=== PATIENT | female | born 1965 | race Caucasian/White ===

== ENCOUNTER 2024-10-07 09:22 | Emergency (ER) | payer OTHER, SELFPAY ==
[2024-10-07 09:31] VITALS: BP 127/84; PULSE 90; O2SAT 94
[2024-10-07 09:32] VITALS: BP 127/84; PULSE 67; RESP 17; TEMP 36.6; O2SAT 100; BMI 33.3
--- NOTE | 2024-10-07 09:37 | XR_ITS ---
FINAL REPORT CLINICAL HISTORY: LEFT KNEE PAIN, STATES THERE IS A HITCH IN IT COMPARISON: None FINDINGS: LEFT KNEE 3 views of the left knee were obtained. There is no acute fracture or dislocation. Visualized joint spaces are normally aligned. Soft tissues are unremarkable. IMPRESSION: No acute bony abnormality. Reviewed, Interpreted and Dictated by Case Dewey MD Transcribed by Kerline Franklin Authenticated and [facility]
--- NOTE | 2024-10-07 09:56 | ED_ITS ---
Discharge Plan Disposition Patient Disposition: Home, Self-Care Prescriptions Prescriptions: New hydrocodone-acetaminophen 5-325 mg tablet 1 tab PO Q6H PRN (Reason: pain) Qty: 10 0RF lidocaine 5 % adhesive patch,medicated 1 patch topical DAILY Qty: 30 0RF Rx Instructions: leave on most painful area for up to 12 hrs Referrals Follow up/Referrals: Rafita Hermosillo DO [Staff Physician] - See instructions Provider,Referral, [Primary Care Provider] - See instructions Activity Restrictions/Add. Instructions Additional Instructions/Restrictions: Call your family doctor to establish care for this visit to the emergency department and schedule follow-up within 48 hours to ensure improvement. If you have any worsening of your condition or any other concerning signs or symptoms, return to the emergency department or your primary care doctor for further evaluation. Take Tylenol 1000 mg every 6 hours (4 times daily) and ibuprofen 400 mg every 6 hours (4 times daily) as needed with food and water to prevent GI upset and kidney damage. Clinical Impressions Clinical Impression: Acute pain of left knee Print Language Print Language: Uzbek Discharge ED Provider: Landon Zavala General Adult HPI General Chief complaint: Extremity Injury, Lower Stated complaint: Left Knee pain radiating out painful to touch Time Seen by Provider: 10/07/24 09:28 Mode of Arrival: Wheelchair Source of Information: Patient Description of Symptoms (Recalled from ER Triage Doc. by RN): pt to the ED with left knee pain since last night. pt denies any injury but reports she had had a catch in that knee for the last 2 years that will flare up everynow and then History of Present Illness HPI narrative: Please note that above description of symptoms, in this electronic medical record under categorization of recalled from ER triage doctor by RN are reflective of an initial nursing assessment, however, is not reflective of my full history and physical exam that was personally taken and clarified. Consequentially, this preceding description of symptoms, which may include the patient's categorized chief complaint in the EMR, do not reflect my personal clinical impression, and the ultimate description of history of present illness and patient stated complaints should be deferred to this section of the note. Unless stated otherwise or congruent with this section of the note, additional signs, symptoms, or incongruence should be interpreted as inaccurate with my clinical impression. Related Data Previous Rx's ?Medication ?Instructions ?Recorded hydrocodone 5 mg-acetaminophen 325 1 tab PO Q6H PRN pain #10 tabs 10/07/24 mg tablet lidocaine 5 % topical patch 1 patch topical DAILY #30 ea 10/07/24 Allergies Allergy/AdvReac Type Severity Reaction Status Date / Time No Known Allergies Allergy Verified 10/07/24 09:36 [facility] Disclaimer: The information contained in this section may have been updated after the patient was seen, as this information can be updated by other users. Social History Smoking Status: Never smoker alcohol intake: never current occupational status: employed Travel in the last 8 weeks?: None ROS Obtained: Yes All systems reviewed & no additional complaints except as documented Physical Exam General General appearance: alert Head Head exam: atraumatic and normocephalic Eye Eye exam: Present normal appearance, PERRL and EOMI Neck Neck exam: Present normal inspection, full ROM and trachea midline Respiratory Respiratory exam: Absent respiratory distress, wheezes, stridor, accessory muscle use or prolonged expiratory phase Cardiovascular Cardiovascular exam: Present other (Pulses equal symmetric in upper and lower extremities) Abdominal Exam Abdominal exam: Present soft; Absent distention, tenderness or pulsatile mass Extremities Exam Extremities exam: Present tenderness (Medial and lateral joint space of the left knee. Structurally intact left knee, but any provocative testing with range of motion of the knee exacerbates pain. Neurovascularly intact left lower extremity. No outward signs of abnormality); Absent edema Neurological Exam Neurological exam: Present alert, oriented X3 and CN II-XII intact; Absent motor sensory deficit Skin Skin exam: Present warm and dry; Absent diaphoresis or erythema Medical Decision Making Medical Records Medical records reviewed: Yes I reviewed the patient's medical records. Screening: Per USPSTF and CDC recommendations, given the prevalence of disease in our region, it is our hospital?s policy to screen for HIV and viral Hepatitis for all patients aged 18 and over and those with ongoing risk factors. Khalif Inquiry Pt receiving controlled substance: No Khalif was queried for this patient: No Vital Signs: 10/07/24 09:31 10/07/24 09:32 10/07/24 10:17 Temperature 97.9 F Temperature Source Oral Pulse Rate 90 83 Pulse Rate [Left Radial] 67 Respiratory Rate 17 Blood Pressure 127/84 122/83 Blood Pressure [Right Arm] 127/84 Blood Pressure Mean [Right Arm] 98 Blood Pressure Source [Right Arm] Automatic Cuff Blood Pressure Position [Right Arm] Sitting 02 Sat by Pulse Oximetry 94 L 100 95 Oxygen Delivery Method Room Air Room Air Room Air 10/07/24 10:30 10/07/24 11:00 Temperature Temperature Source Pulse Rate 76 85 Pulse Rate [Left Radial] Respiratory Rate Blood Pressure 124/86 122/74 Blood Pressure [Right Arm] Blood Pressure Mean [Right Arm] Blood Pressure Source [Right Arm] Blood Pressure Position [Right Arm] 02 Sat by Pulse Oximetry 95 96 Oxygen Delivery Method Room Air Room Air Orders (Tests/Meds): ED MEDICATIONS Discontinued Medications Generic Name Dose Route Start Last Admin Trade Name Conrad PRN Reason Stop Dose Admin Dexamethasone 10 mg 10/07/24 09:51 10/07/24 10:25 Dexamethasone 4mg Tablet PO 10/07/24 09:52 10 mg ONCE ONE Administration Ketorolac Tromethamine 15 mg 10/07/24 09:51 10/07/24 10:26 Ketorolac 30mg/Ml Vial IV 10/07/24 09:52 Not Given ONCE ONE Ketorolac Tromethamine 15 mg 10/07/24 10:22 10/07/24 10:25 Ketorolac 30mg/Ml Vial IM 10/07/24 10:23 15 mg ONCE ONE Administration Lidocaine 1 each 10/07/24 09:51 10/07/24 10:24 Lidocaine 5% Transdermal Patch TD 10/07/24 09:52 1 each ONCE ONE Administration Ondansetron HCl 4 mg 10/07/24 09:51 10/07/24 10:24 Ondansetron 4mg Odt SL 10/07/24 09:52 4 mg ONCE ONE Administration Oxycodone HCl 5 mg 10/07/24 09:51 10/07/24 10:24 Oxycodone 5mg Immediate Release Tablet PO 10/07/24 09:52 5 mg ONCE ONE Administration ORDERS Category Date Time Status XR knee LT 3V Stat Exams 10/07/24 09:37 Taken Medical Decision Narrative: 58-year-old female history of hypertension, hyperlipidemia, insulin-dependent type 2 diabetes presenting with knee pain. She states that in the remote past, she twisted her knee while going down stairs and ever since then she has an intermittent attacks of pains. States that they have no obvious exacerbating or remitting factors. Flareup intermittently. She has tried Tylenol, Motrin, topical Biofreeze, steroid, none of these have helped. Currently severe in intensity, making it difficult to bear weight, made worse with range of motion of the knee. No history of surgery or other procedures to the knee. Has never had it looked at other than x-rays. Patient also denies fevers, chills, redness streaking from the area, systemic signs or symptoms, nausea, vomiting, but does have the knee pain radiating from the knee down to the ankle and from the knee up to the left hip. History was obtained via conversation with patient. On arrival, patient hemodynamically stable, alert, oriented x4, appropriate, GCS 15, moving all extremities spontaneously, pupils equal and reactive to light. Full physical exam performed and significant for well-appearing female who is in no acute distress, but does appear anxious and tearful. Left lower extremity tender about the knee, tenderness maximally at the joint space on the medial and lateral aspects of the knee. Range of motion is intact and full, but it is significantly tender. No outward signs of effusion or abnormality. Medial and lateral joint space of the left knee. Structurally intact left knee, but any provocative testing with range of motion of the knee exacerbates pain. Neurovascularly intact left lower extremity. No outward signs of abnormality. Differential includes sprain, strain, meniscus injury, ACL versus PCL partial tear, crystal apathy, less likely to be septic joint given no systemic signs or symptoms or redness, no effusion, among others Patient placed on continuous cardiac monitoring and continuous pulse ox with initial blood pressure 127/84, heart rate 67, saturation 100% on room air. X- rays ordered and independently interpreted, no bony abnormality. No evidence of calcium within the joint or bone spurs. I contacted orthopedics and discussed the case with them, recommended crutches, outpatient follow-up. Reevaluation, patient states she is feeling much better. given patient presentation, workup, history, this most likely represents soft tissue injury of the knee. Bedside [id number] ultrasound was performed, external ligamentous structures intact, no severe tear of the medial or lateral meniscus. Because patient at baseline without signs or symptoms of clinical decompensation, deemed appropriate for discharge. Results were relayed to patient who voiced understanding and were agreeable to outpatient management and follow up. I discussed my clinical impression with patient and answered all questions. At this time, the evidence for any other entities in the differential is insufficient to warrant any further testing or ED observation. This was explained as well. Advisory was given that persistent or worsening symptoms require further evaluation. I confirmed the understanding of this discussion. Post Acute Care Nurse Practitioner disclaimer Much of this encounter note is an electronic welder helper spoken language to printed text. Electronic welder helper of the spoken language may permit errors. Although I have reviewed the note, some errors may still exist. Critical Care Critical Care Time Critical Care Time: No
[2024-10-07 10:17] VITALS: BP 122/83; PULSE 83; O2SAT 95
[2024-10-07] MEDS: ONDANSETRON 4MG ODT 4 MG SL (10:24)
[2024-10-07] MEDS: LIDOCAINE 5% TRANSDERMAL PATCH 1 EACH TD (10:24)
[2024-10-07] MEDS: OXYCODONE 5MG IMMEDIATE RELEASE TABLET 5 MG PO (10:24)
[2024-10-07] MEDS: KETOROLAC 30MG/ML VIAL 15 MG IM (10:25)
[2024-10-07] MEDS: DEXAMETHASONE 4MG TABLET 10 MG PO (10:25)
[2024-10-07 10:30] VITALS: BP 124/86; PULSE 76; O2SAT 95
[2024-10-07 11:00] VITALS: BP 122/74; PULSE 85; O2SAT 96
[2024-10-07 11:45] VITALS: BP 143/90; PULSE 84; RESP 20; TEMP 36.8; O2SAT 97
== END 2024-10-07 11:46 | disposition home or self-care (01) ==
PROVIDERS: Emergency Provider Emergency Medicine
DX: M25.562 Pain in left knee (principal)
CPT/HCPCS: 73562; 96372; 99284; J1885; J8540; Q0162

== ENCOUNTER 2024-10-16 10:14 | Outpatient (CLI) | payer OTHER, SELFPAY ==
--- NOTE | 2024-10-16 10:30 | MR_ITS ---
FINAL REPORT TECHNIQUE: Multiplanar MR without contrast CLINICAL HISTORY: Lt knee pain, felt a pop 1 week ago COMPARISON: None FINDINGS: Articular cartilage: Unremarkable Marrow signal: There is moderate bone marrow edema in the medial tibial plateau, the etiology of which is not readily apparent. This is not typical morphology for a stress injury or contusion. Joint fluid: A small joint effusion is present. There is a large Ziegler's cyst present as well, measuring 3.8 x 2.5 x 6.5 cm in size. Menisci: There is a complex tear of the posterior horn of the medial meniscus, that may contribute to the reactive bone marrow edema in the medial tibial plateau. There is also a tiny tear of the intermargin of the lateral meniscus body. Ligaments: Unremarkable Tendons: Quadriceps and patellar tendon unremarkable. There is tendinitis of the semimembranosus tendon. IMPRESSION: 1. Complex tear of the posterior horn of the medial meniscus, with a tiny tear of the intermargin of the lateral meniscus body. 2. Moderate edema in the medial tibial plateau, that may be secondary to reactive edema from the complex tear of the posterior horn of the medial meniscus. 3. Large Ziegler's cyst as described. Reviewed, Interpreted and Dictated by Brenden Hodge MD Transcribed by Cecilia Mcgraw Authenticated and [facility]
[2024-10-16] MEDS: TOCILIZUMAB 800 MG in 0.9 % SODIUM CHLORIDE 60 ML 100 MG IV (11:55)
[2024-10-16] MEDS: SODIUM CHLORIDE 0.9% 50ML BAG 50 ML IV (11:56)
[2024-10-16 12:00] VITALS: BP 112/65; PULSE 77; RESP 18; TEMP 36.7; O2SAT 99
[2024-10-16 12:30] VITALS: BP 121/66; PULSE 74
[2024-10-16 13:05] VITALS: BP 118/62; PULSE 72
== END 2024-10-16 13:10 | disposition home or self-care (01) ==
LOC: RAD 10:14 → INF 11:26
PROVIDERS: PCP Internal Medicine; Visit Provider Nurse Practitioner Primary Care
DX: M25.562 Pain in left knee (principal)
CPT/HCPCS: 73721; 96413; J3262

== ENCOUNTER 2024-10-21 15:16 | Outpatient (RCR) | payer OTHER, SELFPAY | END 2024-10-21 23:59 | disposition home or self-care (01) | LOC: PT 15:16 | PROVIDERS: Visit Provider Physician Assistant | DX: S83.232A Complex tear of medial meniscus, current injury, left knee, initial encounter (principal); M23.91 Unspecified internal derangement of right knee | CPT/HCPCS: 97763 ==

== ENCOUNTER 2024-10-30 08:04 | Outpatient (CLI) | payer OTHER, SELFPAY ==
--- NOTE | 2024-10-30 08:00 | MR_ITS ---
FINAL REPORT TECHNIQUE: Multiplanar and multisequence imaging of the right knee was obtained without contrast. CLINICAL HISTORY: Right knee pain, r/o meniscus tear, felt pop 1.5 weeks ago COMPARISON: None FINDINGS: Bones: There is bone marrow edema within the medial femoral condyle which could represent bone contusion. Remaining marrow signal intensity is preserved. No acute fracture. There are no full thickness cartilage defects. Menisci: Lateral meniscus intact. Oblique tear posterior horn medial meniscus extending to the body.. Ligaments: Cruciate ligaments intact. Sprain or partial tear of the MCL. Lateral collateral ligament intact.. Tendons/Muscles: The quadriceps and patellar tendons are within normal limits. The biceps femoris tendon and iliotibial tract are intact. The popliteus tendon is normal. Other: There is a moderate joint effusion. Prepatellar edema is noted. IMPRESSION: Tear posterior horn medial meniscus. Bone contusion medial femoral condyle. Reviewed, Interpreted and Dictated by Vonnie Quiros MD Transcribed by Kerline Franklin Authenticated and [facility]
== END 2024-10-30 23:59 | disposition home or self-care (01) ==
LOC: RAD 08:05
PROVIDERS: PCP Internal Medicine; Visit Provider Orthopaedic Surgery
DX: S83.241A Other tear of medial meniscus, current injury, right knee, initial encounter (principal); S70.11XA Contusion of right thigh, initial encounter; M23.91 Unspecified internal derangement of right knee
CPT/HCPCS: 73721

== ENCOUNTER 2024-11-21 10:34 | Outpatient (CLI) | payer OTHER, SELFPAY ==
--- OUTSIDE RECORDS SUMMARY | 2024-11-21 10:37 | XMS_ITS | Encounter Summary ---
Author Organization Healthcare Address [address] [place] [address] Care Team Providers Care Golf Cart Attendant Name Role Phone Brisa Patel Unavailable Lionel Barriga MD Primary Care Provider +1- [phone] Encounter Details Date Type Department Care Team (Late st Contact Info) Description 11/17/2024 Telephone [facility] Medicine Specialties [address] [place] [address] , May, [address] [place] [address] Social History Tobacco Use Types Packs/Day Years Used Date Smoking Tobacco: Former Cigarettes 1 15 Smokeless Tobacco: Never Alcohol Use Standard Drinks/Week Comments Not Currently 0 (1 standard drink = 0.6 oz pur e alcohol) PHQ-2 Answer Date Recorded Patient Health Questionnaire-2 Score 0 09/15/2024 PHQ-9 Answer Date Recorded Patient Health Questionnaire-9 Score 0 09/15/2024 Comments Unknown Sex and Gender Information Value Date Recorded Sex Assigned at Not on file Legal Sex Female 8:48 PM EDT Gender Identity Not on file Sexual Orientation Not on file documented as of this encounter Miscellaneous Notes * Telephone Encounter - JasonMay, SCHEDULING AGENT - 11/17/2024 1:21 PM EDT Called patient. She reported surgery pending on one knee 11/25/2024. Currently holding the Actemra. Then she will have surgery on the other knee. She hasn't started Medrol dose pack. I recommending her to discuss with Ortho Surgeon since her surgery is next week. Infection risk is a concern with steroids. Discontinue Actemra for now. Will follow up with patient after her surgeries. documented in this encounter Plan of Treatment Upcoming Encounters Date Type Department Care Team (Late st Contact Info) Description 03/23/2025 9:00 AM EDT Office Visit [facility] Medicine Specialties [address] [place] [address] Jason May SARA Reddy [address] [place] [address] documented as of this encounter Visit Diagnoses Not on filedocumented in this encounter Additional Health Concerns Assessment Noted Time PHQ-9 Depression Total Score: 0 09/16/19 10:19 AM EDT A fall risk assessment has been complete d for the patient 09/19/2024 10:53 AM EDT A Body Mass Index follow-up plan has been documented for the patient 09/15/2024 10:49 AM EDT documented as of this encounter Care Teams Golf Cart Attendant Relationship Specialty Start Date End Date Lionel Barriga MD 100 [facility] 200 [place] [address] PCP - General 03/07/23 Brisa Patel [address] [place] [address] 01/12/22 documented as of this encounter
--- OUTSIDE RECORDS SUMMARY | 2024-11-21 10:37 | XMS_ITS | Clinical Summary ---
Author Organization [facility] Address [address] [place] [address] Care Team Providers Care Sorting Livestock Worker Name Role Phone Other, Physician Outoftolynn KERR Primary Care Provi trudy Unavailable Allergies No known active allergies Medications rosuvastatin (CRESTOR) 20 MG TABS Take 20 mg by mouth daily. 3 Active PARoxetine (PAXIL) 30 MG TABS Take 30 mg by mouth every morning. [address] (PROTONIX) 40 MG TBEC Take 40 mg by mouth 2 (two) times daily. 3 Active nitroGLYCERIN (NITROSTAT) 0.[address] 0.4 mg under the tongue. 3 Active metoprolol succinate (TOPROL-XL) 50 mg extended-release tablet Take 50 mg by mouth daily. 3 Active insulin lispro (HUMALOG) 100 Units/mL SOLN subcutaneous injection Continuously via insulin pump up to 100 units daily 3 Active Insulin Disposable Pump (OMNIPOD 5 G6 PODS, GEN 5,) MISC 1 each by Does Not Apply route. 3 Active hyoscyamine (LEVSIN/SL) 0.125 mg sublingual tablet Take 0.125 mg by mouth every 4 (four) hours as needed. 4 Active Glucagon, rDNA, (GLUCAGON EMERGENCY) 1 MG KIT Inject 1 mg under the skin. Active glucose blood STRP Use as instructed daily to check blood sugars. DX: E11.9 3 Active estradiol (ESTRACE) 0.1 MG/GM CREA Apply a pea sized amount to the vagina 3 times/week 3 Active empagliflozin (JARDIANCE) 25 MG TABS Take 1 tablet by mouth daily with dinner. 3 Active Continuous Glucose Transmitter (DEXCOM G6 TRANSMITTER) MISC 1 each by Does Not Apply route. 4 Active clopidogrel (PLAVIX) 75 mg TABS Take 75 mg by mouth daily. 3 Active aspirin 81 MG TBEC Take 81 mg by mouth daily. Active albuterol 108 (90 Base) mcg/puff inhaler Use 2 puffs. 3 Active buPROPion (WELLBUTRIN) 75 MG TABS Take 75 mg by mouth 2 (two) times daily. Active traZODone (DESYREL) 50 MG TABS Take 50 mg by mouth at bedtime. Active hydrOXYzine HCl (ATARAX) 10 MG TABS Take 10 mg by mouth 3 (three) times daily as needed. Active diphenhydrAMINE (BENADRYL) 25 mg TABS Take 1 tablet by mouth every 6 (six) hours as needed. 30 tablet 4 Active methylPREDNIsolo ne (MEDROL DOSEPAK) 4 mg tablet pack Take by mouth as per package directions. 21 tablet 4 Active Social History Tobacco Use Types Packs/Day Years Used Date Smoking Tobacco: Every Day Cigarettes Smokeless Tobacco: Never Tobacco Cessation:Ready to Q uit: Not Asked; Counseling Given: Not Answered Food Insecurities Answer Date Recorded Worried about running out of food Not on file 09/06/2023 Food Bought Not on file 09/06/2023 Housing/Utilities Answer Date Recorded Worried about losing home Not on file 2023 Stayed outside house Not on file 09/06/2023 Unable to get utilities Not on file 09/06/19 Interpersonal Safety Answer Date Record ed Feel physically or emotionally unsafe where curr ently live Not on file 09/06/2023 Harm by anyone Not on file 09/06/2023 Emotionally Harmed Not on file 09/06/2023 Transportation Answer Date Recorded Worried about transportation Not on file 03/2024 Utilities Answer Date Recorded Worried about losing home Not on file 2023 Stayed outside house Not on file 09/27/2023 Unable to get utilities Not on file 09/27/19 24 Comments Unknown Sex and Gender Information Value Date Recorded Sex Assigned at Not on file Legal Sex Female 10:12 AM EDT Gender Identity Not on file Sexual Orientation Not on file Last Filed Vital Signs Vital Sign Reading Time Taken Comments Blood Pressure 147/99 09/06/2023 10:19 AM EDT Pulse 93 09/06/2023 11:11 AM EDT Temperature 36.7 C (98 F) 09/06/2023 10:19 AM EDT Respiratory Rate 18 09/06/2023 10:19 AM EDT Oxygen Saturation 97% 09/06/2023 11:11 AM EDT Inhaled Oxygen Concentration - - Weight 102.1 kg (225 lb) 09/06/2023 10:19 AM EDT Height 170.2 cm (5' 7 ) 09/06/2023 10:19 AM EDT Body Mass Index 35.24 09/06/2023 10:19 AM EDT Plan of Treatment Health Maintenance Due Date Last Done Comments Pap Screening 12/06/1987 Mammogram Screening 2006 Colonoscopy 12/06/2011 Shingrix (#1) 2016 DTap,Tdap,and Td (1 - Tdap) 12/03/2019 12/02/2019 Pneumococcal 50+ (3 of 3 - PCV20 or PCV21) 04/08/2024 04/08/2019, 05/28/2018, 05/29/2017 Influenza Vaccine (Season Ended) 2025 02/15/2023, 03/13/2022, 03/13/2022, Additional history exists RSV Vaccine (60+ or ) (1 - 1-dose 75+ series) 2041 Pneumococcal 0-49 Discontinued 04/08/2019, , 05/29/2017 HPV Aged Out No longer eligi ble based on patient's age to complete this topic Meningococcal conjugate valent 4 (MCV4) Aged Out No longer eligible based on patient's age to complete this topic RSV Immunization (<20 months) Aged Out No longer eligible based on patient's age to complete this topic Insurance 62 [address] [id number] [address] [employer] ALL OTHERS NOT MEDICARE Care Teams Sorting Livestock Worker Relationship Specialty Start Date End Date Other, Physician MD Queta Other PCP - General Internal Medicine 09/06/23
--- OUTSIDE RECORDS SUMMARY | 2024-11-21 10:37 | XMS_ITS | Encounter Summary ---
Author Organization [facility] Address [address] [place] [address] Care Team Providers Care Supervisor Tunnel Heading Name Role Phone Brisa Patel Unavailable Lionel Barriga MD Primary Care Provider +1- [phone] Reason for Visit * Reason Onset Date Comments Actemra Approval 09/16/2024 Encounter Details Date Type Department Care Team (Late st Contact Info) Description 09/16/2024 Telephone [facility] Infusion [address] [place] [address] Serene Norman, PharmD Actemra Approval Social History Tobacco Use Types Packs/Day Years [...] as of this encounter Miscellaneous Notes * Addendum Note - Afia Rod, PharmD - 11/17/2024 1:42 PM EDTAddended by: AFIA ROD on: 11/17/2024 01:42 PM Modules accepted: Orders * Telephone Encounter - Afia Rod PharmD - 11/17/2024 1:42 PM EDT Per discussion with provider, Actemra therapy plan has been discontinued at this time. * Telephone Encounter - Serene Norman PharmD - 09/16/2024 1:21 PM EDT Infusion Authorization Information Specialty Medication: Actemra J-Code: J3262 CPT Code: n/a S-Codes ([place]): n/a Quantity and Units of Measure Authorized: 1 visit Day Supply: 365 Diagnosis Code: M06.9 Insurance Name: [facility] Insurance Type: Commercial Where did you submit request and how (portal/fax/phone number): Submitted medical PA via [facility] portalwith clinicals. REF# [id number] Authorization/Reference Number: [id number] Approval Dates: 09/05/24-09/04/25 Filling Pharmacy/SOC: [place] documented in this encounter Plan of Treatment Upcoming Encounters Date Type Department Care Team (Late st Contact Info) Description 03/23/2025 9:00 AM EDT Office Visit [facility] Medicine Specialties [address] [place] [address] Jason, May R, DIRECTOR OF HUMAN RESOURCES [address] [place] [address] documented as of this encounter Visit Diagnoses Not on filedocumented in this encounter Additional Health Concerns Assessment Noted Time PHQ-9 Depression Total Score: 0 09/16/19 10:19 AM EDT A fall risk assessment has been complete d for the patient 09/15/2024 10:19 AM EDT A Body Mass Index follow-up plan has been documented for the patient 09/15/2024 10:49 AM EDT documented as of this encounter Care Teams Supervisor Tunnel Heading Relationship Specialty Start Date End Date Lionel Barriga MD 100 [facility] 200 [place] [address] PCP - General 03/07/23 Brisa Patel [address] [place] [address] 01/12/22 documented as of this encounter
--- OUTSIDE RECORDS SUMMARY | 2024-11-21 10:37 | XMS_ITS | Encounter Summary ---
Author Organization Healthcare Address [address] [place] [address] Care Team Providers Care Certified Surgical First Assistant Name Role Phone Brisa Patel Unavailable Lionel Barriga MD Primary Care Provider +1- [phone] Reason for Referral * Consultation (Routine) - Closed Specialty Diagnoses / Procedures Referred By Contac t Referred To Contact Ophthalmology Diagnoses Type 2 diabetes mellitus treated with insulin ([facility]) Retinopathy Lionel Barriga MD [address] [address] Phone: tel: fax: [facility] [address] [place] [address] Phone: tel: fax: Referral ID Status Reason Start Date Expiration Date V isits Requested Visits Authorized [id number] Closed Specialty Services Required 03/01/2023 08/30/2024 1 1 Encounter Details Date Type Department Care Team ([facility] st Contact Info) Description 03/01/2023 Community [facility] [address] [place] [address] Lionel Barriga MD [address] [address] Type 2 diabetes mellitus treated with insulin (CMS/HCC) (Primary Dx); Retinopathy Social History Tobacco Use Types Packs/Day Years Used Date Smoking Tobacco: Never Assessed Comments Unknown Sex and Gender Information Value Date Recorded Sex Assigned at Not on file Legal Sex Female 8:48 PM EDT Gender Identity Not on file Sexual Orientation Not on file documented as of this encounter Plan of Treatment Upcoming Encounters Date Type Department Care Team (Late st Contact Info) Description 03/23/2025 9:00 AM EDT [facility] [address] [place] [address] JasonMayN [address] [place] [address] Scheduled Referrals Name Type Priority Associated Diagnoses Order Schedule Ambulatory Referral to Ophthalmology Outpatient Referral Routine Type 2 diabetes mellitus treated with insulin (CMS/HCC) Retinopathy Expected: 03/01/2023 (Approximate), Expires: 08/30/2024 documented as of this encounter Visit Diagnoses Diagnosis Type 2 diabetes mellitus treated with insulin (CMS/HCC)- Primary Retinopathy Unspecified background retinopathy documented in this encounter Care Teams Certified Surgical First Assistant Relationship Specialty Start Date End Date Lionel Barriga MD 100 [facility] 200 [place] [address] PCP - General 03/07/23 Brisa Patel [address] [place] [address] 01/12/22 documented as of this encounter
--- OUTSIDE RECORDS SUMMARY | 2024-11-21 10:37 | XMS_ITS | Referral Summary ---
Author Organization [facility] Address [address] [place] [address] Care Team Providers Care Rugby League Footballer Name Role Phone Other, Physician Outoftowamrik KERR Primary Care Provi trudy Unavailable Allergies [...] 09/06/2023 10:19 AM EDT Plan of Treatment Not on file Insurance [facility] ALL OTHERS NOT MEDICARE Care Teams Rugby League Footballer Relationship Specialty Start Date End Date Other, Physician MD Queta Other PCP - General Internal Medicine 09/06/23
--- OUTSIDE RECORDS SUMMARY | 2024-11-21 10:37 | XMS_ITS | Encounter Summary ---
Author Organization Healthcare Address [address] [place] [address] Care Team Providers Care Box Finisher Name Role Phone Brisa Patel Unavailable Lionel Barriga MD Primary Care Provider +1- [phone] Reason for Visit * Reason Onset Date Comments Actemra Re-auth 09/15/2024 Encounter Details Date Type Department Care Team (Late st Contact Info) Description 09/15/[address] [facility] Medicine Specialties [address] [place] [address] Arnav Hermosillo, [place] [address] Actemra Re-auth Social History Tobacco Use Types Packs/Day Years [...] on file documented as of this encounter Functional Status * Over the past 2 weeks, how often have you been bothered by any of the following problems? Question Answer Date of Assessment Author Little interest or pleasure in doing things Not at all 09/15/2024 10:19 AM Osbaldo Holloway Feeling down, depressed, or hopeless Not at all 09/15/2024 10:19 AM Osbaldo Holloway Patient Health Questionnaire -2 Score 0 09/15/2024 10:19 AM Osbaldo Holloway * Question Answer Date of Assessment Author Trouble falling or staying a sleep, or sleeping too much Not at all 09/15/2024 10:19 AM Osbaldo Holloway Feeling tired or having roberto le energy Not at all 09/15/2024 10:19 AM Osbaldo Holloway Poor appetite or overeating Not at all 09/15/2024 10 :19 AM Osbaldo Holloway Feeling bad about yourself - or that you are a failure or have let yourself or your family down Not at all 09/15/2024 10:19 AM Osbaldo Rosas Trouble concentrating on thi ngs, such as reading the newspaper or watching television Not at all 09/15/2024 10:19 AM Osbaldo Holloway Moving or speaking so slowly that other people could have noticed? Or the opposite - being so fidgety or restless that you have been moving around a lot more than usual. Not at all 09/15/2024 10:19 AM Osbaldo Holloway Thoughts that you would be b kei off or hurting yourself in some way Not at all 09/15/2024 10:19 AM Osbaldo Holloway Patient Health Questionnaire -9 Score 0 09/15/2024 10:19 AM Osbaldo Holloway * If you checked off any problems on this questionnaire so far, Question Answer Date of Assessment Author How difficult have these problems made it for you to do your work, take care of things at home, or get along with other people? Not difficult at all 09/15/2024 10:19 AM Osbaldo Holloway documented as of this encounter Miscellaneous Notes * Telephone Encounter - Serene Norman, PharmD - 10/06/2024 12:34 PM EDT Patient has been approved to receive infusion treatment at outside facility. [facility] will follow up with facility to make sure patient has been scheduled and received first dose. Specialty Medication: Actemra Filling Pharmacy[facility]: [facility] * Telephone Encounter - Serene Norman PharmD - 10/06/2024 12:31 PM EDT Infusion Authorization Information Specialty Medication: Acctemra J-Code: J3262 CPT Code: n/a S-Codes (Lueders): n/a Quantity and Units of Measure Authorized: Supply: 365 Diagnosis Code: M06.00 Insurance Name: [facility] Insurance Type: Commercial Where did you submit request and how (portal/fax/phone number): Portal Authorization/Reference Number: [id number] Approval Dates: 09/25/24-09/24/25 Filling Pharmacy[facility]: [facility] documented in this encounter Plan of Treatment Upcoming Encounters Date Type Department Care Team (Late st Contact Info) Description 03/23/2025 9:00 AM EDT Office Visit [facility] Medicine Specialties [address] [place] [address] Jason, May R, DISPLAY MECHANIC [address] [place] [address] documented as of this encounter Visit Diagnoses [...] documented as of this encounter Care Teams Box Finisher Relationship Specialty Start Date End Date Lionel Barriga MD 100 [facility] [address] [place] [address] PCP - General 03/07/23 Brisa Patel [address] [place] [address] 01/12/22 documented as of this encounter
--- OUTSIDE RECORDS SUMMARY | 2024-11-21 10:37 | XMS_ITS | Encounter Summary ---
Author Organization Healthcare Address [address] [place] [address] Care Team Providers Care Electronic Scale Subassembler Name Role Phone Brisa Patel Unavailable Lionel Barriga MD Primary Care Provider +1- [phone] Encounter Details Date Type Department Care Team (Late st Contact Info) Description 01/17/2022 Community [facility] [address] [place] [address] Jami Maldonado, BAKER CHEF 100 [facility] [address] [place] [address] Rheumatoid arthritis, involving unspecified site, unspecified whether rheumatoid factor present (CMS/[facility]) (Primary Dx) Social History Tobacco Use Types Packs/Day Years [...] Description 03/23/2025 9:00 AM EDT Office Visit [facility] [address] [place] [address] Shalonda Gomez, BAKER CHEF [address] [place] [address] documented as of this encounter Visit Diagnoses Diagnosis Rheumatoid arthritis, involving unspecified site, unspecified whether rheumatoid factor present ([facility])- Primary documented in this encounter Care Teams Electronic Scale Subassembler Relationship Specialty Start Date End Date Lionel Barriga MD 100 [facility] [address] [place] [address] PCP - General 03/07/23 Brisa Patel [address] [place], [place] [id number] 01/12/22 documented as of this encounter
--- OUTSIDE RECORDS SUMMARY | 2024-11-21 10:37 | XMS_ITS | Clinical Summary ---
Author Organization Healthcare Address [address] [place] [address] Care Team Providers Care Fleet Director Name Role Phone Brisa Patel Unavailable Lionel Barriga MD Primary Care Provider +1- [phone] Allergies No known active allergies Medications acetaminophen (Tylenol) 500 MG tablet Take by mouth. Activ e aspirin 81 MG EC tablet Take 1 tablet by mouth 1 time each day. Active B Fnqcyon-K-Tqevx Acid (Super B Complex/FA/Vit C) tablet Active cholecalciferol 50 MCG (1999 UT) tablet Active clopidogrel (Plavix) 75 MG tablet Take 1 tablet by mouth 1 time each day. 10/02/19 23 Active Glucagon 1 MG/0.2ML solution auto-injector Active Omnipod 5 G6 Pod, Gen 5, (Omnipod5) misc 01/04/20 23 Active Insulin Lispro (Admelog, HumaLOG) 100 UNIT/ML injection vial Continuously via insulin pump up to 100 units daily 12/21/19 23 Active metoprolol succinate XL (Toprol-XL) 50 MG 24 hr tablet Take 1 tablet by mouth 1 time each day. 10/02/19 22 Active Multiple Vitamin (MULTI-VITAMIN DAILY PO) Active nitroglycerin (Nitrostat) 0.[address] 1 tablet under the tongue. 10/02/19 22 Active PARoxetine (Paxil) 30 MG tablet Take 1 tablet by mouth 1 time each day. 09/14/19 23 Active pantoprazole (Protonix) 40 MG EC tablet Take 1 tablet (40 mg) by mouth 1 (one) time each day. Active rosuvastatin (Crestor) 20 MG tablet Take 1 tablet (20 mg) by mouth 1 (one) time each day. 30 tablet 11 10/12/19 23 Active Alcohol Swabs (Alcohol Prep) pads Active Blood Glucose Monitoring Suppl (FreeStyle Lite) w/Device kit 03/08/20 23 Active buPROPion XL (Wellbutrin XL) 300 MG 24 hr tablet Take 450 mg by mouth 1 (one) time each day in the morning. 11/06/19 24 Active Continuous Glucose Sensor (Dexcom G6 Sensor) misc 10/24/19 24 Active estradiol (Estrace) 0.1 MG/GM vaginal cream 11/07/19 24 Active fluticasone (Flonase) 50 MCG/ACT nasal spray 03/19/20 23 Active ondansetron ODT (Zofran-ODT) 4 MG disintegrating tablet 04/10/20 23 Active hydrOXYzine HCl (Atarax) 50 MG tablet Take 1 tablet by mouth daily. Active Synjardy XR 25-1000 MG 24 hr tablet Take 1 tablet by mouth daily with breakfast. 01/02/20 24 Active Glucagon 0.5 MG/0.1ML solution auto-injector 1 mg. Active Continuous Glucose Electronic News Gathering Editor (Dexcom G6 electric repair supervisor) device 09/07/19 24 Active traZODone (Desyrel) 100 MG tablet 02/11/20 24 Active predniSONE (Deltasone) 5 MG tabletIndications: Rheumatoid arthritis, involving unspecified site, unspecified whether rheumatoid factor present ([facility]) 1-2 tablets daily as needed for flare up. Notify Rheumatology provider if you have to take for 5 consecutive days. 30 tablet 1 09/09/19 25 Active atomoxetine (Strattera) 25 MG capsule Take 1 capsule by mouth 1 time each day. Active famotidine-calcium carb-mag hydroxide (Pepcid Complete) 10-800-165 MG chewable tablet Chew 1 tablet daily as needed for heartburn. Active methylPREDNISolone (Medrol Dospak) 4 MG tablets Follow schedule on package instructions 21 tablet 10/24/19 25 Active Active Problems Problem Noted Date Diagnosed Date Obesity (BMI 30.0-34.9) 10/11/2022 03/07/20 CAD (coronary artery disease) 10/03/2021 Overview (03/07/2023): NSTEMI 10/01/2021 treated at [facility] with 100% ramus treated with a 2.5 mm LILY, proximal and mid LAD treated with 3.0 mm i Synergy stents. Residual chest pain admitted to [facility] 10/04/2021, repeat C showed widely patent ramus and LAD stents between the proximal and mid LAD stents 20-30% stenosis, proximal RCA 10-20%. LVEDP 14 mmHg. 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 03/07/2023 Encounters Date Type Department Care Team Description 11/17/2024 Telephone [facility] Medicine Specialties [address] [place] [address] Shalonda Gomez, COLLAR WORKER 09/19/2024 10:47 AM EDT - 09/19/2024 11:59 PM EDT Hospital Encounter [facility] [address] [place] [address] Rheumatoid arthritis, involving unspecified site, unspecified whether rheumatoid factor present (CMS/HCC) (Primary Dx); Rheumatoid arthritis involving multiple sites, unspecified whether rheumatoid factor present (CMS/[facility]) Discharge Disposition: Home or Self Care 09/19/2024 Travel 09/18/2024 Telephone [facility] [address] [place] [address] Tram Gibson, COLLAR WORKER, DNP 09/16/2024 Telephone [facility] [address] [place] [address] Serene Norman, PharmD Actemra Approval 09/15/2024 10:30 AM EDT Office Visit [facility] Medicine Specialties [address] [place] [address] Jason, May R, COLLAR WORKER Rheumatoid arthritis, involving unspecified site, unspecified whether rheumatoid factor present ([facility]) (Primary Dx); High risk medication use 09/15/2024 Telephone [facility] Medicine Specialties [address] [place] [address] Arnav Hermosillo, PharmD Actemra Re-auth 09/15/2024 Travel 09/09/2024 Travel 09/08/2024 Refill [facility] Specialties [address] [place] [address] May R, COLLAR WORKER Rheumatoid arthritis, involving unspecified site, unspecified whether rheumatoid factor present ([facility]) from Last 3 Months Immunizations Immunization Administration Dates Next Due Hep A, Adult 04/08/2019, 9,04/02/2018,03/28 Influenza, Unspecified 03/13/2022,06/16/2020 Influenza, injectable, quadrivalent 03/24/2020,0 01/26/2019 Influenza, injectable, quadr ivalent, preservative free 02/15/2023,03/13/2022,04/08/2019 Pneumococcal Conjugate PCV 13 04/08/2019, 019 Pneumococcal Polysaccharide PPV23 05/29/2017,05/2017 TD (adult), 2 Lf tetanus tox oid, preservative free, adsorbed 12/02/2019 Zoster, Recombinant 12/31/2019,12/04/2019 Family History Medical History Relation Name Comments Cataracts Father Diabetes Father Hypertension Father Stroke Father Cancer Maternal Grandfather COPD Mother Cataracts Mother Crohn's disease Mother Macular degeneration Mother Diabetes Paternal Grandmother Relation Name Status Comments Father Maternal Grandfather Mother Paternal Grandmother Social History Tobacco Use Types Packs/Day Years Used Date Smoking Tobacco: Former Cigarettes 1 15 Smokeless Tobacco: Never Tobacco Cessation:Counseling Given: Not Answered Alcohol Use Standard Drinks/Week Comments Not Currently [...] Sign Reading Time Taken Comments Blood Pressure 128/84 09/19/2024 12:53 PM EDT Pulse 79 09/19/2024 12:53 PM EDT Temperature 36.6 C (97.9 F) 09/19/2024 10:52 AM EDT Respiratory Rate 16 09/19/2024 10:52 AM EDT Oxygen Saturation 95% 09/15/2024 10:15 AM EDT Inhaled Oxygen Concentration - - Weight 102 kg (223 lb 15.8 oz) 09/19/2024 10:52 AM EDT Height 170.2 cm (5' 7 ) 09/19/2024 10:52 AM EDT Body Mass Index 35.08 09/19/2024 10:52 AM EDT Plan of Treatment Upcoming Encounters Date Type Department Care Team (Late st Contact Info) Description 03/23/2025 9:00 AM EDT Office Visit [facility] Medicine Specialties [address] [place] [address] Jason, May R, COLLAR WORKER [address] [place] [address] Health Maintenance Due Date Last Done Comments [facility]-Infant/Child/Adol SDOH Screenings 1966 [id number] Vaccine (#1) 12/06/1971 Diabetes: Dental Exam 1976 [facility]- SDOH Screenings 1984 [facility]-Adult SDOH Screenings 1984 [facility]-Hepatitis B Vaccines (1 of 3 - 19+ 3-dose series) 1985 [facility]-Pap Smear 12/06/1987 [facility]-Cervical Cancer Screening 1996 [facility]-HPV/Cotest 1996 CT Colonography 12/06/2011 Colonoscopy 12/06/2011 FIT-DNA 12/06/2011 FIT 12/06/2011 FOBT 12/06/2011 Sigmoidoscopy 12/06/2011 [facility]-Colorectal Cancer Screening 12/06/2011 [facility]-DTaP,Tdap,and Td Vaccines (1 - Tdap) 12/03/2019 12/02/2019 [facility]-Pneumococcal Vaccine: 50+ Years (3 of 3 - PCV20 or PCV21) 04/08/2024 04/08/2019, 05/28/2018, 05/29/2017, Additional history exists [facility]-Breast Cancer Screening 04/26/2024 04/26/2022, 1 06/26/2021 [facility]-Diabetes: Hemoglobin A1C 11/26/202406/2024, 06/20/2023, 03/13/2022, Additional history exists [facility]-Influenza Vaccine (Season Ended) 2025 02/15/2023, 03/13/2022, 03/13/2022, Additional history exists [facility]-Depression Screening 09/15/2025 09/15/2024, 08/27 [facility]-Hepatitis A Vaccines Aged Out 019, 01/26/2019, 04/02/2018, Additional history exists No longer eligible based on patient's age to complete this topic [facility]-Zoster Vaccines Completed 12/31/2019, 0 [facility]-HIV Screening Completed 11/12/2023 [facility]-Hepatitis C Screening Completed 11/12/2023 [facility]-Obesity Intervention Completed 025, 06/20/2024, 04/16/2024, Additional history exists HPV Vaccines Aged Out No longer eligi ble based on patient's age to complete this topic [facility]-HIB Vaccines Aged Out No longer e ligible based on patient's age to complete this topic [facility]-IPV Vaccines Aged Out No longer e ligible based on patient's age to complete this topic [facility]-Rotavirus Vaccines Aged Out No lo nger eligible based on patient's age to complete this topic Procedures Procedure Name Priority Date/Time Associated Diagnosis Comments ACUTE HEPATITIS PANEL Routine 11/12/2023 9:29 AM EDT Polyarthralgia HIV 1/2 ANTIBODY/ANTIGEN SCREEN WITH REFLEX TO HIV I/II DIFFERENTIATION Routine 11/12/2023 9:29 AM EDT Polyarthralgia from Last 3 Months or Most Recently Relevant to Health Maintenance Results * HIV 1 & 2 Antibody/Antigen Screen (11/12/2023 9:29 AM EDT) HIV 1 & 2 Antibody/Antigen Screen Non Reactive Non Reactive 11/12/2023 11:25 AM EDT [facility] Comment:Screening for HIV 1 & 2 antibodies, and P24 antigen is NONREACTIVE. No confirmatory testing is required. Blood Venous blood specimen / Unknown Venipuncture / Unknown 11/12/2023 9:29 AM EDT 11/12/2023 9:32 AM EDT May Jason RUIZ LAB BLOOD ORDERABLES Final Result Performing Organization Address [facility] Phone Number [facility] [address] [place] [address] * Acute Hepatitis Panel (11/12/2023 9:29 AM EDT) Hepatitis B Surf Antigen Negative Negative 11/12/2023 11:46 AM EDT [facility] Hepatitis C Antibody Negative Negative 11/12/2023 11:46 AM EDT [facility] Hepatitis A Antibody IgM Negative Negative 11/12/2023 11:46 AM EDT [facility] Hepatitis B Core Antibody IgM Negative Negative 11/12/2023 11:46 AM EDT [facility] Blood Venous blood specimen / Unknown Venipuncture / Unknown 11/12/2023 9:29 AM EDT 11/12/2023 9:32 AM EDT May Jason BOBN LAB BLOOD ORDERABLES Final Result Performing Organization Address [facility] Co va Phone Number [facility] [address] [place] [address] from Last 3 Months or Most Recently Relevant to Health Maintenance Insurance [facility] Care Teams Fleet Director Relationship Specialty Start Date End Date Lionel Barriga MD 100 [facility] [address] [place] [address] PCP - General 03/07/23 Brisa Patel [address] [place] [address] 01/12/22
--- OUTSIDE RECORDS SUMMARY | 2024-11-21 10:37 | XMS_ITS | Clinical Summary ---
Author Organization [facility] Address [address] [place] [address] Care Team Providers Care Screen Repairer Crusher Name Role Phone Unavailable Primary Care Provider Unavailabl e Allergies No known active allergies Social History Tobacco Use Types Packs/Day Years Used Date Smoking Tobacco: Every Day Cigarettes Smokeless Tobacco: Never Tobacco Cessation:Ready to Q uit: Not Asked; Counseling Given: Not Answered Alcohol Use Standard Drinks/Week Comments Not Currently 0 (1 standard drink = 0.6 oz pur e alcohol) AUDIT-C Answer Date Recorded Q1: How often do you have a drink containing alcohol? Never 09/22/2023 Q2: How many drinks containi ng alcohol do you have on a typical day when you are drinking? Patient does not drink Q3: How often do you have si x or more drinks on one occasion? Never 09/22/2023 Interpersonal Safety Domain Source: IP Abuse Scr eening Answer Date Recorded Read-Only, Retired: Physical Abuse Denies 09/22/2023 Read-Only, Retired: Verbal Abuse Denies 09/22/2023 Read-Only, Retired: Emotional abuse Denies 09/22/2023 Read-Only, Retired: Financial Abuse Denies 09/22/2023 Read-Only, Retired: Sexual abuse Denies 09/22/2023 Comments No Sex and Gender Information Value Date Recorded Sex Assigned at Not on file Legal Sex Female 3:07 PM EDT Gender Identity Not on file Sexual Orientation Not on file Last Filed Vital Signs Vital Sign Reading Time Taken Comments Blood Pressure 108/77 09/22/2023 3:30 PM EDT Pulse 76 09/22/2023 3:30 PM EDT Temperature 36.7 C (98 F) 09/22/2023 3:20 PM EDT Respiratory Rate 19 09/22/2023 3:30 PM EDT Oxygen Saturation 97% 09/22/2023 3:30 PM EDT Inhaled Oxygen Concentration - - Weight 103 kg (227 lb 1.2 oz) 09/22/2023 3:20 PM EDT Height 170.2 cm (5' 7 ) 09/22/2023 3:20 PM EDT Body Mass Index 35.56 09/22/2023 3:20 PM EDT Plan of Treatment Health Maintenance Due Date Last Done Comments DTaP/Tdap/Td vaccine (1 - Tdap) 1985 COVID-19 Vaccine ( - season) 2024 Flu vaccine (Season Ended) 12/26/202402/15, 03/13/2022, 06/16/2020, Additional history exists Polio vaccine Aged Out No longer elig ible based on patient's age to complete this topic Insurance [place]
--- NOTE | 2024-11-21 10:46 | ECG_ITS ---
APPROVED REPORT Exam: Resting ECG HR:77 bpm ECG Measurements Heart Rate 77 AXES MD 168 P 36 QRSd 94 QRS 18 QT 410 T 42 QTc 442 Conclusion SINUS RHYTHM Left atrial abnormality BORDERLINE ECG UNCONFIRMED REPORT Electronically signed by : Kareem Collazo MD 11/22/2024 07:50:32
--- NOTE | 2024-11-21 11:02 | XR_ITS ---
FINAL REPORT CLINICAL HISTORY: surgery states knee surgery next sunday hx of cardiac stents denies cp or soa COMPARISON: None FINDINGS: CHEST TO IS: No acute pulmonary density is evident. There is no evidence of effusion or other pleural disease. The mediastinum has a normal appearance. The cardiac silhouette is unremarkable. IMPRESSION: Unremarkable chest exam. Reviewed, Interpreted and Dictated by Brenden Hodge MD Transcribed by Cecilia Mcgraw Authenticated and [facility]
[2024-11-21 11:07] LABS: Basophils # 0.1 K/mm3 (0-0.2); Basophils % 2.6 % (0.1-2.0); Eosinophils # 0.4 Kmm3 (0.0-0.4); Eosinophils % 9.4 % (0.1-12.0); Hematocrit 43.4 % (37.0-47.0); Immature Granulocytes # 0.01 10^3uL; Immature Granulocytes % 0.3 %; Lymphocytes # 1.5 K/mm3 (0.7-4.5); Lymphocytes % 37.2 % (10-50); Mean Corpuscular HGB Conc 32.3 g/dL (31.8-35.4); Mean Corpuscular Hemoglobin 29.7 pg (27.0-31.2); Mean Corpuscular Volume 91.9 fl (81-99); Mean Platelet Volume 10.4 fl (7.4-10.4); Monocytes # 0.2 K/mm3 (0.1-1.0); Monocytes % 5.6 % (1.7-9.3); Neutrophils # 1.8 K/mm3 (1.8-7.8); Neutrophils % 44.9 % (37.0-80.0); Nucleated Red Blood Cells # 0 10^3/uL; Nucleated Red Blood Cells % 0 %; Platelet Count 185 K/mm3 (142-424); Red Blood Count 4.72 M/mm3 (4.20-5.40); Red Cell Distribution Width 12.8 % (11.5-17.5); Red Cell Distribution Width-SD 43.1 fL; White Blood Count 3.9 K/mm3 (4.8-10.8)
[2024-11-21 11:15] LABS: Anion Gap 12.2 mEq/L (5-15); Blood Urea Nitrogen 19 mg/dl (7-17); Calcium 9.2 mg/dl (8.4-10.2); Carbon Dioxide 24 mmol/L (22.0-30.0); Chloride 100 mmol/L (98-107); Estimated Glomerular Filt Rate 51 ml/min (>60); GFR (African American) 62 ML/MIN (>60); Potassium 4.2 mmoL/L (3.5-5.1); Sodium 132 mmol/L (136-145)
[2024-11-21 11:19] LABS: Glucose 437 mg/dl (74-100)
== END 2024-11-21 23:59 | disposition home or self-care (01) ==
LOC: PREOP 10:35
PROVIDERS: PCP Internal Medicine; Visit Provider Orthopaedic Surgery
DX: Z01.810 Encounter for preprocedural cardiovascular examination (principal); Z01.811 Encounter for preprocedural respiratory examination; Z01.812 Encounter for preprocedural laboratory examination; S83.241A Other tear of medial meniscus, current injury, right knee, initial encounter; M23.91 Unspecified internal derangement of right knee; R94.31 Abnormal electrocardiogram [ECG] [EKG]
CPT/HCPCS: 71046; 80048; 85025; 93005

== ENCOUNTER 2024-11-22 13:52 | Emergency (ER) | payer OTHER, SELFPAY ==
[2024-11-22] VITALS (7 sets, daily range): BP systolic 106–147; BP diastolic 62–72; PULSE 56–67; RESP 20; TEMP 36.8; O2SAT 95–98; BMI 33.3
--- OUTSIDE RECORDS SUMMARY | 2024-11-22 14:02 | XMS_ITS | Clinical Summary ---
Author Organization [facility] Address [address] [place] [address] Care Team Providers Care Nutritional Assistant Name Role Phone Unavailable Primary Care Provider [...]
--- OUTSIDE RECORDS SUMMARY | 2024-11-22 14:02 | XMS_ITS | Referral Summary ---
Author Organization [facility] Address [address] [place] [address] Care Team Providers Care Interior Design Faculty Member Name Role Phone Other, Physician Outoftowamrik KERR [...] Plan of Treatment Not on file Insurance [facility] BLUE CROSS ALL OTHERS NOT MEDICARE Care Teams Interior Design Faculty Member Relationship Specialty Start Date End Date Other, Physician MD Queta Other PCP - General Internal Medicine 09/06/23
--- OUTSIDE RECORDS SUMMARY | 2024-11-22 14:02 | XMS_ITS | Encounter Summary ---
Author Organization Healthcare Address [address] [place] [address] Care Team Providers Care Spray Drier Operator Helper Name Role Phone Brisa Patel Unavailable Lionel Barriga MD Primary Care Provider +1- [phone] Reason for Referral * Consultation (Routine) - Closed Specialty Diagnoses / Procedures Referred By Contac t Referred To Contact Ophthalmology Diagnoses Type 2 diabetes mellitus treated with insulin ([facility]) Retinopathy Lionel Barriga MD [address] [address] Phone: tel: fax: [facility] [address] [place] [address] Phone: tel: fax: Referral ID Status Reason Start Date Expiration Date V isits Requested Visits Authorized [id number] Closed Specialty Services Required 03/01/2023 08/30/2024 1 1 Encounter Details Date Type Department Care Team ([facility] st Contact Info) Description 03/01/2023 Community [facility] Community Practice [address] [place] [address] Lionel Barriga MD [address] [address] Type 2 diabetes mellitus treated with insulin [...] Description 03/23/2025 9:00 AM EDT Office Visit [facility] Specialties [address] [place] [address] JasonMayN [address] [place] [address] Scheduled Referrals Name Type Priority Associated Diagnoses Order Schedule Ambulatory Referral to Ophthalmology Outpatient Referral Routine Type 2 diabetes mellitus treated with insulin (CMS/HCC) Retinopathy Expected: 03/01/2023 (Approximate), Expires: 08/30/2024 documented as of this encounter Visit Diagnoses Diagnosis Type 2 diabetes mellitus treated with insulin (CMS/HCC)- Primary Retinopathy Unspecified background retinopathy documented in this encounter Care Teams Spray Drier Operator Helper Relationship Specialty Start Date End Date Lionel Barriga MD [address] [facility] [address] [place] [address] PCP - General 03/07/23 Brisa Patel [address] [place] [address] 01/12/22 documented as of this encounter
--- OUTSIDE RECORDS SUMMARY | 2024-11-22 14:02 | XMS_ITS | Encounter Summary ---
Author Organization Healthcare Address [address] [place] [address] Care Team Providers Care Health It Specialist Name Role Phone Brisa Patel Unavailable Lionel Barriga MD Primary Care Provider +1- [phone] Encounter Details Date Type Department Care Team (Late st Contact Info) Description 11/17/2024 Telephone [facility] [address] [place] [address] , May, [address] [place] [address] Social History Tobacco Use Types [...] Miscellaneous Notes * Telephone Encounter - JasonMay, INDUSTRIAL RELATIONS COMMISSIONER - 11/17/2024 1:21 PM EDT Called patient. [...] Description 03/23/2025 9:00 AM EDT Office Visit [facility] Medicine Specialties [address] [place] [address] Jason May SARA Reddy [address] [place] [address] documented as of this encounter [...] documented as of this encounter Care Teams Health It Specialist Relationship Specialty Start Date End Date Lionel Barriga MD 100 [facility] 200 [place] [address] PCP - General 03/07/23 Brisa Patel [address] [place] [address] 01/12/22 documented as of this encounter
--- OUTSIDE RECORDS SUMMARY | 2024-11-22 14:02 | XMS_ITS | Encounter Summary ---
Author Organization Healthcare Address [address] [place] [address] Care Team Providers Care Manager Life Sciences Name Role Phone Brisa Patel Unavailable Lionel Barriga MD Primary Care Provider +1- [phone] Reason for Visit * Reason Onset Date Comments Actemra Re-auth 09/15/2024 Encounter Details Date Type Department Care Team (Late st Contact Info) Description 09/15/2024 Telephone [facility] Medicine Specialties [address] [place] [address] Arnav Hermosillo, PharmD [place] [address] Actemra Re-auth Social History Tobacco Use Types [...] to receive infusion treatment at outside facility. [facility] will follow up with facility to make sure patient has been scheduled and received first dose. Specialty Medication: Actemra Filling Pharmacy[facility]: [facility] * Telephone Encounter - Serene Norman PharmD - 10/06/2024 12:31 PM EDT Infusion Authorization Information Specialty Medication: Acctemra J-Code: J3262 CPT Code: n/a S-Codes ([place]): n/a Quantity and Units of Measure Authorized: Supply: 365 Diagnosis Code: M06.00 Insurance Name: [facility] Insurance Type: Commercial Where did you submit request and how (portal/fax/phone number): Portal Authorization/Reference Number: [id number] Approval Dates: 09/25/24-09/24/25 Filling Pharmacy/SOC: [facility] documented in this encounter Plan of Treatment Upcoming Encounters Date Type Department Care Team (Late st Contact Info) Description 03/23/2025 9:00 AM EDT Office Visit [facility] Specialties [address] [place] [address] Jason, May R, MOGUL OPERATOR [address] [place] [address] documented as of this encounter Visit Diagnoses [...] documented as of this encounter Care Teams Manager Life Sciences Relationship Specialty Start Date End Date Lionel Barriga MD 100 [facility] 200 [place] [address] PCP - General 03/07/23 Brisa Patel [address] [place] [address] 01/12/22 documented as of this encounter
--- OUTSIDE RECORDS SUMMARY | 2024-11-22 14:02 | XMS_ITS | Clinical Summary ---
Author Organization Healthcare Address [address] [place] [address] Care Team Providers Care Travel Manager Name Role Phone Brisa Patel Unavailable Lionel Barriga MD Primary Care Provider +1- [phone] Allergies No known active allergies Medications acetaminophen (Tylenol) 500 MG tablet Take by mouth. Activ e aspirin 81 MG EC tablet Take 1 tablet by mouth 1 time each day. Active B Dawkulb-A-Ljzqu Acid (Super B Complex/FA/Vit C) tablet Active [...] solution auto-injector 1 mg. Active Continuous Glucose Solar Installation Crew Supervisor (Dexcom G6 preventive medicine officer) device 09/07/19 24 Active traZODone (Desyrel) 100 MG tablet 02/11/20 24 Active predniSONE (Deltasone) 5 MG tabletIndications: Rheumatoid arthritis, involving unspecified site, unspecified whether rheumatoid factor present ([facility]) 1-2 tablets daily as needed for flare [...] 10/03/2021 Overview (03/07/2023): NSTEMI 10/01/2021 treated at [place] with 100% ramus treated with a 2.5 mm LILY, proximal and mid LAD treated with 3.0 mm i Synergy stents. Residual chest pain admitted to [facility] 10/04/2021, repeat C showed widely patent ramus [...] Type Department Care Team Description 11/17/2024 Telephone [facility] Medicine Specialties [address] [place] [address] Shalonda Gomez, PULP TESTER 09/19/2024 10:47 AM EDT - 09/19/2024 11:59 PM EDT Hospital Encounter [facility] [address] [place] [address] Rheumatoid arthritis, involving unspecified site, unspecified whether rheumatoid factor present (CMS/HCC) (Primary Dx); Rheumatoid arthritis involving multiple sites, unspecified whether rheumatoid factor present (CMS/[facility]) Discharge Disposition: Home or Self Care 09/19/2024 Travel 09/18/2024 Telephone [place] [facility] [address] [place] [address] Tram Gibson, PULP TESTER, DNP 09/16/2024 Telephone [place] [facility] [address] [place] [address] Serene Norman, PharmD Actemra Approval 09/15/2024 10:30 AM EDT Office Visit [facility] Medicine Specialties [address] [place] [address] Jason, May R, PULP TESTER Rheumatoid arthritis, involving unspecified site, unspecified whether rheumatoid factor present ([facility]) (Primary Dx); High risk medication use 09/15/2024 Telephone [facility] Medicine Specialties [address] [place] [address] Arnav Hermosillo, PharmD Actemra Re-auth 09/15/2024 Travel 09/09/2024 Travel 09/08/2024 Refill [facility] Medicine Specialties [address] [place] [address] May R, PULP TESTER Rheumatoid arthritis, involving unspecified site, unspecified whether rheumatoid factor present ([facility]) from Last 3 Months Immunizations Immunization Administration [...] Description 03/23/2025 9:00 AM EDT Office Visit [facility] Medicine Specialties [address] [place] [address] Jason, May R, PULP TESTER [address] [place] [address] Health Maintenance Due Date Last Done Comments UK[facility]-Infant/Child/Adol SDOH Screenings 1965 [id number] Vaccine (#1) 12/06/1971 Diabetes: Dental Exam 1976 [...] BLOOD ORDERABLES Final Result Performing Organization Address [facility] Phone Number [facility] [address] [place] [address] * Acute Hepatitis Panel (11/12/2023 9:29 AM EDT) Hepatitis B Surf Antigen Negative Negative 11/12/2023 11:46 AM EDT [facility] Hepatitis C Antibody Negative Negative 11/12/2023 11:46 AM EDT [facility] Hepatitis A Antibody IgM Negative Negative 11/12/2023 11:46 AM EDT [facility] Hepatitis B Core Antibody IgM Negative Negative 11/12/2023 11:46 AM EDT [facility] Blood Venous blood specimen / Unknown Venipuncture / Unknown 11/12/2023 9:29 AM EDT 11/12/2023 9:32 AM EDT May Jason BOBN LAB BLOOD ORDERABLES Final Result Performing Organization Address [facility] Phone Number [facility] [address] [place] [address] from Last 3 Months or Most Recently Relevant to Health Maintenance Insurance [facility] [employer] [employer] Care Teams Travel Manager Relationship Specialty Start Date End Date Lionel Barriga MD 100 [facility] 200 [place] [address] PCP - General 03/07/23 Brisa Patel [address] [place] [address] 01/12/22
--- OUTSIDE RECORDS SUMMARY | 2024-11-22 14:02 | XMS_ITS | Encounter Summary ---
Author Organization [facility] Address [address] [place] [address] Care Team Providers Care Boomboat Operator Name Role Phone Brisa Patel Unavailable Lionel Barriga MD Primary Care Provider +1- [phone] Reason for Visit * Reason Onset Date Comments Actemra Approval 09/16/2024 Encounter Details Date Type Department Care Team (Late st Contact Info) Description 09/16/2024 Telephone [facility] [address] [place] [address] Serene Norman, PharmD Actemra Approval [...] Actemra J-Code: J3262 CPT Code: n/a S-Codes ([place]): n/a Quantity and Units of Measure Authorized: 1 visit Day Supply: 365 Diagnosis Code: M06.9 Insurance Name: [facility] Insurance Type: Commercial Where did you submit request and how (portal/fax/phone number): Submitted medical PA via [facility] portalwith clinicals. REF# [id number] Authorization/Reference Number: [id number] Approval Dates: 09/05/24-09/04/25 Filling Pharmacy/SOC: [place] documented in this encounter Plan of Treatment Upcoming Encounters Date Type Department Care Team (Late st Contact Info) Description 03/23/2025 9:00 AM EDT Office Visit [facility] Medicine Specialties [address] [place] [address] Jason, May R, HAND PATTERN MARKER [address] [place] [address] documented as of this encounter Visit Diagnoses [...] documented as of this encounter Care Teams Boomboat Operator Relationship Specialty Start Date End Date Lionel Barriga MD 100 [facility] 200 [place] [address] PCP - General 03/07/23 Brisa Patel [address] [place] [address] 01/12/22 documented as of this encounter
--- OUTSIDE RECORDS SUMMARY | 2024-11-22 14:02 | XMS_ITS | Clinical Summary ---
Author Organization [facility] Address [address] [place] [address] Care Team Providers Care Utilization Specialist Name Role Phone Other, Physician Outoftolynn KERR [...] complete this topic Insurance [address] [id number] ONEIL MASSEY CROSS ALL OTHERS NOT MEDICARE Care Teams Utilization Specialist Relationship Specialty Start Date End Date Other, Physician MD Queta Other PCP - General Internal Medicine 09/06/23
--- OUTSIDE RECORDS SUMMARY | 2024-11-22 14:02 | XMS_ITS | Encounter Summary ---
Author Organization Healthcare Address [address] [place] [address] Care Team Providers Care Yarn Comber Name Role Phone Brisa Patel Unavailable Lionel Barriga MD Primary Care Provider +1- [phone] Encounter Details Date Type Department Care Team (Late st Contact Info) Description 01/17/2022 Community [facility] [address] [place] [address] Jami Maldonado, DENTAL SURGERY DOCTOR 100 [facility] 200 [place] [address] Rheumatoid arthritis, involving unspecified site, unspecified whether rheumatoid factor present (CMS/[facility]) (Primary Dx) Social History Tobacco Use Types [...] Description 03/23/2025 9:00 AM EDT Office Visit [facility] Medicine Specialties [address] [place] [address] Shalonda Gomez, DENTAL SURGERY DOCTOR [address] [place] [address] documented as of this encounter Visit Diagnoses Diagnosis Rheumatoid arthritis, involving unspecified site, unspecified whether rheumatoid factor present ([facility])- Primary documented in this encounter Care Teams Yarn Comber Relationship Specialty Start Date End Date Lionel Barriga MD 100 [facility] 200 [place] [address] PCP - General 03/07/23 Brisa Patel [address] [place], [place] [id number] 01/12/22 documented as of this encounter
--- NOTE | 2024-11-22 14:09 | HMH.EDGENADL ---
Discharge Plan Disposition Patient Disposition: Home, Self-Care Prescriptions Prescriptions: No Action rosuvastatin 20 mg tablet 20 mg PO DAILY Patient Comments: TAKE ONE TABLET BY MOUTH EVERY DAY clopidogrel 75 mg tablet 75 mg PO DAILY Patient Comments: TAKE ONE TABLET BY MOUTH EVERY DAY metoprolol succinate 50 mg tablet extended release 24 hr 50 mg PO DAILY Patient Comments: TAKE ONE TABLET BY MOUTH EVERY DAY bupropion HCl 300 mg tablet extended release 24 hr 300 mg PO DAILY hydroxyzine HCl 50 mg tablet 50 mg PO HS trazodone 100 mg tablet 100 mg PO DAILY (DME) Dexcom G7 Sensor Device See Rx Instructions .Route Rx Instructions: As directed atomoxetine 25 mg capsule 50 mg PO DAILY aspirin 81 mg tablet 81 mg PO DAILY glucagon 0.5 mg/0.1 mL auto-injector 0.5 mg SQ NEEDED PRN (Reason: low blood glucose) ondansetron 4 mg tablet,disintegrating 4 mg PO Q8H estradiol 0.01 % (0.1 mg/gram) cream 1 appful vaginal DAILY Rx Instructions: for 14 days paroxetine HCl 30 mg tablet 30 mg PO DAILY nitroglycerin 0.4 mg tablet, sublingual 0.4 mg sublingual Q5M PRN (Reason: Chest Pain) Rx Instructions: do not exceed 3 doses per episode insulin lispro [Humalog KwikPen Insulin] 100 unit/mL insulin pen 1 sliding scale dose SQ USEASDIRECTD fluticasone propionate 50 mcg/actuation spray,suspension 2 spray intranasal DAILY Rx Instructions: administer into each nostril hydrocodone-acetaminophen 5-325 mg tablet 1 tab PO Q6H PRN (Reason: pain) Qty: 10 0RF prednisone 20 mg tablet 40 mg PO DAILY PRN (Reason: Arthritis) lidocaine 5 % adhesive patch,medicated 1 patch topical DAILY PRN (Reason: Pain) Rx Instructions: leave on most painful area for up to 12 hrs celecoxib [Celebrex] 100 mg capsule 100 mg PO BID PRN (Reason: Pain) Referrals Follow up/Referrals: Lionel Barriga MD [Primary Care Provider, Medical] - See instructions Activity Restrictions/Add. Instructions Additional Instructions/Restrictions: As discussed please keep topical antibiotic ointment on this twice a day over the next 7 to 10 days have your sutures removed in 7 to 10 days. You may return here if you would like to have that done. Your wound on the dorsal aspect of your foot is under a lot of tension please try to prevent any significant trauma to this. Return to the emergency with any spreading redness pus coming from the wound high fevers or other concerns. Clinical Impressions Clinical Impression: Foot laceration, Laceration of toe Instructions Patient Instructions: DI for Laceration Repair Print Language Print Language: Bengali Discharge ED Provider: Srinivasan Alejandre General Adult HPI General Chief complaint: Wound/Laceration Stated complaint: Foot Laceration Time Seen by Provider: 11/22/24 14:01 Mode of Arrival: Wheelchair Source of Information: Patient Description of Symptoms (Recalled from ER Triage Doc. by RN): pt was doing yard work and the dog tripped her up over the tools and she got a laceration to medial anterior side of left foot History of Present Illness HPI narrative: Patient is a 58-year-old female presents today with a left foot laceration. States that she was doing yard work dog tripped her sustained a laceration on her foot. Was bleeding significantly prior to arrival. Related Data Home Medications ?Medication ?Instructions ?Recorded ?Confirmed aspirin 81 mg tablet 81 mg PO DAILY 10/09/24 11/21/24 atomoxetine 25 mg capsule 50 mg PO DAILY 10/09/24 11/21/24 blood-glucose sensor (Cswitchcom G7 10/09/24 11/21/24 Sensor device) bupropion HCl 300 mg 24 hr tablet, 300 mg PO DAILY 10/09/24 11/21/24 extended release clopidogrel 75 mg tablet 75 mg PO DAILY 10/09/24 11/21/24 estradiol 0.01% (0.1 mg/gram) 1 appful vaginal DAILY 10/09/24 11/21/24 vaginal cream fluticasone propionate 50 2 spray intranasal DAILY 10/09/24 11/21/24 mcg/actuation nasal spray,suspension glucagon 0.5 mg/0.1 mL 0.5 mg SQ NEEDED PRN low blood 10/09/24 11/21/24 subcutaneous auto-injector glucose hydroxyzine HCl 50 mg tablet 50 mg PO HS 10/09/24 11/21/24 insulin lispro 100 unit/mL 1 sliding scale dose SQ 10/09/24 11/21/24 subcutaneous pen (Humalog KwikPen USEASDIRECTD (U-100) Insulin) metoprolol succinate 50 mg 50 mg PO DAILY 10/09/24 11/21/24 tablet,extended release 24 hr nitroglycerin 0.4 mg sublingual 0.4 mg sublingual Q5M PRN Chest 10/09/24 11/21/24 tablet Pain ondansetron 4 mg disintegrating 4 mg PO Q8H 10/09/24 11/21/24 tablet paroxetine HCl 30 mg tablet 30 mg PO DAILY 10/09/24 11/21/24 rosuvastatin 20 mg tablet 20 mg PO DAILY 10/09/24 11/21/24 trazodone 100 mg tablet 100 mg PO DAILY 10/09/24 11/21/24 celecoxib 100 mg capsule (Celebrex) 100 mg PO BID PRN Pain 11/21/24 11/21/24 lidocaine 5 % topical patch 1 patch topical DAILY PRN Pain 11/21/24 11/21/24 prednisone 20 mg tablet 40 mg PO DAILY PRN Arthritis 11/21/24 11/21/24 Previous Rx's ?Medication ?Instructions ?Recorded hydrocodone 5 mg-acetaminophen 325 1 tab PO Q6H PRN pain #10 tabs 10/07/24 mg tablet Allergies Allergy/AdvReac Type Severity Reaction Status Date / Time No Known Allergies Allergy Verified 11/06/24 11:15 [facility] Disclaimer: The information contained in this section may have been updated after the patient was seen, as this information can be updated by other users. Medical History (Updated 11/22/24 @ 15:06 by Srinivasan Alejandre MD) History of [place] (myocardial infarction) Rheumatoid arthritis Diabetes Surgical History (Updated 11/21/24 @ 10:48 by Edmundo Calvin RN) History of foot surgery History of cholecystectomy History of surgery on wrist History of hand surgery History of Family History (Updated 11/21/24 @ 10:49 by Edmundo Calvin RN) Other Family history of Alzheimer disease Family history of COPD (chronic obstructive pulmonary disease) Family history of CVA Family history of cancer Family history of cirrhosis of liver Family history of melanoma Social History (Updated 11/21/24 @ 10:50 by Edmundo Calvin RN) Smoking Status: Never smoker alcohol intake: never current occupational status: employed Travel in the last 8 weeks?: None Have you lived/traveled outside US in past 30 days?: No Contact w/someone who lives/traveled outside US past 30 days?: No Exposure to someone with infectious disease in past 14 days?: No Do you have a fever (greater than 100.4 F or 38 C)?: No Have you tested positive for COVID-19?: No Exposed to someone with COVID-19 in past 14 days?: No Do you have a sore throat?: No Do you have a cough?: No Do you have any weakness?: No Do you have any diarrhea?: No Are you experiencing any unusual bleeding?: No Do you have any muscle aches/pain?: No Do you have any abdominal pain?: No Are you experiencing loss of taste or smell?: No Other Medical History Have you received the Pneumonia Vaccine: No ROS Obtained: Yes All systems reviewed & no additional complaints except as documented Physical Exam General General appearance: alert Respiratory Respiratory exam: Present normal lung sounds bilaterally Cardiovascular Cardiovascular exam: Present regular rate Extremities Exam Extremities exam: Present other (On the dorsal aspect of the left foot there is a sick centimeter laceration that is curvilinear and has a superficial distal tissue flap that has good blood supply to it also a 1 cm laceration on the medial aspect of the distal left fourth toe) Neurological Exam Neurological exam: Present alert and oriented X3 Medical Decision Making Medical Records Screening: Per USPSTF and CDC recommendations, given the prevalence of disease in our region, it is our hospital?s policy to screen for HIV and viral Hepatitis for all patients aged 18 and over and those with ongoing risk factors. Khalif Inquiry Pt receiving controlled substance: No Vital Signs: 11/22/24 13:58 Temperature 98.2 F Temperature Source Oral Pulse Rate [Left Radial] 67 Respiratory Rate 20 Blood Pressure [Right Arm] 124/67 Blood Pressure Mean [Right Arm] 86 02 Sat by Pulse Oximetry 97 Oxygen Delivery Method Room Air Orders (Tests/Meds): ED MEDICATIONS Discontinued Medications Generic Name Dose Route Start Last Admin Trade Name Freq PRN Reason Stop Dose Admin Diazepam 2 mg 11/22/24 14:01 11/22/24 14:11 Diazepam 10mg/2ml Syringe IV 11/22/24 14:02 2 mg ONCE ONE Administration Lidocaine/Epinephrine 20 ml 11/22/24 14:08 11/22/24 14:11 Lidocaine 1% W/Epi 1:100,000 20ml Vial IJ 11/22/24 14:09 20 ml ONCE ONE Administration Tetanus/Reduced Diphtheria/Acell Pertussis 0.5 ml 11/22/24 14:19 11/22/24 14:22 Tet/Diphth/Pert-Adult 0.5ml Syringe IM 11/22/24 14:20 0.5 ml .ONCE ONE Administration Medical Decision Narrative: Patient had an obvious dorsal foot laceration that was bleeding profusely and pressure dressing was placed on this. Patient was extremely anxious specifically requesting pain medicine and/or anxiety medicine. I gave her Valium through her IV to be able to examine her more closely. An addendum will be added after I get a closer physical exam. After patient was given Valium and significantly calmed down was able to examine the wound further there is a linear/curvilinear laceration on dorsal aspect of the left foot that had a significant tissue flap associated with this this in addition to the laceration on the medial aspect of the left toe were all closed primarily. There was significant tension under the dorsal aspect laceration. However this was able to be closed significantly. Wound precautions given wound management given including superficial cleaning with soap and water followed by triple antibiotic ointment and dressings. She will have her sutures removed in 7 to 10 days. Patient tolerated this well was discharged in stable condition. Tetanus was updated. Procedures Laceration Laceration 1: Site: foot Side (If applicable): left Size (cm): 6 Description: flap Depth: simple, single layer Local Anesthetic: lidocaine 1% and with epi Amount of anesthesia used (mL): 7 Pre-repair: wound explored and irrigated extensively Skin layer closed with: nylon Size (cm): 3-0 Number of sutures: 9 Technique: simple, interrupted Laceration 2: Site: toe Side (If applicable): left Size (cm): 1 Description: linear Depth: simple, single layer Local Anesthetic: lidocaine 1% and with epi (Digital block) Amount of anesthesia used (mL): 3 Pre-repair: wound explored and irrigated extensively Skin layer closed with: nylon Size (cm): 3-0 Number of sutures: 2 Critical Care Critical Care Time Critical Care Time: No
[2024-11-22] MEDS: diazePAM 10MG/2ML SYRINGE 2 MG IV (14:11)
[2024-11-22] MEDS: LIDOCAINE 1% W/EPI 1:100,000 20ML VIAL 20 ML IJ (14:11)
[2024-11-22] MEDS: TET/DIPHTH/PERT-ADULT 0.5ML SYRINGE 0.5 ML IM (14:22)
[2024-11-22] MEDS: NEOSPORIN OINTMENT 0.9GM UDP 1 EACH TP (15:30)
== END 2024-11-22 15:52 | disposition home or self-care (01) ==
PROVIDERS: Emergency Provider Student in an Organized Health Care Education/Training Program; PCP Internal Medicine
DX: S91.312A Laceration without foreign body, left foot, initial encounter (principal); W01.198A Fall on same level from slipping, tripping and stumbling with subsequent striking against other object, initial encounter; Z23 Encounter for immunization
CPT/HCPCS: 12002; 90471; 90715; 96374; 99284; J3360

== ENCOUNTER 2024-12-26 10:18 | Outpatient (CLI) | payer OTHER, SELFPAY ==
--- OUTSIDE RECORDS SUMMARY | 2020-10-29 13:31 | XMS_ITS | Encounter Summary ---
[facility] Address [address] [place] [address] Care Team Providers Care Criminalist Name Role Phone Lionel Barriga MD Primary Care Provider +1- [phone] Reason for Visit * Diagnostic Imaging (Routine) - Closed Specialty Diagnoses / Procedures Referred By Hanna stone Referred To Contact Radiology Diagnoses Nontoxic multinodular goiter Procedures US Thyroid Kasey Rose MD [address] [place] [address] Phone: tel: fax: [facility]CR[facility] [address] [place] [address] Phone: tel: fax: Referral ID Status Reason Start Date Expiration Date Visits Re quested Visits Authorized [id number] Closed 10/29/2020 10/29/2021 1 1 Encounter Details Date Type Department Care Team (Late st Contact Info) Description 10/29/2020 1:31 PM EDT Hospital Encounter [facility] [address] [facility] [address] [place] [address] Social History Tobacco Use Types Packs/Day Years [...] Answer Date Recorded Patient Health Questionnaire-9 Score 5 08/27/2024 Comments No Sex and Gender Information Value Date Recorded Sex Assigned at Female 12/20/2022 8:52 AM EDT Legal Sex Female 11:19 AM EDT Gender Identity Female 03/29/2023 8:39 PM EDT Sexual Orientation Straight 12/20/2022 8: 52 AM EDT documented as of this encounter Functional Status documented as of this encounter Plan of Treatment Upcoming Encounters Date Type Department Care Team (Late st Contact Info) Description 01/15/2025 10:40 AM EDT Office Visit [facility] CARDIOLOGY 1720 [facility] [address] [place] [address] Katja Jose PA-C [address] [facility] [address] [place] [address] 01/29/2025 1:00 PM EDT Office Visit [facility] INTERNAL MEDICINE & PEDIATRICS [address] [facility] 200 [place] [address] Lionel Barriga MD [address] [facility] 200 [place] [address] 03/19/2025 11:15 AM EDT Office Visit [facility] PULMONARY & CRITICAL CARE MEDICINE 3000 [facility] [address] [place] [address] Edmundo Deleon MD [address]00 [place] [address] documented as of this encounter Procedures Procedure [...] documented as of this encounter Care Teams Criminalist Relationship Specialty Start Date End Date Lionel Barriga MD 100 [place] [id number] PCP - General Internal Medicine 05/10/17 documented as of this encounter
--- OUTSIDE RECORDS SUMMARY | 2022-04-11 17:45 | XMS_ITS | Encounter Summary ---
[facility] Organization [facility] Address [address] [place] [address] Care Team Providers Care Shipping And Receiving Specialist Name Role Phone Lionel Barriga MD Primary Care Provider +1- [phone] Reason for Visit * Diagnostic Imaging (Routine) - Closed Specialty Diagnoses / Procedures Referred By Contrhea t Referred To Contact Radiology Diagnoses Nontoxic multinodular goiter Procedures US Thyroid Kasey Rose MD [address] [place] [address] Phone: tel: fax: Referral ID Status Reason Start Date Expiration Date Visits Re quested Visits Authorized [id number] Closed 04/11/2022 04/11/2023 1 1 Encounter Details Date Type Department Care Team (Late st Contact Info) Description 04/11/2022 4:45 PM EST Hospital Encounter [facility] ENDOCRINOLOGY [address] [place] [address] Social History Tobacco Use Types Packs/Day Years [...] Description 01/15/2025 10:40 AM EDT Office Visit [facility] CARDIOLOGY [address] [facility] [address] [place] [address] Katja Jose PA-C [address] [facility] [address] [address] [place] [address] 01/29/2025 1:00 PM EDT Office Visit [facility] INTERNAL MEDICINE & PEDIATRICS 100 [facility] 200 [place] [address] Lionel Barriga MD 100 [facility] 200 [place] [address] 03/19/2025 11:15 AM EDT Office Visit [facility] PULMONARY & CRITICAL CARE MEDICINE [address] [facility] [address] [place] [address] Edmundo Deleon MD [address]00 [place] [address] documented as of this encounter Procedures Procedure [...] documented as of this encounter Care Teams Shipping And Receiving Specialist Relationship Specialty Start Date End Date Lionel Barriga MD [address] [address] PCP - General Internal Medicine 05/10/17 documented as of this encounter
--- OUTSIDE RECORDS SUMMARY | 2023-06-26 16:37 | XMS_ITS | Encounter Summary ---
[facility] Address [address] [place] [address] Care Team Providers Care Scrubber System Attendant Name Role Phone Lionel Barriga MD Primary Care Provider +1- [phone] Reason for Visit * Diagnostic Imaging (Routine) - Closed Specialty Diagnoses / Procedures Referred By Contrhea t Referred To Contact Radiology Diagnoses Nontoxic multinodular goiter Procedures US Thyroid Kasey Rose MD [address] [place] [address] Phone: tel: fax: Referral ID Status Reason Start Date Expiration Date Visits Re quested Visits Authorized [id number] Closed 06/26/2023 06/25/2024 1 1 Encounter Details Date Type Department Care Team (Late st Contact Info) Description 06/26/2023 3:37 PM EST Hospital Encounter [facility] ENDOCRINOLOGY [address] [place] [address] Social History Tobacco Use Types Packs/Day Years [...] Description 01/15/2025 10:40 AM EDT Office Visit [facility] CARDIOLOGY [address] [facility] [address] [place] [address] Katja Jose PA-C [address] [facility] [address] [address] [place] [address] 01/29/2025 1:00 PM EDT Office Visit [facility] INTERNAL MEDICINE & PEDIATRICS 100 [facility] [address] [place] [address] Lionel Barriga MD 100 [facility] 200 [place] [address] 03/19/2025 11:15 AM EDT Office Visit [facility] PULMONARY & CRITICAL CARE MEDICINE 3000 [facility] [address] [place] [address] Edmundo Deleon MD [address]00 [place] [address] documented as of this encounter Procedures Procedure [...] on filedocumented in this encounter Care Teams Scrubber System Attendant Relationship Specialty Start Date End Date Lionel Barriga MD 100 [facility] 200 [place] [address] PCP - General Internal Medicine 05/10/17 documented as of this encounter
--- OUTSIDE RECORDS SUMMARY | 2024-10-30 14:00 | XMS_ITS | Encounter Summary ---
Author Organization [facility] Address [address] [place] [address] Care Team Providers Care Workers Compensation Legal Secretary Name Role Phone Lionel Barriga MD Primary Care Provider [phone]- [phone] Reason for Referral * Diagnostic Imaging (Routine) - Closed Specialty Diagnoses / Procedures Referred By Hanna t Referred To Contact Radiology Diagnoses UGI bleed Procedures XR Chest PA & Lateral Lionel Barriga MD [address] [facility] [address] [place] [address] Phone: tel: fax: Referral ID Status Reason Start Date Expiration Date Visits Re quested Visits Authorized [id number] Closed 10/30/2024 01/29/2026 1 1 Reason for Visit * Reason Comments Follow-up Chronic medical cond itions Encounter Details Date Type Department Care Team (Late st Contact Info) Description 10/30/2024 2:00 PM EDT Office Visit [facility] INTERNAL MEDICINE & PEDIATRICS 100 [facility] 200 [place] [address] Lionel Barriga MD 100 [facility] [address] [place] [address] UGI bleed (Primary Dx); [place] Social History Tobacco Use Types Packs/Day Years [...] AM EDT documented as of this encounter Last Filed Vital Signs Vital Sign Reading Time Taken Comments Blood Pressure 130/72 10/30/2024 2:32 PM EDT Pulse 64 10/30/2024 2:32 PM EDT Temperature 35.7 C (96.2 F) 10/30/2024 2:32 PM EDT Respiratory Rate 16 10/30/2024 2:32 PM EDT Oxygen Saturation - - Inhaled Oxygen Concentration - - Weight 103 kg (226 lb 6.4 oz) 10/30/2024 2:32 PM EDT Height - - Body Mass Index 35.46 06/12/2024 11:28 AM EST documented in this encounter Progress Notes * Lionel Barriga MD - 10/30/2024 2:00 PM EDT Chief Complaint Patient presents with Follow-up Chronic medical conditions History of Present Illness The patient states for the last 3 mornings she has been waking up with dry blood in her mouth, she describes it as clotty and sticky. She denies ulcers or prior dental procedures. Denies abdominal pain, nausea, and vomiting. She admits to black tarry stools. She uses 2-3 200 mg ibuprofen ocassioanally and uses hydrocodone 2 375 mg every six hours. Denies alcohol usage. Denies smoking currently.Former smoker for 15 years 1 ppd. She does have pulmonary nodules monitored by pulmonology, she is having those monitored every 1 year. She also presents with a complaint of night sweats. She states she also has associated hot flashes during the day. She states this has been going on for over 6 months. The patient believes these are due to being post-menopausal. Medications Current Outpatient Medications: aspirin 81 MG EC tablet, Take 1 tablet by mouth Daily., Disp: 90 tablet, Rfl: 1 atomoxetine (STRATTERA) 25 MG capsule, Take 1 capsule by mouth Daily., Disp: , Rfl: B Complex Vitamins (vitamin b complex) capsule capsule, Take 1 capsule by mouth Daily., Disp: , Rfl: Blood Glucose Monitoring Suppl (Blood Glucose Monitor System) w/Device kit, Use daily as directed to check blood sugars, Disp: 1 each, Rfl: 0 buPROPion XL (WELLBUTRIN XL) 300 MG 24 hr tablet, Take 1 tablet by mouth Daily., Disp: , Rfl: CeleBREX 100 MG capsule, Take 1 capsule by mouth Daily., Disp: , Rfl: clopidogrel (PLAVIX) 75 MG tablet, Take 1 tablet by mouth Daily., Disp: 90 tablet, Rfl: 0 Continuous Glucose Sensor (Dexcom G7 Sensor) [facility] [place], Use 1 each Every 10 (Ten) Days., Disp: 9 each, Rfl: 3 Empagliflozin-metFORMIN HCl ER (Synjardy XR) 25-1000 MG tablet sustained-release 24 hour, Take 1 tablet by mouth Daily., Disp: 30 tablet, Rfl: 11 estradiol (ESTRACE) 0.1 MG/GM vaginal cream, Apply a pea sized amount to the vagina 3 times/week, Disp: 42.5 g, Rfl: 3 glucagon (GLUCAGEN) 1 MG injection, Inject 1 mg under the skin into the appropriate area as directed 1 (One) Time As Needed for Low Blood Sugar., Disp: 1 each, Rfl: 2 Glucagon 0.5 MG/0.1ML solution auto-injector, 1 mg As Needed., Disp: , Rfl: glucose blood test strip, Use as directed four times daily ok to change to ins formulary, Disp: 100each, Rfl: 0 HYDROcodone-acetaminophen (NORCO) 7.5-325 MG per tablet, Take 1 tablet by mouth Every 6 (Six) HoursAs Needed for Moderate Pain for up to 7 days., Disp: 28 tablet, Rfl: 0 hydrOXYzine (ATARAX) 50 MG tablet, Take 1 tablet by mouth Daily., Disp: , Rfl: Insulin Aspart, w/Niacinamide, 100 UNIT/ML solution, Inject 100 Units as directed Continuous. Continuously via insulin pump up to 100 units daily, Disp: 30 mL, Rfl: 0 Insulin Disposable Pump (Omnipod 5 GedI6I1 Pods Gen 5) misc, Use 1 each Every Other Day., Disp: 45 each, Rfl: 3 Insulin Pen Needle (Pen [place] 5/16 ) 31G X 8 MM misc, Use to administer insulin 3 times daily andas needed., Disp: 90 each, Rfl: 0 Lancets misc, Use as directed four times daily ok to change to ins formulary, Disp: 100 each, Rfl: 0 lidocaine (LIDODERM) 5 %, Place 1 patch on the skin as directed by provider Daily., Disp: , Rfl: methylPREDNISolone (MEDROL) 4 MG dose pack, Take 1 tablet by mouth Daily. Patient states she has but is not taking yet., Disp: , Rfl: metoprolol succinate XL (TOPROL-XL) 50 MG 24 hr tablet, Take 1 tablet by mouth Daily., Disp: 90 tablet, Rfl: 3 Multiple Minerals-Vitamins (Rliqqlo-Jlubdewav-Zvzp-D3) tablet, Take 1 tablet by mouth Daily., Disp:, Rfl: nitroglycerin (NITROSTAT) 0.4 MG SL tablet, Place 1 tablet under the tongue Every 5 (Five) Minutes As Needed for Chest Pain. Take no more than 3 doses in 15 minutes., Disp: 25 tablet, Rfl: 0 ondansetron ODT (ZOFRAN-ODT) 4 MG disintegrating tablet, Place 1 tablet on the tongue Every 8 (Eight) Hours As Needed for Nausea or Vomiting., Disp: 50 tablet, Rfl: 3 PARoxetine (Paxil) 30 MG tablet, Take 1 tablet by mouth Every Morning., Disp: 90 tablet, Rfl: 1 predniSONE (DELTASONE) 2.5 MG tablet, Take 1 tablet by mouth As Needed., Disp: , Rfl: rosuvastatin (Crestor) 20 MG tablet, Take 1 tablet by mouth Daily., Disp: 90 tablet, Rfl: 1 tocilizumab (Actemra) 80 MG/4ML solution injection, Inject 0.4 mL under the skin into the appropriate area as directed 1 (One) Time Per Week., Disp: , Rfl: traZODone (DESYREL) 100 MG tablet, Take 1 tablet by mouth Every Night., Disp: , Rfl: Allergies No Known Allergies Problem List Patient Active Problem List Diagnosis Type 2 diabetes mellitus treated with insulin Nontoxic multinodular goiter Mixed hyperlipidemia Anxiety and depression Non-cardiac chest pain (Probably costochondritis) CAD (coronary artery disease) Obesity, Class II, BMI 35-39.9 Former smoker (Stopped 2020) BAUM (dyspnea on exertion) History of CAD (coronary artery disease) - Prior LILY Multiple pulmonary nodules (Incidental max 4mm) Hilar adenopathy LAMAR on CPAP (Sees Dr. Mandel) Rheumatoid arthritis Dysphagia Chest pain Medications, Allergies, Problems List and Past History were reviewed and updated. Physical Examination BP 130/72 (BP Location: Left arm, Patient Position: Sitting, Cuff Size: Adult) Pulse 64 Temp 96.2 ??F (35.7 ??C) (Infrared) Resp 16 Wt 103 kg (226 lb 6.4 oz) BMI 35.46 kg/m?? Physical Exam Constitutional: General: She is not in acute distress. Appearance: She is not ill-appearing, toxic-appearing or diaphoretic. HENT: Mouth/Throat: Mouth: Mucous membranes are moist. Pharynx: Oropharynx is clear. No oropharyngeal exudate or posterior oropharyngeal erythema. Cardiovascular: Rate and Rhythm: Normal rate and regular rhythm. Pulses: Normal pulses. Heart sounds: Normal heart sounds. No murmur heard. No friction rub. No gallop. Pulmonary: Effort: Pulmonary effort is normal. No respiratory distress. Breath sounds: Normal breath sounds. No stridor. No wheezing, rhonchi or rales. Chest: Chest wall: No tenderness. Abdominal: General: Abdomen is flat. There is no distension. Palpations: Abdomen is soft. Tenderness: There is no abdominal tenderness. There is no guarding. Neurological: Mental Status: She is alert. Psychiatric: Mood and Affect: Mood normal. Behavior: Behavior normal. Thought Content: Thought content normal. Judgment: Judgment normal. Diagnoses and all orders for this visit: 1. UGI bleed (Primary) - CBC & Differential; Future - Comprehensive Metabolic Panel; Future - Protime-INR; Future - aPTT; Future - XR Chest PA & Lateral; Future - CBC & Differential - Comprehensive Metabolic Panel - Protime-INR - aPTT - Ambulatory referral for Screening EGD 2. [place] - VMA, Urine, 24 Hour - Urine, Clean Catch - Metanephrines, Urine, 24 Hour - Urine, Clean Catch - Cortisol, Urine, Free 24Hr - Urine, Clean Catch - 5 HIAA, Urine, Quantitative, 24 Hour - Urine, Clean Catch Discussed urgent EGD referral. Continue on all other prescribed medication regimen.The patient was instructed to go to the ER if the condition changes, or worsens. Attending Note: Patient was personally seen and examined by me. I have obtained and corroborated the history and examination as documented above, and agree with the accuracy of the documented information. All orders were reviewed and personally signed by me. Lionel Barriga MD 07:26 EDT 11/03/24 documented in this encounter Plan of Treatment Upcoming Encounters Date Type Department Care Team (Late st Contact Info) Description 01/15/2025 10:40 AM EDT Office Visit [facility] CARDIOLOGY [address] [facility] [address] [place] [id number] Katja Jose PAZulma [address] [facility] [address] [place] [address] 01/29/2025 1:00 PM EDT Office Visit [facility] INTERNAL MEDICINE & PEDIATRICS 100 [facility] [address] [place] [id number] Lionel Barriga MD [address] [facility] [address] [place] [address] 03/19/2025 11:15 AM EDT Office Visit [facility] PULMONARY & CRITICAL CARE MEDICINE [address] [facility] [address] [place] [address] Edmundo Deleon MD [address] [place] [address] documented as of this encounter Procedures Procedure Name Priority Date/Time Associated Diagnosis Comments CBC WITH AUTO DIFFERENTIAL Routine 10/30/2024 3:35 PM EDT UGI bleed APTT Routine 10/30/2024 3:35 PM EDT UGI bleed PROTIME-INR Routine 10/30/2024 3:35 PM EDT UGI bleed CBC AND DIFFERENTIAL Routine 10/30/2024 3:35 PM EDT UGI bleed COMPREHENSIVE METABOLIC PANEL Routine 10/30/2024 3:35 PM EDT UGI bleed URINE DRUG SCREEN Routine 10/30/2024 2:4 6 PM EDT [place] VMA, URINE, 24 HOUR Routine 10/30/2024 2 :46 PM EDT [place] METANEPHRINES, URINE, 24 HOUR Routine 10/30/2024 2:46 PM EDT [place] CORTISOL, URINE, FREE 24 HOUR Routine 10/30/2024 2:46 PM EDT [place] 5 HIAA, URINE, QUANTITATIVE, 24 HOUR Routine 10/30/2024 2:46 PM EDT [place] documented in this encounter Results * XR Chest PA & Lateral (10/30/2024 3:57 PM EDT) Anatomical Region Laterality Modality Body, Chest N/A Radiographic Yara ging 10/31/2024 10:3 5 AM EDT Impressions 10/31/2024 10:35 AM EDT Impression: No active disease. Electronically Signed: Niranjan Tate MD 10/31/2024 10:35 AM EDT Workstation ID: [id number] Narrative 10/31/2024 10:35 AM EDT XR CHEST PA AND LATERAL Date of Exam: 10/30/2024 3:47 PM EDT Indication: Upper gastrointestinal hemorrhage Comparison: 04/25/2023. Findings: The heart size is normal. The pulmonary vascular markings are normal. The lungs and pleural spaces are clear of active disease. There are chronic age-related changes involving the bony thorax and thoracic aorta. Procedure Note Niranjan Tate MD - 10/31/2024 XR CHEST PA AND LATERAL Date of Exam: 10/30/2024 3:47 PM EDT Indication: Upper gastrointestinal hemorrhage Comparison: 04/25/2023. Findings: The heart size is normal. The pulmonary vascular markings are normal. Thelungs and pleural spaces are clear of active disease. There are chronicage-related changes involving the bony thorax and thoracic aorta. IMPRESSION: Impression: No active disease. Electronically Signed: Niranjan Tate MD 10/31/2024 10:35 AM EDT Workstation ID: [id number] Lionel Barriga MD IMG DIAGNOSTIC IMAGING ORD ERABLES Final Result * CBC Auto Differential (10/30/2024 3:35 PM EDT) WBC 6.19 3.40 - 10.80 10*3/mm3 10/31/2024 1:54 AM EDT [facility] RBC 4.79 3.77 - 5.28 10*6/mm3 10/31/2024 1:54 AM EDT [facility] Hemoglobin 14.9 12.0 - 15.9 g/dL 10/31/2024 1:54 AM [facility] Hematocrit 44.4 34.0 - 46.6 % 10/31/2024 1:54 AM EDT [facility] MCV 92.7 79.0 - 97.0 fL 10/31/2024 [facility] MCH 31.1 26.6 - 33.0 pg 10/31/2024 1:54 AM EDT [facility] MCHC 33.6 31.5 - 35.7 g/dL 10/31/2024 1:54 AM EDT [facility] RDW 12.4 12.3 - 15.4 % 10/31/2024 1:54 AM EDT [facility] RDW-SD 42.1 37.0 - 54.0 fl 10/31/2024 1:54 [facility] MPV 10.5 6.0 - 12.0 fL 10/31/2024 1:54 AM [facility] Platelets 214 140 - 450 10*3/mm3 10/31/2024 1:54 AM [facility] Neutrophil % 47.2 42.7 - 76.0 % 10/31/2024 1:54 AM [facility] Lymphocyte % 39.6 19.6 - 45.3 % 10/31/2024 1:54 AM [facility] Monocyte % 7.4 5.0 - 12.0 % 10/31/2024 1:54 AM [facility] Eosinophil % 4.0 0.3 - 6.2 % 10/31/2024 1:54 AM [facility] Basophil % 1.5 0.0 - 1.5 % 10/31/2024 1:54 AM [facility] Immature Grans % 0.3 0.0 - 0.5 % 10/31/2024 1:54 AM [facility] Neutrophils, Absolute 2.92 1.70 - 7.00 10*3/mm3 10/31/2024 1:54 AM [facility] Lymphocytes, Absolute 2.45 0.70 - 3.10 10*3/mm3 10/31/2024 1:54 AM [facility] Monocytes, Absolute 0.46 0.10 - 0.90 10*3/mm3 10/31/2024 1:54 AM [facility] Eosinophils, Absolute 0.25 0.00 - 0.40 10*3/mm3 10/31/2024 1:54 AM [facility] Basophils, Absolute 0.09 0.00 - 0.20 10*3/mm3 10/31/2024 1:54 AM [facility] Immature Grans, Absolute 0.02 0.00 - 0.05 10*3/mm3 10/31/2024 1:54 AM [facility] nRBC 0.0 0.0 - 0.2 /100 WBC 10/31/2024 1:54 AM [facility] Blood Venipuncture / Unknown 10/30/2024 3:35 PM EDT 10/30/2024 3:36 PM EDT us Lionel Barriga MD LAB BLOOD ORDERABLES Final Result Performing Organization Address [facility]/ZIP Co de Phone Number [facility]
[address] [place] [address], [place] [phone] * aPTT (10/30/2024 3:35 PM EDT) PTT 33.7 22.0 - 39.0 seconds 10/30/2024 9:41 PM EDT [facility] Blood Structure of right upper limb / Unknown Venipuncture / Unknown 10/30/2024 3:35 PM EDT 10/30/2024 3:36 PM EDT Narrative [facility] - 10/30/2024 9:41 PM EDT PTT = The equivalent PTT values for the therapeutic range of heparin levels at 0.3 to 0.5 U/ml are 60 to 70 seconds. us Lionel Barriga MD LAB BLOOD ORDERABLES Final Result Performing Organization Address [facility] Co de Phone Number [facility]
[address] [place] [address], [place] [phone] * (ABNORMAL) Protime-INR (10/30/2024 3:35 PM EDT) Protime 11.9(L) 12.2 - 15.3 Seconds 10/30/2024 9:41 PM EDT [facility] INR 0.83(L) 0.89 - 1.12 10/30/2024 9:41 PM EDT [facility] Blood Structure of right upper limb / Unknown Venipuncture / Unknown 10/30/2024 3:35 PM EDT 10/30/2024 3:36 PM EDT us Lionel Barriga MD LAB BLOOD ORDERABLES Final Result [facility]
[address] [place] [address], * (ABNORMAL) Comprehensive Metabolic Panel (10/30/2024 3:35 PM EDT) Glucose 76 65 - 99 mg/dL 10/31/2024 2:25 AM EDT [facility] BUN 18.0 6.0 - 20.0 mg/dL 10/31/2024 2:25 AM EDT [facility] Creatinine 1.13(H) 0.57 - 1.00 mg/dL 10/31/2024 2:25 AM EDT [facility] Sodium 140 136 - 145 mmol/L 10/31/2024 2:25 AM EDT [facility] Potassium 3.8 3.5 - 5.2 mmol/L 10/31/2024 2:25 AM EDT [facility] Chloride 104 98 - 107 mmol/L 10/31/2024 2:25 AM EDT [facility] CO2 24.4 22.0 - 29.0 mmol/L 10/31/2024 2:25 AM EDT [facility] Calcium 9.8 8.6 - 10.5 mg/dL 10/31/2024 2:25 AM EDT [facility] Total Protein 7.2 6.0 - 8.5 g/dL 10/31/2024 2:25 AM EDT [facility] Albumin 4.7 3.5 - 5.2 g/dL 10/31/2024 2:25 AM EDT [facility] ALT (SGPT) 29 1 - 33 U/L 10/31/2024 2:25 AM EDT [facility] AST (SGOT) 22 1 - 32 U/L 10/31/2024 2:25 AM EDT [facility] Alkaline Phosphatase 62 39 - 117 U/L 10/31/2024 2:25 AM EDT [facility] Total Bilirubin 0.4 0.0 - 1.2 mg/dL 10/31/2024 2:25 AM EDT [facility] Globulin 2.5 gm/dL 10/31/2024 2:25 AM EDT [facility] A/G Ratio 1.9 g/dL 10/31/2024 2:25 AM EDT [facility] BUN/Creatinine Ratio 15.9 7.0 - 25.0 10/31/2024 2:25 AM EDT [facility] Anion Gap 11.6 5.0 - 15.0 mmol/L 10/31/2024 2:25 AM EDT [facility] eGFR 56.9(L) >60.0 mL/min/1.7 3 10/31/2024 2:25 AM EDT [facility] Blood Venipuncture / Unknown 10/30/2024 3:35 PM EDT 10/30/2024 3:36 PM EDT [facility] - 10/31/2024 2:25 AM EDT GFR Categories in Chronic Kidney Disease (CKD) GFR Category GFR (mL/min/1.73) Interpretation G1 90 or greater Normal or high (1) G2 60-89 Mild decrease (1) G3a 45-59 Mild to moderate decrease G3b 30-44 Moderate to severe decrease G4 15-29 Severe decrease G5 14 or less Kidney failure (1)In the absence of evidence of kidney disease, neither GFR category G1 or G2 fulfill the criteria for CKD. eGFR calculation 2020 CKD-EPI creatinine equation, which does not include race as a factor Lionel Barriga MD LAB BLOOD ORDERABLES Final Result [facility]
[address] [place] [address], * Urine Drug Screen - Urine, Clean Catch (10/30/2024 2:46 PM EDT) Amphetamine, Urine Qual TNP ng/mL 12/08/2024 1:55 PM EDT [facility] Comment: Test not performed. No urine specimen received. This is a corrected report. The previously reported result was: Amphetamine Scree... Negative ng/mL 11/01/2024 Corrected result. Previous result was Negative ng/mL on 11/01/2024 at 1809 EDT. Barbiturates Screen, Urine TNP ng/mL 12/08/2024 1:55 PM EDT [facility] Comment: Test not performed. No urine specimen received. This is a corrected report. The previously reported result was: Barbiturates Scre... Negative ng/mL 11/01/2024 Corrected result. Previous result was Negative ng/mL on 11/01/2024 at 1809 EDT. Benzodiazepine Screen, Urine TNP ng/mL 12/08/2024 1:55 PM EDT [facility] Comment: Test not performed. No urine specimen received. This is a corrected report. The previously reported result was: Benzodiazepines S... Negative ng/mL 11/01/2024 Corrected result. Previous result was Negative ng/mL on 11/01/2024 at 1809 EDT. THC Screen, Urine TNP ng/mL 025 1:55 PM EDT [facility] Comment: Test not performed. No urine specimen received. This is a corrected report. The previously reported result was: Cannabinoid Scree... Negative ng/mL 11/01/2024 Corrected result. Previous result was Negative ng/mL on 11/01/2024 at 1809 EDT. Cocaine Screen, Urine TNP ng/mL 12/08/2024 1:55 PM EDT [facility] Comment: Test not performed. No urine specimen received. This is a corrected report. The previously reported result was: Cocaine (Metab.) ... Negative ng/mL 11/01/2024 Corrected result. Previous result was Negative ng/mL on 11/01/2024 at 1809 EDT. Opiate Screen, Urine TNP ng/mL 12/08/2024 1:55 PM EDT [facility] Comment: Test not performed. No urine specimen received. Opiate test includes Codeine, Morphine, Hydromorphone, Hydrocodone. This is a corrected report. The previously reported result was: Opiate Screen, Urine Negative ng/mL 11/01/2024 Corrected result. Previous result was Negative ng/mL on 11/01/2024 at 1809 EDT. Oxycodone/Oxymorph one, Urine TNP ng/mL 12/08/2024 1:55 PM EDT [facility] Comment: Test not performed. No urine specimen received. Test includes Oxycodone and Oxymorphone This is a corrected report. The previously reported result was: Oxycodone/Oxymorp... Negative ng/mL 11/01/2024 Corrected result. Previous result was Negative ng/mL on 11/01/2024 at 1809 EDT. Phencyclidine (PCP), Urine TNP ng/mL 12/08/2024 1:55 PM EDT [facility] Comment: Test not performed. No urine specimen received. This is a corrected report. The previously reported result was: Phencyclidine Scr... Negative ng/mL 11/01/2024 Corrected result. Previous result was Negative ng/mL on 11/01/2024 at 1809 EDT. Methadone Screen, Urine TNP ng/mL 12/08/2024 1:55 PM EDT [facility] Comment: Test not performed. No urine specimen received. This is a corrected report. The previously reported result was: Methadone Screen,... Negative ng/mL 11/01/2024 Corrected result. Previous result was Negative ng/mL on 11/01/2024 at 1809 EDT. Propoxyphene Screen TNP ng/mL 12/08/2024 1:55 PM EDT [facility] Comment: Test not performed. No urine specimen received. This is a corrected report. The previously reported result was: Propoxyphene Scre... Negative ng/mL 11/01/2024 Corrected result. Previous result was Negative ng/mL on 11/01/2024 at 1809 EDT. Creatinine, Urine TNP mg/dL 025 1:55 PM EDT [facility] Comment: Test not performed. No urine specimen received. This is a corrected report. The previously reported result was: Creatinine, Urine 28.5 mg/dL 11/01/2024 Corrected result. Previous result was 28.5 mg/dL on 11/01/2024 at 1809 EDT. pH, UA TNP 12/08/2024 1:55 PM EDT [facility] Comment: Test not performed. No urine specimen received. This is a corrected report. The previously reported result was: pH, Urine 5.2 11/01/2024 Corrected result. Previous result was 5.2 on 11/01/2024 at 1809 EDT. Please note Comment 12/08/2024 1:55 PM EDT [facility] Comment: This assay provides a preliminary unconfirmed analytical test result that may be suitable for clinical management of patients in certain situations. Drug-test results should be interpreted in the context of clinical information. Patient metabolic variables, specific drug chemistry, and specimen characteristics can affect test outcome. Technical consultation is available if a test result is inconsistent with an expected outcome. Email: [email or web address] Hour Urine Urine specimen obtained by clean catch procedure / Unknown Collection / Unknown 10/30/2024 2:46 PM EDT 10/30/2024 2:48 PM EDT Narrative [facility] - 12/08/2024 1:55 PM EDT Performed at: [address] [place] [id number] Milieu Technician: Hemalatha Mayfield PhD, Phone: [phone] Specimen Comment: Corrected report called to Yasmine Silver 12/08/24 1:28pm Specimen Comment: A duplicate report has been generated due to demographic updates. Lionel Barriga MD URINE ORDERABLES Edited Re sult - Final [facility] [address] [place] [address], * 5 HIAA, Urine, Quantitative, 24 Hour - Urine, Clean Catch (10/30/2024 2:46 PM EDT) 5-HIAA, Urine 1.8 Undefined mg/L 025 10:10 AM EDT [facility] 5-HIAA, 24H Ur 4.0 0.0 - 14.9 mg/24 hr 11/05/2024 10:10 AM EDT [facility] 24 Hour Urine Urine specimen obtained by clean catch procedure / Unknown Collection / Unknown 10/30/2024 2:46 PM EDT 10/30/2024 2:48 PM EDT Narrative [facility] - 11/05/2024 10:10 AM EDT Test(s) [id number], Urine was developed and its performance characteristics determined by [facility]. It has not been cleared or approved by the Food and Drug Administration. Performed at: - [address] [id number] Milieu Technician: Abiel Castillo MD, Phone: [phone] Lionel Barriga MD URINE ORDERABLES Final Res ult Performing Organization Address [facility] Co de Phone Number [facility] [address] [place] [address], [place] [phone] * Cortisol, Urine, Free 24Hr - Urine, Clean Catch (10/30/2024 2:46 PM EDT) [facility] Signature Cortisol, Free 9 Undefined ug/L 2024 4:11 PM EDT [facility] Cortisol, 24H Ur 20 6 - 42 ug/24 hr 11/06/2024 4:11 PM EDT [facility] 24 Hour Urine Urine specimen obtained by clean catch procedure / Unknown Collection / Unknown 10/30/2024 2:46 PM EDT 10/30/2024 2:48 PM EDT [facility] - 11/06/2024 4:11 PM EDT Test(s) [id number],F,ug/L,U was developed and its performance characteristics determined by [facility]. It has not been cleared or approved by the Food and Drug Administration. Performed at: - [address] [id number] Milieu Technician: Abiel Castillo MD, Phone: [phone] Lionel Barriga MD URINE ORDERABLES Final Res ult Performing Organization Address [facility]/ZIP Co de Phone Number [facility] [address] [place] [address], [place] [phone] * Metanephrines, Urine, 24 Hour - Urine, Clean Catch (10/30/2024 2:46 PM EDT) Normetanephrin e, Urine 102 Undefined ug/L 11/04/2024 9:10 AM EDT [facility] Normetanephrin e, 24H Ur 227 131 - 612 ug/24 hr 11/04/2024 9:10 AM EDT [facility] Metanephrines, Urine 19 Undefined ug/L 11/04/2024 9:10 AM EDT [facility] Metaneph, Total, 24H Ur 42 36 - 209 ug/24 hr 11/04/2024 9:10 AM EDT [facility] 24 Hour Urine Urine specimen obtained by clean catch procedure / Unknown Collection / Unknown 10/30/2024 2:46 PM EDT 10/30/2024 2:48 PM EDT [facility] - 11/04/2024 9:10 AM EDT Test(s) [id number], Ur; [id number], Ur was developed and its performance characteristics determined by [facility]. It has not been cleared or approved by the Food and Drug Administration. Performed at: 01 - [address] [id number] Milieu Technician: Abiel Castillo MD, Phone: [phone] us Lioenl Barriga MD URINE ORDERABLES Final Res ult [facility] [address] [place] [address], * VMA, Urine, 24 Hour - Urine, Clean Catch (10/30/2024 2:46 PM EDT) VMA, Urine 0.7 Undefined mg/L 11/04/2024 4:12 PM EDT [facility] VMA 24 Hour 1.6 0.0 - 7.5 mg/24 hr 11/04/2024 4:12 PM EDT [facility] 24 Hour Urine Urine specimen obtained by clean catch procedure / Unknown Collection / Unknown 10/30/2024 2:46 PM EDT 10/30/2024 2:48 PM EDT Narrative [facility] - 11/04/2024 4:12 PM EDT Test(s) [id number], Urine was developed and its performance characteristics determined by [facility]. It has not been cleared or approved by the Food and Drug Administration. Performed at: 01 - [address] [id number] Milieu Technician: Abiel Castillo MD, Phone: [phone] us Lionel Barriga MD URINE ORDERABLES Final Res ult [facility] [address] [place] [address], documented in this encounter Visit Diagnoses Diagnosis UGI bleed- Primary Unspecified, hemorrhage of gastrointestinal tract Flushing UGI bleed Unspecified, hemorrhage of gastrointestinal tract documented in this encounter Care Teams Workers Compensation Legal Secretary Relationship Specialty Start Date End Date Lionel Barriga MD [address] [place] [address] PCP - General Internal Medicine 05/10/17 documented as of this encounter
--- OUTSIDE RECORDS SUMMARY | 2024-10-30 15:45 | XMS_ITS | Encounter Summary ---
Author Organization [facility] Address [address] [place] [address] Care Team Providers Care Assistant Oceanographer Name Role Phone Lionel Barriga MD Primary Care Provider +1- [phone] Reason for Referral * Diagnostic Imaging (Routine) - Closed Specialty Diagnoses / Procedures Referred By Hanna stone Referred To Contact Radiology Diagnoses UGI bleed Procedures XR Chest PA & Lateral Lionel Barriga MD 100 [facility] [address] [place] [address] Phone: tel: fax: Referral ID Status Reason Start Date Expiration Date Visits Re quested Visits Authorized [id number] Closed 10/30/2024 01/29/2026 1 1 Reason for Visit * Diagnostic Imaging (Routine) - Closed Specialty Diagnoses / Procedures Referred By Contac t Referred To Contact Radiology Diagnoses UGI bleed Procedures XR Chest PA & Lateral Lionel Barriga MD [address] [address] Phone: tel: fax: Referral ID Status Reason Start Date Expiration Date Visits Re quested Visits Authorized [id number] Closed 10/30/2024 01/29/2026 1 1 Encounter Details Date Type Department Care Team (Late st Contact Info) Description 10/30/2024 3:45 PM EDT - 10/30/2024 11:59 PM EDT Hospital Encounter [facility] XRAY AT [address] [address] Lionel Barriga MD [address] [address] UGI bleed Discharge Disposition: Home or Self Care Social History Tobacco Use Types Packs/Day Years [...] AM EDT documented as of this encounter Medications at Time of Discharge aspirin 81 MG EC tablet Take 1 tablet by mouth Daily. 90 tablet 1 5 B Complex Vitamins (vitamin b complex) capsule capsule Take 1 capsule by mouth Daily. Blood Glucose Monitoring Suppl (Blood Glucose Monitor System) w/Device kit Use daily as directed to check blood sugars 1 each 4 buPROPion XL (WELLBUTRIN XL) 300 MG 24 hr tablet Take 1 tablet by mouth Daily. 4 CeleBREX 100 MG capsule Take 1 capsule by mouth Daily. 5 clopidogrel (PLAVIX) 75 MG tablet Take 1 tablet by mouth Daily. 90 tablet 5 Continuous Glucose Sensor (Dexcom G7 Sensor) misc Use 1 each Every 10 (Ten) Days. 9 each 3 4 Empagliflozin-metFO RMIN HCl ER (Synjardy XR) 25-1000 MG tablet sustained-release 24 hour Take 1 tablet by mouth Daily. 30 tablet 11 4 estradiol (ESTRACE) 0.1 MG/GM vaginal creamIndications:At rophic vaginitis Apply a pea sized amount to the vagina 3 times/week 42.5 g 3 4 glucagon (GLUCAGEN) 1 MG injection Inject 1 mg under the skin into the appropriate area as directed 1 (One) Time As Needed for Low Blood Sugar. 1 each 2 4 glucose blood test strip Use as directed four times daily ok to change to ins formulary 100 each 4 hydrOXYzine (ATARAX) 50 MG tablet Take 1 tablet by mouth Daily. Insulin Aspart, w/Niacinamide, 100 UNIT/ML solution Inject 100 Units as directed Continuous. Continuously via insulin pump up to 100 units daily 30 mL 5 Insulin Disposable Pump (Omnipod 5 MwyI2M2 Pods Gen 5) misc Use 1 each Every Other Day. 45 each 3 5 Insulin Pen Needle (Pen [employer] 10/10 ) 31G X 8 MM misc Use to administer insulin 3 times daily and as needed. 90 each 2 Lancets misc Use as directed four times daily ok to change to ins formulary 100 each 4 lidocaine (LIDODERM) 5 % Place 1 patch on the skin as directed by provider Daily. 5 methylPREDNISolone (MEDROL) 4 MG dose pack Take 1 tablet by mouth Daily. Patient states she has but is not taking yet. 5 metoprolol succinate XL (TOPROL-XL) 50 MG 24 hr tablet Take 1 tablet by mouth Daily. 90 tablet 3 5 Multiple Minerals-Vitamins (Calcium-Magnesium- Zinc-D3) tablet Take 1 tablet by mouth Daily. nitroglycerin (NITROSTAT) 0.[address] 1 tablet under the tongue Every 5 (Five) Minutes As Needed for Chest Pain. Take no more than 3 doses in 15 minutes. 25 tablet 3 ondansetron ODT (ZOFRAN-ODT) [address] 1 tablet on the tongue Every 8 (Eight) Hours As Needed for Nausea or Vomiting. 50 tablet 3 4 PARoxetine (Paxil) 30 MG tabletIndications:A nxiety Take 1 tablet by mouth Every Morning. 90 tablet 1 4 predniSONE (DELTASONE) 2.5 MG tablet Take 1 tablet by mouth As Needed. rosuvastatin (Crestor) 20 MG tablet Take 1 tablet by mouth Daily. 90 tablet 1 5 tocilizumab (Actemra) 80 MG/4ML solution injection Inject 0.4 mL under the skin into the appropriate area as directed 1 (One) Time Per Week. traZODone (DESYREL) 100 MG tablet Take 1 tablet by mouth Every Night. 4 atomoxetine (STRATTERA) 25 MG capsule Take 1 capsule by mouth Daily. 11/05/19 Glucagon 0.5 MG/0.1ML solution auto-injector 1 mg As Needed. 25 documented as of this encounter Plan of Treatment Upcoming Encounters Date Type Department Care Team (Late st Contact Info) Description 01/15/2025 10:40 AM EDT Office Visit [facility] CARDIOLOGY [address] [facility] [address] [place] [address] Katja Jose PA-C [address] [facility] [address] [place] [address] 01/29/2025 1:00 PM EDT Office Visit [facility] INTERNAL MEDICINE & PEDIATRICS 100 [facility] 200 [place] [address] Lionel Barriga MD 100 [facility] [address] [place] [address] 03/19/2025 11:15 AM EDT Office Visit [facility] PULMONARY & CRITICAL CARE MEDICINE [address] [facility] [address] [place] [address] Edmundo Deleon MD [address] [place] [address] documented as of this encounter Procedures Procedure Name Priority Date/Time Associated Diagnosis Comments XR CHEST PA AND LATERAL Routine 10/30/2024 3:57 PM EDT UGI bleed documented in this encounter Results * XR Chest PA & Lateral (10/30/2024 3:57 PM EDT) Anatomical Region Laterality Modality Body, Chest N/A Radiographic Yara ging 10/31/2024 10:3 5 AM EDT Impressions 10/31/2024 10:35 AM EDT Impression: No active disease. Electronically Signed: Niranjan Tate MD 10/31/2024 10:35 AM EDT Workstation ID: [id number] Narrative 10/31/2024 10:35 AM EDT XR CHEST [...] MD 10/31/2024 10:35 AM EDT Workstation ID: [id number] Lionel Barriga MD IMG DIAGNOSTIC IMAGING ORD ERABLES Final Result documented in this encounter Visit Diagnoses Diagnosis UGI bleed Unspecified, hemorrhage of gastrointestinal tract documented in this encounter Care Teams Assistant Oceanographer Relationship Specialty Start Date End Date Lionel Barriga MD [address] [place] [address] PCP - General Internal Medicine 05/10/17 documented as of this encounter
--- OUTSIDE RECORDS SUMMARY | 2024-11-04 16:15 | XMS_ITS | Encounter Summary ---
Author Organization [facility] Address [address] [place] [address] Care Team Providers Care Oven Tender Name Role Phone Lionel Barriga MD Primary Care Provider +1- [phone] Reason for Referral * Diagnostic Medical (Routine) - Authorized Specialty Diagnoses / Procedures Referred By Hanna t Referred To Contact Diagnoses UGI bleed Gastroesophageal reflux disease without esophagitis Lionel Barriga MD 100 [facility] 200 [place] [address] Phone: tel: fax: Doemnico Rhodes MD [address] [facility] 36 [place] [address] Phone: tel: fax: Referral ID Status Reason Start Date Expiration Date Visits Requested Visits Authorized [id number] Authorized Specialty Services Required 11/04/2024 02/03/2026 1 1 Scheduling Instructions She requests [facility] * Diagnostic Medical (Routine) - Authorized Specialty Diagnoses / Procedures Referred By Hanna t Referred To Contact Diagnoses Screening for colon cancer Procedures MT OFFICE/OUTPATIENT NEW MODERATE MDM 45 MINUTES Lionel Barriga MD 100 [facility] 200 [place] [address] Phone: tel: fax: Domenico Rhodes MD [address] [facility] [address] [place] [address] Phone: tel: fax: Referral ID Status Reason Start Date Expiration Date Visits Requested Visits Authorized [id number] Authorized Specialty Services Required 11/04/2024 02/03/2026 1 1 Scheduling Instructions She requests [facility] Reason for Visit * Reason Comments Follow-up Follow up chronic me dical problems Encounter Details Date Type Department Care Team (Late st Contact Info) Description 11/04/2024 4:15 PM EDT Office Visit [facility] INTERNAL MEDICINE & PEDIATRICS [address] [place] [phone] Lionel Barriga MD 100 [facility] 200 [place] [address] UGI bleed (Primary Dx); Memory loss; Chronic pain of both knees; Screening for colon cancer; Gastroesophageal reflux disease without esophagitis Social History Tobacco Use Types Packs/Day Years Used Date Smoking Tobacco: Former Cigarettes 1 15 Q uit: 05/28/2016 Passive Smoke Exposure: Past Smokeless Tobacco: Never Tobacco Cessation:Counseling Given: Not Answered Comments:Had several on and off quit dates [...] Sign Reading Time Taken Comments Blood Pressure 118/68 11/04/2024 4:36 PM EDT Pulse 72 11/04/2024 4:36 PM EDT Temperature 36.6 C (97.8 F) 11/04/2024 4:36 PM EDT Respiratory Rate 20 11/04/2024 4:36 PM EDT Oxygen Saturation - - Inhaled Oxygen Concentration - - Weight 101 kg (223 lb) 11/04/2024 4:36 PM EDT Height - - Body Mass Index 34.93 06/12/2024 11:28 AM EST documented in this encounter Progress Notes * Lionel Barriga MD - 11/04/2024 4:15 PM EDT Chief Complaint Patient presents with Follow-up Follow up chronic medical problems History of Present Illness The patient presents for a follow-up related to a two week history of blood in her mouth at night. The patient denies emesis. The patient denies a change in bowel habits. The stool caliber is normal.The patient denies diarrhea. There has not been constipation. The patient has not had a fever. There is no associated rectal pain. The patient denies abdominal pain. There has not been any unexplained weight loss. The patient denies nose bleeds. There has been no lightheadedness. The patient complains of memory loss over 6 months. The primary type of memory affected is short term recall. She states that she does not get lost. She lives alone. There are no symptoms of depression. The patient presents for a follow-up related to GERD. The patient is not on medication for her gastroesophageal reflux. She reports no belching, dysphagia, early satiety, heartburn, hoarseness, nausea, odynophagia or rectal bleeding. The GERD has no known aggravating factors. Review of Systems PULMONARY- Denies Wheezing, Dyspnea, Sputum Production, Cough, Hemoptysis or Pleuritic Chest Pain. CARDIOVASCULAR- Denies Chest Pain, Claudication, Edema, Syncope, Palpitations or Irregular Heart Beat. NEUROLOGIC- Reports: Memory Loss. Denies: Seizures, Headaches, Visual Changes, Confusion or Depression. Medications Current Outpatient Medications: aspirin 81 MG EC tablet, Take 1 tablet by mouth Daily., Disp: 90 tablet, Rfl: 1 atomoxetine (STRATTERA) 40 MG capsule, Take 1 capsule by mouth [...] 0 Continuous Glucose Sensor (Dexcom G7 Sensor) misc, Use 1 each Every 10 (Ten) Days., [...] Blood Sugar., Disp: 1 each, Rfl: 2 glucose blood test strip, Use as directed four times daily ok to change to ins formulary, Disp: 100each, Rfl: 0 HYDROcodone-acetaminophen (NORCO) 7.5-325 MG per tablet, Take 1 tablet by mouth Every 6 (Six) HoursAs Needed for Moderate Pain., Disp: 30 tablet, Rfl: 0 hydrOXYzine (ATARAX) 50 MG tablet, Take 1 tablet by mouth Daily., Disp: , Rfl: Insulin Aspart, w/Niacinamide, 100 UNIT/ML solution, Inject 100 Units as directed Continuous. Continuously via insulin pump up to 100 units daily, Disp: 30 mL, Rfl: 0 Insulin Disposable Pump (Omnipod 5 [id number] Pods Gen 5) [facility] [place], Use 1 each Every Other Day., Disp: 45 each, Rfl: 3 Insulin Pen Needle ([place] 5/16 ) 31G X 8 MM mis, Use to administer insulin 3 times daily andas needed., Disp: 90 each, Rfl: 0 Lancets mis, Use as directed four times daily ok to change to ins formulary, Disp: 100 each, Rfl: 0 lidocaine (LIDODERM) 5 %, Place 1 patch on the skin as directed by provider Daily., Disp: , Rfl: metoprolol succinate XL (TOPROL-XL) 50 MG 24 hr tablet, Take 1 tablet by mouth Daily., Disp: 90 tablet, Rfl: 3 Multiple Minerals-Vitamins (Tzgyick-Ylcjscbtp-Sgeh-D3) tablet, Take 1 tablet by mouth Daily., [...] mouth Daily., Disp: 90 tablet, Rfl: 1 traZODone (DESYREL) 100 MG tablet, Take 1 tablet by mouth Every Night., Disp: , Rfl: methylPREDNISolone (MEDROL) 4 MG dose pack, Take 1 tablet by mouth Daily. Patient states she has but is not taking yet. (Patient not taking: Reported on 11/04/2024), Disp: , Rfl: tocilizumab (Actemra) 80 MG/4ML solution injection, Inject 0.4 mL under the skin into the appropriate area as directed 1 (One) Time Per Week. (Patient not taking: Reported on 11/04/2024), Disp: , Rfl: Allergies No Known Allergies [...] were reviewed and updated. Physical Examination BP 118/68 (BP Location: Right arm, Patient Position: Sitting, Cuff Size: Adult) Pulse 72 Temp 97.8 ??F (36.6 ??C) (Infrared) Resp 20 Wt 101 kg (223 lb) LMP (LMP Unknown) BMI 34.93 kg/m?? HEENT: Head- Normocephalic Atraumatic. Facies- Within normal limits. Pinnas- Normal texture and shape bilaterally. Canals- Normal bilaterally. TMs- Normal bilaterally. Nares- Patent bilaterally. Nasal Septum- is normal. There is no tenderness to palpation over the frontal or maxillary sinuses. Lids- Normal bilaterally. Conjunctiva- Clear bilaterally. Sclera- Anicteric bilaterally. Oropharynx- Moist with no lesions. Tonsils- No enlargement, erythema or exudate. Neck: Thyroid- non enlarged, symmetric and has no nodules. No bruits are detected. ROM- Normal Range of Motion with no rigidity. Lungs: Auscultation- Clear to auscultation bilaterally. There are no retractions, clubbing or cyanosis. The Expiratory to Inspiratory ratio is equal. Lymph Nodes: Cervical- no enlarged lymph nodes noted. Clavicular- Deferred. Axillary- Deferred. Inguinal- Deferred. Cardiovascular: There are no carotid bruits. Heart- Normal Rate with Regular rhythm and no murmurs.There are no gallops. There are no rubs. In the lower extremities there is no edema. The upper extremities do not have edema. Abdomen: Soft, benign, non-tender with no masses, hernias, organomegaly or scars. Neurologic Exam: Cranial Nerves II-XII: Intact MMSE: 28/30. Gait: Normal. Impression and Assessment UGI Bleeding. Memory Loss. Gastroesophageal Reflux Disease. Plan UGI Bleeding Plan: Further plans will be made after the tests are reviewed. Gastroesophageal Reflux Disease Plan: The condition is stable. No change is needed in the current plan. Memory Loss Plan: The condition is stable. No change is needed in the current plan. Diagnoses and all orders for this visit: 1. UGI bleed (Primary) - POC Hemoglobin; Future - POC Hemoglobin - Ambulatory referral for Screening EGD 2. Memory loss 3. Chronic pain of both knees - HYDROcodone-acetaminophen (NORCO) 7.5-325 MG per tablet; Take 1 tablet by mouth Every 6 (Six) Hours As Needed for Moderate Pain. Dispense: 30 tablet; Refill: 0 4. Screening for colon cancer - Ambulatory Referral For Screening Colonoscopy 5. Gastroesophageal reflux disease without esophagitis - Ambulatory referral for Screening EGD Return to Office The patient was instructed to return for follow-up in 6 weeks. The patient was instructed to returnsooner if the condition changes, worsens, or does not resolve. documented in this encounter Plan of Treatment Upcoming Encounters Date Type Department Care Team (Late st Contact Info) Description 01/15/2025 10:40 AM EDT Office Visit [facility] CARDIOLOGY [address] [facility] [address] [place] [address] Katja Jose PA-C [address] [facility] [address] [place] [address] 01/29/2025 1:00 PM EDT Office Visit [facility] INTERNAL MEDICINE & PEDIATRICS 100 [facility] 200 [place] [phone] Lionel Barriga MD 100 [facility] 200 [place] [address] 03/19/2025 11:15 AM EDT Office Visit [facility] PULMONARY & CRITICAL CARE MEDICINE [address] [facility] [address] [place] [phone] Edmundo Deleon MD [address] [place] [address] documented as of this encounter Procedures Procedure Name Priority Date/Time Associated Diagnosis Comments POCT HEMOGLOBIN Routine 11/04/2024 5:44 PM EDT UGI bleed SCANNED COGNITIVE ASSESSMENT 11/04/2024 documented in this encounter Results * POC Hemoglobin (11/04/2024 5:44 PM EDT) Hemoglobin 16.2 12.0 - 17.0 g/dL [facility] Lot Number [id number] [facility] Expiration Date 11/27/2026 [facility] Blood 11/04/2024 5:44 PM EDT Lionel Barriga MD POINT OF CARE TEST ORDERAB LES Final Result [facility]
[address] [place] [address], * COGNITIVE ASSESSMENT SCAN (11/04/2024) Lionel Barriga MD NEUROLOGY ORDERABLES Final Result documented in this encounter Visit Diagnoses Diagnosis UGI bleed- Primary Unspecified, hemorrhage of gastrointestinal tract Memory loss Chronic pain of both knees Screening for colon cancer Special screening for malignant neoplasms, colon Gastroesophageal reflux disease without esophagitis Esophageal reflux documented in this encounter Care Teams Oven Tender Relationship Specialty Start Date End Date Lionel Barriga MD 100 [place] [address] PCP - General Internal Medicine 05/10/17 documented as of this encounter
--- OUTSIDE RECORDS SUMMARY | 2024-12-26 10:21 | XMS_ITS | Encounter Summary ---
Author Organization Healthcare Address [address] [place] [address] Care Team Providers Care Stock Preparation Operator Name Role Phone Brisa Patel Unavailable Lionel Barriga MD Primary Care Provider +1- [phone] Encounter Details Date Type Department Care Team (Late st Contact Info) Description 11/17/2024 Telephone [facility] Special[facility] [address] [place] [address] , May, [address] [place] [address] Social History Tobacco Use Types [...] Miscellaneous Notes * Telephone Encounter - JasonMay, CLINIC BUSINESS MANAGER - 11/17/2024 1:21 PM EDT Called patient. [...] [facility] [address] [place] [address] Jason May SARA Reddy [address] [place] [address] documented as of this encounter [...] documented as of this encounter Care Teams Stock Preparation Operator Relationship Specialty Start Date End Date Lionel Barriga MD 100 [facility] 200 [place] [address] PCP - General 03/07/23 Brisa Patel [address] [place] [address] 01/12/22 documented as of this encounter
--- OUTSIDE RECORDS SUMMARY | 2024-12-26 10:21 | XMS_ITS | Encounter Summary ---
Author Organization [facility] Address [address] [place] [address] Care Team Providers Care Pigment Pusher Name Role Phone Lionel Barriga MD Primary Care Provider +1- [phone] Encounter Details Date Type Department Care Team (Late st Contact Info) Description 07/29/2020 Telephone [facility] INTERNAL MEDICINE & PEDIATRICS [address] [address] Lionel Barriga MD 100 [facility] [address] [place] [address] Social History Tobacco Use Types Packs/Day Years Used Date Smoking Tobacco: Former Cigarettes 0.5 5 1 06/14/2016 - 01/01/2018 Smokeless Tobacco: Never Comments:Had several on and off wuite dates for last 2 years Alcohol Use Standard Drinks/Week Comments No 0 (1 standard drink = 0.6 oz pur e alcohol) occasional 1 EVERY 6 MONTHS AUDIT-C Answer Date Recorded Q1: How often do you have a drink containing alc ohol? Never 05/14/2020 Average Number of Drinks Not on file 020 Frequency of Binge Drinking Not on file 04/27 PHQ-2 Answer Date Recorded PHQ-2 Score 0 05/01/2018 Hunger Vital Sign Answer Date Recorded Within [...] things needed for daily living? No 05/18/2020 Comments No Sex and Gender Information Value [...] Description 01/15/2025 10:40 AM EDT Office Visit [facility] CARDIOLOGY [address] [facility] [address] [place] [address] Katja Jose PA-C [address] [facility] [address] [place] [address] 01/29/2025 1:00 PM EDT Office Visit [facility] INTERNAL MEDICINE & PEDIATRICS 100 [facility] 200 [place] [address] Lionel Barriga MD 100 [facility] [address] [place] [address] 03/19/2025 11:15 AM EDT Office Visit [facility] PULMONARY & CRITICAL CARE MEDICINE [address] [facility] [address] [place] [id number] Edmundo Deleon MD [address] [place] [address] documented as of this encounter Visit Diagnoses Not on filedocumented in this encounter Additional Health Concerns Infection Onset Date Last Indicated Resolved Time COVID Screen (preop/placement) 12/03/2020 12/03/2020 12/03/2020 11:44 PM EDT COVID Screen (preop/placement) 10/03/2021 10/03/2021 10/03/2021 9:11 PM EDT COVID (rule out) 01/19/2023 01/19/2023 01/26/2023 9:08 PM EDT documented as of this encounter Care Teams Pigment Pusher Relationship Specialty Start Date End Date Lionel Barriga MD 100 [facility] [address] [place] [address] PCP - General Internal Medicine 05/10/17 documented as of this encounter
--- OUTSIDE RECORDS SUMMARY | 2024-12-26 10:21 | XMS_ITS | Referral Summary ---
Author Organization [facility] Address [address] [place] [address] Care Team Providers Care Library Services Dean Name Role Phone Other, Physician Outoftowamrik KERR [...] Plan of Treatment Not on file Insurance [facility] [employer] OTHERS NOT MEDICARE Care Teams Library Services Dean Relationship Specialty Start Date End Date Other, Physician MD Queta Other PCP - General Internal Medicine 09/06/23
--- OUTSIDE RECORDS SUMMARY | 2024-12-26 10:21 | XMS_ITS | Encounter Summary ---
Author Organization [facility] Address [address] [place] [address] Care Team Providers Care Hand Stone Polisher Name Role Phone Lionel Barriga MD Primary Care Provider +1- [phone] Encounter Details Date Type Department Care Team (Late st Contact Info) Description 05/30/2023 Prep for Surgery [facility] ORDERS ONLY [address] [place] [address] Rigo Andersen MD [address] [facility] [address] [place] [address] Dysphagia, unspecified type (Primary Dx); Moderate coronary artery risk chest pain Social History Tobacco Use Types Packs/Day Years Used Date Smoking Tobacco: Former Cigarettes 1 10 1 06/14/2016 - 05/28/2016 Passive Smoke Exposure: Past Smokeless Tobacco: [...] Present no 04/25/2023 PHQ-2 Answer Date Recorded Retired PHQ-9: Brief Depression Severity Measure Score 0 10/11/2022 Comments No Sex and Gender Information Value [...] Office Visit [facility] CARDIOLOGY [address] [phone] Katja Jose PA-C [address] [facility] [address] [place] [phone] 01/29/2025 1:00 PM EDT Office Visit [facility] INTERNAL MEDICINE & PEDIATRICS 100 [facility] [address] [place] [address] Lionel Barriga MD 100 [facility] [address] [place] [address] 03/19/2025 11:15 AM EDT Office Visit [facility] PULMONARY & CRITICAL CARE MEDICINE [address] [facility] [address] [place] [phone] Edmundo Deleon MD [address] [place] [id number] documented as of this encounter Visit Diagnoses Diagnosis Dysphagia, unspecified type- Primary Moderate coronary artery risk chest pain documented in this encounter Care Teams Hand Stone Polisher Relationship Specialty Start Date End Date Lionel Barriga MD 100 [facility] [address] [place] [address] PCP - General Internal Medicine 05/10/17 documented as of this encounter
--- OUTSIDE RECORDS SUMMARY | 2024-12-26 10:21 | XMS_ITS | Clinical Summary ---
Author Organization [facility] Address [address] [place] [address] Care Team Providers Care Screen Tender Name Role Phone Lionel Barriga MD Primary Care Provider [phone] Allergies No known active allergies Medications Insulin Pen Needle (Pen Peapack 10/10 ) 31G X 8 MM misc Use to administer insulin 3 times daily and as needed. 90 each 08/11/19 22 Active B Complex Vitamins (vitamin b complex) capsule capsule Take 1 capsule by mouth Daily. Active Multiple Minerals-Vitamins (Calcium-Magnesium -Zinc-D3) tablet Take 1 tablet by mouth Daily. Active nitroglycerin (NITROSTAT) 0.[address] 1 tablet under the tongue Every 5 (Five) Minutes As Needed for Chest Pain. Take no more than 3 doses in 15 minutes. 25 tablet 05/03/20 23 Active PARoxetine (Paxil) 30 MG tabletIndications: Anxiety Take 1 tablet by mouth Every Morning. 90 tablet 1 09/07/19 24 Active glucagon (GLUCAGEN) 1 MG injection Inject 1 mg under the skin into the appropriate area as directed 1 (One) Time As Needed for Low Blood Sugar. 1 each 2 11/07/19 24 Active estradiol (ESTRACE) 0.1 MG/GM vaginal creamIndications:A trophic vaginitis Apply a pea sized amount to the vagina 3 times/week 42.5 g 3 11/07/19 24 Active ondansetron ODT (ZOFRAN-ODT) [address] 1 tablet on the tongue Every 8 (Eight) Hours As Needed for Nausea or Vomiting. 50 tablet 3 12/06/19 24 Active Empagliflozin-metF ORMIN HCl ER (Synjardy XR) 25-1000 MG tablet sustained-release 24 hour Take 1 tablet by mouth Daily. 30 tablet 11 12/28/19 24 Active glucose blood test strip Use as directed four times daily ok to change to ins formulary 100 each 03/25/20 24 Active Lancets misc Use as directed four times daily ok to change to ins formulary 100 each 03/25/20 24 Active Blood Glucose Monitoring Suppl (Blood Glucose Monitor System) w/Device kit Use daily as directed to check blood sugars 1 each 03/28/20 24 Active tocilizumab (Actemra) 80 MG/4ML solution injection Inject 0.4 mL under the skin into the appropriate area as directed 1 (One) Time Per Week. Active predniSONE (DELTASONE) 2.5 MG tablet Take 1 tablet by mouth As Needed. Active buPROPion XL (WELLBUTRIN XL) 300 MG 24 hr tablet Take 1 tablet by mouth Daily. 11/06/19 24 Active hydrOXYzine (ATARAX) 50 MG tablet Take 1 tablet by mouth Daily. Active traZODone (DESYREL) 100 MG tablet Take 1 tablet by mouth Every Night. 02/11/20 24 Active Continuous Glucose Sensor (Dexcom G7 Sensor) misc Use 1 each Every 10 (Ten) Days. 9 each 3 04/02/20 24 Active Insulin Disposable Pump (Omnipod 5 [id number] Pods Gen 5) misc Use 1 each Every Other Day. 45 each 3 06/18/19 25 Active aspirin 81 MG EC tablet Take 1 tablet by mouth Daily. 90 tablet 1 07/23/19 25 Active clopidogrel (PLAVIX) 75 MG tablet Take 1 tablet by mouth Daily. 90 tablet 07/23/19 25 Active metoprolol succinate XL (TOPROL-XL) 50 MG 24 hr tablet Take 1 tablet by mouth Daily. 90 tablet 3 07/23/19 25 Active rosuvastatin (Crestor) 20 MG tablet Take 1 tablet by mouth Daily. 90 tablet 1 07/23/19 25 Active Insulin Aspart, w/Niacinamide, 100 UNIT/ML solution Inject 100 Units as directed Continuous. Continuously via insulin pump up to 100 units daily 30 mL 09/05/19 25 Active CeleBREX 100 MG capsule Take 1 capsule by mouth Daily. 10/17/19 25 Active lidocaine (LIDODERM) 5 % Place 1 patch on the skin as directed by provider Daily. 10/08/19 25 Active methylPREDNISolone (MEDROL) 4 MG dose pack Take 1 tablet by mouth Daily. Patient states she has but is not taking yet. 10/30/19 25 Active atomoxetine (STRATTERA) 40 MG capsule Take 1 capsule by mouth Daily. Active HYDROcodone-acetam inophen (NORCO) 7.5-325 MG per tabletIndications: Chronic pain of both knees Take 1 tablet by mouth Every 6 (Six) Hours As Needed for Moderate Pain. 30 tablet 12/17/19 25 Active HYDROcodone-acetam inophen (NORCO) 7.5-325 MG per tabletIndications: Chronic pain of both knees Take 1 tablet by mouth Every 6 (Six) Hours As Needed for Moderate Pain. 30 tablet 11/18/19 25 025 Discontin ued(Reord er) HYDROcodone-acetam inophen (NORCO) 7.5-325 MG per tabletIndications: Chronic pain of both knees Take 1 tablet by mouth Every 6 (Six) Hours As Needed for Moderate Pain. 30 tablet 12/03/19 25 025 Discontin ued(Reord er) Active Problems Problem Noted Date Diagnosed Date Chest pain 10/26/2023 Dysphagia 05/30/2023 Former smoker (Stopped 2020) 05/09/2023 BAUM (dyspnea on exertion) 05/09/2023 History of CAD (coronary artery disease) - Prior LILY 05/09/2023 Multiple pulmonary nodules (Incidental max 4mm) 05/09/2023 Hilar adenopathy 05/09/2023 LAMAR on CPAP (Sees Dr. Mandel) 05/09/2023 Rheumatoid arthritis 05/09/2023 Obesity, Class II, BMI 35-39.9 10/11/2022 Non-cardiac chest pain (Probably costochondritis ) 10/03/2021 CAD (coronary artery disease) 10/03/2021 Overview (10/04/2021): NSTEMI 10/01/2021 treated at [place] with 100% ramus treated with a 2.5 mm LILY, proximal and mid LAD treated with 3.0 mm i Synergy stents. Residual chest pain admitted to [facility] 10/04/2021, repeat LHC showed widely patent ramus and LAD stents between the proximal and mid LAD stents 20-30% stenosis, proximal RCA 10-20%. LVEDP 14 mmHg. Mixed hyperlipidemia 12/03/2020 Anxiety and depression 12/03/2020 Nontoxic multinodular goiter 06/26/2020 Type 2 diabetes mellitus treated with insulin Resolved Problems Problem Noted Date Diagnosed Date Resolved Date Well woman exam 07/03/2022 10/11/2022 Overview (08/17/2022): SCREENING TESTS Year 2017 2018 2019 2019 2020 2021 2022 2023 2024 2025 2026 2027 2028 2029 2030 2031 2032 Age 56 PAP 4 3 HPV high risk 3 MELCHOR [Birads] 11[1] BECKY (5 year) Tyrer Rico (lifetime) Colonoscopy DEXA [T-score] Frax [hip/any] Enter the month test was performed. If month not known, enter X' Black numbers = normal results Red numbers = abnormal results Black X = patient reported normal Red X - patient reported abnormal Referred by: Profession: Other info: Elevated liver enzymes 10/03/202110/11 Leukocytosis 10/03/2021 10/11/2022 Non-STEMI (non-ST elevated m yocardial infarction) 10/03/2021 10/11/2022 Overview (10/04/2021): Added automatically from request for surgery [id number] Leg pain, left 12/04/2020 10/11/2022 Chest pain 12/03/2020 12/04/2020 Rheumatoid arthritis 12/03/2020 023 Pain and swelling of right wrist 08/28/2018 10/11/2022 Rash in adult 08/28/2018 10/11/2022 Assessment & Plan (08/28/2018 9:30 PM EDT): Has had extensive testing as above that has essentially been negative. DDx remains broad to include reactive arthritis (though wouldn't typically expect nodular lesions) vs crystalline arthropathy (though not c/w classic gouty tophi given distribution) vs rheumatologic process. Joint infection/septic joint unlikely in a well appearing, afebrile pt w/ normal blood counts and inflammatory markers. Given that right wrist nodule is fluctuant, larger than before pt may benefit from joint aspiration. Has previously scheduled post-op f/u from trigger finger surgery on 09/03 but will see if office staff can facilitate sooner appt to discuss this. Unfortunately radiology closed by the time pt was seen but pt given printed Rx for right wrist xray to further evaluate for any underlying bony erosion and/or soft tissue changes. She will get this at her local hospital's radiology facility and have them fax us the report as she live almost 2 hours away. Will also see if there are other rheumatology practices that may be able to see pt sooner (I.e. [facility]) although insurance may be a limiting factor. Discussed that as labs are unremarkable and likely some inflammatory process, could consider empiric oral steroid taper. Reviewed that steroids can raise blood sugars (which pt states has happened before w/ steroid use given her DM2) and BP as well. If ortho is able to aspirate any fluid, pre-emptive steroids may mask any findings. Pt would like to hold off on oral steroids at this point. Given some benefit with indocin, will trial meloxicam 15mg daily PRN but cautioned pt to take this w/ food/fluids and to not mix with any other NSAIDs including indocin. Encounters Date Type Department Care Team Description 12/16/2024 Refill [facility] INTERNAL MEDICINE & PEDIATRICS [address] [facility] [address] [place] [address] Lionel Barriga MD Chronic pain of both knees 12/04/2024 Refill [facility]ED[facility]ATRICS [address] [facility] [address] [place] [address] Lionel Barriga MD Chronic pain of both knees 11/30/2024 Refill [facility]ATR[facility] [address] [facility] [address] [place] [address] Bessie Johnson MD Chronic pain of both knees 11/18/2024 Results Follow-Up [facility]ATR[facility] [address] [facility] [address] [place] [address] Lionel Barriga MD 11/18/2024 Results Follow-Up [facility]ED[facility]ATR[facility] [address] [facility] [address] [place] [address] Lionel Barriga MD 11/04/2024 4:15 PM EDT Office Visit [facility]AT[facility] [address] [facility] [address] [place] [address] Lionel Barriga MD UGI bleed (Primary Dx); Memory loss; Chronic pain of both knees; Screening for colon cancer; Gastroesophageal reflux disease without esophagitis 11/04/2024 Travel 10/30/2024 3:45 PM EDT - 10/30/2024 11:59 PM EDT Hospital Encounter [facility] XRAY AT [address] [address] Lionel Barriga MD UGI bleed Discharge Disposition: Home or Self Care 10/30/2024 2:00 PM EDT Office Visit [facility] PEDIATRICS [address] [place] [address] [address] [place] [address] Lionel Barriga MD UGI blemyke (Primary Dx); [place] 10/30/2024 Travel 10/27/2024 Telephone [facility]AT[facility] [address] [facility] [address] [place] [address] Lionel Barriga MD RELAY 10/27/2024 Telephone [facility]ED[facility]ATR[facility] [address] [facility] [address] [place] [address] Lionel Barriga MD 10/27/2024 Results Follow-Up [facility]ED[facility]ATRICS [address] [facility] [address] [place] [address] Lionel Barriga MD 10/23/2024 11:00 AM EDT Office Visit [facility] INTER[facility] MED[facility] PEDIATRICS [address] [facility] [address] [place] [address] Lionel Barriga MD Chronic pain of both knees (Primary Dx); [place] 10/23/2024 Telephone [facility]AT[facility] [address] [facility] [address] [place] [address] Lionel Barriga MD Prior Authorization 10/23/2024 Travel 10/06/2024 Telephone [facility]AT[facility] [address] [facility] [address] [place] [address] Lionel Barriga MD Appointment 09/26/2024 Telephone [facility] GASTROENTEROLOGY [address] [facility] [address] [place] [address] Rigo Andersen MD from Last 3 Months Immunizations Immunization Administration Dates Next Due 31-influenza Vac Quardvalent Preservativ 020,01/26/2019 Fluzone (or Fluarix & Flulav al for VFC) >6mos 02/15/2023,03/13/2022,04/08/2019 Hepatitis A 04/08/2019,01/26/2019,04/02/2018 Influenza, Unspecified 03/13/2022,06/16/2020 Pneumococcal Conjugate 13-Valent (PCV13) 019,05/28/2018 Pneumococcal Polysaccharide (PPSV23) 05/29/2017 Shingrix 12/31/2019,12/04/2019,12/02/2019 Td (TDVAX) 12/02/2019 Family History Medical History Relation Name Comments Diabetes Daughter Amelia Sales COPD Father Judd Lorenzana Diabetes Father Judd Lorenzana of a strok e high blood pressure Early Father Judd Lorenzana Stroke and PE Heart disease Father Judd Lorenzana of Stroke Hyperlipidemia Father Judd Lorenzana Stroke Father Judd Lorenzana Arthritis Maternal Aunt April Patino COPD Maternal Aunt April Patino Other Maternal Aunt April Patino Alzhei fidel's, diverticulitis, and Parkinsons Cancer Maternal Grandfather Sathya Perazaamrik Lorenzana Melanoma Early Maternal Grandfather Sathya Lorenzana of adult leukema Melanoma Maternal Grandfather Sathya Huynh Harriett Depression Maternal Grandmother Shayy Dupree Anemia Mother Holley Lorenzana Anxiety disorder Mother Holley Lorenzana Arrhythmia Mother Holley Pottsdins Arthritis Mother Holley Pottsdins COPD Mother Holley Pottsdins Cancer Mother Holley Pottsdins COPD AND MADIE [place] Deep vein thrombosis Mother Holley Lorenzana Diabetes Mother Holley Lorenzana Early Mother Holley Lorenzana dementia and CO PD, crohns Hyperlipidemia Mother Holley Lorenzana Hypertension Mother Holley Lorenzana Miscarriages / Stillbirths Mother Holley Lorenzana Osteoporosis Mother Holley Lorenzana Other Mother Holley Lorenzana Dementia Thyroid disease Mother Holley Lorenzana Pancreatic cancer Other Maternal g reat uncle Hearing loss Paternal Aunt 1 Nydia Churchill Born deaf Mental illness Paternal Aunt 2 Sabina Harriett Weston Cancer Paternal Grandfather Sathya Vasquez Lymphom a Diabetes Paternal Grandmother Verna Lorenzana of cirrhosis of the liver non alcoholic Early Paternal Grandmother Verna Lorenzana Cirrosi s of the Liver Liver disease Paternal Grandmother Verna Lorenzana Diabetes Sister 1 Inge Harriett Drug abuse Sister 1 Inge Harriett Diabetes Sister 2 Inge Harriett Drug abuse Sister 2 Inge Harriett Diabetes Sister 3 Inge Harriett Arlet Drug abuse Sister 3 Inge Harriett Arlet Breast cancer Neg Hx Colon cancer Neg Hx Ovarian cancer Neg Hx Prostate cancer Neg Hx Relation Name Status Comments Daughter Amelia Sales Alive Father Judd Lorenzana Maternal Aunt April Patino Alive Maternal Grandfather Sathya Lorenzana Alive Maternal Grandmother Shayy Dupree Alive Mother Holley Lorenzana Other Alive Paternal Aunt 1 Nydia Churchill Alive Paternal Aunt 2 Sabina Ontiveros Alive Paternal Grandfather Sathya Vasquez Paternal Grandmother Verna Lorenzana Sister 1 Inge Lorenzana Alive Sister 2 Inge Lorenzana Alive Sister 3 Inge Lorenzana Arlet Alive Social History Tobacco Use Types Packs/Day Years [...] Orientation Straight 12/20/2022 8: 52 AM EDT Last Filed Vital Signs Vital Sign Reading Time Taken Comments Blood Pressure 118/68 11/04/2024 4:36 PM EDT Pulse 72 11/04/2024 4:36 PM EDT Temperature 36.6 C (97.8 F) 11/04/2024 4:36 PM EDT Respiratory Rate 20 11/04/2024 4:36 PM EDT Oxygen Saturation 95% 06/12/2024 11:28 AM EST Inhaled Oxygen Concentration - - Weight 101 kg (223 lb) 11/04/2024 4:36 PM EDT Height 170.2 cm (5' 7 ) 06/12/2024 11:28 AM EST Body Mass Index 34.93 06/12/2024 11:28 AM EST Plan of Treatment Upcoming Encounters Date Type Department Care Team (Late st Contact Info) Description 01/15/2025 10:40 AM EDT Office Visit [facility] CARDIOLOGY [address] [place] [address] Katja Jose PA-C [address] [place] [address] 01/29/2025 1:00 PM EDT Office Visit [facility] INTERNAL MEDICINE & PEDIATRICS [address] [facility] [address] [place] [address] Lionel Barriga MD [address] [facility] [address] [place] [address] 03/19/2025 11:15 AM EDT Office Visit [facility] PULMONARY & CRITICAL CARE MEDICINE [address] [facility] [address] [place] [address] Edmundo Deleon MD [address] [place] [id number] Health Maintenance Due Date Last Done Comments URINE MICROALBUMIN-CREATININ E RATIO (uACR) 1976 Hepatitis B (1 of 3 - 19+ 3- dose series) 1985 COLOGUARD 12/06/2011 COLON CANCER SCREENING 5 YEA R SIGMOIDOSCOPY 12/06/2011 COLONOSCOPY 12/06/2011 COLORECTAL CANCER SCREENING 12/06/2011 CT COLONOGRAPHY 12/06/2011 FECAL OCCULT BLOOD TEST 12/06/2011 FIT Testing (1 year) 12/06/2011 ZOSTER VACCINE (2 of 2) 02/25/2020 12/31/19 20, 12/04/2019, 12/02/2019 MAMMOGRAM 04/26/2023 04/26/2022, 03/30, 04/26/2022, Additional history exists Annual Gynecologic Pelvic an d Breast Exam 07/05/2023 07/04/2022 ANNUAL PHYSICAL 01/18/2024 01/17/2023 COVID-19 Vaccine (1 - 2023-2 5 season) 2024 DIABETIC EYE EXAM 03/07/2024 03/07/2023 (Ian henson-Reported (Performed Externally)), 09/21/2017 Pneumococcal Vaccine 50+ (3 of 3 - PCV20 or PCV21) 04/08/2024 04/08/2019, 05/28/2018, 05/29/2017 DIABETIC FOOT EXAM 06/20/2024 06/20/2023, 0 06/20/2023, 09/05/2017 INFLUENZA VACCINE 02/25/2025 02/15/2023, , 03/13/2022, Additional history exists HEMOGLOBIN A1C 02/26/2025 08/27/2024, 1110/2023, 12/28/2023, Additional history exists PAP SMEAR 08/15/2025 08/15/2022, 11/2022, 09/05/2017 LIPID PANEL 08/27/2025 08/27/2024, 10/26, 11/12/2023, Additional history exists TDAP/TD VACCINES (2 - Tdap) 12/01/2029 12/02/2019 HEPATITIS C SCREENING Completed 11/12/2023 , 10/03/2021, 06/05/2017 MERGED WITH [facility] Discontinued Procedures Procedure Name Priority Date/Time Associated Diagnosis Comments SCANNED EKG 11/21/2024 SCANNED EKG 11/21/2024 SCANNED - LABS 11/21/2024 SCANNED - IMAGING 11/21/2024 POCT HEMOGLOBIN Routine 11/04/2024 5:44 PM EDT UGI bleed SCANNED COGNITIVE ASSESSMENT 11/04/2024 XR CHEST PA AND LATERAL Routine 10/30/2024 3:57 PM EDT UGI bleed CBC AND DIFFERENTIAL Routine 10/30/2024 3:35 PM EDT UGI bleed CBC WITH AUTO DIFFERENTIAL Routine 10/30/2024 3:35 PM EDT UGI bleed APTT Routine 10/30/2024 3:35 PM EDT UGI bleed PROTIME-INR Routine 10/30/2024 3:35 PM EDT UGI bleed COMPREHENSIVE METABOLIC PANEL Routine 10/30/2024 3:35 PM EDT UGI bleed URINE DRUG SCREEN Routine 10/30/2024 2:4 6 PM EDT [place] 5 HIAA, URINE, QUANTITATIVE, 24 HOUR Routine 10/30/2024 2:46 PM EDT [place] CORTISOL, URINE, FREE 24 HOUR Routine 10/30/2024 2:46 PM EDT [place] METANEPHRINES, URINE, 24 HOUR Routine 10/30/2024 2:46 PM EDT [place] VMA, URINE, 24 HOUR Routine 10/30/2024 2 :46 PM EDT [place] SCANNED - IMAGING 10/30/2024 CBC AND DIFFERENTIAL Routine 10/23/2024 11:45 AM EDT [place] CBC WITH AUTO DIFFERENTIAL Routine 10/23/2024 11:45 AM EDT [place] T4, FREE Routine 10/23/2024 11:45 AM EDT [place] TSH Routine 10/23/2024 11:45 AM EDT [place] COMPREHENSIVE METABOLIC PANEL Routine 10/23/2024 11:45 AM EDT [place] SCANNED - IMAGING 10/16/2024 HEMOGLOBIN A1C Routine 08/27/2024 3:19 PM EDT Type 2 diabetes mellitus without complication, with long-term current use of insulin LIPID PANEL Routine 08/27/2024 3:19 PM EDT Hyperlipidemia, unspecified hyperlipidemia type SCANNED - FOOT EXAM 06/20/2023 LIQUID-BASED PAP SMEAR, [facility] ([facility]) Routine 08/15/2022 1:50 PM EDT Unsatisfactory cervical Papanicolaou smear MAMMO SCREENING DIGITAL TOMOSYNTHESIS BILATERAL W CAD Routine 04/26/2022 1:18 PM EST Encounter for screening mammogram for breast cancer HEPATITIS PANEL, ACUTE Add-On 10/03/2021 6:13 PM EDT SCANNED - INFLUENZA 04/08/2019 from Last 3 Months or Most Recently Relevant to Health Maintenance Results * ECG Scan (11/21/2024) Only the most recent of2 resultswithin the time period is included. us Katja E McGrannahan PA-C ECG ORDERABLES Anjali l Result * IMAGING SCANNED (11/21/2024) Only the most recent of3 resultswithin the time period is included. Anatomical Region Laterality Modality Radiographic Yara ging us Lionel Barriga MD IMG DIAGNOSTIC IMAGING ORD ERABLES Final Result * LABS SCANNED (11/21/2024) us Lionel Barriga MD LAB BLOOD ORDERABLES Final Result * POC Hemoglobin (11/04/2024 5:44 PM EDT) Hemoglobin 16.2 12.0 - 17.0 g/dL [facility] Lot Number [id number] [facility] Expiration Date 11/27/2026 [facility] Blood 11/04/2024 5:44 PM EDT us Lionel Barriga MD POINT OF CARE TEST ORDERAB LES Final Result [facility]
[address] [place] [address], * COGNITIVE ASSESSMENT SCAN (11/04/2024) us Lionel Barriga MD NEUROLOGY ORDERABLES Final Result * XR Chest PA & Lateral (10/30/2024 3:57 PM EDT) Anatomical Region Laterality Modality Body, Chest N/A Radiographic Yara ging 10/31/2024 10:3 5 AM EDT Impressions 10/31/2024 10:35 AM EDT Impression: No active disease. Electronically Signed: Niranjan Tate MD 10/31/2024 10:35 AM EDT Workstation ID: [id number] Narrative 10/31/2024 10:35 AM EDT XR CHEST [...] MD 10/31/2024 10:35 AM EDT Workstation ID: [id number] Lionel Barriga MD IMG DIAGNOSTIC IMAGING ORD ERABLES Final Result * CBC Auto Differential (10/30/2024 3:35 PM EDT) Only the most recent of2 resultswithin the time period is included. WBC 6.19 3.40 - 10.80 10*3/mm3 10/31/2024 1:54 AM EDT [facility] RBC 4.79 3.77 - 5.28 10*6/mm3 10/31/2024 1:54 AM EDT [facility] Hemoglobin 14.9 12.0 - 15.9 g/dL 10/31/2024 1:54 AM EDT [facility] Hematocrit 44.4 34.0 - 46.6 % 10/31/2024 1:54 AM EDT [facility] MCV 92.7 79.0 - 97.0 fL 10/31/2024 1:54 AM EDT [facility] MCH 31.1 26.6 - 33.0 pg 10/31/2024 1:54 AM EDT [facility] MCHC 33.6 31.5 - 35.7 g/dL 10/31/2024 1:54 AM [facility] RDW 12.4 12.3 - 15.4 % 10/31/2024 1:54 AM [facility] RDW-SD 42.1 37.0 - 54.0 fl 10/31/2024 1:54 AM [facility] MPV 10.5 6.0 - 12.0 fL 10/31/2024 1:54 AM [facility] Platelets 214 140 - 450 10*3/mm3 10/31/2024 1:54 AM [facility] Neutrophil % 47.2 42.7 - 76.0 % 10/31/2024 1:54 AM [facility] Lymphocyte % 39.6 19.6 - 45.3 % 10/31/2024 1:54 AM [facility] Monocyte % 7.4 5.0 - 12.0 % 10/31/2024 1:54 AM [facility] Eosinophil % 4.0 0.3 - 6.2 % 10/31/2024 1:54 AM [facility] Basophil % 1.5 0.0 - 1.5 % 10/31/2024 1:54 AM [facility] Immature Grans % 0.3 0.0 - 0.5 % 10/31/2024 1:54 AM [facility] Neutrophils, Absolute 2.92 1.70 - 7.00 10*3/mm3 10/31/2024 1:54 AM [facility] Lymphocytes, Absolute 2.45 0.70 - 3.10 10*3/mm3 10/31/2024 1:54 AM [facility] Monocytes, Absolute 0.46 0.10 - 0.90 10*3/mm3 10/31/2024 1:54 AM [facility] Eosinophils, Absolute 0.25 0.00 - 0.40 10*3/mm3 10/31/2024 1:54 AM [facility] Basophils, Absolute 0.09 0.00 - 0.20 10*3/mm3 10/31/2024 1:54 AM EDT [facility] Immature Grans, Absolute 0.02 0.00 - 0.05 10*3/mm3 10/31/2024 1:54 AM EDT [facility] nRBC 0.0 0.0 - 0.2 /100 WBC 10/31/2024 1:54 AM EDT [facility] Blood Venipuncture / Unknown 10/30/2024 3:35 PM EDT 10/30/2024 3:36 PM EDT Lionel Barriga MD LAB BLOOD ORDERABLES Final Result Performing Organization Address [facility]/ZIP Co de Phone Number [facility]
[address] [place] [address], [place] [phone] * aPTT (10/30/2024 3:35 PM EDT) PTT 33.7 22.0 - 39.0 seconds 10/30/2024 9:41 PM EDT [facility] Blood Structure of right upper limb / Unknown Venipuncture / Unknown 10/30/2024 3:35 PM EDT 10/30/2024 3:36 PM EDT Narrative [facility] - 10/30/2024 9:41 PM EDT PTT = The equivalent PTT values for the therapeutic range of heparin levels at 0.3 to 0.5 U/ml are 60 to 70 seconds. Lionel Barriga MD LAB BLOOD ORDERABLES Final Result [facility]
[address] [place] [address], [place] [phone] * (ABNORMAL) Protime-INR (10/30/2024 3:35 PM EDT) Protime 11.9(L) 12.2 - 15.3 Seconds 10/30/2024 9:41 PM EDT [facility] INR 0.83(L) 0.89 - 1.12 10/30/2024 9:41 PM EDT [facility] Blood Structure of right upper limb / Unknown Venipuncture / Unknown 10/30/2024 3:35 PM EDT 10/30/2024 3:36 PM EDT us Lionel Barriga MD LAB BLOOD ORDERABLES Final Result [facility]
[address] [place] [address], * (ABNORMAL) Comprehensive Metabolic Panel (10/30/2024 3:35 PM EDT) Only the most recent of2 resultswithin the time period is included. Glucose 76 65 - 99 mg/dL 10/31/2024 2:25 AM EDT [facility] [facility] BUN 18.0 6.0 - 20.0 mg/dL 10/31/2024 2:25 AM EDT [facility] Creatinine 1.13(H) 0.57 - 1.00 mg/dL 10/31/2024 2:25 AM EDT [facility] Sodium 140 136 - 145 mmol/L 10/31/2024 2:25 AM EDT [facility] Potassium 3.8 3.5 - 5.2 mmol/L 10/31/2024 2:25 AM EDT [facility] Chloride 104 98 - 107 mmol/L 10/31/2024 2:25 AM EDT [facility] CO2 24.4 22.0 - 29.0 mmol/L 10/31/2024 2:25 AM EDT [facility] Calcium 9.8 8.6 - 10.5 mg/dL 10/31/2024 2:25 AM EDT [facility] Total Protein 7.2 6.0 - 8.5 g/dL 10/31/2024 2:25 AM EDT [facility] Albumin 4.7 3.5 - 5.2 g/dL 10/31/2024 2:25 AM EDT [facility] ALT (SGPT) 29 1 - 33 U/L 10/31/2024 2:25 AM EDT [facility] AST (SGOT) 22 1 - 32 U/L 10/31/2024 2:25 AM EDT [facility] Alkaline Phosphatase 62 39 - 117 U/L 10/31/2024 2:25 AM EDT [facility] Total Bilirubin 0.4 0.0 - 1.2 mg/dL 10/31/2024 2:25 AM EDT [facility] Globulin 2.5 gm/dL 10/31/2024 2:25 AM [facility] A/G Ratio 1.9 g/dL 10/31/2024 2:25 AM [facility] BUN/Creatinine Ratio 15.9 7.0 - 25.0 10/31/2024 2:25 AM [facility] Anion Gap 11.6 5.0 - 15.0 mmol/L 10/31/2024 2:25 AM [facility] eGFR 56.9(L) >60.0 mL/min/1.7 3 10/31/2024 2:25 AM [facility] Blood Venipuncture / Unknown 10/30/2024 3:35 PM EDT 10/30/2024 3:36 PM EDT [facility] - 10/31/2024 2:25 AM EDT [...] Barriga MD LAB BLOOD ORDERABLES Final Result [facility]
[address] [place] [address], * Urine Drug Screen - Urine, Clean [...] is inconsistent with an expected outcome. Email: [email or web address] 24 Hour Urine Urine specimen obtained by clean catch procedure / Unknown Collection / Unknown 10/30/2024 2:46 PM EDT 10/30/2024 2:48 PM EDT Narrative [facility] - 12/08/2024 1:55 PM EDT Performed at: - [facility] [address] [place], [place] [id number] [address] Change Roof Bolter: Hemalatha Mayfield PhD, Phone: [phone] Specimen Comment: Corrected report called to Yasmine Silver 12/08/24 1:28pm Specimen Comment: A duplicate report has been generated due to demographic updates. us Lionel Barriga MD URINE ORDERABLES Edited Re sult - Final [facility] [address] [place] [address], * VMA, Urine, 24 Hour - Urine, Clean Catch (10/30/2024 2:46 PM EDT) VMA, Urine 0.7 Undefined mg/L 11/04/2024 4:12 PM EDT [facility] VMA 24 Hour 1.6 0.0 - 7.5 mg/24 hr 11/04/2024 4:12 PM EDT [facility] 24 Hour Urine Urine specimen obtained by clean catch procedure / Unknown Collection / Unknown 10/30/2024 2:46 PM EDT 10/30/2024 2:48 PM EDT Narrative [facility] - 11/04/2024 4:12 PM EDT Test(s) [id number], Urine was developed and its performance characteristics determined by [facility]. It has not been cleared or approved by the Food and Drug Administration. Performed at: 01 - [id number] Change Roof Bolter: Abiel Castillo MD, Phone: [phone] Lionel Barriga MD URINE ORDERABLES Final Res ult [facility] [address] [place] [address], * Metanephrines, Urine, 24 Hour - Urine, Clean Catch (10/30/2024 2:46 PM EDT) Normetanephrin e, Urine 102 Undefined ug/L 11/04/2024 9:10 AM EDT [facility] Normetanephrin e, 24H Ur 227 131 - 612 ug/24 hr 11/04/2024 9:10 AM EDT [facility] Metanephrines, Urine 19 Undefined ug/L 11/04/2024 9:10 AM EDT [facility] Metaneph, Total, 24H Ur 42 36 - 209 ug/24 hr 11/04/2024 9:10 AM EDT [facility] 24 Hour Urine Urine specimen obtained by clean catch procedure / Unknown Collection / Unknown 10/30/2024 2:46 PM EDT 10/30/2024 2:48 PM EDT Narrative [facility] - 11/04/2024 9:10 AM EDT Test(s) [id number], Ur; [id number]-Pvwszgbngrfw, Ur was developed and its performance characteristics determined by [facility]. It has not been cleared or approved by the Food and Drug Administration. Performed at: - [id number] [address] Change Roof Bolter: Abiel Castillo MD, Phone: [phone] Lionel Barriga MD URINE ORDERABLES Final Res ult Performing Organization Address [facility] de Phone Number [facility] [address] [place] [address], [place] [phone] * Cortisol, Urine, Free 24Hr - Urine, Clean Catch (10/30/2024 2:46 PM EDT) Cortisol, Free 9 Undefined ug/L 2024 4:11 PM EDT [facility] Cortisol, 24H Ur 20 6 - 42 ug/24 hr 11/06/2024 4:11 PM EDT [facility] 24 Hour Urine Urine specimen obtained by clean catch procedure / Unknown Collection / Unknown 10/30/2024 2:46 PM EDT 10/30/2024 2:48 PM EDT N[facility]ative [facility] - 11/06/2024 4:11 PM EDT Test(s) [id number]-Jkqejowp,F,ug/L,U was developed and its performance characteristics determined by [facility]. It has not been cleared or approved by the Food and Drug Administration. Performed at: - [id number] [address] Change Roof Bolter: Abiel Castillo MD, Phone: [phone] Lionel Barriga MD URINE ORDERABLES Final Res ult Performing Organization Address [facility] de Phone Number [facility] [address] [place] [address], [place] [phone] * 5 HIAA, Urine, Quantitative, 24 Hour - Urine, Clean Catch (10/30/2024 2:46 PM EDT) [facility] 5-HIAA, Urine 1.8 Undefined mg/L 025 10:10 AM EDT [facility] 5-HIAA, 24H Ur 4.0 0.0 - 14.9 mg/24 hr 11/05/2024 10:10 AM EDT [facility] 24 Hour Urine Urine specimen obtained by clean catch procedure / Unknown Collection / Unknown 10/30/2024 2:46 PM EDT 10/30/2024 2:48 PM EDT Narrative [facility] - 11/05/2024 10:10 AM EDT Test(s) [id number], Urine was developed and its performance characteristics determined by [employer] [facility]. It has not been cleared or approved by the Food and Drug Administration. Performed at: - [address] [id number] [address] Change Roof Bolter: Abiel Castillo MD, Phone: [phone] Lionel Barriga MD URINE ORDERABLES Final Res ult [facility] [address] [place] [address], [place] [phone] * TSH (10/23/2024 11:45 AM EDT) [facility] TSH 1.100 0.270 - 4.200 uIU/mL 10/23/2024 7:26 PM EDT [facility] Blood Structure of right upper limb / Unknown Venipuncture / Unknown 10/23/2024 11:45 AM EDT 10/23/2024 11:45 AM EDT Lionel Barriga MD LAB BLOOD ORDERABLES Final Result [facility]
[address] [place] [address], [place] [phone] * T4, Free (10/23/2024 11:45 AM EDT) Free T4 1.28 0.92 - 1.68 ng/dL 10/23/2024 7:26 PM EDT [facility] Blood Structure of right upper limb / Unknown Venipuncture / Unknown 10/23/2024 11:45 AM EDT 10/23/2024 11:45 AM EDT us Lionel Barriga MD LAB BLOOD ORDERABLES Final Result Performing Organization Address [facility] Co de Phone Number [facility]
[address] [place] [address], * (ABNORMAL) Hemoglobin A1c (08/27/2024 3:19 PM EDT) Hemoglobin A1C 9.00(H) 4.80 - 5.60 % 08/27/2024 11:34 PM EDT [facility] Blood Venipuncture / Unknown 08/27/2024 3:19 PM EDT 08/27/2024 3:19 PM EDT Narrative [facility] - 08/27/2024 11:34 PM EDT Hemoglobin A1C Ranges: Increased Risk for Diabetes 5.7% to 6.4% Diabetes >= 6.5% Diabetic Goal < 7.0% Lionel Barriga MD LAB BLOOD ORDERABLES Final Result Performing Organization Address [facility] Co de Phone Number [facility]
[address] [place] [address], * (ABNORMAL) Lipid Panel (08/27/2024 3:19 PM EDT) Total Cholesterol 123 0 - 200 mg/dL 08/27/2024 11:39 PM EDT [facility] Triglycerides 232(H) 0 - 150 mg/dL 08/27/2024 11:39 PM EDT [facility] HDL Cholesterol 37(L) 40 - 60 mg/dL 08/27/2024 11:39 PM EDT [facility] LDL Cholesterol 49 0 - 100 mg/dL 08/27/2024 11:39 PM EDT [facility] VLDL Cholesterol 37 5 - 40 mg/dL 08/27/2024 11:39 PM EDT [facility] LDL/HDL Ratio 1.07 08/27/2024 11:39 PM EDT [facility] Blood Venipuncture / Unknown 08/27/2024 3:19 PM EDT 08/27/2024 3:19 PM EDT Narrative [facility] - 08/27/2024 11:39 PM EDT Cholesterol Reference Ranges (U.S. Department of Health and Human Services ATP III Classifications) Desirable <200 mg/dL Borderline High 200-239 mg/dL High Risk >240 mg/dL Triglyceride Reference Ranges (U.S. Department of Health and Human Services ATP III Classifications) Normal <150 mg/dL Borderline High 150-199 mg/dL High 200-499 mg/dL Very High >500 mg/dL HDL Reference Ranges (U.S. Department of Health and Human Services ATP III Classifications) Low <40 mg/dl (major risk factor for CHD) High >60 mg/dl ('negative' risk factor for CHD) LDL Reference Ranges (U.S. Department of Health and Human Services ATP III Classifications) Optimal <100 mg/dL Near Optimal 100-129 mg/dL Borderline High 130-159 mg/dL High 160-189 mg/dL Very High >189 mg/dL LDL is calculated using the NIH LDL-C calculation. us Lionel Barriga MD LAB BLOOD ORDERABLES Final Result [facility]
[address] [place] [address], [place] [phone] * FOOT EXAM SCANNED (06/20/2023) us Lionel Barriga MD CHART REVIEW TABS Final Result * LIQUID-BASED PAP SMEAR, [facility] (TWILA,COR,MAD) (08/15/2022 1:50 PM EDT) Reference Lab Report [facility] [address] [place] [address] or [phone] Sharif Fan M.D., Weighmaster Lead PATIENT NAME LABORATORY NO. [address]IL[address]. [id number] AGE SEX N CLIENT REF # [facility] [address] 1965 F [id number] APRIL CRUZ MD REQUESTING MLexis. ATTENDING M.D. COPY TO. [address] [facility], [facility] [address] [place] [id number] DATE COLLECTED DATE RECEIVED DATE REPORTED 08/15/2022 08/15/2022 08/16/2022 ThinPrep Pap with Cytyc Imaging DIAGNOSIS: Negative for intraepithelial lesion or malignancy Multiple factors can influence accuracy of Pap tests; therefore, screening at regular intervals is necessary for early cancer detection. SPECIMEN ADEQUACY: SATISFACTORY FOR EVALUATION Transformation zone is present. SOURCE OF SPECIMEN: CERVICAL/ENDOCERV ICAL SLIDES: 1 CLINICAL HISTORY: RE-PAP DUE TO NON-DIAGNOSTIC Unsatisfactory cervical Papanicolaou smear CORRIDOR REDEVELOPMENT MANAGER: NICKI VICK(ASCP) CPT CODES: 90850 08/16/2022 12:04 PM EDT [facility] ThinPrep Vial Collection / Unknown 08/15/2022 1:50 PM EDT 08/15/2022 1:50 PM EDT April Cruz MD PATHOLOGY/CYTOLOGY ORDERABLE S Final Result [facility]
[address] [place] [address], * Mammo Screening Digital Tomosynthesis Bilateral With CAD (04/26/2022 1:18 PM EST) Anatomical Region Laterality Modality Breast N/A Mammography 05/01/2022 10:1 3 AM EST Impressions 05/01/2022 10:15 AM EST No mammographic findings suspicious for malignancy. RECOMMENDATION: Continue annual screening mammography. BI-RADS CATEGORY 1, NEGATIVE. CAD was utilized. The standard false-negative rate of mammography is between 10% and 25%. Complex patterns or increased breast density will markedly elevate the false-negative rate of mammography. A letter, in lay terminology, with the results of this exam will be mailed to the patient. This report was finalized on 05/01/2022 10:[address] Marychuy Hubbard MD. Narrative 05/01/2022 10:15 AM EST BILATERAL SCREENING MAMMOGRAM WITH TOMOSYNTHESIS: HISTORY: The patient has no personal history or significant family history of breast cancer and no focal breast complaints at the time of screening mammography. TECHNIQUE: Bilateral CC and MLO low dose, full field digital mammographic images were obtained with 2-D acquisitions and tomosynthesis. COMPARISON: Outside mammograms from [place], [place] dated 02/18/2019 and 01/15/2018. FINDINGS: There are scattered areas of fibroglandular density. The fibroglandular pattern is stable. There are no suspicious masses, worrisome calcifications, nonsurgical areas of architectural distortion, or other secondary signs of malignancy. Lionel Barriga MD IM MAMMOGRAPHY ORDERABLES Final Result * Hepatitis Panel, Acute (10/03/2021 6:13 PM EDT) Hepatitis B Surface Ag Non-Reacti ve Non-Reacti ve 10/03/2021 8:39 PM EDT [facility] Hep A IgM Non-Reacti ve Non-Reacti ve 10/03/2021 8:39 PM EDT [facility] Hep B C IgM Non-Reacti ve Non-Reacti ve 10/03/2021 8:39 PM EDT [facility] Hepatitis C Ab Non-Reacti ve Non-Reacti ve 10/03/2021 8:39 PM EDT [facility] Blood Line / Unknown 10/03/2021 6: 13 PM EDT 10/03/2021 6:20 PM EDT Narrative [facility] - 10/03/2021 8:39 PM EDT Results may be falsely decreased if patient taking Biotin. Bisi Rasmussen PA-C LAB BLOOD ORDERABLES Final Result [facility]
[address] [place] [address], * SCANNED - INFLUENZA (04/08/2019) Lionel Barriga MD CHART REVIEW TABS Final Result from Last 3 Months or Most Recently Relevant to Health Maintenance Insurance [facility] Advance Directives * CPR (Attempt to Resuscitate) (Latest Code Status on File) Date Activated Date Inactivated Comments 10/03/2021 7:55 PM 10/04/2021 10:21 PM Question Answer Comments Code Status (Patient has no pulse and is not breathing): CPR (Attempt to Resuscitate) Medical Interventions (Patie nt has pulse or is breathing): Full Support Level Of Support Discussed With: Patient * CPR (Attempt to Resuscitate) Date Activated Date Inactivated Comments 12/03/2020 10:25 PM 12/04/2020 6:59 PM Question Answer Comments Code Status (Patient has no pulse and is not breathing): CPR (Attempt to Resuscitate) Medical Interventions (Patie nt has pulse or is breathing): Full Level Of Support Discussed With: Patient Care Teams Screen Tender Relationship Specialty Start Date End Date Lionel Barriga MD [address] [place] [address] PCP - General Internal Medicine 05/10/17
--- OUTSIDE RECORDS SUMMARY | 2024-12-26 10:21 | XMS_ITS | Encounter Summary ---
Author Organization [facility] Address [address] [place] [address] Care Team Providers Care Valet Service Attendant Name Role Phone Lionel Barriga MD Primary Care Provider +1- [phone] Reason for Visit * Reason Comments Med Refill Encounter Details Date Type Department Care Team (Late st Contact Info) Description 12/04/2024 Refill [facility] INTERNAL MEDICINE & PEDIATRICS [address] [address] Lionel Barriga MD 100 [facility] [address] [place] [address] Chronic pain of both knees Social History Tobacco Use Types Packs/Day Years [...] Visit [facility] [address] [place] [phone] Katja Jose PARocioC [address] [facility] [address] [place] [phone] 01/29/2025 1:00 PM EDT Office Visit [facility] INTERNAL MEDICINE & PEDIATRICS 100 [facility] [address] [place] [phone] Lionel Barriga MD 100 [facility] [address] [place] [address] 03/19/2025 11:15 AM EDT Office Visit [facility] PULMONARY & CRITICAL CARE MEDICINE [address] [facility] [address] [place] [phone] Edmundo Deleon MD [address] [place] [phone] documented as of this encounter Visit Diagnoses Diagnosis Chronic pain of both knees documented in this encounter Care Teams Valet Service Attendant Relationship Specialty Start Date End Date Lionel Barriga MD [address] [facility] [address] [place] [address] PCP - General Internal Medicine 05/10/17 documented as of this encounter
--- OUTSIDE RECORDS SUMMARY | 2024-12-26 10:21 | XMS_ITS | Encounter Summary ---
Author Organization Healthcare Address [address] [place] [address] Care Team Providers Care Title Lawyer Name Role Phone Brisa Patel Unavailable Lionel Barriga MD Primary Care Provider +1- [phone] Encounter Details Date Type Department Care Team (Late st Contact Info) Description 01/17/2022 Community [facility] [address] [place] [address] Jami Maldonado, CASING BLOWER 100 [facility] 200 [place] [address] Rheumatoid arthritis, involving unspecified site, unspecified whether rheumatoid factor present (CMS/[facility]) (Primary Dx) Social History Tobacco Use Types [...] Description 03/23/2025 9:00 AM EDT Office Visit [facility] [address] [place] [address] Shalonda Gomez, CASING BLOWER [address] [place] [address] documented as of this encounter Visit Diagnoses Diagnosis Rheumatoid arthritis, involving unspecified site, unspecified whether rheumatoid factor present ([facility])- Primary documented in this encounter Care Teams Title Lawyer Relationship Specialty Start Date End Date Lionel Barriga MD 100 [facility] [address] [place] [address] PCP - General 03/07/23 Brisa Patel [address] [place], [place] [phone] 01/12/22 documented as of this encounter
--- OUTSIDE RECORDS SUMMARY | 2024-12-26 10:21 | XMS_ITS | Clinical Summary ---
Author Organization [facility] Address [address] [place] [address] Care Team Providers Care Ceo & Board Director Name Role Phone Other, Physician Outoftolynn KERR [...] PCV21) 04/08/2024 04/08/2019, 05/28/2018, 05/29/2017 Influenza Vaccine (#1) 2025 3, 03/13/2022, 03/13/2022, Additional history exists RSV Vaccine [...] complete this topic Insurance 62 [address] SEN [id number] [address]IL MASSEY CROSS ALL OTHERS NOT MEDICARE Care Teams Ceo & Board Director Relationship Specialty Start Date End Date Other, Physician MD Queta Other PCP - General Internal Medicine 09/06/23
--- OUTSIDE RECORDS SUMMARY | 2024-12-26 10:21 | XMS_ITS | Encounter Summary ---
Author Organization [facility] Address [address] [place] [address] Care Team Providers Care Electrician Journeyman Wireman Name Role Phone Lionel Barriga MD Primary Care Provider +1- [phone] Encounter Details Date Type Department Care Team (Latest Contact Info) Description 11/04/2024 Travel Social History Tobacco Use Types Packs/Day Years [...] [facility] [address] [place] [address] Katja Jose PA-C [address] [place] [address] 01/29/2025 1:00 PM EDT Office Visit [facility] INTERNAL MEDICINE & PEDIATRICS 100 [facility] 200 [place] [address] Lionel Barriga MD 100 [facility] [address] [place] [address] 03/19/2025 11:15 AM EDT Office Visit [facility] PULMONARY & CRITICAL CARE MEDICINE [address] [facility] [address] [place] [address] Edmundo Deleon MD [address] [place] [phone] documented as of this encounter Visit Diagnoses Not on filedocumented in this encounter Care Teams Electrician Journeyman Wireman Relationship Specialty Start Date End Date Lionel Barriga MD 100 [facility] [address] [place] [address] PCP - General Internal Medicine 05/10/17 documented as of this encounter
--- OUTSIDE RECORDS SUMMARY | 2024-12-26 10:21 | XMS_ITS | Encounter Summary ---
Author Organization [facility] Address [address] [place] [address] Care Team Providers Care Gem Cutter Name Role Phone Brisa Patel Unavailable Lionel Barriga MD Primary Care Provider +1- [phone] Reason for Visit * Reason Onset Date Comments [employer] Approval 09/16/2024 Encounter Details Date Type Department Care Team (Late st Contact Info) Description 09/16/2024 Telephone [facility] [address] [place] [address] Serene Norman, PharmD [employer] Approval [...] [facility] J-Code: J3262 CPT Code: n/a S-Codes ([place]): n/a Quantity and Units of Measure Authorized: 1 visit Day Supply: 365 Diagnosis Code: M06.9 Insurance Name: [facility] Insurance Type: Commercial Where did you submit request and how (portal/fax/phone number): Submitted medical PA via [facility] portalwith clinicals. REF# [id number] Authorization/Reference Number: [id number] Approval Dates: 09/05/24-09/04/25 Filling Pharmacy/SOC: [place] documented in this encounter Plan of Treatment Upcoming Encounters Date Type Department Care Team (Late st Contact Info) Description 03/23/2025 9:00 AM EDT Office Visit [facility] Medicine Specialties [address] [place] [address] Jason, May R, CRANE CREW SUPERVISOR [address] [place] [address] documented as of this encounter Visit Diagnoses [...] documented as of this encounter Care Teams Gem Cutter Relationship Specialty Start Date End Date Lionel Barriga MD 100 [facility] 200 [place] [address] PCP - General 03/07/23 Brisa Patel [address] [place] [address] 01/12/22 documented as of this encounter
--- OUTSIDE RECORDS SUMMARY | 2024-12-26 10:21 | XMS_ITS | Encounter Summary ---
Author Organization [facility] Address [address] [place] [address] Care Team Providers Care Fishing Instructor Name Role Phone Lionel Barriga MD Primary Care Provider +1- [phone] Reason for Visit * Reason Onset Date Comments Med Refill 12/16/2024 Encounter Details Date Type Department Care Team (Late st Contact Info) Description 12/16/2024 Refill [facility] INTERNAL MEDICINE & PEDIATRICS [address] [address] Lionel Barriga MD 100 [facility] 200 [place] [address] Chronic pain of both knees [...] Description 01/15/2025 10:40 AM EDT Office Visit [facility] CARDIOLOGY [address] [facility] [address] [place] [phone] Katja Jose PA-C [address] [facility] [address] [place] [phone] 01/29/2025 1:00 PM EDT Office Visit [facility] INTERNAL MEDICINE & PEDIATRICS [address] [facility] [address] [place] [address] Lionel Barriga MD 100 [facility] 200 [place] [address] 03/19/2025 11:15 AM EDT Office Visit [facility] PULMONARY & CRITICAL CARE MEDICINE [address] [facility] [address] [place] [phone] Edmundo Deleon MD [address] [place] [address] documented as of this encounter Visit Diagnoses Diagnosis Chronic pain of both knees documented in this encounter Care Teams Fishing Instructor Relationship Specialty Start Date End Date Lionel Barriga MD 100 [facility] 200 [place] [address] PCP - General Internal Medicine 05/10/17 documented as of this encounter
--- OUTSIDE RECORDS SUMMARY | 2024-12-26 10:21 | XMS_ITS | Encounter Summary ---
Author Organization [facility] Address [address] [place] [address] Care Team Providers Care Manual Arts Therapy Teacher Name Role Phone Lionel Barriga MD Primary Care Provider +1- [phone] Encounter Details Date Type Department Care Team (Late st Contact Info) Description 11/18/2024 Results Follow-Up [facility] INTERNAL MEDICINE & PEDIATRICS 100 [facility] 200 [place] [address] Lionel Barriga MD 100 [facility] 200 [place] [address] Social History Tobacco Use Types [...] AM EDT documented as of this encounter Miscellaneous Notes * Telephone Encounter - Susana Nino - 11/20/2024 10:16 AM EDT Patient states she is aware of the results and is having surgery on the first knee 11/25/2024. She states she is seeing Orthopedics. documented in this encounter Plan of Treatment Upcoming Encounters Date Type Department Care Team (Late st Contact Info) Description 01/15/2025 10:40 AM EDT Office Visit [facility] CARDIOLOGY 17[address] [facility] [address] [place] [address] Katja Jose PA-C 17[address] [facility] [address] E [address] [place] [address] 01/29/2025 1:00 PM EDT Office Visit [facility] INTERNAL MEDICINE & PEDIATRICS 100 [facility] 200 [place] [phone] Lionel Barriga MD 100 [facility] 200 [place] [address] 03/19/2025 11:15 AM EDT Office Visit [facility] PULMONARY & CRITICAL CARE MEDICINE 3000 [facility] [address] [place] [address] Edmundo Deleon MD 2400 [place] [address] documented as of this encounter Visit Diagnoses Not on filedocumented in this encounter Care Teams Manual Arts Therapy Teacher Relationship Specialty Start Date End Date Lionel Barriga MD 100 [facility] 200 [place] [address] PCP - General Internal Medicine 05/10/17 documented as of this encounter
--- OUTSIDE RECORDS SUMMARY | 2024-12-26 10:21 | XMS_ITS | Encounter Summary ---
Author Organization [facility] Address [address] [place] [address] Care Team Providers Care Ultrasound Applications Specialist Name Role Phone Lionel Barriga MD Primary Care Provider +1- [phone] Reason for Visit * Reason Onset Date Comments Med Refill 11/30/2024 Encounter Details Date Type Department Care Team (Late st Contact Info) Description 11/30/2024 Refill [facility] INTERNAL MEDICINE & PEDIATRICS 100 [facility] 200 [place] [address] Bessie Johnson MD 100 [facility] 200 [place] [address] Chronic pain of both knees [...] encounter Miscellaneous Notes * Telephone Encounter - Patricia Schuster CMA - 12/01/2024 8:16 AM EDT Filled on 11/17/2024 documented in this encounter Plan of Treatment Upcoming Encounters Date Type Department Care Team (Late st Contact Info) Description 01/15/2025 10:40 AM EDT Office Visit [facility] CARDIOLOGY 1720 [facility] [address] [place] [address] Katja Jose PARocioC 1720 [facility] [address]LDG E [address] [place] [address] 01/29/2025 1:00 PM EDT Office Visit [facility] INTERNAL MEDICINE & PEDIATRICS 100 [facility] 200 [place] [address] Lionel Barriga MD 100 [facility] 200 [place] [address] 03/19/2025 11:15 AM EDT Office Visit [facility] PULMONARY & CRITICAL CARE MEDICINE 3000 [facility] [address] [place] [address] Edmundo Deleon MD 2400 [place] [address] documented as of this encounter Visit Diagnoses Diagnosis Chronic pain of both knees documented in this encounter Care Teams Ultrasound Applications Specialist Relationship Specialty Start Date End Date Lionel Barriga MD 100 [facility] 200 [place] [address] PCP - General Internal Medicine 05/10/17 documented as of this encounter
--- OUTSIDE RECORDS SUMMARY | 2024-12-26 10:21 | XMS_ITS | Encounter Summary ---
Author Organization [facility] Address [address] [place] [address] Care Team Providers Care Senior Recruiter Name Role Phone Lionel Barriga MD Primary Care Provider +1- [phone] Encounter Details Date Type Department Care Team (Late st Contact Info) Description 10/27/2024 Results Follow-Up [facility] INTERNAL MEDICINE & PEDIATRICS 100 [facility] 200 [place] [address] Lionel Barriga MD 100 [facility] 200 [place] [address] Social History Tobacco Use Types [...] Description 01/15/2025 10:40 AM EDT Office Visit [facility] CARDIOLOGY [address] [place] [address] Katja Jose PA-C 1720 [facility] E [address] [place] [address] 01/29/2025 1:00 PM EDT Office Visit [facility] INTERNAL MEDICINE & PEDIATRICS 100 [facility] 200 [place] [address] Lionel Barriga MD 100 [facility] 200 [place], [place] [id number] 03/19/2025 11:15 AM EDT Office Visit [facility] PULMONARY & CRITICAL CARE MEDICINE 3000 [facility] [address] [place] [address] Edmundo Deleon MD [address] [place] [phone] documented as of this encounter Visit Diagnoses Not on filedocumented in this encounter Care Teams Senior Recruiter Relationship Specialty Start Date End Date Lionel Barriga MD 100 [facility] 200 [place] [address] PCP - General Internal Medicine 05/10/17 documented as of this encounter
--- OUTSIDE RECORDS SUMMARY | 2024-12-26 10:21 | XMS_ITS | Encounter Summary ---
Author Organization [facility] Address [address] [place] [address] Care Team Providers Care Hardboard Grinder Name Role Phone Lionel Barriga MD Primary Care Provider +1- [phone] Encounter Details Date Type Department Care Team (Late st Contact Info) Description 10/27/2024 Telephone [facility] INTERNAL MEDICINE & PEDIATRICS [address] [address] Lionel Barriga MD 100 [facility] 200 [place] [address] Social History Tobacco Use Types [...] encounter Miscellaneous Notes * Telephone Encounter - Ruth Almaraz RN - 10/27/2024 12:28 PM EDT Left message voicemail for patient to please return call. Ofc. # given. RELAY: Can she come in tomorrow at 2:30pm to be worked in with Dr Barriga? * Telephone Encounter - Lionel Barriga MD - 10/27/2024 10:14 AM EDT Please schedule with me this week. Lionel Barriga MD 10:14 EDT 10/27/24 documented in this encounter Plan of Treatment Upcoming Encounters Date Type Department Care Team (Late st Contact Info) Description 01/15/2025 10:40 AM EDT Office Visit [facility] CARDIOLOGY 1720 [facility] 400 [place] [address] Katja Jose PA-C 1720 [facility] [address] [place] [address] 01/29/2025 1:00 PM EDT Office Visit [facility] INTERNAL MEDICINE & PEDIATRICS 100 [facility] 200 [place] [address] Lionel Barriga MD 100 [facility] 200 [place] [address] 03/19/2025 11:15 AM EDT Office Visit [facility] PULMONARY & CRITICAL CARE MEDICINE 3000 [facility] [address] [place] [address] Edmundo Deleon MD [address] [place] [address] documented as of this encounter Visit Diagnoses Not on filedocumented in this encounter Care Teams Hardboard Grinder Relationship Specialty Start Date End Date Lionel Barriga MD 100 [facility] 200 [place] [address] PCP - General Internal Medicine 05/10/17 documented as of this encounter
--- OUTSIDE RECORDS SUMMARY | 2024-12-26 10:21 | XMS_ITS | Encounter Summary ---
Author Organization [facility] Address [address] [place] [address] Care Team Providers Care Glass Unloading Equipment Tender Name Role Phone Lionel Barriga MD Primary Care Provider +1- [phone] Encounter Details Date Type Department Care Team (Late st Contact Info) Description 11/18/2024 Results Follow-Up [facility] INTERNAL MEDICINE & PEDIATRICS 100 [facility] 200 [place] [address] Lionel Barriga MD 100 [facility] 200 [place] [address] Social History Tobacco Use Types [...] Description 01/15/2025 10:40 AM EDT Office Visit [facility] CARDIOLOGY [address] [place] [address] Katja Jose PA-C 1720 [facility] E [address] [place] [address] 01/29/2025 1:00 PM EDT Office Visit [facility] INTERNAL MEDICINE & PEDIATRICS 100 [facility] 200 [place] [address] Lionel Barriga MD 100 [facility] 200 [place], [place] [id number] 03/19/2025 11:15 AM EDT Office Visit [facility] PULMONARY & CRITICAL CARE MEDICINE 3000 [facility] [address] [place] [address] Edmundo Deleon MD [address] [place] [phone] documented as of this encounter Visit Diagnoses Not on filedocumented in this encounter Care Teams Glass Unloading Equipment Tender Relationship Specialty Start Date End Date Lionel Barriga MD 100 [facility] 200 [place] [address] PCP - General Internal Medicine 05/10/17 documented as of this encounter
--- OUTSIDE RECORDS SUMMARY | 2024-12-26 10:21 | XMS_ITS | Clinical Summary ---
Author Organization [facility] Address [address] [place] [address] Care Team Providers Care Mattress Filler Name Role Phone Brisa Patel Unavailable Lionel Barriga MD Primary Care Provider +1- [phone] Allergies No known active allergies Medications acetaminophen (Tylenol) 500 MG tablet Take by mouth. Activ e aspirin 81 MG EC tablet Take 1 tablet by mouth 1 time each day. Active B Fixxipd-U-Ttqhz Acid (Super B Complex/FA/Vit C) tablet Active [...] solution auto-injector 1 mg. Active Continuous Glucose Med Care Manager (Dexcom G6 aircraft captain) device 09/07/19 24 Active traZODone (Desyrel) 100 MG tablet 02/11/20 24 Active predniSONE (Deltasone) 5 MG tabletIndications: Rheumatoid arthritis, involving unspecified site, unspecified whether rheumatoid factor present ([facility]) 1-2 tablets daily as needed for [...] 10/03/2021 Overview (03/07/2023): NSTEMI 10/01/2021 treated at [place] with 100% ramus treated with a 2.5 mm LILY, proximal and mid LAD treated with 3.0 mm i Synergy stents. Residual chest pain admitted to [facility] 10/04/2021, repeat C showed widely patent [...] Type Department Care Team Description 11/17/2024 Telephone [facility] Medicine Specialties [address] [place] [address] Jason, May R, SALES DEVELOPMENT ASSOCIATE from Last 3 Months Immunizations Immunization Administration [...] Description 03/23/2025 9:00 AM EDT Office Visit [facility] Medicine Specialties [address] [place] [address] Jason, MayN [address] [place] [address] Health Maintenance Due Date Last Done Comments [facility]-Infant/Child/Adol SDOH Screenings 1966 BHY-OUMXH-20 Vaccine (#1) 12/06/1971 Diabetes: Dental Exam 1976 [...] 06/20/2023, 03/13/2022, Additional history exists [facility]-Influenza Vaccine (#1) 01/26/202502/15, 03/13/2022, 03/13/2022, Additional history exists [facility]-Depression Screening 09/15/2025 09/15/2024, 08/27 [facility]-Hepatitis A Vaccines Aged Out 019, 01/26/2019, 04/02/2018, Additional history exists No longer eligible based on patient's age to complete this topic [facility]-Zoster Vaccines Completed 12/31/2019, [facility]-HIV Screening Completed 11/12/2023 [facility]-Hepatitis C Screening [...] 2 Antibody/Antigen Screen (11/12/2023 9:29 AM EDT) Pathologist [facility] HIV 1 & 2 Antibody/Antigen Screen Non Reactive Non Reactive 11/12/2023 11:25 AM EDT [facility] Comment:Screening for HIV 1 & 2 antibodies, and P24 antigen is NONREACTIVE. No confirmatory testing is required. Blood Venous blood specimen / Unknown Venipuncture / Unknown 11/12/2023 9:29 AM EDT 11/12/2023 9:32 AM EDT may R Jason SALES DEVELOPMENT ASSOCIATE LAB BLOOD ORDERABLES Final Result [facility] [address] [place] [address] * Acute Hepatitis Panel (11/12/2023 9:29 AM EDT) Pathologist [facility] Hepatitis B Surf Antigen Negative Negative 11/12/2023 11:46 AM EDT [facility] Hepatitis C Antibody Negative Negative 11/12/2023 11:46 AM EDT [facility] Hepatitis A Antibody IgM Negative Negative 11/12/2023 11:46 AM EDT [facility] Hepatitis B Core Antibody IgM Negative Negative 11/12/2023 11:46 AM EDT [facility] Blood Venous blood specimen / Unknown Venipuncture / Unknown 11/12/2023 9:29 AM EDT 11/12/2023 9:32 AM EDT us May R Jason SALES DEVELOPMENT ASSOCIATE LAB BLOOD ORDERABLES Final Result [facility] [address] [place] [address] from Last 3 Months or Most Recently Relevant to Health Maintenance Insurance [employer] Care Teams Mattress Filler Relationship Specialty Start Date End Date Lionel Barriga MD 100 [facility] 200 [place] [address] PCP - General 03/07/23 Brisa Patel [address] [place] [address] 01/12/22
--- OUTSIDE RECORDS SUMMARY | 2024-12-26 10:22 | XMS_ITS | Clinical Summary ---
Author Organization [facility] Address [address] [facility], [address] [place] [address] Care Team Providers Care Taker Out Name Role Phone Unavailable Primary Care Provider [...] vaccine (1 - Tdap) 1985 COVID-19 Vaccine (1 - season) 2024 Flu vaccine (#1) 12/26/2024 02/15/2023, , 06/16/2020, Additional history exists Polio vaccine Aged Out No longer elig ible based on patient's age to complete this topic Insurance
--- OUTSIDE RECORDS SUMMARY | 2024-12-26 10:22 | XMS_ITS | Encounter Summary ---
[facility] Organization [facility] Address [address] [place] [address] Care Team Providers Care Lead Applications Developer Name Role Phone Lionel Barriga MD Primary Care Provider +1- [phone] Reason for Visit * Reason Onset Date Comments RELAY 10/27/2024 Encounter Details Date Type Department Care Team (Late st Contact Info) Description 10/27/2024 Telephone [facility] INTERNAL MEDICINE & PEDIATRICS [address] [address] Lionel Barriga MD 100 [facility] 200 [place] [address] RELAY Social History Tobacco Use Types Packs/Day Years [...] Encounter - Ruth Almaraz RN - 10/27/2024 1:33 PM EDT See MyChart message. * Telephone Encounter - Valencia Edmond RegSched Rep - 10/27/2024 12:30 PM EDT RELAYED, PATIENT WILL RESPOND VIA [facility] documented in this encounter Plan of Treatment Upcoming Encounters Date Type Department Care Team (Late st Contact Info) Description 01/15/2025 10:40 AM EDT Office Visit [facility] CARDIOLOGY 1720 [facility] [address] [place] [address] Katja Jose PARocioC 1720 [facility] [address] [place] [address] 01/29/2025 1:00 PM EDT Office Visit [facility] INTERNAL MEDICINE & PEDIATRICS 100 [facility] 200 [place] [address] Lionel Barriga MD 100 [facility] 200 [place] [address] 03/19/2025 11:15 AM EDT Office Visit [facility] PULMONARY & CRITICAL CARE MEDICINE 3000 [facility] [address] [place] [address] Edmundo Deleon MD [address] [place] [address] documented as of this encounter Visit Diagnoses Not on filedocumented in this encounter Care Teams Lead Applications Developer Relationship Specialty Start Date End Date Lionel Barriga MD 100 [facility] 200 [place] [address] PCP - General Internal Medicine 05/10/17 documented as of this encounter
--- OUTSIDE RECORDS SUMMARY | 2024-12-26 10:22 | XMS_ITS | Encounter Summary ---
Author Organization [facility] Address [address] [place] [address] Care Team Providers Care Mines Inspector Name Role Phone Brisa Patel Unavailable Lionel Barriga MD Primary Care Provider +1- [phone] Reason for Referral * Consultation (Routine) - Closed Specialty Diagnoses / Procedures Referred By Contac t Referred To Contact Ophthalmology Diagnoses Type 2 diabetes mellitus treated with insulin ([facility]) Retinopathy Lionel Barriga MD [address] [address] Phone: tel: fax: [facility] [address] [place] [address] Phone: tel: fax: Referral ID Status Reason Start Date Expiration Date V isits Requested Visits Authorized [id number] Closed Specialty Services Required 03/01/2023 08/30/2024 1 1 Encounter Details Date Type Department Care Team ([facility] st Contact Info) Description 03/01/2023 Community [facility] [address] [place] [address] Lionel Barriga MD [address] [address] Type 2 diabetes mellitus treated with insulin [...] Visit [facility] Medicine Specialties [address] [place] [address] JasonMayN [address] [place] [address] Scheduled Referrals Name Type Priority Associated Diagnoses Order Schedule Ambulatory Referral to Ophthalmology Outpatient Referral Routine Type 2 diabetes mellitus treated with insulin (CMS/HCC) Retinopathy Expected: 03/01/2023 (Approximate), Expires: 08/30/2024 documented as of this encounter Visit Diagnoses Diagnosis Type 2 diabetes mellitus treated with insulin (CMS/HCC)- Primary Retinopathy Unspecified background retinopathy documented in this encounter Care Teams Mines Inspector Relationship Specialty Start Date End Date Lionel Barriga MD 100 [facility] 200 [place] [address] PCP - General 03/07/23 Brisa Patel [address] [place] [address] 01/12/22 documented as of this encounter
--- OUTSIDE RECORDS SUMMARY | 2024-12-26 10:22 | XMS_ITS | Encounter Summary ---
[facility] Organization [facility] Address [address] [place] [address] Care Team Providers Care Production Operations Manager Name Role Phone Lionel Barriga MD Primary Care Provider +1- [phone] Reason for Visit * Reason Onset Date Comments Med Refill 04/12/2022 Encounter Details Date Type Department Care Team (Late st Contact Info) Description 04/12/2022 Telephone [facility] ENDOCRINOLOGY [address] [facility] [address] [place] [address] Kasey Rose MD [address] [facility] [address] [place] [address] Med Refill Social History Tobacco Use Types Packs/Day Years [...] PHQ-9: Brief Depression Severity Measure Score 0 03/13/2022 Hunger Vital Sign Answer Date Recorded Within [...] encounter Miscellaneous Notes * Telephone Encounter - Christina Nino MA - 04/18/2022 9:52 AM EST Spoke with pt and she was able to find ozempic. * Telephone Encounter - Kasey Rose MD - 04/14/2022 9:36 AM EST I have tried changing to Trulicity but it says that insurance prefers ozempic. Most of the pharmacies just order it and have it in a few days. You can try sending Trulicity 0.75 mg and override request to change to preferred Ozempic * Telephone Encounter - Carole Riojas RegSched Rep - 04/12/2022 4:27 PM EST Pt called back and [facility] pharmacy does not have ozempic. She has called multiple pharmacies to find it. She requests assistance finding ozempic and requestsyou send it to the pharmacy. She said she will do mail order. Please call pt at [phone] documented in this encounter Plan of Treatment Upcoming Encounters Date Type Department Care Team (Late st Contact Info) Description 01/15/2025 10:40 AM EDT Office Visit [facility] CARDIOLOGY 1720 [facility] 400 [place] [address] Katja Jose PA-C 1720 [facility] E [facility] 400 [place] [address] 01/29/2025 1:00 PM EDT Office Visit [facility] INTERNAL MEDICINE & PEDIATRICS 100 [facility] 200 [place] [phone] Lionel Barriga MD 100 [facility] 200 [place] [address] 03/19/2025 11:15 AM EDT Office Visit [facility] PULMONARY & CRITICAL CARE MEDICINE 3000 [facility] 240 [place] [address] Edmundo Deleon MD 2400 [place] [address] documented as of this encounter Visit Diagnoses Not on filedocumented in this encounter Additional Health Concerns Infection Onset Date Last Indicated Resolved Time COVID (rule out) 01/19/2023 01/19/2023 01/26/2023 9:08 PM EDT documented as of this encounter Care Teams Production Operations Manager Relationship Specialty Start Date End Date Lionel Barriga MD 100 [place] [address] PCP - General Internal Medicine 05/10/17 documented as of this encounter
--- OUTSIDE RECORDS SUMMARY | 2024-12-26 10:22 | XMS_ITS | Encounter Summary ---
Author Organization [facility] Address [address] [place] [address] Care Team Providers Care Md Allergy Immunology Name Role Phone Lionel Barriga MD Primary Care Provider +1- [phone] Encounter Details Date Type Department Care Team (Latest Contact Info) Description 10/30/2024 Travel Social History Tobacco Use Types Packs/Day [...] Description 01/15/2025 10:40 AM EDT Office Visit [facility] CARDIOLOGY [address] [place] [address] Katja Jose PA-C [address] [place] [address] 01/29/2025 1:00 PM EDT Office Visit [facility] INTERNAL MEDICINE & PEDIATRICS 100 [facility] 200 [place] [address] Lionel Barriga MD 100 [facility] 200 [place] [address] 03/19/2025 11:15 AM EDT Office Visit [facility] PULMONARY & CRITICAL CARE MEDICINE 3000 [facility] 240 [place] [address] Edmundo Deleon MD [address] [place] [phone] documented as of this encounter Visit Diagnoses Not on filedocumented in this encounter Care Teams Md Allergy Immunology Relationship Specialty Start Date End Date Lionel Barriga MD 100 [facility] 200 [place] [address] PCP - General Internal Medicine 05/10/17 documented as of this encounter
[2024-12-26 11:20] LABS: Anion Gap 12.0 mEq/L (5-15); Blood Urea Nitrogen 21 mg/dl (7-17); Calcium 9.6 mg/dl (8.4-10.2); Carbon Dioxide 23 mmol/L (22.0-30.0); Chloride 109 mmol/L (98-107); Creatinine,Serum 1.00 mg/dl (0.52-1.04); Estimated Glomerular Filt Rate 57 ml/min (>60); GFR (African American) 69 ML/MIN (>60); Glucose 220 mg/dl (74-100); Potassium 4.0 mmoL/L (3.5-5.1); Sodium 140 mmol/L (136-145)
[2024-12-26 11:26] LABS: Hematocrit 39.9 % (37.0-47.0); Hemoglobin 13.2 g/dL (12.2-16.2); Immature Granulocytes % 0.2 %; Mean Corpuscular HGB Conc 33.1 g/dL (31.8-35.4); Mean Corpuscular Hemoglobin 30.2 pg (27.0-31.2); Mean Corpuscular Volume 91.3 fl (81-99); Nucleated Red Blood Cells % 0 %; Platelet Count 233 K/mm3 (142-424); Red Blood Count 4.37 M/mm3 (4.20-5.40); Red Cell Distribution Width-SD 42.1 fL; White Blood Count 5.5 K/mm3 (4.8-10.8)
== END 2024-12-26 23:59 | disposition home or self-care (01) ==
LOC: PREOP 10:18
PROVIDERS: PCP Internal Medicine; Visit Provider Orthopaedic Surgery
DX: Z01.812 Encounter for preprocedural laboratory examination (principal); M23.321 Other meniscus derangements, posterior horn of medial meniscus, right knee
CPT/HCPCS: 80048; 85025

== ENCOUNTER 2024-12-30 09:36 | Day surgery (SDC) | payer OTHER, SELFPAY ==
[2024-11-21 14:13] VITALS: BMI 33.3
--- NOTE | 2024-12-26 09:13 | SUR.PREOP ---
Pt no show for PAT appt on 12/26. Left VM. Office notified.
[2024-12-26 13:14] VITALS: BMI 35.2
[2024-12-30] VITALS (11 sets, daily range): BP systolic 112–148; BP diastolic 70–91; PULSE 96–107; RESP 14–18; TEMP 36.2–43; O2SAT 92–95
[2024-12-30] MEDS: LACTATED RINGERS 1000ML 1,000 ML 100 ML IV (10:26)
--- NOTE | 2024-12-30 10:29 | EXP.ANES.CKL ---
[facility] Disclaimer: The information contained in this section may have been updated after the patient was seen, as this information can be updated by other users. Medical History Hx of multiple pulmonary nodules History of OR (myocardial infarction) Rheumatoid arthritis Diabetes Surgical History History of coronary artery stent placement History of foot surgery History of cholecystectomy History of surgery on wrist History of hand surgery History of Family History Other Family history of Alzheimer disease Family history of COPD (chronic obstructive pulmonary disease) Family history of CVA Family history of cancer Family history of cirrhosis of liver Family history of melanoma Social History Smoking Status: Never smoker alcohol intake: never substance use type: denies use current occupational status: employed Travel in the last 8 weeks?: Inside the [place] [facility] Anesthesia Checklist Patient Identification Patient Identification: Arm Band and Verbal (Name & ) Structural Data Admitted From: Home Planned Operative Procedure/s: Right knee arthroscopy Consent for Planned Operative Procedure(s) Verified: Yes Verified Documents: Surgical Consent NPO Status Verified Time NPO: 00:00 Chart Verification Results Verified: CBC and BMP Additional verifications Fingerstick Blood Glucose: 157 Anesthesia Reactions: No Hx Blood Transfusions: No Blood Transfusion Reaction: No Airway Assessment Mallampati Score:: Class II C-Spine Mobility Assessed: Yes TMJ Mobility Assessed: Yes Dentition: Good Dentition Neurological Assessment Level of Consciousness: Awake, Alert and Appropriate Hx Seizures: No Numbness or tingling in extremities: No Anesthesia Plan Anesthesia Risk discussed: Yes Anesthesia Plan: Verified ASA Class: III Anesthesia Type: General
[2024-12-30] MEDS: BUPIVACAINE 0.25% 30ML VIAL 75 MG (12:00)
--- NOTE | 2024-12-30 12:19 | P.OP_ITS ---
Date of procedure: 12/30/24 Pre-op Diagnosis:: Right knee medial meniscus tear rheumatoid arthritis Post-op Diagnosis:: Same Procedure performed:: Right knee arthroscopy partial medial meniscectomy Surgeon:: Rafita Hermosillo DO Compressor Operator Portable(s):: Boni [employer]:: Jagjit Hogan Anesthesia: GETA Estimated blood loss (mL): 0 Operative findings:: See dictation Operative note:: Patient identified preoperatively. Right knee marked with yes my initials. Transferred operative suite. Placed upon operating bed. General anesthesia administered airway secured. Right lower extremity prepped and draped within the knee beard. Once prepped and draped final operative timeout performed to identify proper patient procedure and extremity. Everyone involved in case agreed. There is no counter indication beginning. Did receive preoperative antibiotics. Marking pen was used to allan the bony landmarks of the knee and standard portal sites. Esmarch was used to exsanguinate the extremity and pneumatic tourniquet inflated to 300 mmHg. Skin knife was used to incise standard anterior lateral portal and blunt with trocar was placed in patellofemoral joint exchange with a camera. Swept directly into the medial joint line where the anterior medial portal was made with the help of an 18-gauge spinal needle under direct visualization. And then evaluation of the medial joint line was performed. There was a large macerated complex tear of the posterior horn of the medial meniscus using combination of straight biter and sucker shaver partial medial meniscectomy was performed back to stable rim. There was some softening of the cartilage in the medial femoral condyle and some thick synovium synovitis in the anterior compartment and medial gutter consistent with rheumatoid. There was a large engaging medial plica present to which was also debrided with a sucker shaver. Tensions brought intercondylar notch the ACL was seen and intact. Attention was brought to the lateral joint line where the lateral meniscus was seen and intact. Lateral cartilage is intact. Swept into the medial and lateral gutters no further pathology was seen. Camera swept back in the patellofemoral joint removed the joint was drained local anesthesia infiltrated the portal sites. Skin closed with nylon stitch sterile dressing placed from toe to thigh patient waken anesthesia taken r ecovery stable condition. Condition: stable Disposition: PACU Complications:: None apparent
--- NOTE | 2024-12-30 12:19 | EXP.ANES.I ---
[facility] Anesthesia Record Part I Anesthesia Record I Intake, IV Amount: 850 Hydration: Adequate Estimated blood loss (mL): 0 Urine output (mL): 0 Blood Products used (#): none Blood Pressure: 112/74 SaO2: 92 Pulse Rate: 97 Airway Patency: Patent Respiratory Rate: 14 Temperature: 97.1 F Patient is:: Drowsy, Mask O2 and Stable Stable to PACU at:: 12:16
[2024-12-30] MEDS: MORPHINE 2MG/ML SYRINGE 1 MG IV ×2 (12:48→12:55)
[2024-12-30 12:59] LABS: POC Glucose,Bedside 170 (70-110)
[2024-12-30 22:28] LABS: POC Glucose,Bedside 157 (70-110)
--- NOTE | 2024-12-31 08:53 | EXP.ANES.II ---
[facility] Anesthesia Record Part II Anesthesia Record Part II Discharge Time: 13:27 Destination: Surgical Day Care (OP Surgery) PACU nurse assessment reviewed?: Yes Patient Condition:: Good Anesthesia Complications:: None Swallowing reflex intact?: Yes Airway Patency: Patent Cyanosis?: No Blood Pressure: 123/81 SaO2: 94 Respiratory Rate: 18 Pulse Rate: 98 Temperature: 97.1 F Mental Status: Alert & Oriented Pain level:: 4 Nausea and/or vomitting:: None Intake, IV Amount: 0 Hydration: Adequate
[2024-12-31 08:54] VITALS: BP 123/81; PULSE 98; RESP 18; TEMP 36.2; O2SAT 94
== END 2024-12-30 13:27 | disposition home or self-care (01) ==
PROVIDERS: PCP Internal Medicine; Visit Provider Orthopaedic Surgery
PROC: (CPT 29870; principal; 2024-12-30 11:00)
DX: M23.321 Other meniscus derangements, posterior horn of medial meniscus, right knee (principal); M23.91 Unspecified internal derangement of right knee; M06.9 Rheumatoid arthritis, unspecified; E11.9 Type 2 diabetes mellitus without complications; I25.2 Old myocardial infarction; Z79.82 Long term (current) use of aspirin; Z79.4 Long term (current) use of insulin; Z79.899 Other long term (current) drug therapy; Z79.02 Long term (current) use of antithrombotics/antiplatelets
CPT/HCPCS: 29881; 82962; 96374; J0665; J0690; J1100; J1885; J2003; J2250; J2270; J2405; J2704; J3010; J7120

== ENCOUNTER 2025-01-19 10:17 | Outpatient (CLI) | payer OTHER, SELFPAY ==
--- OUTSIDE RECORDS SUMMARY | 2020-10-29 13:31 | XMS_ITS | Encounter Summary ---
[facility] Address [address] [place] [address] Care Team Providers Care Genetics Nurse Name Role Phone Lionel Barriga MD Primary Care Provider +1- [phone] Reason for Visit * Diagnostic Imaging (Routine) - Closed Specialty Diagnoses / Procedures Referred By Hanna stone Referred To Contact Radiology Diagnoses Nontoxic multinodular goiter Procedures US Thyroid Kasey Rose MD [address] [place] [address] Phone: tel: fax: [facility] [address] [place] [address] Phone: tel: fax: Referral ID Status Reason Start Date Expiration Date Visits Re quested Visits Authorized [id number] Closed 10/29/2020 10/29/2021 1 1 Encounter Details Date Type Department Care Team (Late st Contact Info) Description 10/29/2020 1:31 PM EDT Hospital Encounter [facility] [address] [facility] [address] [place] [address] Social History Tobacco Use Types Packs/Day Years [...] Care Team (Late st Contact Info) Description 01/29/2025 1:00 PM EDT Office Visit [facility] INTERNAL MEDICINE & PEDIATRICS 100 [facility] 200 [place] [address] Lionel Barriga MD 100 [facility] 200 [place] [address] 03/19/2025 11:15 AM EDT Office Visit [facility] PULMONARY & CRITICAL CARE MEDICINE 3000 [facility] 240 [place] [address] Edmundo Deleon MD 2400 [place] [address] documented as of this encounter Procedures Procedure [...] documented as of this encounter Care Teams Genetics Nurse Relationship Specialty Start Date End Date Lionel Barriga MD [address] [address] PCP - General Internal Medicine 05/10/17 documented as of this encounter
--- OUTSIDE RECORDS SUMMARY | 2022-04-11 17:45 | XMS_ITS | Encounter Summary ---
[facility] Address [address] [place] [address] Care Team Providers Care Student Accounts Coordinator Name Role Phone Lionel Barriga MD Primary Care Provider +1- [phone] Reason for Visit * Diagnostic Imaging (Routine) - Closed Specialty Diagnoses / Procedures Referred By Contrhea t Referred To Contact Radiology Diagnoses Nontoxic multinodular goiter Procedures US Thyroid Kasey Rose MD [address] [place] [address] Phone: tel: fax: Referral ID Status Reason Start Date Expiration Date Visits Re quested Visits Authorized [id number] Closed 04/11/2022 04/11/2023 1 1 Encounter Details Date Type Department Care Team (Late st Contact Info) Description 04/11/2022 4:45 PM EST Hospital Encounter [facility] ENDOCRIN[facility] [address] [place] [address] Social History Tobacco Use Types Packs/Day Years [...] Description 01/29/2025 1:00 PM EDT Office Visit [facility] INTERNAL MEDICINE & PEDIATRICS 100 [facility] 200 [place] [address] Lionel Barriga MD 100 [facility] 200 [place] [address] 03/19/2025 11:15 AM EDT Office Visit [facility] PULMONARY & CRITICAL CARE MEDICINE 3000 [facility] 240 [place] [address] Edmundo Deleon MD 2400 [place] [address] documented as of this encounter Procedures Procedure Name Priority Date/Time Associated Diagnosis Comments US THYROID Routine 04/11/2022 4:45 PM EST Nontoxic multinodular goiter documented in this encounter Results * US Thyroid (04/11/2022 4:45 PM EST) Narrative SYSTEMGENERATED, DOCUMENTATION - 04/11/2022 4:45 PM EST Please see performing physician's note for result. us Kasey Perla MD [facility] US ORDERABLES Final Result documented in this encounter Visit Diagnoses Not on filedocumented in this encounter Additional Health Concerns Infection Onset Date Last Indicated Resolved Time COVID (rule out) 01/19/2023 01/19/2023 01/26/2023 9:08 PM EDT documented as of this encounter Care Teams Student Accounts Coordinator Relationship Specialty Start Date End Date Lionel Barriga MD 100 [facility] 200 [place] [address] PCP - General Internal Medicine 05/10/17 documented as of this encounter
--- OUTSIDE RECORDS SUMMARY | 2023-06-26 16:37 | XMS_ITS | Encounter Summary ---
[facility] Address [address] [place] [address] Care Team Providers Care Account Services Manager Name Role Phone Lionel Barriga MD Primary Care Provider +1- [phone] Reason for Visit * Diagnostic Imaging (Routine) - Closed Specialty Diagnoses / Procedures Referred By Contrhea t Referred To Contact Radiology Diagnoses Nontoxic multinodular goiter Procedures US Thyroid Kasey Rose MD [address] [place] [address] Phone: tel: fax: Referral ID Status Reason Start Date Expiration Date Visits Re quested Visits Authorized [id number] Closed 06/26/2023 06/25/2024 1 1 Encounter Details Date Type Department Care Team (Late st Contact Info) Description 06/26/2023 3:37 PM EST Hospital Encounter [facility] ENDOCRINOLOGY [address] [place] [address] Social History Tobacco Use Types Packs/Day Years [...] Description 01/29/2025 1:00 PM EDT Office Visit [facility] INTERNAL MEDICINE & PEDIATRICS 100 [facility] 200 [place] [address] Lionel Barriga MD 100 [facility] 200 [place] [address] 03/19/2025 11:15 AM EDT Office Visit [facility] PULMONARY & CRITICAL CARE MEDICINE 3000 [facility] 240 [place] [address] Edmundo Deleon MD [address]00 [place] [address] documented as of this encounter Procedures Procedure [...] on filedocumented in this encounter Care Teams Account Services Manager Relationship Specialty Start Date End Date Lionel Barriga MD 100 [facility] 200 [place] [address] PCP - General Internal Medicine 05/10/17 documented as of this encounter
--- OUTSIDE RECORDS SUMMARY | 2024-10-30 14:00 | XMS_ITS | Encounter Summary ---
Author Organization [facility] Address [address] [place] [address] Care Team Providers Care Gynecology Teacher Name Role Phone Lionel Barriga MD Primary Care Provider +1- [phone] Reason for Referral * Diagnostic Imaging (Routine) - Closed Specialty Diagnoses / Procedures Referred By Hanna t Referred To Contact Radiology Diagnoses UGI bleed Procedures XR Chest PA & Lateral Lionel Barriga MD 100 [facility] [address] [place] [address] Phone: tel: fax: Referral ID Status Reason Start Date Expiration Date Visits Re quested Visits Authorized [id number] Closed 10/30/2024 01/29/2026 1 1 Reason for Visit * Reason Comments Follow-up Chronic medical cond itions Encounter Details Date Type Department Care Team (Late st Contact Info) Description 10/30/2024 2:00 PM EDT Office Visit [facility] INTERNAL MEDICINE & PEDIATRICS 100 [facility] [address] [place] [address] Lionel Barriga MD 100 [facility] [address] [place] [address] UGI bleed (Primary Dx); Flushing [...] 0 Continuous Glucose Sensor (Dexcom G7 Sensor) [facility], Use 1 each Every 10 (Ten) Days., [...] Rfl: 0 Insulin Disposable Pump (Omnipod 5 [id number] Pods Gen 5) misc, Use 1 each Every Other Day., Disp: 45 each, Rfl: 3 Insulin Pen Needle (Pen Marion 5/16 ) 31G X 8 MM misc, [...] Disp: 90 tablet, Rfl: 3 Multiple Minerals-Vitamins (Yyjzzqn-Ejmhyyudq-Xblv-D3) tablet, Take 1 tablet by mouth Daily., [...] Description 01/29/2025 1:00 PM EDT Office Visit [facility] INTER[facility] MEDICINE & PEDIATRICS 100 [facility] [address] [place] [address] Lionel Barriga MD 100 [facility] [address] [place] [address] 03/19/2025 11:15 AM EDT Office Visit [facility] PULMONARY & CRITICAL CARE MEDICINE [address] [facility] [address] [place] [address] Edmundo Deleon MD [facility] [place] [id number] documented as of this encounter Procedures Procedure [...] MD 10/31/2024 10:35 AM EDT Workstation ID: [id number] Narrative 10/31/2024 10:35 AM EDT XR CHEST [...] MD 10/31/2024 10:35 AM EDT Workstation ID: [id number] Lionel Barriga MD [facility] ORD ERABLES Final Result * CBC Auto Differential (10/30/2024 3:35 PM EDT) WBC 6.19 3.40 - 10.80 10*3/mm3 10/31/2024 1:54 AM EDT [facility] RBC 4.79 3.77 - 5.28 10*6/mm3 10/31/2024 1:54 AM T [facility] Hemoglobin 14.9 12.0 - 15.9 g/dL 10/31/2024 1:54 AM [facility] Hematocrit 44.4 34.0 - 46.6 % 10/31/2024 1:54 AM [facility] MCV 92.7 79.0 - 97.0 fL 10/31/2024 1:54 AM [facility] MCH 31.1 26.6 - 33.0 pg 10/31/2024 1:54 AM [facility] MCHC 33.6 31.5 - 35.7 g/dL 10/31/2024 1:54 AM [facility] RDW 12.4 12.3 - 15.4 % 10/31/2024 1:54 AM [facility] RDW-SD 42.1 37.0 - 54.0 fl 10/31/2024 1:54 AM [facility] MPV 10.5 6.0 - 12.0 fL 10/31/2024 1:54 AM [facility] Platelets 214 140 - 450 10*3/mm3 10/31/2024 1:54 AM T [facility] Neutrophil % 47.2 42.7 - 76.0 % 10/31/2024 1:54 AM T [facility] Lymphocyte % 39.6 19.6 - 45.3 % 10/31/2024 1:54 AM T [facility] Monocyte % 7.4 5.0 - 12.0 % 10/31/2024 1:54 AM EDT [facility] Eosinophil % 4.0 0.3 - 6.2 % 10/31/2024 1:54 AM EDT [facility] Basophil % 1.5 0.0 - 1.5 % 10/31/2024 1:54 AM EDT [facility] Immature Grans % 0.3 0.0 - 0.5 % 10/31/2024 1:54 AM EDT [facility] Neutrophils, Absolute 2.92 1.70 - 7.00 10*3/mm3 10/31/2024 1:54 AM EDT [facility] Lymphocytes, Absolute 2.45 0.70 - 3.10 10*3/mm3 10/31/2024 1:54 AM [facility] Monocytes, Absolute 0.46 0.10 - 0.90 10*3/mm3 10/31/2024 1:54 AM EDT [facility] Eosinophils, Absolute 0.25 0.00 - 0.40 10*3/mm3 10/31/2024 1:54 AM EDT [facility] Basophils, Absolute 0.09 0.00 - 0.20 10*3/mm3 10/31/2024 1:54 AM [facility] Immature Grans, Absolute 0.02 0.00 - 0.05 10*3/mm3 10/31/2024 1:54 AM EDT [facility] nRBC 0.0 0.0 - 0.2 /100 WBC 10/31/2024 1:54 AM EDT [facility] Blood Venipuncture / Unknown 10/30/2024 3:35 PM EDT 10/30/2024 3:36 PM EDT Lionel Barriga MD LAB BLOOD ORDERABLES Final Result [facility]
[address] [place] [address], * aPTT (10/30/2024 3:35 PM EDT) PTT 33.7 22.0 - 39.0 seconds 10/30/2024 9:41 PM EDT [facility] Blood Structure of right upper limb / Unknown Venipuncture / Unknown 10/30/2024 3:35 PM EDT 10/30/2024 3:36 PM EDT Narrative [facility] - 10/30/2024 9:41 PM EDT PTT = The equivalent PTT values for the therapeutic range of heparin levels at 0.3 to 0.5 U/ml are 60 to 70 seconds. us Lionel Barriga MD LAB BLOOD ORDERABLES Final Result Performing Organization Address [facility]/ZIP Co de Phone Number [facility]
[address] [place] [address], * (ABNORMAL) Protime-INR (10/30/2024 3:35 PM EDT) Protime 11.9(L) 12.2 - 15.3 Seconds 10/30/2024 9:41 PM EDT [facility] INR 0.83(L) 0.89 - 1.12 10/30/2024 9:41 PM EDT [facility] Blood Structure of right upper limb / Unknown Venipuncture / Unknown 10/30/2024 3:35 PM EDT 10/30/2024 3:36 PM EDT us Lionel Barriga MD LAB BLOOD ORDERABLES Final Result Performing Organization Address City/[facility]/ZIP Co de Phone Number [facility]
[address] [place] [address], * (ABNORMAL) Comprehensive Metabolic Panel (10/30/2024 3:35 PM EDT) Glucose 76 65 - 99 mg/dL 10/31/2024 2:25 AM [facility] BUN 18.0 6.0 - 20.0 mg/dL 10/31/2024 2:25 AM [facility] Creatinine 1.13(H) 0.57 - 1.00 mg/dL 10/31/2024 2:25 AM [facility] Sodium 140 136 - 145 mmol/L 10/31/2024 2:25 AM [facility] Potassium 3.8 3.5 - 5.2 mmol/L 10/31/2024 2:25 AM [facility] Chloride 104 98 - 107 mmol/L 10/31/2024 2:25 AM [facility] CO2 24.4 22.0 - 29.0 mmol/L 10/31/2024 2:25 AM [facility] Calcium 9.8 8.6 - 10.5 mg/dL 10/31/2024 2:25 AM [facility] Total Protein 7.2 6.0 - 8.5 g/dL 10/31/2024 2:25 AM [facility] Albumin 4.7 3.5 - 5.2 g/dL 10/31/2024 2:25 AM [facility] ALT (SGPT) 29 1 - 33 U/L 10/31/2024 2:25 AM [facility] AST (SGOT) 22 1 - 32 U/L 10/31/2024 2:25 AM [facility] Alkaline Phosphatase 62 39 - 117 U/L 10/31/2024 2:25 AM [facility] Total Bilirubin 0.4 0.0 - 1.2 mg/dL 10/31/2024 2:25 AM [facility] Globulin 2.5 gm/dL 10/31/2024 2:25 AM [facility] A/G Ratio 1.9 g/dL 10/31/2024 2:25 AM [facility] BUN/Creatinine Ratio 15.9 7.0 - 25.0 10/31/2024 2:25 AM EDT [facility] Anion Gap 11.6 5.0 - 15.0 mmol/L 10/31/2024 2:25 AM EDT [facility] eGFR 56.9(L) >60.0 mL/min/1.7 3 10/31/2024 2:25 AM EDT [facility] Blood Venipuncture / Unknown 10/30/2024 3:35 PM EDT 10/30/2024 3:36 PM EDT Narrative [facility] - 10/31/2024 2:25 AM EDT GFR [...] does not include race as a factor us Lionel Barriga MD LAB BLOOD ORDERABLES Final Result [facility]
[address] [place] [address], * Urine Drug Screen - Urine, Clean [...] is inconsistent with an expected outcome. Email: [email or web address] Hour Urine Urine specimen obtained by clean catch procedure / Unknown Collection / Unknown 10/30/2024 2:46 PM EDT 10/30/2024 2:48 PM EDT N[facility]ative [facility] 12/08/2024 1:55 PM EDT Performed at: - [facility] [address] [place], [place] [id number] Team Assembler: Hemalatha Mayfield PhD, Phone: [phone] Specimen Comment: Corrected report called to Yasmine Silver 12/08/24 1:28pm Specimen Comment: A duplicate report has been generated due to demographic updates. us Lionel Barriga MD URINE ORDERABLES Edited Re sult - Final [facility] [address] [place] [address], * 5 HIAA, Urine, Quantitative, 24 Hour - Urine, Clean Catch (10/30/2024 2:46 PM EDT) 5-HIAA, Urine 1.8 Undefined mg/L 025 10:10 AM EDT [facility] 5-HIAA, 24H Ur 4.0 0.0 - 14.9 mg/24 hr 11/05/2024 10:10 AM EDT [facility] 24 Hour Urine Urine specimen obtained by clean catch procedure / Unknown Collection / Unknown 10/30/2024 2:46 PM EDT 10/30/2024 2:48 PM EDT Narrative [facility] - 11/05/2024 10:10 AM EDT Test(s) [id number], Urine was developed and its performance characteristics determined by [facility]. It has not been cleared or approved by the Food and Drug Administration. Performed at: - [address] [id number] Team Assembler: Abiel Castillo MD, Phone: [phone] Lionel Barriga MD URINE ORDERABLES Final Res ult Performing Organization Address [facility] de Phone Number [facility] [address] [place] [address], * Cortisol, Urine, Free 24Hr - Urine, Clean Catch (10/30/2024 2:46 PM EDT) Cortisol, Free 9 Undefined ug/L 2024 4:11 PM EDT [facility] Cortisol, 24H Ur 20 6 - 42 ug/24 hr 11/06/2024 4:11 PM EDT [facility] 24 Hour Urine Urine specimen obtained by clean catch procedure / Unknown Collection / Unknown 10/30/2024 2:46 PM EDT 10/30/2024 2:48 PM EDT Narrative [facility] - 11/06/2024 4:11 PM EDT Test(s) [id number],F,ug/L,U was developed and its performance characteristics determined by [facility]. It has not been cleared or approved by the Food and Drug Administration. Performed at: 01 - [address] [id number] Team Assembler: Abiel Castillo MD, Phone: [phone] Lionel Barriga MD URINE ORDERABLES Final Res ult Performing Organization Address [facility] Co de Phone Number [facility] [address] [place] [address], * Metanephrines, Urine, 24 Hour - Urine, Clean Catch (10/30/2024 2:46 PM EDT) Normetanephrin e, Urine 102 Undefined ug/L 11/04/2024 9:10 AM EDT [facility] Normetanephrin e, 24H Ur 227 131 - 612 ug/24 hr 11/04/2024 9:10 AM EDT [facility] Metanephrines, Urine 19 Undefined ug/L 11/04/2024 9:10 AM EDT [facility] Metaneph, Total, 24H Ur 42 36 - 209 ug/24 hr 11/04/2024 9:10 AM EDT [facility] 24 Hour Urine Urine specimen obtained by clean catch procedure / Unknown Collection / Unknown 10/30/2024 2:46 PM EDT 10/30/2024 2:48 PM EDT Narrative [facility] - 11/04/2024 9:10 AM EDT Test(s) [id number], Ur; [id number]-Rvuvpwgkovfn, Ur was developed and its performance characteristics determined by [facility]. It has not been cleared or approved by the Food and Drug Administration. Performed at: [address] [place] [id number] Team Assembler: Abiel Castillo MD, Phone: [phone] Lionel Barriga MD URINE ORDERABLES Final Res ult [facility] [address] [place] [address], * VMA, Urine, 24 Hour - Urine, Clean Catch (10/30/2024 2:46 PM EDT) VMA, Urine 0.7 Undefined mg/L 11/04/2024 4:12 PM EDT [facility] VMA 24 Hour 1.6 0.0 - 7.5 mg/24 hr 11/04/2024 4:12 PM EDT [facility] 24 Hour Urine Urine specimen obtained by clean catch procedure / Unknown Collection / Unknown 10/30/2024 2:46 PM EDT 10/30/2024 2:48 PM EDT Narrative [facility] - 11/04/2024 4:12 PM EDT Test(s) [id number], Urine was developed and its performance characteristics determined by [facility]. It has not been cleared or approved by the Food and Drug Administration. Performed at: [address] [place] [id number] Team Assembler: Abiel Castillo MD, Phone: [phone] Lionel Barriga MD URINE ORDERABLES Final Res ult [facility] [address] [place] [address], documented in this encounter Visit Diagnoses Diagnosis UGI bleed- Primary Unspecified, hemorrhage of gastrointestinal tract Flushing UGI bleed Unspecified, hemorrhage of gastrointestinal tract documented in this encounter Care Teams Gynecology Teacher Relationship Specialty Start Date End Date Lionel Barriga MD [address] [place] [address] PCP - General Internal Medicine 05/10/17 documented as of this encounter
[2025-01-19 10:27] VITALS: BMI 33.3
--- OUTSIDE RECORDS SUMMARY | 2025-01-19 10:56 | XMS_ITS | Encounter Summary ---
[facility] Address [address] [place] [address] Care Team Providers Care Change Of Address Clerk Name Role Phone Lionel Barriga MD Primary Care Provider +1- [phone] Reason for Visit * Reason Onset Date Comments Med Refill 11/30/2024 Encounter Details Date Type Department Care Team (Late st Contact Info) Description 11/30/2024 Refill [facility] INTERNAL MEDICINE & PEDIATRICS [address] [facility] [address] [place] [address] Bessie Johnson MD [address] [facility] [address] [place] [address] Chronic pain of both knees [...] Description 01/29/2025 1:00 PM EDT Office Visit [facility] INTERNAL MEDICINE & PEDIATRICS [address] [facility] [address] [place] [address] Lionel Barriga MD [address] [facility] [address] [place] [address] 03/19/2025 11:15 AM EDT Office Visit [facility] PULMONARY & CRITICAL CARE MEDICINE [address] [place] [phone] Edmundo Deleon MD [facility]0 [place] [phone] documented as of this encounter Visit Diagnoses Diagnosis Chronic pain of both knees documented in this encounter Care Teams Change Of Address Clerk Relationship Specialty Start Date End Date Lionel Barriga MD [address] [facility] [address] [place] [address] PCP - General Internal Medicine 05/10/17 documented as of this encounter
--- OUTSIDE RECORDS SUMMARY | 2025-01-19 10:56 | XMS_ITS | Encounter Summary ---
Author Organization [facility] Address [address] [place] [address] Care Team Providers Care Major Gifts Director Name Role Phone Brisa Patel Unavailable Lionel Barriga MD Primary Care Provider +1- [phone] Reason for Visit * Reason Onset Date Comments Actemra Infusions 01/08/2025 Encounter Details Date Type Department Care Team (Late st Contact Info) Description 01/08/2025 Telephone [facility] Infusion [address] [place] [phone] Amelia Starks, PharmD [facility] Infusions Social History Tobacco Use Types Packs/Day Years [...] encounter Miscellaneous Notes * Telephone Encounter - Amelia Starks, PharmD - 01/08/2025 9:02 AM EDT Patient has been approved to receive infusion treatment at outside facility. [facility] will follow up with facility to make sure patient has been scheduled and received first dose. Specialty Medication: Actemra Filling Pharmacy[facility]: [facility] * Telephone Encounter - Amelia Starks PharmD - 01/08/2025 8:56 AM EDT Infusion Authorization Information Specialty Medication: Acctemra J-Code: J3262 CPT Code: n/a S-Codes (Miller): n/a Quantity and Units of Measure Authorized: Supply: 365 Diagnosis Code: M06.00 Insurance Name: [facility] Insurance Type: Commercial Where did you submit request and how (portal/fax/phone number): Portal Authorization/Reference Number: [id number] Approval Dates: 09/25/24-09/24/25 Filling Pharmacy[facility]: [facility] documented in this encounter Plan of Treatment Upcoming Encounters Date Type Department Care Team (Late st Contact Info) Description 03/23/2025 9:00 AM EDT Office Visit [facility] Medicine Specialties [address] [place] [address] Jason, May R, MANAGER DIALYSIS [address] [place] [address] documented as of this encounter [...] documented as of this encounter Care Teams Major Gifts Director Relationship Specialty Start Date End Date Lionel Barriga MD 100 [facility] 200 [place] [address] PCP - General 03/07/23 Brisa Patel [address] [place] [address] 01/12/22 documented as of this encounter
--- OUTSIDE RECORDS SUMMARY | 2025-01-19 10:56 | XMS_ITS | Encounter Summary ---
[facility] [address] [place] [address] Care Team Providers Care Cotton Factor Name Role Phone Lionel Barriga MD Primary Care Provider +1- [phone] Reason for Visit * Reason Comments Med Refill Encounter Details Date Type Department Care Team (Late st Contact Info) Description 12/04/2024 Refill [facility] INTERNAL MEDICINE & PEDIATRICS [address] [address] Lionel Barriga MD 100 [facility] 200 [place] [address] Chronic pain of both knees [...] Description 01/29/2025 1:00 PM EDT Office Visit [facility] INTERNAL MEDICINE & PEDIATRICS 100 [facility] 200 [place] [phone] Lionel Barriga MD 100 [facility] 200 [place] [address] 03/19/2025 11:15 AM EDT Office Visit [facility] PULMONARY & CRITICAL CARE MEDICINE [address] [facility] 240 [place] [phone] Edmundo Deleon MD [address] [place] [phone] documented as of this encounter Visit Diagnoses Diagnosis Chronic pain of both knees documented in this encounter Care Teams Cotton Factor Relationship Specialty Start Date End Date Lionel Barriga MD 100 [facility] 200 [place] [address] PCP - General Internal Medicine 05/10/17 documented as of this encounter
--- OUTSIDE RECORDS SUMMARY | 2025-01-19 10:56 | XMS_ITS | Encounter Summary ---
[facility] Address [address] [place] [address] Care Team Providers Care House Worker Name Role Phone Lionel Barriga MD Primary Care Provider +1- [phone] Encounter Details Date Type Department Care Team (Late st Contact Info) Description 10/27/2024 Results Follow-Up [facility] INTERNAL MEDICINE & PEDIATRICS 100 [facility] 200 [place] [address] Lionel Barriga MD 100 [facility] 200 [place] [address] Social History Tobacco Use Types [...] Description 01/29/2025 1:00 PM EDT Office Visit [facility] INTERNAL MEDICINE & PEDIATRICS [address] [place] [phone] Lionel Barriga MD 100 [facility] 200 [place], [place] [phone] 03/19/2025 11:15 AM EDT Office Visit [facility] PULMONARY & CRITICAL CARE MEDICINE 3000 [facility] 240 [place] [phone] Edmundo Deleon MD [facility]0 [place] [phone] documented as of this encounter Visit Diagnoses Not on filedocumented in this encounter Care Teams House Worker Relationship Specialty Start Date End Date Lionel Barriga MD 100 [facility] 200 [place] [address] PCP - General Internal Medicine 05/10/17 documented as of this encounter
--- OUTSIDE RECORDS SUMMARY | 2025-01-19 10:56 | XMS_ITS | Encounter Summary ---
Author Organization [facility] Address [address] [place] [address] Care Team Providers Care Recreation Attendant Name Role Phone Lionel Barriga MD Primary Care Provider +1- [phone] Encounter Details Date Type Department Care Team (Late st Contact Info) Description 05/30/2023 Prep for Surgery [facility] ORDERS ONLY [address] [place] [address] Rigo Andersen MD [address] [facility] [address] [place], [place] [phone] Dysphagia, unspecified type (Primary Dx); Moderate coronary [...] Description 01/29/2025 1:00 PM EDT Office Visit [facility] INTERNAL MEDICINE & PEDIATRICS 100 [facility] 200 [place] [address] Lionel Barriga MD 100 [facility] 200 [place] [address] 03/19/2025 11:15 AM EDT Office Visit [facility] PULMONARY & CRITICAL CARE MEDICINE 3000 [facility] [address] [place] [phone] Edmundo Deleon MD [address] [place] [address] documented as of this encounter Visit Diagnoses Diagnosis Dysphagia, unspecified type- Primary Moderate coronary artery risk chest pain documented in this encounter Care Teams Recreation Attendant Relationship Specialty Start Date End Date Lionel Barriga MD 100 [facility] 200 [place] [address] PCP - General Internal Medicine 05/10/17 documented as of this encounter
--- OUTSIDE RECORDS SUMMARY | 2025-01-19 10:56 | XMS_ITS | Clinical Summary ---
Author Organization [facility] Address [address] [place] [address] Care Team Providers Care Grades 1 Thru 6 Home Teacher Name Role Phone Lionel Barriga MD Primary Care Provider [phone] Allergies No known active allergies Medications Insulin Pen Needle (Pen Falcon 10/10 ) 31G X 8 MM misc [...] 24 Active Insulin Disposable Pump (Omnipod 5 [id number] Pods Gen 5) misc Use 1 each [...] Moderate Pain. 30 tablet 12/17/19 25 Active Active Problems Problem Noted Date [...] 10/03/2021 Overview (10/04/2021): NSTEMI 10/01/2021 treated at [facility] with 100% ramus treated with a 2.5 mm LILY, proximal and mid LAD treated with 3.0 mm i Synergy stents. Residual chest pain admitted to [facility] 10/04/2021, repeat LHC showed widely patent ramus and LAD stents between the proximal and mid LAD stents 20-30% stenosis, proximal RCA 10-20%. LVEDP 14 mmHg. Mixed hyperlipidemia 12/03/2020 Anxiety and depression 12/03/2020 Nontoxic multinodular goiter 06/26/2020 Type 2 diabetes mellitus treated with insulin Resolved Problems Problem Noted Date Diagnosed Date Resolved Date Well woman exam 07/03/2022 10/11/2022 Overview (08/17/2022): SCREENING TESTS Year 2016 2017 2018 2019 2020 2021 2022 2023 2024 2025 2026 2027 2028 2029 2030 2031 2032 Age 56 PAP 4 3 HPV high risk 3 MELCHOR [Birads] 11[1] BECKY (5 year) Tyrer Cypress (lifetime) Colonoscopy DEXA [T-score] Frax [hip/any] Enter [...] (10/04/2021): Added automatically from request for surgery [id number] Leg pain, left 12/04/2020 10/11/2022 Chest pain [...] be able to see pt sooner (I.e. [facility]) although insurance may be a [...] Date Type Department Care Team Description 12/16/2024 [facility] INTERNAL MEDICINE & PEDIATRICS [address] [facility] [address] [place] [address] Lionel Barriga MD Chronic pain of both knees 12/04/2024 [facility] INTERNAL MEDICINE & PEDIATRICS [address] [facility] [address] [place] [address] Lionel Barriga MD Chronic pain of both knees 11/30/2024 [facility] INTERNAL MEDICINE & PEDIATRICS [address] [facility] [address] [place] [address] Bessie Johnson MD Chronic pain of both knees 11/18/2024 Results Follow-Up [facility] INTERNAL MEDICINE & PEDIATRICS 100 [facility] [address] [place] [address] Lionel Barriga MD 11/18/2024 Results Follow-Up [facility] INTERNAL MEDICINE & PEDIATRICS [address] [place] [address] [address] [place] [address] Lionel Barriga MD 11/04/2024 4:15 PM EDT Office Visit [facility] INTERNAL MEDICINE & PEDIATRICS [address] [place] [address] [address] [place] [address] Lionel Barriga MD UGI bleed (Primary Dx); Memory loss; Chronic pain of both knees; Screening for colon cancer; Gastroesophageal reflux disease without esophagitis 11/04/2024 Travel 10/30/2024 3:45 PM EDT - 10/30/2024 11:59 PM EDT Hospital Encounter [facility] XRAY AT [address] [address] Lionel Barriga MD UGI bleed Discharge Disposition: Home or Self Care 10/30/2024 2:00 PM EDT Office Visit [facility] INTERNAL MEDICINE & PEDIATRICS [address] [place] [phone] Lionel Barriga MD UGI bleed (Primary Dx); [place] 10/30/2024 Travel 10/27/2024 Telephone [facility] INTER[facility] MEDICINE [facility] PEDIATRICS [address] [place] [phone] Lionel Barriga MD RELAY 10/27/2024 Telephone [facility] INTERNAL MEDICINE [facility] PEDIATRICS [address] [place] [phone] Lionel Barriga MD 10/27/2024 Results Follow-Up [facility] INTERNAL MEDICINE & PEDIATRICS [address] [place] [phone] Lionel Barriga MD 10/23/2024 11:00 AM EDT Office Visit [facility] INTERNAL MEDICINE & PEDIATRICS [address] [facility] [address] [place] [address] Lionel Barriga MD Chronic pain of both knees (Primary Dx); [place] 10/23/2024 Telephone [facility] INTERNAL MEDICINE & PEDIATRICS [address] [facility] [address] [place] [address] Lionel Barriga MD Prior Authorization 10/23/2024 Travel from Last 3 Months Immunizations Immunization Administration [...] Maternal Aunt April Patino COPD Maternal Aunt ShanelMuriel Patino Other Maternal Aunt ShanelMuriel Patino Alzhei fidel's, diverticulitis, and Parkinsons Cancer Maternal Grandfather Sathya Yuanhoward Lorenzana Melanoma Early Maternal Grandfather Sathya Huynh Harriett of adult leukema Melanoma Maternal Grandfather Sathya Yuanhoward Lorenzana Depression Maternal Grandmother Shayy Jefferson Anemia Mother Holley Pottsdins Anxiety disorder Mother Holley Harriett Arrhythmia Mother Holley Harriett Arthritis Mother Holley Pottsdins COPD Mother Holley Lorenzana Cancer Mother Holley Lorenzana COPD AND MADIE [place] Deep vein thrombosis [...] deaf Mental illness Paternal Aunt 2 Sabina Ontiveros Cancer Paternal Grandfather Sathya Vasquez Lymphom a Diabetes Paternal Grandmother Verna Lorenzana of cirrhosis of the liver non alcoholic Early Paternal Grandmother Verna Lorenzana Cirrosi s of the Liver Liver disease Paternal Grandmother Verna Lorenzana Diabetes Sister 1 Inge Harriett Drug abuse Sister 1 Inge Harriett Diabetes Sister 2 Inge Harriett Drug abuse Sister 2 Inge Hrariett Diabetes Sister 3 Inge Harriett Arlet Drug abuse Sister 3 Inge Harriett Arlet Breast cancer Neg Hx Colon cancer Neg Hx Ovarian cancer Neg Hx Prostate cancer Neg Hx Relation Name Status Comments Daughter Amelia Sales Alive Father Judd Lorenzana Maternal Aunt April Patino Alive Maternal Grandfather Sathya Lorenzana Alive Maternal Grandmother Shayy Dupree Alive Mother Holley Loreznana Other Alive Paternal Aunt 1 Nydia Churchill Alive Paternal Aunt 2 Sabina Ontiveros Alive Paternal Grandfather Sathya Vasquez Paternal Grandmother Verna Valentines Sister 1 Ingebakari Valentines Alive Sister 2 Inge Valentines Alive Sister 3 Ingebakari Lorenzana Arlet Alive Social History Tobacco Use [...] Description 01/29/2025 1:00 PM EDT Office Visit [facility] INTERNAL MEDICINE & PEDIATRICS [address] [facility] [address] [place] [phone] Lionel Barriga MD [address] [facility] [address] [place] [address] 03/19/2025 11:15 AM EDT Office Visit [facility] PULMONARY & CRITICAL CARE MEDICINE [address] [facility] [address] [place] [phone] Edmundo Deleon MD [address] [place], [place] [phone] Health Maintenance Due Date Last Done Comments [...] Additional history exists HEMOGLOBIN A1C 02/26/2025 08/27/2024, 10/2023, 12/28/2023, Additional history exists PAP SMEAR 08/15/2025 08/15/2022, 11/2022, 09/05/2017 LIPID PANEL 08/27/2025 08/27/2024, 10/26, 11/12/2023, Additional history exists TDAP/TD VACCINES (2 - Tdap) 12/01/2029 12/02/2019 HEPATITIS C SCREENING Completed 11/12/2023 , 10/03/2021, 06/05/2017 [facility] Discontinued Procedures Procedure Name Priority Date/Time Associated Diagnosis Comments SCANNED - LABS 12/30/2024 SCANNED - LABS 12/30/2024 SCANNED - LABS 12/26/2024 SCANNED EKG 11/21/2024 SCANNED EKG 11/21/2024 SCANNED [...] PANEL Routine 10/23/2024 11:45 AM EDT [place] HEMOGLOBIN A1C Routine 08/27/2024 3:19 PM EDT [...] Recently Relevant to Health Maintenance Results * LABS SCANNED (12/30/2024) Only the most recent of4 resultswithin the time period is included. us Lionel Barriga MD LAB BLOOD ORDERABLES Final Result * ECG Scan (11/21/2024) Only the most recent of2 resultswithin the time period is included. Katja Jose PA-C ECG ORDERABLES Anjali l Result * IMAGING SCANNED (11/21/2024) Only the most recent of2 resultswithin the time period is included. Anatomical Region Laterality Modality Radiographic Yara ging us Lionel Barriga MD IMG DIAGNOSTIC IMAGING ORD ERABLES Final Result * POC Hemoglobin (11/04/2024 5:44 PM EDT) Hemoglobin 16.2 12.0 - 17.0 g/dL [facility] Lot Number [id number] [facility] Expiration Date 11/27/2026 [facility] Blood 11/04/2024 5:44 PM EDT us Lionel Barriga MD POINT OF CARE TEST ORDERAB LES Final Result [facility]
[address] [place] [address], [place] [phone] * COGNITIVE ASSESSMENT SCAN (11/04/2024) Lionel Barriga MD NEUROLOGY ORDERABLES Final Result * XR Chest PA & Lateral (10/30/2024 3:57 PM EDT) Anatomical Region Laterality Modality Body, Chest N/A Radiographic Yara ging 10/31/2024 10:3 5 AM EDT Impressions 10/31/2024 10:35 AM EDT Impression: No active disease. Electronically Signed: Niranjan Tate MD 10/31/2024 10:35 AM EDT Workstation ID: [id number] Narrative 10/31/2024 10:35 AM EDT XR CHEST [...] MD 10/31/2024 10:35 AM EDT Workstation ID: [id number] Lionel Barriga MD IMG DIAGNOSTIC IMAGING ORD ERABLES Final Result * CBC Auto Differential (10/30/2024 3:35 PM EDT) Only the most recent of2 resultswithin the time period is included. WBC 6.19 3.40 - 10.80 10*3/mm3 10/31/2024 1:54 AM [facility] RBC 4.79 3.77 - 5.28 10*6/mm3 10/31/2024 1:54 AM [facility] Hemoglobin 14.9 12.0 - 15.9 g/dL 10/31/2024 1:54 AM [facility] Hematocrit 44.4 34.0 - 46.6 % 10/31/2024 1:54 AM [facility] MCV 92.7 79.0 - 97.0 fL 10/31/2024 1:54 AM [facility] MCH 31.1 26.6 - 33.0 pg 10/31/2024 1:54 AM [facility] MCHC 33.6 31.5 - 35.7 g/dL 10/31/2024 1:54 AM [facility] RDW 12.4 12.3 - 15.4 % 10/31/2024 1:54 AM [facility] RDW-SD 42.1 37.0 - 54.0 fl 10/31/2024 1:54 AM [facility] MPV 10.5 6.0 - 12.0 fL 10/31/2024 1:54 AM [facility] Platelets 214 140 - 450 10*3/mm3 10/31/2024 1:54 AM [facility] Neutrophil % 47.2 42.7 - 76.0 % 10/31/2024 1:54 AM [facility] Lymphocyte % 39.6 19.6 - 45.3 % 10/31/2024 1:54 AM [facility] Monocyte % 7.4 5.0 - 12.0 % 10/31/2024 1:54 AM [facility] Eosinophil % 4.0 0.3 - 6.2 % 10/31/2024 1:54 AM [facility] Basophil % 1.5 0.0 - 1.5 % 10/31/2024 1:54 AM [facility] Immature Grans % 0.3 0.0 - 0.5 % 10/31/2024 1:54 AM EDT [facility] Neutrophils, Absolute 2.92 1.70 - 7.00 10*3/mm3 10/31/2024 1:54 AM EDT [facility] Lymphocytes, Absolute 2.45 0.70 - 3.10 10*3/mm3 10/31/2024 1:54 AM EDT [facility] Monocytes, Absolute 0.46 0.10 - 0.90 10*3/mm3 10/31/2024 1:54 AM EDT [facility] Eosinophils, Absolute 0.25 0.00 - 0.40 10*3/mm3 10/31/2024 1:54 AM EDT [facility] Basophils, Absolute 0.09 0.00 - 0.20 10*3/mm3 10/31/2024 1:54 AM EDT [facility] Immature Grans, Absolute 0.02 0.00 - 0.05 10*3/mm3 10/31/2024 1:54 AM EDT [facility] nRBC 0.0 0.0 - 0.2 /100 WBC 10/31/2024 1:54 AM EDT [facility] Blood Venipuncture / Unknown 10/30/2024 3:35 PM EDT 10/30/2024 3:36 PM EDT Lionel Barriga MD LAB BLOOD ORDERABLES Final Result [facility]
[address] [place] [address], * aPTT (10/30/2024 3:35 PM EDT) PTT 33.7 22.0 - 39.0 seconds 10/30/2024 9:41 PM EDT [facility] Blood Structure of right upper limb / Unknown Venipuncture / Unknown 10/30/2024 3:35 PM EDT 10/30/2024 3:36 PM EDT Narrative [facility] - 10/30/2024 9:41 PM EDT PTT = The equivalent PTT values for the therapeutic range of heparin levels at 0.3 to 0.5 U/ml are 60 to 70 seconds. Lionel Barriga MD LAB BLOOD ORDERABLES Final Result Performing Organization Address City/[facility]/ZIP Co de Phone Number [facility]
[address] [place] [address], * (ABNORMAL) Protime-INR (10/30/2024 3:35 PM EDT) Protime 11.9(L) 12.2 - 15.3 Seconds 10/30/2024 9:41 PM EDT [facility] INR 0.83(L) 0.89 - 1.12 10/30/2024 9:41 PM EDT [facility] Blood Structure of right upper limb / Unknown Venipuncture / Unknown 10/30/2024 3:35 PM EDT 10/30/2024 3:36 PM EDT us Lionel Barriga MD LAB BLOOD ORDERABLES Final Result Performing Organization Address [facility] Co de Phone Number [facility]
[address] [place] [address], * (ABNORMAL) Comprehensive Metabolic Panel (10/30/2024 3:35 PM EDT) Only the most recent of2 resultswithin the time period is included. Glucose 76 65 - 99 mg/dL 10/31/2024 2:25 AM EDT [facility] BUN 18.0 6.0 - 20.0 mg/dL 10/31/2024 2:25 AM EDT [facility] Creatinine 1.13(H) 0.57 - 1.00 mg/dL 10/31/2024 2:25 AM EDT [facility] Sodium 140 136 - 145 mmol/L 10/31/2024 2:25 AM [facility] Potassium 3.8 3.5 - 5.2 mmol/L 10/31/2024 2:25 AM [facility] Chloride 104 98 - 107 mmol/L 10/31/2024 2:25 AM [facility] CO2 24.4 22.0 - 29.0 mmol/L 10/31/2024 2:25 AM [facility] Calcium 9.8 8.6 - 10.5 mg/dL 10/31/2024 2:25 AM [facility] Total Protein 7.2 6.0 - 8.5 g/dL 10/31/2024 2:25 AM [facility] Albumin 4.7 3.5 - 5.2 g/dL 10/31/2024 2:25 AM [facility] ALT (SGPT) 29 1 - 33 U/L 10/31/2024 2:25 AM [facility] AST (SGOT) 22 1 - 32 U/L 10/31/2024 2:25 AM [facility] Alkaline Phosphatase 62 39 - 117 U/L 10/31/2024 2:25 AM [facility] Total Bilirubin 0.4 0.0 - 1.2 mg/dL 10/31/2024 2:25 AM [facility] Globulin 2.5 gm/dL 10/31/2024 2:25 AM [facility] A/G Ratio 1.9 g/dL 10/31/2024 2:25 AM [facility] BUN/Creatinine Ratio 15.9 7.0 - 25.0 10/31/2024 2:25 AM [facility] Anion Gap 11.6 5.0 - 15.0 mmol/L 10/31/2024 2:25 AM [facility] eGFR 56.9(L) >60.0 mL/min/1.7 3 10/31/2024 2:25 AM [facility] Blood Venipuncture / Unknown 10/30/2024 3:35 PM EDT 10/30/2024 3:36 PM EDT Narrative [facility] - 10/31/2024 2:25 AM EDT GFR [...] Barriga MD LAB BLOOD ORDERABLES Final Result [facility]
[address] [place] [address], * Urine Drug Screen - Urine, Clean [...] is inconsistent with an expected outcome. Email: [email or web address] [employer] 24 Hour Urine Urine specimen obtained by clean catch procedure / Unknown Collection / Unknown 10/30/2024 2:46 PM EDT 10/30/2024 2:48 PM EDT Narrative [facility] - 12/08/2024 1:55 PM EDT Performed at: - [facility] [address] [place], [place] [id number] Payroll Processor: Hemalatha Mayfield PhD, Phone: [phone] Specimen Comment: Corrected report called to Yasmine Nadeem 12/08/24 1:28pm Specimen Comment: A duplicate report has been generated due to demographic updates. Lionel Barriga MD URINE ORDERABLES Edited Re sult - Final Performing Organization Address [facility] Co de Phone Number [facility] [address] [place] [address], [place] [phone] * VMA, Urine, 24 Hour - Urine, Clean Catch (10/30/2024 2:46 PM EDT) VMA, Urine 0.7 Undefined mg/L 11/04/2024 4:12 PM EDT [facility] VMA 24 Hour 1.6 0.0 - 7.5 mg/24 hr 11/04/2024 4:12 PM EDT [facility] 24 Hour Urine Urine specimen obtained by clean catch procedure / Unknown Collection / Unknown 10/30/2024 2:46 PM EDT 10/30/2024 2:48 PM EDT Narrative [facility] - 11/04/2024 4:12 PM EDT Test(s) [id number], Urine was developed and its performance characteristics determined by [facility]. It has not been cleared or approved by the Food and Drug Administration. Performed at: - [address] [id number] Payroll Processor: Abiel Castillo MD, Phone: [phone] Lionel Barriga MD URINE ORDERABLES Final Res ult Performing Organization Address [facility]/ZIP Co de Phone Number [facility] [address] [place] [address], [place] [phone] * Metanephrines, Urine, 24 Hour - Urine, Clean Catch (10/30/2024 2:46 PM EDT) Normetanephrin e, Urine 102 Undefined ug/L 11/04/2024 9:10 AM EDT [facility] Normetanephrin e, 24H Ur 227 131 - 612 ug/24 hr 11/04/2024 9:10 AM EDT [facility] Metanephrines, Urine 19 Undefined ug/L 11/04/2024 9:10 AM EDT [facility] Metaneph, Total, 24H Ur 42 36 - 209 ug/24 hr 11/04/2024 9:10 AM EDT [facility] 24 Hour Urine Urine specimen obtained by clean catch procedure / Unknown Collection / Unknown 10/30/2024 2:46 PM EDT 10/30/2024 2:48 PM EDT [facility] - 11/04/2024 9:10 AM EDT Test(s) [id number], Ur; [id number]-Wuykcskcjhhj, Ur was developed and its performance characteristics determined by [facility]. It has not been cleared or approved by the Food and Drug Administration. Performed at: - [address] [id number] Payroll Processor: Abiel Castillo MD, Phone: [phone] us Lionel Barriga MD URINE ORDERABLES Final Res ult Performing Organization Address City/State/[facility] Co de Phone Number [facility] [address] [phone], * Cortisol, Urine, Free 24Hr - Urine, Clean Catch (10/30/2024 2:46 PM EDT) Cortisol, Free 9 Undefined ug/L 2024 4:11 PM EDT [facility] Cortisol, 24H Ur 20 6 - 42 ug/24 hr 11/06/2024 4:11 PM EDT [facility] 24 Hour Urine Urine specimen obtained by clean catch procedure / Unknown Collection / Unknown 10/30/2024 2:46 PM EDT 10/30/2024 2:48 PM EDT Narrative [facility] - 11/06/2024 4:11 PM EDT Test(s) [id number]-Nxhoswof,F,ug/L,U was developed and its performance characteristics determined by [facility]. It has not been cleared or approved by the Food and Drug Administration. Performed at: - [address] [id number] Payroll Processor: Abiel Castillo MD, Phone: [phone] Lionel Barriga MD URINE ORDERABLES Final Res ult Performing Organization Address [facility] Co de Phone Number [facility] [address] [place] [address], [place] [phone] * 5 HIAA, Urine, Quantitative, 24 Hour - Urine, Clean Catch (10/30/2024 2:46 PM EDT) 5-HIAA, Urine 1.8 Undefined mg/L 025 10:10 AM EDT [facility] 5-HIAA, 24H Ur 4.0 0.0 - 14.9 mg/24 hr 11/05/2024 10:10 AM EDT [facility] 24 Hour Urine Urine specimen obtained by clean catch procedure / Unknown Collection / Unknown 10/30/2024 2:46 PM EDT 10/30/2024 2:48 PM EDT Narrative [facility] - 11/05/2024 10:10 AM EDT Test(s) [id number], Urine was developed and its performance characteristics determined by [facility]. It has not been cleared or approved by the Food and Drug Administration. Performed at: - [address] [id number] Payroll Processor: Abiel Castillo MD, Phone: [phone] Lionel Barriga MD URINE ORDERABLES Final Res ult Performing Organization Address [facility] Co de Phone Number [facility] [address] [place] [address], [place] [phone] * TSH (10/23/2024 11:45 AM EDT) TSH 1.100 0.270 - 4.200 uIU/mL 10/23/2024 7:26 PM EDT [facility] Blood Structure of right upper limb / Unknown Venipuncture / Unknown 10/23/2024 11:45 AM EDT 10/23/2024 11:45 AM EDT Lioenl Barriga MD LAB BLOOD ORDERABLES Final Result [facility]
[address] [place] [address], * T4, Free (10/23/2024 11:45 AM EDT) Free T4 1.28 0.92 - 1.68 ng/dL 10/23/2024 7:26 PM EDT [facility] Blood Structure of right upper limb / Unknown Venipuncture / Unknown 10/23/2024 11:45 AM EDT 10/23/2024 11:45 AM EDT Lionel Barriga MD LAB BLOOD ORDERABLES Final Result Performing Organization Address City/[facility]/ZIP Co de Phone Number [facility]
[address] [place] [address], * (ABNORMAL) Hemoglobin A1c (08/27/2024 3:19 PM EDT) Hemoglobin A1C 9.00(H) 4.80 - 5.60 % 08/27/2024 11:34 PM EDT [facility] Blood Venipuncture / Unknown 08/27/2024 3:19 PM EDT 08/27/2024 3:19 PM EDT Narrative [facility] - 08/27/2024 11:34 PM EDT Hemoglobin A1C Ranges: Increased Risk for Diabetes 5.7% to 6.4% Diabetes >= 6.5% Diabetic Goal < 7.0% Lionel Barriga MD LAB BLOOD ORDERABLES Final Result [facility]
[address] [place] [address], * (ABNORMAL) Lipid Panel (08/27/2024 3:19 PM EDT) Total Cholesterol 123 0 - 200 mg/dL 08/27/2024 11:39 PM EDT [facility] Triglycerides 232(H) 0 - 150 mg/dL 08/27/2024 11:39 PM EDT [facility] HDL Cholesterol 37(L) 40 - 60 mg/dL 08/27/2024 11:39 PM EDT [facility] LDL Cholesterol 49 0 - 100 mg/dL 08/27/2024 11:39 PM EDT [facility] VLDL Cholesterol 37 5 - 40 mg/dL 08/27/2024 11:39 PM EDT [facility] LDL/HDL Ratio 1.07 08/27/2024 11:39 PM EDT [facility] Blood Venipuncture / Unknown 08/27/2024 3:19 PM EDT 08/27/2024 3:19 PM EDT Narrative [facility] - 08/27/2024 11:39 PM EDT [...] Barriga MD LAB BLOOD ORDERABLES Final Result [facility]
[address] [place] [address], [place] [phone] * FOOT EXAM SCANNED (06/20/2023) Lionel Barriga MD CHART REVIEW TABS Final Result * LIQUID-BASED PAP SMEAR, [facility] (TWILA,COR,MAD) (08/15/2022 1:50 PM EDT) Reference Lab Report [facility] [address] [place] [address] or [phone] Sharif Fan M.D., Metal Stamping Machine Operator PATIENT NAME LABORATORY NO. LEOLA ROSE. [id number] AGE SEX N CLIENT REF # [facility] 56 1965 F [id number] APRIL CRUZ MD REQUESTING M.D. ATTENDING M.D. COPY TO. [facility], [place] [address] DATE COLLECTED DATE RECEIVED DATE REPORTED 08/15/2022 [...] DUE TO NON-DIAGNOSTIC Unsatisfactory cervical Papanicolaou smear MECHANICAL ENGINEERING DIRECTOR: NICKI VICK(ASCP) CPT CODES: [id number] 08/16/2022 12:04 PM EDT [facility] ThinPrep Vial Collection / Unknown 08/15/2022 1:50 PM EDT 08/15/2022 1:50 PM EDT April Cruz MD PATHOLOGY/CYTOLOGY ORDERABLE S Final Result [facility]
[address] [place] [address], * Mammo Screening Digital Tomosynthesis Bilateral With [...] acquisitions and tomosynthesis. COMPARISON: Outside mammograms from [place], [place] dated 02/18/2019 and 01/15/2018. FINDINGS: There are scattered areas of fibroglandular density. The fibroglandular pattern is stable. There are no suspicious masses, worrisome calcifications, nonsurgical areas of architectural distortion, or other secondary signs of malignancy. Lionel Barriga MD IMG MAMMOGRAPHY ORDERABLES Final Result * Hepatitis Panel, Acute (10/03/2021 6:13 PM EDT) Hepatitis B Surface Ag Non-Reacti ve Non-Reacti ve 10/03/2021 8:39 PM EDT [facility] Hep A IgM Non-Reacti ve Non-Reacti ve 10/03/2021 8:39 PM EDT [facility] Hep B C IgM Non-Reacti ve Non-Reacti ve 10/03/2021 8:39 PM EDT [facility] Hepatitis C Ab Non-Reacti ve Non-Reacti ve 10/03/2021 8:39 PM EDT [facility] Blood Line / Unknown 10/03/2021 6: 13 PM EDT 10/03/2021 6:20 PM EDT Narrative [facility] - 10/03/2021 8:39 PM EDT Results may be falsely decreased if patient taking Biotin. Bisi Rasmussen PA-C LAB BLOOD ORDERABLES Final Result [facility]
[address] [place] [address], * SCANNED - INFLUENZA (04/08/2019) Lionel Barriga MD CHART REVIEW TABS Final Result from Last 3 Months or Most Recently Relevant to Health Maintenance Insurance [employer] Advance Directives * CPR (Attempt to Resuscitate) [...] Of Support Discussed With: Patient Care Teams Grades 1 Thru 6 Home Teacher Relationship Specialty Start Date End Date Lionel Barriga MD 100 [facility] 200 [place] [address] PCP - General Internal Medicine 05/10/17
--- OUTSIDE RECORDS SUMMARY | 2025-01-19 10:56 | XMS_ITS | Encounter Summary ---
[facility] Address [address] [place] [address] Care Team Providers Care Allergist/Md Name Role Phone Lionel Barriga MD Primary Care Provider +1- [phone] Reason for Visit * Reason Onset Date Comments Med Refill 12/16/2024 Encounter Details Date Type Department Care Team (Late st Contact Info) Description 12/16/2024 Refill [facility] INTERNAL MEDICINE & PEDIATRICS [address] [address] Lionel Barriga MD 100 [facility] 200 [place] [address] Chronic pain of both knees [...] MEDICAL CENTER INTERNAL MEDICINE & PEDIATRICS 100 [facility] 200 [place] [address] Lionel Barriga MD 100 [facility] 200 [place] [address] 03/19/2025 11:15 AM EDT Office Visit [facility] PULMONARY & CRITICAL CARE MEDICINE 3000 [facility] 240 [place] [phone] Edmundo Deleon MD [address] [id number] documented as of this encounter Visit Diagnoses Diagnosis Chronic pain of both knees documented in this encounter Care Teams Allergist/Md Relationship Specialty Start Date End Date Lionel Barriga MD 100 [facility] 200 [place] [address] PCP - General Internal Medicine 05/10/17 documented as of this encounter
--- OUTSIDE RECORDS SUMMARY | 2025-01-19 10:56 | XMS_ITS | Encounter Summary ---
[facility] Organization [facility] Address [address] [place] [address] Care Team Providers Care Manager Studio Name Role Phone Lionel Barriga MD Primary Care Provider +1- [phone] Encounter Details Date Type Department Care Team (Late st Contact Info) Description 07/29/2020 Telephone [facility] INTERNAL MEDICINE & PEDIATRICS [address] [address] Lionel Barriga MD 100 [facility] 200 [place] [address] Social History Tobacco Use Types [...] 1:00 PM EDT Office Visit [facility] INTERNAL MEDICINE & PEDIATRICS 100 [facility] 200 [place] [address] Lionel Barriga MD 100 [facility] 200 [place] [address] 03/19/2025 11:15 AM EDT Office Visit [facility] PULMONARY & CRITICAL CARE MEDICINE [address] [facility] 240 [place] [phone] Edmundo Deleon MD [facility] [place] [address] documented as of this encounter Visit Diagnoses Not on filedocumented in this encounter Additional Health Concerns Infection Onset Date Last Indicated Resolved Time COVID Screen (preop/placement) 12/03/2020 12/03/2020 12/03/2020 11:44 PM EDT COVID Screen (preop/placement) 10/03/2021 10/03/2021 10/03/2021 9:11 PM EDT COVID (rule out) 01/19/2023 01/19/2023 01/26/2023 9:08 PM EDT documented as of this encounter Care Teams Manager Studio Relationship Specialty Start Date End Date Lionel Barriga MD 100 [place] [address] PCP - General Internal Medicine 05/10/17 documented as of this encounter
--- OUTSIDE RECORDS SUMMARY | 2025-01-19 10:56 | XMS_ITS | Clinical Summary ---
Author Organization Healthcare Address [address] [place] [address] Care Team Providers Care Production Support Specialist Name Role Phone Brisa Patel Unavailable Lionel Barriga MD Primary Care Provider +1- [phone] Allergies No known active allergies Medications acetaminophen (Tylenol) 500 MG tablet Take by mouth. Activ e aspirin 81 MG EC tablet Take 1 tablet by mouth 1 time each day. Active B Gxastfg-R-Gmqzw Acid (Super B Complex/FA/Vit C) tablet Active [...] solution auto-injector 1 mg. Active Continuous Glucose Candy Roller (Dexcom G6 optical laboratory mechanic) device 09/07/19 24 Active traZODone (Desyrel) 100 MG tablet 02/11/20 24 Active predniSONE (Deltasone) 5 MG tabletIndications: Rheumatoid arthritis, involving unspecified site, unspecified whether rheumatoid factor present ([facility]) 1-2 tablets daily as needed for [...] 10/03/2021 Overview (03/07/2023): NSTEMI 10/01/2021 treated at [facility] with 100% ramus treated with a 2.5 mm LILY, proximal and mid LAD treated with 3.0 mm i Synergy stents. Residual chest pain admitted to [facility] 10/04/2021, repeat C showed widely patent [...] Encounters Date Type Department Care Team Description 01/08/2025 Telephone [facility] Infusion [address] [place] [address] Amelia Starks, PharmD Actemra Infusions 11/17/2024 Telephone [facility] Medicine Specialties [address] [place] [address] Jason, Shalonda R, UTILITY SALES AND SERVICE MANAGER from Last 3 Months Immunizations Immunization Administration Dates Next Due Hep A, Adult 04/08/2019, 9,04/02/2018,03/28 Influenza, Unspecified 03/13/2022,06/16/2020 Influenza, injectable, quadrivalent 03/24/2020,0 01/26/2019 Influenza, injectable, quadr ivalent, preservative free 02/15/2023,03/13/2022,04/08/2019 Pneumococcal Conjugate PCV 13 04/08/2019,01/01/2 019 Pneumococcal Polysaccharide PPV23 05/29/2017,05/2017 TD (adult), [...] Description 03/23/2025 9:00 AM EDT Office Visit [facility] [address] [place] [address] Jason, May R, UTILITY SALES AND SERVICE MANAGER [address] [place] [address] Health Maintenance Due Date Last Done Comments [facility]-/Child/Adol SDOH Screenings 1965 [id number] Vaccine (#1) 12/06/1971 Diabetes: Dental Exam 1976 [...] Additional history exists [facility]-Depression Screening 09/15/2025 09/15/2024, 0405/2024 [facility]-Hepatitis A Vaccines Aged Out 019, 01/26/2019, [...] Reactive Non Reactive 11/12/2023 11:25 AM EDT [facility] Comment:Screening for HIV 1 & 2 antibodies, and P24 antigen is NONREACTIVE. No confirmatory testing is required. Blood Venous blood specimen / Unknown Venipuncture / Unknown 11/12/2023 9:29 AM EDT 11/12/2023 9:32 AM EDT may R Jason UTILITY SALES AND SERVICE MANAGER LAB BLOOD ORDERABLES Final Result [facility] [address] [place] [address] * Acute Hepatitis Panel (11/12/2023 9:29 AM EDT) Hepatitis B Surf Antigen Negative Negative 11/12/2023 11:46 AM EDT [facility] Hepatitis C Antibody Negative Negative 11/12/2023 11:46 AM EDT [facility] Hepatitis A Antibody IgM Negative Negative 11/12/2023 11:46 AM EDT [facility] Hepatitis B Core Antibody IgM Negative Negative 11/12/2023 11:46 AM EDT [facility] Blood Venous blood specimen / Unknown Venipuncture / Unknown 11/12/2023 9:29 AM EDT 11/12/2023 9:32 AM EDT May R Jason UTILITY SALES AND SERVICE MANAGER LAB BLOOD ORDERABLES Final Result [facility] [address] [place] [address] from Last 3 Months or Most Recently Relevant to Health Maintenance Insurance [employer] Care Teams Production Support Specialist Relationship Specialty Start Date End Date Lionel Barriga MD 100 [facility] 200 [place] [address] PCP - General 03/07/23 Brisa Patel [address] [place] [address] 01/12/22
--- OUTSIDE RECORDS SUMMARY | 2025-01-19 10:56 | XMS_ITS | Referral Summary ---
Author Organization [facility] Address [address] [place] [address] Care Team Providers Care Edge Sawyer Name Role Phone Other, Physician Outoftowamrik KERR [...] Plan of Treatment Not on file Insurance [facility] BLUE CROSS ALL OTHERS NOT MEDICARE Care Teams Edge Sawyer Relationship Specialty Start Date End Date Other, Physician MD Queta Other PCP - General Internal Medicine 09/06/23
--- OUTSIDE RECORDS SUMMARY | 2025-01-19 10:56 | XMS_ITS | Clinical Summary ---
Author Organization [facility] Address [address] [place] [place] [address] Care Team Providers Care Senior Electrical Engineer Name Role Phone Other, Physician Outoftolynn KERR [...] complete this topic Insurance 62 [address] [id number] ONEIL MAS[place] CROSS ALL OTHERS NOT MEDICARE Care Teams Senior Electrical Engineer Relationship Specialty Start Date End Date Other, Physician MD Queta Other PCP - General Internal Medicine 09/06/23
--- OUTSIDE RECORDS SUMMARY | 2025-01-19 10:56 | XMS_ITS | Encounter Summary ---
Author Organization Healthcare Address [address] [place] [address] Care Team Providers Care Oracle Apex Developer Name Role Phone Brisa Patel Unavailable Lionel Barriga MD Primary Care Provider +1- [phone] Encounter Details Date Type Department Care Team (Late st Contact Info) Description 01/17/2022 Community [facility] [address] [place] [address] Jami Maldonado, SEWING MACHINE MECHANIC 100 [facility] 200 [place] [address] Rheumatoid arthritis, involving unspecified site, unspecified whether rheumatoid factor present ([facility]) (Primary Dx) Social History Tobacco Use Types [...] Description 03/23/2025 9:00 AM EDT Office Visit [facility] [address] [place] [address] Shalonda Gomez, SEWING MACHINE MECHANIC [address] [place] [address] documented as of this encounter Visit Diagnoses Diagnosis Rheumatoid arthritis, involving unspecified site, unspecified whether rheumatoid factor present ([facility])- Primary documented in this encounter Care Teams Oracle Apex Developer Relationship Specialty Start Date End Date Lionel Barriga MD 100 [facility] 200 [place] [address] PCP - General 03/07/23 Brisa Patel [address] [place], [place] [phone] 01/12/22 documented as of this encounter
--- OUTSIDE RECORDS SUMMARY | 2025-01-19 10:56 | XMS_ITS | Encounter Summary ---
Author Organization [facility] Address [address] [place] [address] Care Team Providers Care Kaiako Kura Tuarua Name Role Phone Lionel Barriga MD Primary Care Provider +1- [phone] Encounter Details Date Type Department Care Team (Late st Contact Info) Description 11/18/2024 Results Follow-Up [facility] INTERNAL MEDICINE & PEDIATRICS 100 [facility] 200 [place] [address] Lionel Barriga MD 100 [facility] 200 [place] [address] Social History Tobacco Use Types [...] Miscellaneous Notes * Telephone Encounter - Susana iNno - 11/20/2024 10:16 AM EDT Patient states she is aware of the results and is having surgery on the first knee 11/25/2024. She states she is seeing Orthopedics. documented in this encounter Plan of Treatment Upcoming Encounters Date Type Department Care Team (Late st Contact Info) Description 01/29/2025 1:00 PM EDT Office Visit [facility] INTERNAL MEDICINE & PEDIATRICS 100 [facility] 200 [place] [address] Lionel Barriga MD 100 [facility] 200 [place] [address] 03/19/2025 11:15 AM EDT Office Visit [facility] PULMONARY & CRITICAL CARE MEDICINE 3000 [facility] 240 [place] [address] Edmundo Deleon MD [address] [place] [address] documented as of this encounter Visit Diagnoses Not on filedocumented in this encounter Care Teams Kaiako Kura Tuarua Relationship Specialty Start Date End Date Lionel Barriga MD 100 [facility] 200 [place] [address] PCP - General Internal Medicine 05/10/17 documented as of this encounter
--- OUTSIDE RECORDS SUMMARY | 2025-01-19 10:56 | XMS_ITS | Encounter Summary ---
[facility] Address [address] [place] [address] Care Team Providers Care Production Broacher Name Role Phone Lionel Barriga MD Primary Care Provider +1- [phone] Encounter Details Date Type Department Care Team (Late st Contact Info) Description 11/18/2024 Results Follow-Up [facility] INTERNAL MEDICINE & PEDIATRICS 100 [facility] 200 [place] [address] Lionel Barriga MD 100 [facility] 200 [place] [address] Social History Tobacco Use Types [...] 01/29/2025 1:00 PM EDT Office Visit [facility] INTERNAL MEDICINE & PEDIATRICS [address] [place] [address] Lionel Barriga MD 100 [facility] 200 [place], [place] [id number] 03/19/2025 11:15 AM EDT Office Visit [facility] PULMONARY & CRITICAL CARE MEDICINE 3000 [facility] 240 [place] [address] [facility]0 [place] [id number] documented as of this encounter Visit Diagnoses Not on filedocumented in this encounter Care Teams Production Broacher Relationship Specialty Start Date End Date Lionel Barriga MD 100 [facility] 200 [place] [address] PCP - General Internal Medicine 05/10/17 documented as of this encounter
--- OUTSIDE RECORDS SUMMARY | 2025-01-19 10:57 | XMS_ITS | Encounter Summary ---
[facility] Address [address] [place] [address] Care Team Providers Care Nursing Admin Name Role Phone Lionel Barriga MD Primary Care Provider +1- [phone] Reason for Visit * Reason Onset Date Comments Med Refill 04/12/2022 Encounter Details Date Type Department Care Team (Late st Contact Info) Description 04/12/2022 Telephone [facility] ENDOCRINOLOGY [address] [facility] [address] 100 [place] [address] Kasey Rose MD [address] [facility] [address] 100 [place] [address] Med Refill Social History Tobacco [...] 4:27 PM EST Pt called back and [facility] pharmacy does not have ozempic. She has called multiple pharmacies to find it. She requests assistance finding ozempic and requestsyou send it to the pharmacy. She said she will do mail order. Please call pt at [phone] documented in this encounter Plan of Treatment Upcoming Encounters Date Type Department Care Team (Late st Contact Info) Description 01/29/2025 1:00 PM EDT Office Visit [facility] INTERNAL MEDICINE & PEDIATRICS 100 [facility] 200 [place] [address] Lionel Barriga MD 100 [facility] 200 [place] [address] 03/19/2025 11:15 AM EDT Office Visit [facility] PULMONARY & CRITICAL CARE MEDICINE 3000 [facility] 240 [place] [phone] Edmundo Deleon MD [address] [place] [address] documented as of this encounter Visit Diagnoses Not on filedocumented in this encounter Additional Health Concerns Infection Onset Date Last Indicated Resolved Time COVID (rule out) 01/19/2023 01/19/2023 01/26/2023 9:08 PM EDT documented as of this encounter Care Teams Nursing Admin Relationship Specialty Start Date End Date Lionel Barriga MD 100 [facility] 200 [place] [address] PCP - General Internal Medicine 05/10/17 documented as of this encounter
--- OUTSIDE RECORDS SUMMARY | 2025-01-19 10:57 | XMS_ITS | Encounter Summary ---
Author Organization Healthcare Address [address] [place] [address] Care Team Providers Care Hotel Custodian Name Role Phone Brisa Patel Unavailable Lionel Barriga MD Primary Care Provider +1- [phone] Reason for Referral * Consultation (Routine) - Closed Specialty Diagnoses / Procedures Referred By Contac t Referred To Contact Ophthalmology Diagnoses Type 2 diabetes mellitus treated with insulin ([facility]) Retinopathy Lionel Barriga MD [address] [address] Phone: tel: fax: [facility] [address] [place] [address] Phone: tel: fax: Referral ID Status Reason Start Date Expiration Date V isits Requested Visits Authorized [id number] Closed Specialty Services Required 03/01/2023 08/30/2024 1 1 Encounter Details Date Type Department Care Team ([facility] st Contact Info) Description 03/01/2023 Community [facility] Community Practice [address] [place] [address] Lionel Barriga MD [address] [address] Type 2 diabetes mellitus treated with insulin [...] Description 03/23/2025 9:00 AM EDT Office Visit [facility] [address] [place] [address] JasonMayN [address] [place] [address] Scheduled Referrals Name Type Priority Associated Diagnoses Order Schedule Ambulatory Referral to Ophthalmology Outpatient Referral Routine Type 2 diabetes mellitus treated with insulin (CMS/HCC) Retinopathy Expected: 03/01/2023 (Approximate), Expires: 08/30/2024 documented as of this encounter Visit Diagnoses Diagnosis Type 2 diabetes mellitus treated with insulin (CMS/HCC)- Primary Retinopathy Unspecified background retinopathy documented in this encounter Care Teams Hotel Custodian Relationship Specialty Start Date End Date Lionel Barriga MD 100 [facility] 200 [place] [address] PCP - General 03/07/23 Brisa Patel [address] [place] [address] 01/12/22 documented as of this encounter
--- OUTSIDE RECORDS SUMMARY | 2025-01-19 10:57 | XMS_ITS | Clinical Summary ---
Author Organization [facility] Address [address] [facility], [address] [place] [address] Care Team Providers Care Retail Representative Name Role Phone Unavailable Primary Care Provider [...]
[2025-01-19] MEDS: SODIUM CHLORIDE 0.9% 10ML FLUSH SYRINGE 10 ML IV (11:02)
[2025-01-19 11:03] VITALS: BP 101/65; PULSE 64; RESP 14; TEMP 36.6; O2SAT 97
[2025-01-19] MEDS: TOCILIZUMAB 800 MG in 0.9 % SODIUM CHLORIDE 60 ML 100 MG IV (11:03)
[2025-01-19 11:21] LABS: Albumin Level 4.1 g/dl (3.5-5.0); Chloride 107 mmol/L (98-107); Potassium 4.4 mmoL/L (3.5-5.1); Sodium 137 mmol/L (136-145)
[2025-01-19 11:22] LABS: Hematocrit 39.9 % (37.0-47.0); Hemoglobin 13.4 g/dL (12.2-16.2); Immature Granulocytes % 0.2 %; Mean Corpuscular HGB Conc 33.6 g/dL (31.8-35.4); Mean Corpuscular Hemoglobin 29.9 pg (27.0-31.2); Mean Corpuscular Volume 89.1 fl (81-99); Nucleated Red Blood Cells % 0 %; Platelet Count 244 K/mm3 (142-424); Red Blood Count 4.48 M/mm3 (4.20-5.40); Red Cell Distribution Width-SD 38.8 fL; White Blood Count 5.1 K/mm3 (4.8-10.8)
[2025-01-19 11:24] LABS: Alanine Aminotransferase 15 U/L (12-78); Albumin/Globulin Ratio 1.6 (1.1-1.8); Alkaline Phosphatase 81 U/L (38-126); Anion Gap 14.4 mEq/L (5-15); Aspartate Amino Transferase 26 U/L (14-36); Bilirubin,Total 0.3 mg/dl (0.2-1.3); Blood Urea Nitrogen 18 mg/dl (7-17); Carbon Dioxide 20 mmol/L (22.0-30.0); Creatinine Clearance Estimated 104 mL/min (50-200); Creatinine,Serum 0.90 mg/dl (0.52-1.04); Estimated Glomerular Filt Rate 64 ml/min (>60); GFR (African American) 78 ML/MIN (>60); Globulin 2.6 g/dL (1.3-3.2); Total Protein,Serum 6.7 g/dl (6.3-8.2)
[2025-01-19 11:25] LABS: Calcium 9.3 mg/dl (8.4-10.2); Glucose 242 mg/dl (74-100)
[2025-01-19 11:40] VITALS: BP 100/69; PULSE 65; RESP 14; O2SAT 98
[2025-01-19 12:10] VITALS: BP 109/83; PULSE 73; RESP 16; TEMP 36.6; O2SAT 97
== END 2025-01-19 12:15 | disposition home or self-care (01) ==
LOC: INF 10:18
PROVIDERS: PCP Internal Medicine; Visit Provider Nurse Practitioner Primary Care
DX: M06.9 Rheumatoid arthritis, unspecified (principal)
CPT/HCPCS: 80053; 85025; 96413; J3262

== ENCOUNTER 2025-02-02 10:14 | Outpatient (CLI) | payer OTHER, SELFPAY ==
--- OUTSIDE RECORDS SUMMARY | 2025-02-02 10:16 | XMS_ITS | Encounter Summary ---
Author Organization Healthcare Address [address] [place] [address] Care Team Providers Care Compensation Consulting Manager Name Role Phone Brisa Patel Unavailable Lionel Barriga MD Primary Care Provider +1- [phone] Encounter Details Date Type Department Care Team (Late st Contact Info) Description 01/17/2022 Community [facility] Community Practice 800 [place] [address] Jami Maldonado, CAKE BATTER MIXER [address] [facility] 200 [place] [address] Rheumatoid arthritis, involving unspecified site, unspecified whether rheumatoid factor present ([facility]) (Primary Dx) Social History Tobacco Use Types [...] Description 03/23/2025 9:00 AM EDT Office Visit [place] [facility] [address] [place] [address] Shalonda Gomez, CAKE BATTER MIXER [address] [place] [address] documented as of this encounter Visit Diagnoses Diagnosis Rheumatoid arthritis, involving unspecified site, unspecified whether rheumatoid factor present ([facility])- Primary documented in this encounter Care Teams Compensation Consulting Manager Relationship Specialty Start Date End Date Lionel Barriga MD 100 [facility] 200 [place] [address] PCP - General 03/07/23 Brisa Patel [address] [place], [place] [id number] 01/12/22 documented as of this encounter
--- OUTSIDE RECORDS SUMMARY | 2025-02-02 10:17 | XMS_ITS | Clinical Summary ---
Author Organization [facility] Address [address], [address] [place] [address] Care Team Providers Care Clutch Assembler Name Role Phone Unavailable Primary Care Provider [...]
--- OUTSIDE RECORDS SUMMARY | 2025-02-02 10:17 | XMS_ITS | Encounter Summary ---
Author Organization Healthcare Address [address] [place] [address] Care Team Providers Care Credit Risk Review Officer Name Role Phone Brisa Patel Unavailable Lionel Barriga MD Primary Care Provider +1- [phone] Reason for Referral * Consultation (Routine) - Closed Specialty Diagnoses / Procedures Referred By Contac t Referred To Contact Ophthalmology Diagnoses Type 2 diabetes mellitus treated with insulin ([facility]) Retinopathy Lionel Barriga MD [address] [address] Phone: tel: fax: [facility] [address] [place] [address] Phone: tel: fax: Referral ID Status Reason Start Date Expiration Date V isits Requested Visits Authorized [id number] Closed Specialty Services Required 03/01/2023 08/30/2024 1 1 Encounter Details Date Type Department Care Team ([facility] st Contact Info) Description 03/01/2023 Community [facility] Community Practice 800 [place] [address] Lionel Barriga MD [address] [address] Type 2 diabetes mellitus treated with insulin [...] [facility] [address] [place] [address] JasonMayN [address] [place] [address] Scheduled Referrals Name Type Priority Associated Diagnoses Order Schedule Ambulatory Referral to Ophthalmology Outpatient Referral Routine Type 2 diabetes mellitus treated with insulin (CMS/HCC) Retinopathy Expected: 03/01/2023 (Approximate), Expires: 08/30/2024 documented as of this encounter Visit Diagnoses Diagnosis Type 2 diabetes mellitus treated with insulin (CMS/HCC)- Primary Retinopathy Unspecified background retinopathy documented in this encounter Care Teams Credit Risk Review Officer Relationship Specialty Start Date End Date Lionel Barriga MD [address] [facility] 200 [place] [address] PCP - General 03/07/23 Brisa Patel [address] [place] [address] 01/12/22 documented as of this encounter
--- OUTSIDE RECORDS SUMMARY | 2025-02-02 10:17 | XMS_ITS | Encounter Summary ---
Author Organization [facility] [place] [facility] Address [address] [place] [address] Care Team Providers Care Offset Platemaker Name Role Phone Brisa Patel Unavailable Lionel Barriga MD Primary Care Provider +1- [phone] Reason for Visit * Reason Onset Date Comments Actemra Infusions 01/08/2025 Encounter Details Date Type Department Care Team (Late st Contact Info) Description 01/08/2025 Telephone [facility] [address] [place] [address] Amelia Starks, PharmD Actemra Infusions Social History [...] Acctemra J-Code: J3262 CPT Code: n/a S-Codes ([place]): n/a Quantity and Units of Measure Authorized: Supply: 365 Diagnosis Code: M06.00 Insurance Name: [facility] Insurance Type: Commercial Where did you submit request and how (portal/fax/phone number): Portal Authorization/Reference Number: [id number] Approval Dates: 09/25/24-09/24/25 Filling Pharmacy/SOC: [facility] documented in this encounter Plan of Treatment Upcoming Encounters Date Type Department Care Team (Late st Contact Info) Description 03/23/2025 9:00 AM EDT Office Visit [facility] Medicine Specialties [address] [place] [address] Jason, May R, AIRCRAFT PAINTER APPRENTICE [address] [place] [address] documented as of this encounter [...] documented as of this encounter Care Teams Offset Platemaker Relationship Specialty Start Date End Date Lionel Barriga MD 100 [facility] 200 [place] [address] PCP - General 03/07/23 Brisa Patel [address] [place] [address] 01/12/22 documented as of this encounter
--- OUTSIDE RECORDS SUMMARY | 2025-02-02 10:17 | XMS_ITS | Clinical Summary ---
Author Organization Healthcare Address [address] [place] [address] Care Team Providers Care Justice Professor Name Role Phone Brisa Patel Unavailable Lionel Barriga MD Primary Care Provider +1- [phone] Allergies No known active allergies Medications acetaminophen (Tylenol) 500 MG tablet Take by mouth. Activ e aspirin 81 MG EC tablet Take 1 tablet by mouth 1 time each day. Active B Epqmufa-W-Abaso Acid (Super B Complex/FA/Vit C) tablet Active [...] solution auto-injector 1 mg. Active Continuous Glucose Spar Machine Operator (Dexcom G6 phlebotomy specialist) device 09/07/19 24 Active traZODone (Desyrel) 100 MG tablet 02/11/20 24 Active predniSONE (Deltasone) 5 MG tabletIndications: Rheumatoid arthritis, involving unspecified site, unspecified whether rheumatoid factor present ([facility]) 1-2 tablets daily as needed for [...] 10/03/2021 Overview (03/07/2023): NSTEMI 10/01/2021 treated at [place] with 100% ramus treated with a 2.5 mm LILY, proximal and mid LAD treated with 3.0 mm i Synergy stents. Residual chest pain admitted to [facility] 10/04/2021, repeat C showed widely patent ramus [...] Type Department Care Team Description 01/08/2025 Telephone [facility] Infusion [address] [place] [address] Amelia Starks, PharmD [facility] Infusions 11/17/2024 Telephone [facility] Medicine Specialties [address], [address] [place] [address] Jason, Shalonda R, APPRAISER REAL ESTATE from Last 3 Months Immunizations Immunization Administration [...] Description 03/23/2025 9:00 AM EDT Office Visit [facility] Specialties [address], [address] [place] [address] Jason, May R, APPRAISER REAL ESTATE [address] [place] [address] Health Maintenance Due Date Last Done Comments [facility]-/Child/Adol SDOH Screenings 1965 [id number] Vaccine (#1) 12/06/1971 Diabetes: Dental Exam 1976 [...] Reactive Non Reactive 11/12/2023 11:25 AM EDT [facility] Comment:Screening for HIV 1 & 2 antibodies, and P24 antigen is NONREACTIVE. No confirmatory testing is required. Blood Venous blood specimen / Unknown Venipuncture / Unknown 11/12/2023 9:29 AM EDT 11/12/2023 9:32 AM EDT may R Jason APPRAISER REAL ESTATE LAB BLOOD ORDERABLES Final Result [facility] [address] [place] [id number] * Acute Hepatitis Panel (11/12/2023 9:29 AM EDT) Hepatitis B Surf Antigen Negative Negative 11/12/2023 11:46 AM EDT [facility] Hepatitis C Antibody Negative Negative 11/12/2023 11:46 AM EDT [facility] Hepatitis A Antibody IgM Negative Negative 11/12/2023 11:46 AM EDT [facility] Hepatitis B Core Antibody IgM Negative Negative 11/12/2023 11:46 AM EDT [facility] Blood Venous blood specimen / Unknown Venipuncture / Unknown 11/12/2023 9:29 AM EDT 11/12/2023 9:32 AM EDT May R Jason APPRAISER REAL ESTATE LAB BLOOD ORDERABLES Final Result [facility] [address] [place] [address] from Last 3 Months or Most Recently Relevant to Health Maintenance Insurance [employer] Care Teams Justice Professor Relationship Specialty Start Date End Date Lionel Barriga MD 100 [facility] [address] [place] [address] PCP - General 03/07/23 Brisa Patel [address] [place] [address] 01/12/22
--- OUTSIDE RECORDS SUMMARY | 2025-02-02 10:17 | XMS_ITS | Referral Summary ---
Author Organization [facility] Address [address] [place] [address] Care Team Providers Care Central Sterile Technician Name Role Phone Other, Physician Outoftowamrik KERR [...] Plan of Treatment Not on file Insurance [facility] ALL OTHERS NOT MEDICARE Care Teams Central Sterile Technician Relationship Specialty Start Date End Date Other, Physician MD Queta Other PCP - General Internal Medicine 09/06/23
--- OUTSIDE RECORDS SUMMARY | 2025-02-02 10:17 | XMS_ITS | Clinical Summary ---
Author Organization [facility] Address [address] [place] [address] Care Team Providers Care Waste Salvager Name Role Phone Other, Physician Outoftolynn KERR [...] complete this topic Insurance [address] [id number] ONEIL [employer]SE[employer] CROSS ALL OTHERS NOT MEDICARE Care Teams Waste Salvager Relationship Specialty Start Date End Date Other, Physician MD Queta Other PCP - General Internal Medicine 09/06/23
[2025-02-02 10:46] LABS: Hematocrit 43.7 % (37.0-47.0); Hemoglobin 14.1 g/dL (12.2-16.2); Immature Granulocytes % 0.4 %; Mean Corpuscular HGB Conc 32.3 g/dL (31.8-35.4); Mean Corpuscular Hemoglobin 29.3 pg (27.0-31.2); Mean Corpuscular Volume 90.9 fl (81-99); Nucleated Red Blood Cells % 0 %; Platelet Count 203 K/mm3 (142-424); Red Blood Count 4.81 M/mm3 (4.20-5.40); Red Cell Distribution Width-SD 41.0 fL; White Blood Count 4.5 K/mm3 (4.8-10.8)
[2025-02-02 11:11] LABS: Albumin Level 4.4 g/dl (3.5-5.0); Chloride 108 mmol/L (98-107); Potassium 4.0 mmoL/L (3.5-5.1); Sodium 139 mmol/L (136-145)
[2025-02-02 11:13] LABS: Blood Urea Nitrogen 18 mg/dl (7-17); Creatinine,Serum 0.90 mg/dl (0.52-1.04); Estimated Glomerular Filt Rate 64 ml/min (>60); GFR (African American) 78 ML/MIN (>60)
[2025-02-02 11:14] LABS: Alanine Aminotransferase 23 U/L (12-78); Alkaline Phosphatase 64 U/L (38-126); Anion Gap 10.0 mEq/L (5-15); Aspartate Amino Transferase 31 U/L (14-36); Bilirubin,Direct 0.1 mg/dl (0.0-0.4); Bilirubin,Indirect 0.3 mg/dL (0.0-0.9); Bilirubin,Total 0.4 mg/dl (0.2-1.3); Bilirubin,Unconjugated 0.3 mg/dL (0.0-1.1); Calcium 10.0 mg/dl (8.4-10.2); Carbon Dioxide 25 mmol/L (22.0-30.0); Cholesterol 212 mg/dl (140-200); Glucose 137 mg/dl (74-100); Magnesium 1.8 mg/dl (1.6-2.3); Total Protein,Serum 6.7 g/dl (6.3-8.2); Triglycerides 209 mg/dl (30-150)
[2025-02-02 11:15] LABS: HDL Cholesterol 55 mg/dl (40-60)
[2025-02-02 11:30] LABS: Free T4 (Free Thyroxine) 0.98 ng/dl (0.78-2.19)
[2025-02-02 11:46] LABS: Thyroid Stimulating Hormone 1.50 uIU/mL (0.465-4.68)
== END 2025-02-02 23:59 | disposition home or self-care (01) ==
LOC: LAB 12:30
PROVIDERS: PCP Internal Medicine; Visit Provider Nurse Practitioner
DX: I25.2 Old myocardial infarction (principal); Z95.5 Presence of coronary angioplasty implant and graft
CPT/HCPCS: 36415; 80048; 80061; 80076; 83735; 84439; 84443; 85025

== ENCOUNTER 2025-02-06 12:40 | Outpatient (CLI) | payer OTHER, SELFPAY ==
--- NOTE | 2025-02-06 13:00 | US_ITS ---
FINAL REPORT CLINICAL HISTORY: h/o thyroid nodules FINDINGS: THYROID ULTRASOUND FINDINGS: SIZE: Normal ECHOGENICITY: Diffusely heterogeneous LESIONS: 2 numerous to count small cysts are noted throughout the thyroid. There are 2 mixed cystic and solid lesions of the right thyroid which measure up to 8 mm. These are classified as TR 2 lesions. There is a hypoechoic lesion of the left lobe measuring up to 4 mm. This is considered a TR 4 lesion. A mixed cystic and solid lesion of the posterior left lobe measures up to 9 mm. This is classified as a TR 3 lesion OTHER: No additional findings IMPRESSION: Multinodular goiter without dominant suspicious mass TI-RADS 4 RECOMMENDATION: No additional follow-up needed at this time Authenticated and ERN
--- NOTE | 2025-02-06 13:45 | CA_ITS ---
APPROVED REPORT EXAM: Comprehensive 2D, Doppler, and color-flow Echocardiogram Information Resource Consultant: Yana Moore RDCS Ht: 5 ft 7 in Wt: 219lbs BSA: 2.10 BP: 129/76 mmHg Indications: H/O KS CAD M-Mode Dimensions RVDd 1.83 cm (0.9-2.6) LA Diam 3.62 cm (1.9-4.0) LVDd 5.95 cm (3.5-5.7) LVDs 3.89 cm (3.5-5.7) IVSd 0.91 cm (0.6-1.1) PWd 0.80 cm (0.6-1.1) EF (Teich) 62.90% FS 34.60% EDV (Teich) 176.60 mL ESV (Teich) 65.50 mL LV Diastology E Decel Time 167 (160-240 msec) E/A Ratio 0.9 Mitral Valve MV E Max Lance. 69.0 (40-130 cm/s) MV A Velocity 81.0 (40-130 cm/s) E/A Ratio 0.85 MV PHT 49.0 ms Left Ventricle The left ventricle is normal size. Left ventricular systolic function is normal. The left ventricular ejection fraction is within the normal range. Proximal septal thickening is present. There is normal LV segmental wall motion. Transmitral Doppler flow pattern suggests impaired LV relaxation. LVEF is 60%. Right Ventricle The right ventricle is normal size. The right ventricular systolic function is normal. Atria The left atrium is mildly dilated. The right atrium size is normal. There is no color Doppler evidence of interatrial shunt. Aortic Valve The aortic valve is mildly thickened. There is no hemodynamically significant aortic valvular stenosis. Trace aortic regurgitation is present. Mitral Valve The mitral valve is normal in structure. No evidence of mitral valve stenosis. Trace mitral regurgitation is present. Tricuspid Valve The tricuspid valve leaflets are thin and pliable. Trace tricuspid regurgitation. There is insufficient TR jet to estimate RVSP. Pulmonic Valve The pulmonary valve is grossly normal in structure. Trace pulmonic valve regurgitation is present. Great Vessels The aortic root is normal in size. IVC is normal in size and collapses >50% with inspiration. Pericardium There is no pericardial effusion. Other Information Study Quality: Fair Conclusion Normal biventricular systolic function. Mild LA dilation. No significant valvular stenosis or regurgitation. Electronically signed by : Lashell Hewitt MD 02/09/2025 21:06:06
== END 2025-02-06 23:59 | disposition home or self-care (01) ==
LOC: RAD 12:41
PROVIDERS: PCP Internal Medicine; Visit Provider Student in an Organized Health Care Education/Training Program
DX: I51.7 Cardiomegaly (principal); E04.2 Nontoxic multinodular goiter; I25.2 Old myocardial infarction; Z95.5 Presence of coronary angioplasty implant and graft
CPT/HCPCS: 76536; 93306

== ENCOUNTER 2025-02-23 10:04 | Outpatient (CLI) | payer OTHER, SELFPAY ==
--- OUTSIDE RECORDS SUMMARY | 2020-10-29 13:31 | XMS_ITS | Encounter Summary ---
[facility] Address [address] [place] [address] Care Team Providers Care Scow Captain Name Role Phone Lionel Barriga MD Primary Care Provider +1- [phone] Reason for Visit * Diagnostic Imaging (Routine) - Closed Specialty Diagnoses / Procedures Referred By Hanna stone Referred To Contact Radiology Diagnoses Nontoxic multinodular goiter Procedures US Thyroid Kasey Rose MD [address] [place] [address] Phone: tel: fax: [facility] [address] [place] [address] Phone: tel: fax: Referral ID Status Reason Start Date Expiration Date Visits Re quested Visits Authorized [id number] Closed 10/29/2020 10/29/2021 1 1 Encounter Details Date Type Department Care Team (Late st Contact Info) Description 10/29/2020 1:31 PM EDT Hospital Encounter [facility] [address] [facility] [address] [place] [address] Social History Tobacco Use Types Packs/Day Years [...] AM EDT documented as of this encounter Functional Status * Over the past 2 weeks, how often have you been bothered by any of the following problems? Question Answer Date of Assessment Author Patient Health Questionnaire-2 Score 0 12/26 12:53 PM EDT Mychart, Generic * Little interest or pleasure in doing things Answer Date of Assessment Author Not at all 01/13/2025 12:53 PM EDT Mychart, Generic * Feeling down, depressed, or hopeless Answer Date of Assessment Author Not at all 01/13/2025 12:53 PM EDT Mychart, Generic * Question Answer Date of Assessment Author Patient Health Questionnaire-9 Score 9 12/26 12:53 PM EDT Mychart, Generic * Trouble falling or staying asleep, or sleeping too much Answer Date of Assessment Author Nearly every day 01/13/2025 12:53 PM EDT Mychart , Generic * Feeling tired or having little energy Answer Date of Assessment Author More than half the days 01/13/2025 12:53 PM EDT Mychart, Generic * Poor appetite or overeating Answer Date of Assessment Author Nearly every day 01/13/2025 12:53 PM EDT Mychart , Generic * Feeling bad about yourself - or that you are a failure or have let yourself or your family down Answer Date of Assessment Author Not at all 01/13/2025 12:53 PM EDT Mychart, Generic * Trouble concentrating on things, such as reading the newspaper or watching television Answer Date of Assessment Author Several days 01/13/2025 12:53 PM EDT Mychart, Generic * Moving or speaking so slowly that other people could have noticed? Or the opposite - being so fidgety or restless that you have been moving around a lot more than usual. Answer Date of Assessment Author Not at all 01/13/2025 12:53 PM EDT Mychart, Generic * Thoughts that you would be better off or hurting yourself in some way Answer Date of Assessment Author Not at all 01/13/2025 12:53 PM EDT Mychart, Generic * How difficult have these problems made it for you to do your work, take care of things at home, or get along with other people? Answer Date of Assessment Author Somewhat difficult 01/13/2025 12:53 PM EDT Mycha rt, Generic documented as of this encounter Plan of Treatment Upcoming Encounters Date Type Department Care Team (Late st Contact Info) Description 03/19/2025 11:15 AM EDT Office Visit [facility] PULMONARY & CRITICAL CARE MEDICINE 3000 [facility] [address] [place] [address] Edmundo Deleon MD [address] [place], [place] [id number] documented as of this encounter Procedures Procedure [...] documented as of this encounter Care Teams Scow Captain Relationship Specialty Start Date End Date Lionel Barriga MD 100 [facility] [address] 200 [place] [address] PCP - General Internal Medicine 05/10/17 documented as of this encounter
--- OUTSIDE RECORDS SUMMARY | 2022-04-11 17:45 | XMS_ITS | Encounter Summary ---
[facility] [address] [place] [address] Care Team Providers Care Letter Stamping Machine Operator Name Role Phone Lionel Barriga MD Primary Care Provider +1- [phone] Reason for Visit * Diagnostic Imaging (Routine) - Closed Specialty Diagnoses / Procedures Referred By Contrhea t Referred To Contact Radiology Diagnoses Nontoxic multinodular goiter Procedures US Thyroid Kasey Rose MD [address] [place] [address] Phone: tel: fax: Referral ID Status Reason Start Date Expiration Date Visits Re quested Visits Authorized [id number] Closed 04/11/2022 04/11/2023 1 1 Encounter Details Date Type Department Care Team (Late st Contact Info) Description 04/11/2022 4:45 PM EST Hospital Encounter [facility] ENDOCRINOLOGY [address] [place] [address] Social History Tobacco Use Types Packs/Day Years [...] Description 03/19/2025 11:15 AM EDT Office Visit [facility] PULMONARY & CRITICAL CARE MEDICINE 3000 [facility] [address] [place] [address] Edmundo Deleon MD [address] [place] [address] documented as of this encounter Procedures Procedure [...] documented as of this encounter Care Teams Letter Stamping Machine Operator Relationship Specialty Start Date End Date Lionel Barriga MD 100 [facility] 200 [place] [address] PCP - General Internal Medicine 05/10/17 documented as of this encounter
--- OUTSIDE RECORDS SUMMARY | 2023-06-26 16:37 | XMS_ITS | Encounter Summary ---
Author Organization [facility] Address [address] [place] [address] Care Team Providers Care Air Transport Professionals Name Role Phone Lionel Barriga MD Primary Care Provider +1- [phone] Reason for Visit * Diagnostic Imaging (Routine) - Closed Specialty Diagnoses / Procedures Referred By Contrhea t Referred To Contact Radiology Diagnoses Nontoxic multinodular goiter Procedures US Thyroid Kasey Rose MD [address] [place] [address] Phone: tel: fax: Referral ID Status Reason Start Date Expiration Date Visits Re quested Visits Authorized [id number] Closed 06/26/2023 06/25/2024 1 1 Encounter Details Date Type Department Care Team (Late st Contact Info) Description 06/26/2023 3:37 PM EST Hospital Encounter [facility] ENDOCRINOLOGY [address] [place] [address] Social History Tobacco Use Types Packs/Day Years [...] Description 03/19/2025 11:15 AM EDT Office Visit [facility] PULMONARY & CRITICAL CARE MEDICINE 3000 [facility] [address] [place] [address] Edmundo Deleon MD [address]00 [place] [address] documented as of this encounter Procedures Procedure [...] on filedocumented in this encounter Care Teams Air Transport Professionals Relationship Specialty Start Date End Date Lionel Barriga MD 100 [facility] [address] [place] [address] PCP - General Internal Medicine 05/10/17 documented as of this encounter
--- OUTSIDE RECORDS SUMMARY | 2025-02-23 10:08 | XMS_ITS | Encounter Summary ---
Author Organization [facility] Address [address] [place] [address] Care Team Providers Care Outpatient Therapist Name Role Phone Brisa Patel Unavailable Lionel Barriga MD Primary Care Provider +1- [phone] Reason for Visit * Reason Onset Date Comments [facility] Infusions 01/08/2025 Encounter Details Date Type Department Care Team (Late st Contact Info) Description 01/08/2025 Telephone [facility] Infusion [address] [place] [address] Amelia Starks, PharmD [facility] Infusions Social History [...] Acctemra J-Code: J3262 CPT Code: n/a S-Codes ([place]): n/a Quantity and Units of Measure Authorized: Supply: 365 Diagnosis Code: M06.00 Insurance Name: [facility] Insurance Type: Commercial Where did you submit request and how (portal/fax/phone number): Portal Authorization/Reference Number: [id number] Approval Dates: 09/25/24-09/24/25 Filling Pharmacy/SOC: [facility] documented in this encounter Plan of Treatment Upcoming Encounters Date Type Department Care Team (Late st Contact Info) Description 03/23/2025 9:00 AM EDT Office Visit [facility] Medicine Specialties [address] [place] [address] Jason, May R, TITLE SEARCHER [address] [place] [address] documented as of this encounter [...] documented as of this encounter Care Teams Outpatient Therapist Relationship Specialty Start Date End Date Lionel Barriga MD 100 [facility] [address] [place] [address] PCP - General 03/07/23 Brisa Patel [address] [place] [address] 01/12/22 documented as of this encounter
--- OUTSIDE RECORDS SUMMARY | 2025-02-23 10:09 | XMS_ITS | Encounter Summary ---
Author Organization [facility] Address [address] [place] [address] Care Team Providers Care Juvenile Justice Officer Name Role Phone Lionel Barriga MD Primary Care Provider +1- [phone] Encounter Details Date Type Department Care Team (Late st Contact Info) Description 11/18/2024 Results Follow-Up [facility] INTERNAL MEDICINE & PEDIATRICS 100 [facility] 200 [place] [address] Lionel Barriga MD 100 [facility] [address] [place] [address] Social History Tobacco Use Types [...] Description 03/19/2025 11:15 AM EDT Office Visit [facility] PULMONARY & CRITICAL CARE MEDICINE [address] [facility] [address] [place] [address] Edmundo Deleon MD [address] [place] [address] documented as of this encounter Visit Diagnoses Not on filedocumented in this encounter Care Teams Juvenile Justice Officer Relationship Specialty Start Date End Date Lionel Barriga MD 100 [facility] [address] [place] [address] PCP - General Internal Medicine 05/10/17 documented as of this encounter
--- OUTSIDE RECORDS SUMMARY | 2025-02-23 10:09 | XMS_ITS | Encounter Summary ---
Author Organization Healthcare Address [address] [place] [address] Care Team Providers Care Section Supervisor Name Role Phone Brisa Patel Unavailable Lionel Barriga MD Primary Care Provider +1- [phone] Encounter Details Date Type Department Care Team (Late st Contact Info) Description 01/17/2022 [facility] [address] [place] [address] Jami Maldonado, ECONOMIC RESEARCH ASSISTANT 100 [facility] 200 [place] [address] Rheumatoid arthritis, involving unspecified site, unspecified whether rheumatoid factor present ([facility]) (Primary Dx) Social History Tobacco Use Types [...] Description 03/23/2025 9:00 AM EDT Office Visit [facility] Medicine Specialties [address] [place] [address] Shalonda Gomez, ECONOMIC RESEARCH ASSISTANT [address] [place] [address] documented as of this encounter Visit Diagnoses Diagnosis Rheumatoid arthritis, involving unspecified site, unspecified whether rheumatoid factor present ([facility])- Primary documented in this encounter Care Teams Section Supervisor Relationship Specialty Start Date End Date Lionel Barriga MD 100 [facility] 200 [place] [address] PCP - General 03/07/23 Brisa Patel [address] [place], [place] [address] 01/12/22 documented as of this encounter
--- OUTSIDE RECORDS SUMMARY | 2025-02-23 10:09 | XMS_ITS | Encounter Summary ---
[facility] [address] [place] [address] Care Team Providers Care Prime Broker Name Role Phone Lionel Barriga MD Primary Care Provider +1- [phone] Encounter Details Date Type Department Care Team (Late st Contact Info) Description 10/27/2024 Results Follow-Up [facility] INTERNAL MEDICINE & PEDIATRICS 100 [facility] 200 [place] [address] Lionel Barriga MD 100 [facility] [address] [place] [address] Social History Tobacco Use Types [...] Description 03/19/2025 11:15 AM EDT Office Visit [facility] PULMONARY & CRITICAL CARE MEDICINE 3000 [facility] [address] [place] [address] Edmundo Deleon MD [address] [place] [address] documented as of this encounter Visit Diagnoses Not on filedocumented in this encounter Care Teams Prime Broker Relationship Specialty Start Date End Date Lionel Barriga MD 100 [facility] [address] [place] [address] PCP - General Internal Medicine 05/10/17 documented as of this encounter
--- OUTSIDE RECORDS SUMMARY | 2025-02-23 10:09 | XMS_ITS | Clinical Summary ---
Author Organization [facility] Address [address] [place] [address] Care Team Providers Care Airport Operations Manager Name Role Phone Other, Physician Outoftolynn KERR [...] complete this topic Insurance [address] [id number] ONE[address] [employer]SE[employer] CROSS ALL OTHERS NOT MEDICARE Care Teams Airport Operations Manager Relationship Specialty Start Date End Date Other, Physician MD Queta Other PCP - General Internal Medicine 09/06/23
--- OUTSIDE RECORDS SUMMARY | 2025-02-23 10:09 | XMS_ITS | Encounter Summary ---
Author Organization [facility] Address [address] [place] [address] Care Team Providers Care Adjunct Instructor Chemistry Name Role Phone Lionel Barriga MD Primary Care Provider +1- [phone] Encounter Details Date Type Department Care Team (Late st Contact Info) Description 05/30/2023 Prep for Surgery [facility] ORDERS ONLY [address] [place] [address] Rigo Andersen MD 1780 [facility] [address] [place], [place] [id number] Dysphagia, unspecified type (Primary Dx); Moderate coronary [...] Description 03/19/2025 11:15 AM EDT Office Visit [facility] PULMONARY & CRITICAL CARE MEDICINE 3000 [facility] [address] [place] [address] Edmundo Deleon MD [address] [place] [address] documented as of this encounter Visit Diagnoses Diagnosis Dysphagia, unspecified type- Primary Moderate coronary artery risk chest pain documented in this encounter Care Teams Adjunct Instructor Chemistry Relationship Specialty Start Date End Date Lionel Barriga MD 100 [facility] 200 [place] [address] PCP - General Internal Medicine 05/10/17 documented as of this encounter
--- OUTSIDE RECORDS SUMMARY | 2025-02-23 10:09 | XMS_ITS | Clinical Summary ---
Author Organization Healthcare Address [address] [place] [address] Care Team Providers Care Platform Software Engineer Name Role Phone Brisa Patel Unavailable Lionel Barriga MD Primary Care Provider +1- [phone] Allergies No known active allergies Medications acetaminophen (Tylenol) 500 MG tablet Take by mouth. Activ e aspirin 81 MG EC tablet Take 1 tablet by mouth 1 time each day. Active B Uaqlmbi-P-Mvcxl Acid (Super B Complex/FA/Vit C) tablet Active [...] solution auto-injector 1 mg. Active Continuous Glucose Creative Assistant (Dexcom G6 pharmacist aide) device 09/07/19 24 Active traZODone (Desyrel) 100 MG tablet 02/11/20 24 Active predniSONE (Deltasone) 5 MG tabletIndications: Rheumatoid arthritis, involving unspecified site, unspecified whether rheumatoid factor present ([facility]) 1-2 tablets daily as needed [...] 10/03/2021 Overview (03/07/2023): NSTEMI 10/01/2021 treated at [facility] with 100% ramus treated with a 2.5 mm LILY, proximal and mid LAD treated with 3.0 mm i Synergy stents. Residual chest pain admitted to [facility] 10/04/2021, repeat C showed widely patent [...] Type Department Care Team Description 01/08/2025 Telephone [facility] Infusion [address] [place] [address] Amelia Starks, PharmD Actemra Infusions from Last 3 Months Immunizations Immunization Administration [...] Description 03/23/2025 9:00 AM EDT Office Visit [facility] Medicine Specialties [address] [place] [address] Jason, May R, SENIOR MECHANICAL PROJECT ENGINEER [address] [place] [address] Health Maintenance Due Date Last Done Comments [facility]-Infant/Child/Adol SDOH Screenings 1965 [id number] Vaccine (#1) 12/06/1971 Diabetes: Dental Exam 1976 [...] 04/26/2022, 1 06/26/2021 [facility]-Diabetes: Hemoglobin A1C 11/26/202406/2024, 04/02/2024, 12/28/2023, Additional history exists [facility]-Influenza Vaccine (#1) 01/26/202502/15, [...] 2 Antibody/Antigen Screen (11/12/2023 9:29 AM EDT) [facility] HIV 1 & 2 Antibody/Antigen Screen Non Reactive Non Reactive 11/12/2023 11:25 AM EDT [facility] Comment:Screening for HIV 1 & 2 antibodies, and P24 antigen is NONREACTIVE. No confirmatory testing is required. Blood Venous blood specimen / Unknown Venipuncture / Unknown 11/12/2023 9:29 AM EDT 11/12/2023 9:32 AM EDT May R Jason SENIOR MECHANICAL PROJECT ENGINEER LAB BLOOD ORDERABLES Final Result [facility] [address] [place] [address] * Acute Hepatitis Panel (11/12/2023 9:29 AM EDT) [facility] Hepatitis B Surf Antigen Negative Negative 11/12/2023 11:46 AM EDT [facility] Hepatitis C Antibody Negative Negative 11/12/2023 11:46 AM EDT [facility] Hepatitis A Antibody IgM Negative Negative 11/12/2023 11:46 AM EDT [facility] Hepatitis B Core Antibody IgM Negative Negative 11/12/2023 11:46 AM EDT [facility] Blood Venous blood specimen / Unknown Venipuncture / Unknown 11/12/2023 9:29 AM EDT 11/12/2023 9:32 AM EDT may R Jason SENIOR MECHANICAL PROJECT ENGINEER LAB BLOOD ORDERABLES Final Result [facility] [address] [place] [address] from Last 3 Months or Most Recently Relevant to Health Maintenance Insurance DRUG COPAY ASSISTANCE Care Teams Platform Software Engineer Relationship Specialty Start Date End Date Lionel Barriga MD 100 [facility] 200 [place] [address] PCP - General 03/07/23 Brisa Patel [address] [place] [address] 01/12/22
--- OUTSIDE RECORDS SUMMARY | 2025-02-23 10:09 | XMS_ITS | Clinical Summary ---
Author Organization [facility] Address [address] [place] [address] Care Team Providers Care Stippler Name Role Phone Lionel Barriga MD Primary Care Provider +1- [phone] Allergies No known active allergies Medications Insulin Pen Needle (Pen [place] 10/10 ) 31G X 8 MM misc [...] 24 Active Insulin Disposable Pump (Omnipod 5 [id number] Pods Gen 5) misc Use 1 each [...] 10/03/2021 Overview (10/04/2021): NSTEMI 10/01/2021 treated at [place] with 100% ramus treated with a 2.5 mm LILY, proximal and mid LAD treated with 3.0 mm i Synergy stents. Residual chest pain admitted to [facility] 10/04/2021, repeat LHC showed widely patent ramus [...] MELCHOR [Birads] 11[1] BECKY (5 year) Tyrer Fleming (lifetime) Colonoscopy DEXA [T-score] Frax [hip/any] Enter [...] (10/04/2021): Added automatically from request for surgery [id number] Leg pain, left 12/04/2020 10/11/2022 Chest pain [...] be able to see pt sooner (I.e. [facility]) although insurance may be a [...] Date Type Department Care Team Description 12/16/2024 [facility] INTERNAL MEDICINE & PEDIATRICS 100 [facility] [address] [place] [address] Lionel Barriga MD Chronic pain of both knees 12/04/2024 [facility] INTERNAL MEDICINE & PEDIATRICS 100 [facility] [address] [place] [address] Lionel Barriga MD Chronic pain of both knees 11/30/2024 [facility] INTERNAL MEDICINE & PEDIATRICS 100 [facility] [address] [place] [address] Bessie Johnson MD Chronic pain of both knees from Last 3 Months Immunizations Immunization Administration [...] Father Judd Lorenzana Arthritis Maternal Aunt April Llamas Sukumar COPD Maternal Aunt April Llamas Sukumar Other Maternal Aunt April Llamas Sukumar Alzhei fidel's, diverticulitis, and Parkinsons Cancer Maternal Grandfather Sathya Lorenzana Melanoma Early Maternal Grandfather Sathya Lorenzana of adult leukema Melanoma Maternal Grandfather Sathya Huynh Eddins Depression Maternal Grandmother Shayy Dupree Anemia Mother Holley Lorenzana Anxiety disorder Mother Holley Lorenzana Arrhythmia Mother Holley Lorenzana Arthritis Mother Holley Lorenzana COPD Mother Holley Lorenzana Cancer Mother Holley [...] deaf Mental illness Paternal Aunt 2 Sabina Lorenzana Weston Cancer Paternal Grandfather Sathya Pedro Lymphom a Diabetes Paternal Grandmother Verna Lorenzana of cirrhosis of the liver non alcoholic Early Paternal Grandmother Verna Lorenzana Cirkristen s of the Liver Liver disease Paternal Grandmother Verna Lorenzana Diabetes Sister 1 Inge Lorenzana Drug abuse Sister 1 Inge Valentines Diabetes Sister 2 Inge Lorenzana Drug abuse Sister 2 Inge Valentines Diabetes Sister 3 Inge Lorenzana Arlet Drug abuse Sister 3 Inge Lorenzana Arlet Breast cancer Neg Hx Colon cancer [...] 2 Inge Lorenzana Alive Sister 3 Inge Nice Alive Social History Tobacco Use Types Packs/Day [...] Description 03/19/2025 11:15 AM EDT Office Visit [facility] PULMONARY & CRITICAL CARE MEDICINE 3000 [facility] [address] [place] [address] Edmundo Deleon MD [address] [place] [address] Health Maintenance Due Date Last Done Comments [...] Exam 07/05/2023 07/04/2022 ANNUAL PHYSICAL 01/18/2024 01/17/2023 DIABETIC EYE EXAM 03/07/2024 03/07/2023 (Ian henson-Reported (Performed Externally)), 09/21/2017 Pneumococcal Vaccine 50+ (3 of 3 - PCV20 or PCV21) 04/08/2024 04/08/2019, 05/28/2018, 05/29/2017 DIABETIC FOOT EXAM 06/20/2024 06/20/2023, 0 06/20/2023, 09/05/2017 INFLUENZA VACCINE 12/26/2024 02/15/2023, , 03/13/2022, Additional history exists HEMOGLOBIN A1C 02/26/2025 08/27/2024, 11/0 10/2023, 12/28/2023, Additional history exists PAP SMEAR 08/15/2025 08/15/2022, 02/11/2022, 09/05/2017 LIPID PANEL 08/27/2025 08/27/2024, 10/26, 11/12/2023, Additional history exists TDAP/TD VACCINES (2 - Tdap) 12/01/2029 12/02/2019 HEPATITIS C SCREENING Completed 11/12/2023 , 10/03/2021, 06/05/2017 [facility] Discontinued Procedures Procedure Name Priority Date/Time Associated Diagnosis Comments SCANNED - IMAGING 02/06/2025 SCANNED - LABS 02/02/2025 SCANNED - LABS 02/02/2025 SCANNED - LABS 01/19/2025 SCANNED - LABS 12/30/2024 SCANNED - LABS 12/30/2024 SCANNED - LABS 12/26/2024 HEMOGLOBIN A1C Routine 08/27/2024 3:19 PM EDT [...] Recently Relevant to Health Maintenance Results * IMAGING SCANNED (02/06/2025) Anatomical Region Laterality Modality Radiographic Yara ging Lionel Barriga MD IMG DIAGNOSTIC IMAGING ORD ERABLES Final Result * LABS SCANNED (02/02/2025) Only the most recent of6 resultswithin the time period is included. Lionel Barriga MD LAB BLOOD ORDERABLES Final Result * (ABNORMAL) Hemoglobin A1c (08/27/2024 3:19 PM EDT) Hemoglobin A1C 9.00(H) 4.80 - 5.60 % 08/27/2024 11:34 PM EDT [facility] Blood Venipuncture / Unknown 08/27/2024 3:19 PM EDT 08/27/2024 3:19 PM EDT [facility] - 08/27/2024 11:34 PM EDT Hemoglobin A1C Ranges: Increased Risk for Diabetes 5.7% to 6.4% Diabetes >= 6.5% Diabetic Goal < 7.0% Lionel Barriga MD LAB BLOOD ORDERABLES Final Result [facility]
[address] [place] [address], * (ABNORMAL) Lipid Panel (08/27/2024 3:19 PM EDT) Total Cholesterol 123 0 - 200 mg/dL 08/27/2024 11:39 PM EDT [facility] Triglycerides 232(H) 0 - 150 mg/dL 08/27/2024 11:39 PM EDT [facility] HDL Cholesterol 37(L) 40 - 60 mg/dL 08/27/2024 11:39 PM EDT [facility] LDL Cholesterol 49 0 - 100 mg/dL 08/27/2024 11:39 PM EDT [facility] VLDL Cholesterol 37 5 - 40 mg/dL 08/27/2024 11:39 PM EDT [facility] LDL/HDL Ratio 1.07 08/27/2024 11:39 PM EDT [facility] Blood Venipuncture / Unknown 08/27/2024 3:19 PM EDT 08/27/2024 3:19 PM EDT [facility] - 08/27/2024 11:39 PM EDT Cholesterol [...] is calculated using the NIH LDL-C calculation. Lionel Barriga MD LAB BLOOD ORDERABLES Final Result [facility]
[address] [place] [address], * FOOT EXAM SCANNED (06/20/2023) Lionel Barriga MD CHART REVIEW TABS Final Result * LIQUID-BASED PAP SMEAR, [facility] (TWILA,COR,MAD) (08/15/2022 1:50 PM EDT) Pathologist [facility] Reference Lab Report [facility] [address] [place] [address] or [phone] Sharif Fan M.D., Industrial Gas Servicer Helper PATIENT NAME LABORATORY NO. [address] LEOLA HILARIO. [id number] AGE SEX SSN CLIENT REF # [facility] 56 1965 F [id number] APRIL CRUZ MD REQUESTING M.D. ATTENDING M.D. COPY TO. [address] [facility], [address] [place] [id number] DATE COLLECTED DATE RECEIVED DATE REPORTED 08/15/2022 [...] DUE TO NON-DIAGNOSTIC Unsatisfactory cervical Papanicolaou smear PROPERTY MASTER: NICKI VICK(ASCP) CPT CODES: 22480 08/16/2022 12:04 PM EDT [facility] ThinPrep Vial Collection / Unknown 08/15/2022 1:50 PM EDT 08/15/2022 1:50 PM EDT April Cruz MD PATHOLOGY/CYTOLOGY ORDERABLE S Final Result [facility]
[address] [place] [address], * Mammo Screening Digital Tomosynthesis Bilateral With [...] acquisitions and tomosynthesis. COMPARISON: Outside mammograms from [place], [place] dated 02/18/2019 and 01/15/2018. FINDINGS: There [...] ve Non-Reacti ve 10/03/2021 8:39 PM EDT [facility] Hep A IgM Non-Reacti ve Non-Reacti ve 10/03/2021 8:39 PM EDT [facility] Hep B C IgM Non-Reacti ve Non-Reacti ve 10/03/2021 8:39 PM EDT [facility] Hepatitis C Ab Non-Reacti ve Non-Reacti ve 10/03/2021 8:39 PM EDT [facility] Blood Line / Unknown 10/03/2021 6: 13 PM EDT 10/03/2021 6:20 PM EDT Narrative [facility] - 10/03/2021 8:39 PM EDT Results may be falsely decreased if patient taking Biotin. Bisi Rasmussen PA-C LAB BLOOD ORDERABLES Final Result [facility]
[address] [place] [address], * SCANNED - INFLUENZA (04/08/2019) Lionel Barriga [...] Of Support Discussed With: Patient Care Teams Stippler Relationship Specialty Start Date End Date Lionel Barriga MD [address] [place] [address] PCP - General Internal Medicine 05/10/17
--- OUTSIDE RECORDS SUMMARY | 2025-02-23 10:09 | XMS_ITS | Encounter Summary ---
[facility] Organization [facility] Address [address] [place] [address] Care Team Providers Care Levee Superintendent Name Role Phone Lionel Barriga MD Primary Care Provider +1- [phone] Encounter Details Date Type Department Care Team (Late st Contact Info) Description 11/18/2024 Results Follow-Up [facility] INTERNAL MEDICINE & PEDIATRICS 100 [facility] 200 [place] [address] Lionel Barriga MD 100 [facility] [address] [place] [address] Social History Tobacco Use Types [...] Description 03/19/2025 11:15 AM EDT Office Visit [facility] PULMONARY & CRITICAL CARE MEDICINE 3000 [facility] 240 [place] [phone] Edmundo Deleon MD [address] [place] [address] documented as of this encounter Visit Diagnoses Not on filedocumented in this encounter Care Teams Levee Superintendent Relationship Specialty Start Date End Date Lionel Barriga MD 100 [facility] 200 [place] [address] PCP - General Internal Medicine 05/10/17 documented as of this encounter
--- OUTSIDE RECORDS SUMMARY | 2025-02-23 10:09 | XMS_ITS | Encounter Summary ---
[facility] Organization [facility] Address [address] [place] [address] Care Team Providers Care Certified Fraud Examiner Name Role Phone Lionel Barriga MD Primary Care Provider +1- [phone] Encounter Details Date Type Department Care Team (Late st Contact Info) Description 07/29/2020 Telephone [facility] INTERNAL MEDICINE & PEDIATRICS [address] [address] Lionel Barriga MD 100 [facility] 200 [place] [address] Social History Tobacco Use Types [...] Description 03/19/2025 11:15 AM EDT Office Visit [facility] PULMONARY & CRITICAL CARE MEDICINE 3000 [facility] 240 [place] [phone] Edmundo Deleon MD [address] [place] [address] documented as of this encounter Visit Diagnoses Not on filedocumented in this encounter Additional Health Concerns Infection Onset Date Last Indicated Resolved Time COVID Screen (preop/placement) 12/03/2020 12/03/2020 12/03/2020 11:44 PM EDT COVID Screen (preop/placement) 10/03/2021 10/03/2021 10/03/2021 9:11 PM EDT COVID (rule out) 01/19/2023 01/19/2023 01/26/2023 9:08 PM EDT documented as of this encounter Care Teams Certified Fraud Examiner Relationship Specialty Start Date End Date Lionel Barriga MD 100 [facility] 200 [place] [address] PCP - General Internal Medicine 05/10/17 documented as of this encounter
--- OUTSIDE RECORDS SUMMARY | 2025-02-23 10:10 | XMS_ITS | Encounter Summary ---
Author Organization [facility] Address [address] [place] [address] Care Team Providers Care Power Digger Operator Name Role Phone Brisa Patel Unavailable Lionel Barriga MD Primary Care Provider +1- [phone] Reason for Referral * Consultation (Routine) - Closed Specialty Diagnoses / Procedures Referred By Hanna stone Referred To Contact Ophthalmology Diagnoses Type 2 diabetes mellitus treated with insulin Retinopathy Lionel Barriga MD 100 [facility] 200 [place] [address] Phone: tel: fax: [facility] [address] [place] [address] Phone: tel: fax: Referral ID Status Reason Start Date Expiration Date V isits Requested Visits Authorized [id number] Closed Specialty Services Required 03/01/2023 08/30/2024 1 1 Encounter Details Date Type Department Care Team (Late st Contact Info) Description 03/01/2023 [facility] [address] [place] [address] Lionel Barriga MD [address] [place] [address] Type 2 diabetes mellitus treated with insulin [...] Description 03/23/2025 9:00 AM EDT [facility] [address] [place] [address] [facility] [address] [place] [address] Scheduled Referrals Name Type Priority Associated Diagnoses Order Schedule Ambulatory Referral to Ophthalmology Outpatient Referral Routine Type 2 diabetes mellitus treated with insulin (CMS/HCC) Retinopathy Expected: 03/01/2023 (Approximate), Expires: 08/30/2024 documented as of this encounter Visit Diagnoses Diagnosis Type 2 diabetes mellitus treated with insulin- Primary Retinopathy Unspecified background retinopathy documented in this encounter Care Teams Power Digger Operator Relationship Specialty Start Date End Date Lionel Barriga MD 100 [facility] 200 [place] [address] PCP - General 03/07/23 Brisa Patel [address] [place] [address] 01/12/22 documented as of this encounter
--- OUTSIDE RECORDS SUMMARY | 2025-02-23 10:10 | XMS_ITS | Encounter Summary ---
[facility] [address] [place] [address] Care Team Providers Care Change Agent Name Role Phone Lionel Barriga MD Primary Care Provider +1- [phone] Reason for Visit * Reason Onset Date Comments Med Refill 04/12/2022 Encounter Details Date Type Department Care Team (Late st Contact Info) Description 04/12/2022 Telephone [facility] [address] [facility] [address] [place] [address] Kasey Rose MD [address] [facility] [address] [place] [address] Med Refill Social History Tobacco [...] 4:27 PM EST Pt called back and [facility] pharmacy does not have ozempic. She has called multiple pharmacies to find it. She requests assistance finding ozempic and requestsyou send it to the pharmacy. She said she will do mail order. Please call pt at [phone] documented in this encounter Plan of Treatment Upcoming Encounters Date Type Department Care Team (Late st Contact Info) Description 03/19/2025 11:15 AM EDT Office Visit [facility] PULMONARY & CRITICAL CARE MEDICINE 3000 [facility] 240 [place] [address] Edmundo Deleon MD [address] [place] [address] documented as of this encounter Visit Diagnoses Not on filedocumented in this encounter Additional Health Concerns Infection Onset Date Last Indicated Resolved Time COVID (rule out) 01/19/2023 01/19/2023 01/26/2023 9:08 PM EDT documented as of this encounter Care Teams Change Agent Relationship Specialty Start Date End Date Lionel Barriga MD 100 [facility] 200 [place] [address] PCP - General Internal Medicine 05/10/17 documented as of this encounter
[2025-02-23] MEDS: SODIUM CHLORIDE 0.9% 10ML FLUSH SYRINGE 10 ML IV (10:31)
[2025-02-23 10:32] VITALS: BP 129/64; PULSE 85; RESP 18; TEMP 36.5; O2SAT 97
[2025-02-23] MEDS: TOCILIZUMAB 800 MG in 0.9 % SODIUM CHLORIDE 60 ML 100 MG IV (10:32)
--- NOTE | 2025-02-23 11:24 | PC.NURSE ---
Patient took premeds consisting of tylenol 650mg po and zyrtec 10mg po prior to arrival at 1005
[2025-02-23 11:32] VITALS: BP 108/68; PULSE 82; RESP 16; TEMP 36.5; O2SAT 97
== END 2025-02-23 23:59 | disposition home or self-care (01) ==
LOC: INF 10:07
PROVIDERS: PCP Internal Medicine; Visit Provider Nurse Practitioner Primary Care
DX: M06.9 Rheumatoid arthritis, unspecified (principal)
CPT/HCPCS: 96413; J3262

== ENCOUNTER 2025-03-09 10:52 | Outpatient (CLI) | payer OTHER, SELFPAY ==
--- OUTSIDE RECORDS SUMMARY | 2020-10-29 13:31 | XMS_ITS | Encounter Summary ---
[facility] Address [address] [place] [address] Care Team Providers Care Book Coverer Name Role Phone Lionel Barriga MD Primary Care Provider +1- [phone] Reason for Visit * Diagnostic Imaging (Routine) - Closed Specialty Diagnoses / Procedures Referred By Hanna stone Referred To Contact Radiology Diagnoses Nontoxic multinodular goiter Procedures US Thyroid Kasey Rose MD [address] [place] [address] Phone: tel: fax: [facility] [address] [place] [address] Phone: tel: fax: Referral ID Status Reason Start Date Expiration Date Visits Re quested Visits Authorized [id number] Closed 10/29/2020 10/29/2021 1 1 Encounter Details Date Type Department Care Team (Late st Contact Info) Description 10/29/2020 1:31 PM EDT Hospital Encounter [facility] [address] [facility] [address] [place] [address] Social History Tobacco Use Types Packs/Day Years [...] Description 03/19/2025 11:15 AM EDT Office Visit [facility] PUL[facility]ITICAL CARE MEDICINE 3000 [facility] [address] [place] [address] Edmundo Deleon MD 2400 [place], [place] [id number] documented as of this encounter Procedures Procedure [...] documented as of this encounter Care Teams Book Coverer Relationship Specialty Start Date End Date Lionel Barriga MD 100 [facility] [address] 200 [place] [address] PCP - General Internal Medicine 05/10/17 documented as of this encounter
--- OUTSIDE RECORDS SUMMARY | 2022-04-11 17:45 | XMS_ITS | Encounter Summary ---
[facility] Address [address] [place] [address] Care Team Providers Care Bill Cutter Name Role Phone Lionel Barriga MD Primary Care Provider +1- [phone] Reason for Visit * Diagnostic Imaging (Routine) - Closed Specialty Diagnoses / Procedures Referred By Contrhea t Referred To Contact Radiology Diagnoses Nontoxic multinodular goiter Procedures US Thyroid Kasey Rose MD [address] [place] [address] Phone: tel: fax: Referral ID Status Reason Start Date Expiration Date Visits Re quested Visits Authorized [id number] Closed 04/11/2022 04/11/2023 1 1 Encounter Details Date Type Department Care Team (Late st Contact Info) Description 04/11/2022 4:45 PM EST Hospital Encounter [facility] ENDOCRINOLOGY [address] [place] [address] Social History Tobacco Use Types Packs/Day Years [...] Description 03/19/2025 11:15 AM EDT Office Visit [facility] PULMONARY & CRITICAL CARE MEDICINE [address] [facility] [address] [place] [address] Edmundo Deleon MD [address]00 [place] [address] documented as of this encounter Procedures Procedure [...] documented as of this encounter Care Teams Bill Cutter Relationship Specialty Start Date End Date Lionel Barriga MD 100 [facility] 200 [place] [address] PCP - General Internal Medicine 05/10/17 documented as of this encounter
--- OUTSIDE RECORDS SUMMARY | 2023-06-26 16:37 | XMS_ITS | Encounter Summary ---
[facility] Address [address] [place] [address] Care Team Providers Care Biometrician Name Role Phone Lionel Barriga MD Primary Care Provider +1- [phone] Reason for Visit * Diagnostic Imaging (Routine) - Closed Specialty Diagnoses / Procedures Referred By Contrhea t Referred To Contact Radiology Diagnoses Nontoxic multinodular goiter Procedures US Thyroid Kasey Rose MD [address] [place] [address] Phone: tel: fax: Referral ID Status Reason Start Date Expiration Date Visits Re quested Visits Authorized [id number] Closed 06/26/2023 06/25/2024 1 1 Encounter Details Date Type Department Care Team (Late st Contact Info) Description 06/26/2023 3:37 PM EST Hospital Encounter [facility] ENDOCRINOLOGY [address] [place] [address] Social History Tobacco Use Types Packs/Day Years [...] Description 03/19/2025 11:15 AM EDT Office Visit [facility] PULMONARY & CRITICAL CARE MEDICINE 3000 [facility] [address] [place] [address] Edmundo Deleon MD [address]00 [place] [address] documented as of this encounter Procedures Procedure [...] on filedocumented in this encounter Care Teams Biometrician Relationship Specialty Start Date End Date Lionel Barriga MD 100 [facility] [address] [place] [address] PCP - General Internal Medicine 05/10/17 documented as of this encounter
--- OUTSIDE RECORDS SUMMARY | 2025-03-09 11:04 | XMS_ITS | Encounter Summary ---
Author Organization [facility] Address [address] [place] [address] Care Team Providers Care Assembly Loader Name Role Phone Brisa Patel Unavailable Lionel Barriga MD Primary Care Provider +1- [phone] Reason for Visit * Reason Onset Date Comments Actemra Infusions 01/08/2025 Encounter Details Date Type Department Care Team (Late st Contact Info) Description 01/08/2025 Telephone [facility] [address] [place] [phone] Amelia Starks, PharmD [facility] Social History [...] Acctemra J-Code: J3262 CPT Code: n/a S-Codes (Mart): n/a Quantity and Units of Measure Authorized: Supply: 365 Diagnosis Code: M06.00 Insurance Name: [facility] Insurance Type: Commercial Where did you submit request and how (portal/fax/phone number): Portal Authorization/Reference Number: [id number] Approval Dates: 09/25/24-09/24/25 Filling Pharmacy/SOC: [facility] documented in this encounter Plan of Treatment Upcoming Encounters Date Type Department Care Team (Late st Contact Info) Description 03/23/2025 9:00 AM EDT Office Visit [facility] Medicine Specialties [address] [place] [address] Jason, May R, TOP DISTRIBUTION EXECUTIVE [address] [place] [address] documented as of this encounter [...] documented as of this encounter Care Teams Assembly Loader Relationship Specialty Start Date End Date Lionel Barriga MD 100 [facility] [address] [place] [address] PCP - General 03/07/23 Brisa Patel [address] [place] [address] 01/12/22 documented as of this encounter
--- OUTSIDE RECORDS SUMMARY | 2025-03-09 11:04 | XMS_ITS | Encounter Summary ---
[facility] Address [address] [place] [address] Care Team Providers Care Dispatcher Chief Oil Name Role Phone Lionel Barriga MD Primary Care Provider +1- [phone] Encounter Details Date Type Department Care Team (Late st Contact Info) Description 11/18/2024 Results Follow-Up [facility] INTERNAL MEDICINE & PEDIATRICS 100 [facility] 200 [place] [address] Lionel Barriga MD 100 [facility] 200 [place] [address] Social History Tobacco Use Types [...] Description 03/19/2025 11:15 AM EDT Office Visit [facility] PULMONARY & CRITICAL CARE MEDICINE 3000 [facility] 240 [place] [phone] Edmundo Deleon MD [address] [place] [address] documented as of this encounter Visit Diagnoses Not on filedocumented in this encounter Care Teams Dispatcher Chief Oil Relationship Specialty Start Date End Date Lionel Barriga MD 100 [facility] 200 [place] [address] PCP - General Internal Medicine 05/10/17 documented as of this encounter
--- OUTSIDE RECORDS SUMMARY | 2025-03-09 11:04 | XMS_ITS | Clinical Summary ---
Author Organization [facility] Address [address] [place] [address] Care Team Providers Care Ballistics Laboratory Gunsmith Name Role Phone Lionel Barriga MD Primary Care Provider +1- [phone] Allergies No known active allergies Medications Insulin Pen Needle (Pen [place] 10/10 ) 31G X 8 MM misc [...] 24 Active Insulin Disposable Pump (Omnipod 5 [id number] Pods Gen 5) misc Use 1 each [...] 10/03/2021 Overview (10/04/2021): NSTEMI 10/01/2021 treated at [place] with 100% ramus treated with a 2.5 mm LILY, proximal and mid LAD treated with 3.0 mm i Synergy stents. Residual chest pain admitted to [facility] 10/04/2021, repeat LHC showed widely [...] MELCHOR [Birads] 11[1] BECKY (5 year) Tyrer [place] (lifetime) Colonoscopy DEXA [T-score] Frax [hip/any] Enter [...] (10/04/2021): Added automatically from request for surgery [id number] Leg pain, left 12/04/2020 10/11/2022 Chest pain [...] be able to see pt sooner (I.e. [facility]) although insurance may be a [...] Type Department Care Team Description 12/16/2024 Refill [facility] INTERNAL MEDICINE & PEDIATRICS [address] [address] Lionel Barriga MD Chronic pain of both knees from [...] Stroke Father Judd Lorenzana Arthritis Maternal Aunt Arpil Patino COPD Maternal Aunt April Patino Other Maternal Aunt April Patino Alzhei fidel's, diverticulitis, and Parkinsons Cancer Maternal Grandfather Sathya Huynh Eddins Melanoma Early Maternal Grandfather Sathya Lorenzana of adult leukema Melanoma Maternal Grandfather Sathya Huynh Eddins Depression Maternal Grandmother Shayy Dupree Anemia Mother Holley Pottsdins Anxiety disorder Mother Holley Pottsdins Arrhythmia Mother Holley Lorenzana Arthritis Mother Holley [...] Sabina Lorenzana Weston Cancer Paternal Grandfather Sathya Vasquez Lymphom a Diabetes Paternal Grandmother Verna Lorenzana of cirrhosis of the liver non alcoholic Early Paternal Grandmother Verna Lorenzana Cirrosi s of the Liver Liver disease Paternal Grandmother Verna Lorenzana Diabetes Sister 1 Inge Harriett Drug abuse Sister 1 Inge Valentines Diabetes Sister 2 Inge Valentines Drug abuse Sister 2 Inge Harriett Diabetes Sister 3 Ingebakari Valentines Arlet Drug abuse Sister 3 Inge Harriett [...] Description 03/19/2025 11:15 AM EDT Office Visit [facility] PULMONARY & CRITICAL CARE MEDICINE 3000 [facility] 240 [place] [phone] Edmundo Deleon MD [address] [id number] Health Maintenance Due Date Last Done Comments [...] 01/17/2023 DIABETIC EYE EXAM 03/07/2024 03/07/2023 (Ian joshint-Reported (Performed Externally)), 09/21/2017 Pneumococcal Vaccine 50+ (3 of 3 - PCV20 or PCV21) 04/08/2024 04/08/2019, 05/28/2018, 05/29/2017 DIABETIC FOOT EXAM 06/20/2024 06/20/2023, 0 06/20/2023, 09/05/2017 INFLUENZA VACCINE 12/26/2024 02/15/2023, , 03/13/2022, Additional history exists HEMOGLOBIN A1C 02/26/2025 08/27/2024, 1110/2023, 12/28/2023, Additional history exists PAP SMEAR 08/15/2025 08/15/2022, 02/0 11/2022, 09/05/2017 LIPID PANEL 08/27/2025 08/27/2024, 10/26, 11/12/2023, Additional history exists TDAP/TD VACCINES (2 - Tdap) 12/01/2029 12/02/2019 HEPATITIS C SCREENING Completed 11/12/2023 , 10/03/2021, 06/05/2017 [facility] Discontinued Procedures Procedure Name Priority Date/Time [...] of6 resultswithin the time period is included. us Lionel Barriga MD LAB BLOOD ORDERABLES Final Result * (ABNORMAL) Hemoglobin A1c (08/27/2024 3:19 PM EDT) Hemoglobin A1C 9.00(H) 4.80 - 5.60 % 08/27/2024 11:34 PM EDT [facility] Blood Venipuncture / Unknown 08/27/2024 3:19 PM EDT 08/27/2024 3:19 PM EDT Narrative [facility] - 08/27/2024 11:34 PM EDT Hemoglobin A1C Ranges: Increased Risk for Diabetes 5.7% to 6.4% Diabetes >= 6.5% Diabetic Goal < 7.0% us Lionel Barriga MD LAB BLOOD ORDERABLES Final Result [facility]
[address] [place], [place] [address] [phone] * (ABNORMAL) Lipid Panel (08/27/2024 3:19 PM EDT) Total Cholesterol 123 0 - 200 mg/dL 08/27/2024 11:39 PM EDT [facility] Triglycerides 232(H) 0 - 150 mg/dL 08/27/2024 11:39 PM EDT [facility] HDL Cholesterol 37(L) 40 - 60 mg/dL 08/27/2024 11:39 PM EDT [facility] LDL Cholesterol 49 0 - 100 mg/dL 08/27/2024 11:39 PM EDT [facility] VLDL Cholesterol 37 5 - 40 mg/dL 08/27/2024 11:39 PM EDT [facility] LDL/HDL Ratio 1.07 08/27/2024 11:39 PM EDT [facility] Blood Venipuncture / Unknown 08/27/2024 3:19 PM EDT 08/27/2024 3:19 PM EDT Narrative [facility] - 08/27/2024 11:39 PM [...] Barriga MD LAB BLOOD ORDERABLES Final Result [facility]
[address] [place] [address], * FOOT EXAM SCANNED (06/20/2023) Lionel Barriga MD CHART REVIEW TABS Final Result * LIQUID-BASED PAP SMEAR, [facility] (TWILA,COR,MAD) (08/15/2022 1:50 PM EDT) Pathologist [facility] Reference Lab Report [facility] [address] [place] [address] or [phone] Sharif Fan M.D., Lighter Captain PATIENT NAME LABORATORY NO. LEOLA ROSE. [id number] AGE SEX SSN CLIENT REF # [facility] 56 1965 F [id number] APRIL CRUZ MD REQUESTING M.D. ATTENDING M.D. COPY TO. [address] [facility] [place] [address] [place] [address] DATE COLLECTED DATE RECEIVED DATE REPORTED 08/15/2022 [...] DUE TO NON-DIAGNOSTIC Unsatisfactory cervical Papanicolaou smear AVIATION ELECTRICIAN: NICKI VICK(ASCP) CPT CODES: [id number] 08/16/2022 12:04 PM EDT [facility] ThinPrep Vial Collection / Unknown 08/15/2022 1:50 PM EDT 08/15/2022 1:50 PM EDT us April Cruz MD PATHOLOGY/CYTOLOGY ORDERABLE S Final Result [facility]
[address] [place] [address], [place] [phone] * Mammo Screening Digital Tomosynthesis Bilateral With [...] acquisitions and tomosynthesis. COMPARISON: Outside mammograms from [place], [place] dated 02/18/2019 and 01/15/2018. FINDINGS: There [...] ve Non-Reacti ve 10/03/2021 8:39 PM EDT [facility] Hep A IgM Non-Reacti ve Non-Reacti ve 10/03/2021 8:39 PM EDT [facility] Hep B C IgM Non-Reacti ve Non-Reacti ve 10/03/2021 8:39 PM EDT [facility] Hepatitis C Ab Non-Reacti ve Non-Reacti ve 10/03/2021 8:39 PM EDT [facility] Blood Line / Unknown 10/03/2021 6: 13 PM EDT 10/03/2021 6:20 PM EDT Narrative [facility] - 10/03/2021 8:39 PM EDT Results may be falsely decreased if patient taking Biotin. Bisi Rasmussen PA-C LAB BLOOD ORDERABLES Final Result [facility]
[address] [place] [address], * SCANNED - INFLUENZA (04/08/2019) Lionel Barriga MD CHART REVIEW TABS Final Result from Last 3 Months or Most Recently Relevant to Health Maintenance Insurance [facility] Advance Directives * CPR (Attempt to Resuscitate) [...] Of Support Discussed With: Patient Care Teams Ballistics Laboratory Gunsmith Relationship Specialty Start Date End Date Lionel Barriga MD [address] [place] [address] PCP - General Internal Medicine 05/10/17
--- OUTSIDE RECORDS SUMMARY | 2025-03-09 11:04 | XMS_ITS | Clinical Summary ---
Author Organization [facility] Address [address] [facility], [address] [place] [address] Care Team Providers Care Mutual Fund Accountant Name Role Phone Unavailable Primary Care Provider [...] Comments DTaP/Tdap/Td vaccine (1 - Tdap) 1985 Flu vaccine (#1) 12/26/2024 02/15/2023, , 06/16/2020, Additional history exists COVID-19 Vaccine ( season) 2025 Polio vaccine Aged Out No longer elig ible based on patient's age to complete this topic Insurance
--- OUTSIDE RECORDS SUMMARY | 2025-03-09 11:04 | XMS_ITS | Encounter Summary ---
[facility] Address [address] [place] [address] Care Team Providers Care Quarter Backer Name Role Phone Lionel Barriga MD Primary Care Provider +1- [phone] Encounter Details Date Type Department Care Team (Late st Contact Info) Description 10/27/2024 Results Follow-Up [facility] INTERNAL MEDICINE & PEDIATRICS 100 [facility] 200 [place] [address] Lionel Barriga MD 100 [facility] 200 [place] [address] Social History Tobacco Use Types [...] CENTER PULMONARY & CRITICAL CARE MEDICINE 3000 [facility] 240 [place] [address] Edmundo Deleon MD [address] [place] [address] documented as of this encounter Visit Diagnoses Not on filedocumented in this encounter Care Teams Quarter Backer Relationship Specialty Start Date End Date Lionel Barriga MD 100 [facility] 200 [place] [address] PCP - General Internal Medicine 05/10/17 documented as of this encounter
--- OUTSIDE RECORDS SUMMARY | 2025-03-09 11:04 | XMS_ITS | Encounter Summary ---
Author Organization [facility] Address [address] [place] [address] Care Team Providers Care Professor Of Sport Management Name Role Phone Lionel Barriga MD Primary Care Provider +1- [phone] Encounter Details Date Type Department Care Team (Late st Contact Info) Description 05/30/2023 Prep for Surgery [facility] ORDERS ONLY [address] [place] [address] Rigo Andersen MD [address] [facility] [address] [place], [place] [id number] Dysphagia, unspecified type (Primary Dx); Moderate coronary [...] Description 03/19/2025 11:15 AM EDT Office Visit [facility] PULMONARY & CRITICAL CARE MEDICINE 3000 [facility] [address] [place] [address] Edmundo Deleon MD [address] [place] [address] documented as of this encounter Visit Diagnoses Diagnosis Dysphagia, unspecified type- Primary Moderate coronary artery risk chest pain documented in this encounter Care Teams Professor Of Sport Management Relationship Specialty Start Date End Date Lionel Barriga MD 100 [facility] 200 [place] [address] PCP - General Internal Medicine 05/10/17 documented as of this encounter
--- OUTSIDE RECORDS SUMMARY | 2025-03-09 11:04 | XMS_ITS | Encounter Summary ---
[facility] Address [address] [place] [address] Care Team Providers Care Artificial Limb Maker Name Role Phone Lionel Barriga MD Primary Care Provider +1- [phone] Reason for Visit * Reason Onset Date Comments Med Refill 04/12/2022 Encounter Details Date Type Department Care Team (Late st Contact Info) Description 04/12/2022 Telephone [facility]IN[facility] [address] [facility] [address] [place] [address] Kasey Rose MD [address] [facility] [address] [place] [address] Med Refill Social History Tobacco [...] 4:27 PM EST Pt called back and [facility] pharmacy does not have ozempic. She has called multiple pharmacies to find it. She requests assistance finding ozempic and requestsyou send it to the pharmacy. She said she will do mail order. Please call pt at [phone] documented in this encounter Plan of Treatment Upcoming Encounters Date Type Department Care Team (Late st Contact Info) Description 03/19/2025 11:15 AM EDT Office Visit [facility] PULMONARY & CRITICAL CARE MEDICINE 3000 [facility] 240 [place] [address] Edmundo Deleon MD [address] [place] [address] documented as of this encounter Visit Diagnoses Not on filedocumented in this encounter Additional Health Concerns Infection Onset Date Last Indicated Resolved Time COVID (rule out) 01/19/2023 01/19/2023 01/26/2023 9:08 PM EDT documented as of this encounter Care Teams Artificial Limb Maker Relationship Specialty Start Date End Date Lionel Barriga MD 100 [facility] 200 [place] [address] PCP - General Internal Medicine 05/10/17 documented as of this encounter
--- OUTSIDE RECORDS SUMMARY | 2025-03-09 11:04 | XMS_ITS | Encounter Summary ---
Author Organization [facility] Address [address] [place] [address] Care Team Providers Care Surveying Teacher Name Role Phone Brisa Patel Unavailable Lionel Barriga MD Primary Care Provider +1- [phone] Encounter Details Date Type Department Care Team (Late st Contact Info) Description 01/17/2022 Community [facility] [address] [place] [address] Jami Maldonado, MANAGER RETENTION 100 [facility] 200 [place] [address] Rheumatoid arthritis, involving unspecified site, unspecified whether [...] Description 03/23/2025 9:00 AM EDT Office Visit [place] [facility] [address] [place] [address] Shalonda Gomez, MANAGER RETENTION [address] [place] [address] documented as of this encounter Visit Diagnoses Diagnosis Rheumatoid arthritis, involving unspecified site, unspecified whether rheumatoid factor present ([facility])- Primary documented in this encounter Care Teams Surveying Teacher Relationship Specialty Start Date End Date Lionel Barriga MD 100 [facility] [address] [place] [address] PCP - General 03/07/23 Brisa Patel [address] [place], [place] [id number] 01/12/22 documented as of this encounter
--- OUTSIDE RECORDS SUMMARY | 2025-03-09 11:04 | XMS_ITS | Clinical Summary ---
Author Organization [facility] Address [address] [place] [address] Care Team Providers Care Tar Worker Name Role Phone Brisa Patel Unavailable Lionel Barriga MD Primary Care Provider +1- [phone] Allergies No known active allergies Medications acetaminophen (Tylenol) 500 MG tablet Take by mouth. Activ e aspirin 81 MG EC tablet Take 1 tablet by mouth 1 time each day. Active B Xhwgtie-D-Yynpx Acid (Super B Complex/FA/Vit C) tablet Active [...] solution auto-injector 1 mg. Active Continuous Glucose Jewelry Estimator (Dexcom G6 hydroelectric machinery mechanic) device 09/07/19 24 Active traZODone (Desyrel) 100 MG tablet 02/11/20 24 Active predniSONE (Deltasone) 5 MG tabletIndications: Rheumatoid arthritis, involving unspecified site, unspecified whether rheumatoid factor present ([facility]) 1-2 tablets daily as needed for flare [...] 10/03/2021 Overview (03/07/2023): NSTEMI 10/01/2021 treated at [place] with 100% ramus treated with a 2.5 mm LILY, proximal and mid LAD treated with 3.0 mm i Synergy stents. Residual chest pain admitted to [facility] 10/04/2021, repeat C showed widely patent [...] [facility] Infusion [address] [place] [address] Amelia Starks, PharmD Actemra Infusions [...] Visit [place] [facility] [address] [place] [address] Jason, May R, CDL BULK DRIVER [address] [place] [address] Health Maintenance Due Date Last Done Comments [facility]-Infant/Child/Adol SDOH Screenings 1965 SVD-GPNAC-21 Vaccine (#1) 12/06/1971 Diabetes: Dental Exam 1975 [...] 2 Antibody/Antigen Screen (11/12/2023 9:29 AM EDT) [facility] HIV 1 & 2 Antibody/Antigen Screen Non Reactive Non Reactive 11/12/2023 11:25 AM EDT [facility] Comment:Screening for HIV 1 & 2 antibodies, and P24 antigen is NONREACTIVE. No confirmatory testing is required. Blood Venous blood specimen / Unknown Venipuncture / Unknown 11/12/2023 9:29 AM EDT 11/12/2023 9:32 AM EDT May R Jason CDL BULK DRIVER LAB BLOOD ORDERABLES Final Result [facility] [address] [place] [address] * Acute Hepatitis Panel (11/12/2023 9:29 AM EDT) [facility] Hepatitis B Surf Antigen Negative Negative 11/12/2023 11:46 AM EDT [facility] Hepatitis C Antibody Negative Negative 11/12/2023 11:46 AM EDT [facility] Hepatitis A Antibody IgM Negative Negative 11/12/2023 11:46 AM EDT [facility] Hepatitis B Core Antibody IgM Negative Negative 11/12/2023 11:46 AM EDT [facility] Blood Venous blood specimen / Unknown Venipuncture / Unknown 11/12/2023 9:29 AM EDT 11/12/2023 9:32 AM EDT may R Jason CDL BULK DRIVER LAB BLOOD ORDERABLES Final Result [facility] [address] [place] [address] from Last 3 Months or Most Recently Relevant to Health Maintenance Insurance [employer] Care Teams Tar Worker Relationship Specialty Start Date End Date Lionel Barriga MD 100 [facility] [address] [place] [address] PCP - General 03/07/23 Brisa Patel [address] [place] [address] 01/12/22
--- OUTSIDE RECORDS SUMMARY | 2025-03-09 11:04 | XMS_ITS | Clinical Summary ---
Author Organization [facility] Address [address] [place] [address] Care Team Providers Care General Assistant Name Role Phone Other, Physician Outoftolynn KERR [...] complete this topic Insurance 62 T[address] SEN [id number] [address]IL MASSEY CROSS ALL OTHERS NOT MEDICARE Care Teams General Assistant Relationship Specialty Start Date End Date Other, Physician MD Queta Other PCP - General Internal Medicine 09/06/23
--- OUTSIDE RECORDS SUMMARY | 2025-03-09 11:04 | XMS_ITS | Encounter Summary ---
Author Organization [facility] Address [address] [place] [address] Care Team Providers Care Occupational Therapist Name Role Phone Brisa Patel Unavailable Lionel Barriga MD Primary Care Provider +1- [phone] Reason for Referral * Consultation (Routine) - Closed Specialty Diagnoses / Procedures Referred By Contrhea t Referred To Contact Ophthalmology Diagnoses Type 2 diabetes mellitus treated with insulin Retinopathy Lionel Barriga MD 100 [facility] [address] [place] [address] Phone: tel: fax: [facility] [address] [place] [address] Phone: tel: fax: Referral ID Status Reason Start Date Expiration Date V isits Requested Visits Authorized [id number] Closed Specialty Services Required 03/01/2023 08/30/2024 1 1 Encounter Details Date Type Department Care Team ([facility] st Contact Info) Description 03/01/2023 Community [facility] [address] [place] [address] Lionel Barriga MD 100 [facility] [address] [place] [address] Type 2 diabetes mellitus treated with insulin [...] Description 03/23/2025 9:00 AM EDT Office Visit [place] [facility] [address] [place] [address] Jasonmay [address] [place] [address] Scheduled Referrals Name Type Priority Associated Diagnoses Order Schedule Ambulatory Referral to Ophthalmology Outpatient Referral Routine Type 2 diabetes mellitus treated with insulin (CMS/HCC) Retinopathy Expected: 03/01/2023 (Approximate), Expires: 08/30/2024 documented as of this encounter Visit Diagnoses Diagnosis Type 2 diabetes mellitus treated with insulin- Primary Retinopathy Unspecified background retinopathy documented in this encounter Care Teams Occupational Therapist Relationship Specialty Start Date End Date Lionel Barriga MD 100 [facility] [address] [place] [address] PCP - General 03/07/23 Brisa Patel [address] [place] [address] 01/12/22 documented as of this encounter
--- OUTSIDE RECORDS SUMMARY | 2025-03-09 11:04 | XMS_ITS | Encounter Summary ---
[facility] Address [address] [place] [address] Care Team Providers Care Engineering Geologist Name Role Phone Lionel Barriga MD Primary Care Provider +1- [phone] Encounter Details Date Type Department Care Team (Late st Contact Info) Description 11/18/2024 Results Follow-Up [facility] INTERNAL MEDICINE & PEDIATRICS 100 [facility] 200 [place] [address] Lionel Barriga MD 100 [facility] 200 [place] [address] Social History Tobacco Use Types [...] & CRITICAL CARE MEDICINE 3000 [facility] [address] [place] [address] Edmundo Deleon MD [address] [place] [address] documented as of this encounter Visit Diagnoses Not on filedocumented in this encounter Care Teams Engineering Geologist Relationship Specialty Start Date End Date Lionel Barriga MD 100 [facility] 200 [place] [address] PCP - General Internal Medicine 05/10/17 documented as of this encounter
--- OUTSIDE RECORDS SUMMARY | 2025-03-09 11:04 | XMS_ITS | Encounter Summary ---
[facility] Address [address] [place] [address] Care Team Providers Care Machine Cage Maker Name Role Phone Lionel Barriga MD Primary Care Provider +1- [phone] Encounter Details Date Type Department Care Team (Late st Contact Info) Description 07/29/2020 Telephone [facility] INTERNAL MEDICINE & PEDIATRICS [address] [address] Lionel Barriga MD 100 [facility] 200 [place] [address] Social History Tobacco Use Types [...] Description 03/19/2025 11:15 AM EDT Office Visit [facility] PULMONARY & CRITICAL CARE MEDICINE 3000 [facility] 240 [place] [phone] Edmundo Deleon MD [address] [place] [address] documented as of this encounter Visit Diagnoses Not on filedocumented in this encounter Additional Health Concerns Infection Onset Date Last Indicated Resolved Time COVID Screen (preop/placement) 12/03/2020 12/03/2020 12/03/2020 11:44 PM EDT COVID Screen (preop/placement) 10/03/2021 10/03/2021 10/03/2021 9:11 PM EDT COVID (rule out) 01/19/2023 01/19/2023 01/26/2023 9:08 PM EDT documented as of this encounter Care Teams Machine Cage Maker Relationship Specialty Start Date End Date Lionel Barriga MD 100 [facility] 200 [place] [address] PCP - General Internal Medicine 05/10/17 documented as of this encounter
[2025-03-09 11:42] LABS: Hemoglobin A1C 8.5 % (4.0-6.0)
== END 2025-03-09 23:59 | disposition home or self-care (01) ==
LOC: LAB 10:55
PROVIDERS: PCP Internal Medicine; Visit Provider Student in an Organized Health Care Education/Training Program
DX: E11.9 Type 2 diabetes mellitus without complications (principal)
CPT/HCPCS: 36415; 82043; 83036

== ENCOUNTER 2025-03-23 09:55 | Outpatient (CLI) | payer OTHER, SELFPAY ==
--- OUTSIDE RECORDS SUMMARY | 2020-10-29 13:31 | XMS_ITS | Encounter Summary ---
[facility] Address [address] [place] [address] Care Team Providers Care Planishing Press Operator Name Role Phone Lionel Barriga MD Primary Care Provider +1- [phone] Reason for Visit * Diagnostic Imaging (Routine) - Closed Specialty Diagnoses / Procedures Referred By Hanna stone Referred To Contact Radiology Diagnoses Nontoxic multinodular goiter Procedures US Thyroid Kasey Rose MD [address] [place] [address] Phone: tel: fax: [facility]CR[facility] [address] [place] [address] Phone: tel: fax: Referral ID Status Reason Start Date Expiration Date Visits Re quested Visits Authorized [id number] Closed 10/29/2020 10/29/2021 1 1 Encounter Details Date Type Department Care Team (Late st Contact Info) Description 10/29/2020 1:31 PM EDT Hospital Encounter [facility] [address] [facility] [address] [place] [address] Social History Tobacco Use Types Packs/Day Years [...] Care Team (Late st Contact Info) Description 05/04/2025 11:00 AM EST Office Visit [facility] PULMONARY & CRITICAL CARE MEDICINE 3000 [facility] [address] [place] [address] Anitha Rehman, BIODIESEL OPERATIONS MANAGER 2400 [place] [address] documented as of this encounter Procedures Procedure Name Priority Date/Time Associated Diagnosis Comments US THYROID Routine 10/29/2020 1:31 PM EDT Nontoxic multinodular goiter documented in this encounter Results * US Thyroid (10/29/2020 1:31 PM EDT) Narrative SYSTEMGENERATED, DOCUMENTATION - 10/29/2020 1:31 PM EDT Please see performing physician's note for result. us Kasey Perla MD IM US ORDERABLES Final Result documented in this encounter Visit Diagnoses Not on filedocumented in this encounter Additional Health Concerns Infection Onset Date Last Indicated Resolved Time COVID Screen (preop/placement) 12/03/2020 12/03/2020 12/03/2020 11:44 PM EDT COVID Screen (preop/placement) 10/03/2021 10/03/2021 10/03/2021 9:11 PM EDT COVID (rule out) 01/19/2023 01/19/2023 01/26/2023 9:08 PM EDT documented as of this encounter Care Teams Planishing Press Operator Relationship Specialty Start Date End Date Lionel Barriga MD 100 [facility] [address] [place] [address] PCP - General Internal Medicine 05/10/17 documented as of this encounter
--- OUTSIDE RECORDS SUMMARY | 2022-04-11 17:45 | XMS_ITS | Encounter Summary ---
[facility] Address [address] [place] [address] Care Team Providers Care Rat Trapper Name Role Phone Lionel Barriga MD Primary Care Provider +1- [phone] Reason for Visit * Diagnostic Imaging (Routine) - Closed Specialty Diagnoses / Procedures Referred By Contrhea t Referred To Contact Radiology Diagnoses Nontoxic multinodular goiter Procedures US Thyroid Kasey Rose MD [address] [place] [address] Phone: tel: fax: Referral ID Status Reason Start Date Expiration Date Visits Re quested Visits Authorized [id number] Closed 04/11/2022 04/11/2023 1 1 Encounter Details Date Type Department Care Team (Late st Contact Info) Description 04/11/2022 4:45 PM EST Hospital Encounter [facility] ENDOCRINOLOG[facility] [address] [place] [address] Social History Tobacco Use Types Packs/Day Years [...] Description 05/04/2025 11:00 AM EST Office Visit [facility] PULMONARY & CRITICAL CARE MEDICINE 3000 [facility] [address] [place] [address] Anitha Rehman, DOUGH MIXER 2400 [place] [address] documented as of this encounter Procedures Procedure [...] documented as of this encounter Care Teams Rat Trapper Relationship Specialty Start Date End Date Lionel Barriga MD 100 [facility] [address] [place] [address] PCP - General Internal Medicine 05/10/17 documented as of this encounter
--- OUTSIDE RECORDS SUMMARY | 2023-06-26 16:37 | XMS_ITS | Encounter Summary ---
[facility] Address [address] [place] [address] Care Team Providers Care Vice President Sales Name Role Phone Lionel Barriga MD Primary Care Provider +1- [phone] Reason for Visit * Diagnostic Imaging (Routine) - Closed Specialty Diagnoses / Procedures Referred By Contrhea t Referred To Contact Radiology Diagnoses Nontoxic multinodular goiter Procedures US Thyroid Kasey Rose MD [address] [place] [address] Phone: tel: fax: Referral ID Status Reason Start Date Expiration Date Visits Re quested Visits Authorized [id number] Closed 06/26/2023 06/25/2024 1 1 Encounter Details Date Type Department Care Team (Late st Contact Info) Description 06/26/2023 3:37 PM EST Hospital Encounter [facility] ENDOCRINOLOGY [address] [place] [address] Social History Tobacco Use Types Packs/Day Years [...] Description 05/04/2025 11:00 AM EST Office Visit [facility] PULMONARY & CRITICAL CARE MEDICINE [address] [facility] [address] [place] [address] Anitha Rehman, LEGAL WORD PROCESSOR [address] [place] [address] documented as of this encounter Procedures Procedure [...] on filedocumented in this encounter Care Teams Vice President Sales Relationship Specialty Start Date End Date Lionel Barriga MD 100 [facility] 200 [place] [address] PCP - General Internal Medicine 05/10/17 documented as of this encounter
--- OUTSIDE RECORDS SUMMARY | 2025-03-23 10:06 | XMS_ITS | Encounter Summary ---
[facility] Address [address] [place] [address] Care Team Providers Care Composition Siding Worker Name Role Phone Lionel Barriga MD Primary Care Provider +1- [phone] Encounter Details Date Type Department Care Team (Late st Contact Info) Description 07/29/2020 Telephone [facility] INTERNAL MEDICINE & PEDIATRICS [address] [address] Lionel Barriga MD 100 [facility] 200 [place] [address] Social History Tobacco Use Types [...] Description 05/04/2025 11:00 AM EST Office Visit [facility] PULMONARY & CRITICAL CARE MEDICINE 3000 [facility] [address] [place] [address] Anitha Rehman, ELECTRIC TRAIN DRIVER [address] [place] [address] documented as of this encounter Visit Diagnoses Not on filedocumented in this encounter Additional Health Concerns Infection Onset Date Last Indicated Resolved Time COVID Screen (preop/placement) 12/03/2020 12/03/2020 12/03/2020 11:44 PM EDT COVID Screen (preop/placement) 10/03/2021 10/03/202110/03/2021 9:11 PM EDT COVID (rule out) 01/19/2023 01/19/2023 01/26/2023 9:08 PM EDT documented as of this encounter Care Teams Composition Siding Worker Relationship Specialty Start Date End Date Lionel Barriga MD 100 [place] [address] PCP - General Internal Medicine 05/10/17 documented as of this encounter
--- OUTSIDE RECORDS SUMMARY | 2025-03-23 10:06 | XMS_ITS | Encounter Summary ---
[facility] Organization [facility] Address [address] [place] [address] Care Team Providers Care Welfare Officer Name Role Phone Lionel Barriga MD Primary Care Provider +1- [phone] Encounter Details Date Type Department Care Team (Late st Contact Info) Description 11/18/2024 Results Follow-Up [facility] INTERNAL MEDICINE & PEDIATRICS 100 [facility] 200 [place] [address] Lionel Barriga MD 100 [facility] 200 [place] [address] Social History Tobacco Use Types [...] Description 05/04/2025 11:00 AM EST Office Visit [facility] PULMONARY & CRITICAL CARE MEDICINE 3000 [facility] 240 [place] [phone] Anitha Rehman, DIRECTOR OF CATEGORY MANAGEMENT [address] [place] [address] documented as of this encounter Visit Diagnoses Not on filedocumented in this encounter Care Teams Welfare Officer Relationship Specialty Start Date End Date Lionel Barriga MD 100 [facility] 200 [place] [address] PCP - General Internal Medicine 05/10/17 documented as of this encounter
--- OUTSIDE RECORDS SUMMARY | 2025-03-23 10:06 | XMS_ITS | Clinical Summary ---
Author Organization [facility] Address [address] [place] [address] Care Team Providers Care Electroplating Technician Name Role Phone Other, Physician Outoftolynn KERR [...] complete this topic Insurance 62 TANESHA SEN [id number] ONEIL MASSEY CROSS ALL OTHERS NOT MEDICARE Care Teams Electroplating Technician Relationship Specialty Start Date End Date Other, Physician MD Queta Other PCP - General Internal Medicine 09/06/23
--- OUTSIDE RECORDS SUMMARY | 2025-03-23 10:06 | XMS_ITS | Encounter Summary ---
Author Organization [facility] Address [address] [place] [address] Care Team Providers Care Branch Account Manager Name Role Phone Lionel Barriga MD Primary Care Provider +1- [phone] Encounter Details Date Type Department Care Team (Late st Contact Info) Description 05/30/2023 Prep for Surgery [facility] ORDERS ONLY [address] [place] [address] Rigo Andersen MD 1780 [facility] [address] [place], [place] [id number] Dysphagia, unspecified type (Primary Dx); Moderate coronary [...] Description 05/04/2025 11:00 AM EST Office Visit [facility] PULMONARY & CRITICAL CARE MEDICINE 3000 [facility] 240 [place] [address] Anitha Rehman, SED SPECIAL EDUCATION TEACHER [address] [place] [address] documented as of this encounter Visit Diagnoses Diagnosis Dysphagia, unspecified type- Primary Moderate coronary artery risk chest pain documented in this encounter Care Teams Branch Account Manager Relationship Specialty Start Date End Date Lionel Barriga MD 100 [facility] 200 [place] [address] PCP - General Internal Medicine 05/10/17 documented as of this encounter
--- OUTSIDE RECORDS SUMMARY | 2025-03-23 10:06 | XMS_ITS | Encounter Summary ---
[facility] Address [address] [place] [address] Care Team Providers Care Extracorporeal Technician Name Role Phone Lionel Barriga MD Primary Care Provider +1- [phone] Encounter Details Date Type Department Care Team (Late st Contact Info) Description 11/18/2024 Results Follow-Up [facility] INTERNAL MEDICINE & PEDIATRICS 100 [facility] 200 [place] [address] Lionel Barriga MD 100 [facility] 200 [place] [address] Social History Tobacco Use Types [...] Description 05/04/2025 11:00 AM EST Office Visit [facility] PULMONARY & CRITICAL CARE MEDICINE 3000 [facility] 240 [place] [address] Anitha Rehman, SAP BI DEVELOPER [address] [place] [address] documented as of this encounter Visit Diagnoses Not on filedocumented in this encounter Care Teams Extracorporeal Technician Relationship Specialty Start Date End Date Lionel Barriga MD 100 [facility] 200 [place] [address] PCP - General Internal Medicine 05/10/17 documented as of this encounter
--- OUTSIDE RECORDS SUMMARY | 2025-03-23 10:06 | XMS_ITS | Clinical Summary ---
Author Organization [facility] Address [address] [place] [address] Care Team Providers Care Senior Maintenance Machinist Name Role Phone Brisa Patel Unavailable Lionel Barriga MD Primary Care Provider +1- [phone] Allergies No known active allergies Medications acetaminophen (Tylenol) 500 MG tablet Take by mouth. Activ e aspirin 81 MG EC tablet Take 1 tablet by mouth 1 time each day. Active B Yijumlq-J-Wyrer Acid (Super B Complex/FA/Vit C) tablet Active [...] Prep) pads Active Blood Glucose Monitoring Suppl (CloudCrowdStyle Lite) w/Device kit 03/08/20 23 Active buPROPion [...] solution auto-injector 1 mg. Active Continuous Glucose Ka[place] Maori (Dexcom G6 filter machine operator) device 09/07/19 24 Active traZODone (Desyrel) 100 MG tablet 02/11/20 24 Active predniSONE (Deltasone) 5 MG tabletIndications: Rheumatoid arthritis, involving unspecified site, unspecified whether rheumatoid factor present (CMS/[facility]) 1-2 tablets daily as needed [...] Diagnosed Date Obesity (BMI 30.0-34.9) 10/11/2022 03/07/20 23 CAD (coronary artery disease) 10/03/2021 Overview (03/07/2023): NSTEMI 10/01/2021 treated at [place] with 100% ramus treated with a 2.5 mm LILY, proximal and mid LAD treated with 3.0 mm i Synergy stents. Residual chest pain admitted to [facility] 10/04/2021, repeat LHC showed widely patent ramus [...] Type Department Care Team Description 01/08/2025 Telephone [facility] Emergency Department Infusion [address] [place] [address] Amelia Starks, PharmD Actemra Infusions [...] 09/19/2024 10:52 AM EDT Plan of Treatment Health Maintenance Due Date Last Done Comments UKY-Infant/Child/Adol SDOH Screenings 1965 [id number] Vaccine (#1) 12/06/1971 Diabetes: Dental Exam 1975 [...] BLOOD ORDERABLES Final Result Performing Organization Address City/[facility]/ZIP Co de Phone Number [facility] [address] [place] [address] * Acute Hepatitis Panel (11/12/2023 9:29 AM EDT) Hepatitis B Surf Antigen Negative Negative 11/12/2023 11:46 AM EDT [facility] Hepatitis C Antibody Negative Negative 11/12/2023 11:46 AM EDT [facility] Hepatitis A Antibody IgM Negative Negative 11/12/2023 11:46 AM EDT [facility] Hepatitis B Core Antibody IgM Negative Negative 11/12/2023 11:46 AM EDT [facility] Blood Venous blood specimen / Unknown Venipuncture / Unknown 11/12/2023 9:29 AM EDT 11/12/2023 9:32 AM EDT May Jason RUIZ LAB BLOOD ORDERABLES Final Result Performing Organization Address City[facility] Co de Phone Number [facility] [address] [place] [address] from Last 3 Months or Most Recently Relevant to Health Maintenance Insurance [facility] DRUG COPAY ASSISTANCE Care Teams Senior Maintenance Machinist Relationship Specialty Start Date End Date Lionel Barriga MD 100 [facility] [address] [place] [address] PCP - General 03/07/23 Brisa Patel [address] [place] [address] 01/12/22
--- OUTSIDE RECORDS SUMMARY | 2025-03-23 10:07 | XMS_ITS | Encounter Summary ---
Author Organization [facility] Address [address] [place] [address] Care Team Providers Care Warp Worker Name Role Phone Lionel Barriga MD Primary Care Provider +1- [phone] Encounter Details Date Type Department Care Team (Late st Contact Info) Description 10/27/2024 Results Follow-Up [facility] INTERNAL MEDICINE & PEDIATRICS 100 [facility] 200 [place] [address] Lionel Barriga MD 100 [facility] 200 [place] [address] Social History Tobacco Use Types [...] CARE MEDICINE 3000 [facility] 240 [place] [address] Anitha Rehman, SALES SOLUTIONS REPRESENTATIVE [address] [place] [address] documented as of this encounter Visit Diagnoses Not on filedocumented in this encounter Care Teams Warp Worker Relationship Specialty Start Date End Date Lionel Barriga MD 100 [facility] 200 [place] [address] PCP - General Internal Medicine 05/10/17 documented as of this encounter
--- OUTSIDE RECORDS SUMMARY | 2025-03-23 10:07 | XMS_ITS | Clinical Summary ---
Author Organization [facility] Address [address] [place] [address] Care Team Providers Care Granite Cutter Name Role Phone Lionel Barriga MD Primary Care Provider +1- [phone] Allergies No known active allergies Medications Insulin Pen Needle (Pen Rangely 10/10 ) 31G X 8 MM misc [...] 24 Active Insulin Disposable Pump (Omnipod 5 CdaA4K2 Pods Gen 5) misc Use 1 each [...] 10/03/2021 Overview (10/04/2021): NSTEMI 10/01/2021 treated at [facility] with 100% ramus treated with a 2.5 mm LILY, proximal and mid LAD treated with 3.0 mm i Synergy stents. Residual chest pain admitted to [facility] 10/04/2021, repeat LHC showed widely [...] MELCHOR [Birads] 11[1] BECKY (5 year) Tyrer [place] (lifetime) Colonoscopy DEXA [T-score] Frax [hip/any] Enter [...] (10/04/2021): Added automatically from request for surgery [id number] Leg pain, left 12/04/2020 10/11/2022 Chest pain [...] be able to see pt sooner (I.e. [facility]) although insurance may be a [...] Encounters Date Type Department Care Team Description 03/12/2025 Telephone [facility] PULMONARY & CRITICAL CARE MEDICINE 3000 [facility] [address] [place] [address] Edmundo Deleon MD from Last 3 Months Immunizations Immunization [...] of adult leukema Melanoma Maternal Grandfather Sathya Lorenzana Depression Maternal Grandmother Shayy Dupree Anemia Mother [...] Grandmother Verna Lorenzana Diabetes Sister 1 Inge Valentines Drug abuse Sister 1 Inge Valentines Diabetes Sister 2 Inge Harriett Drug abuse Sister 2 Inge Harriett Diabetes Sister 3 Inge Harriett Arlet Drug abuse Sister 3 Ingebakari Valentines Arlet Breast cancer Neg Hx Colon cancer [...] Description 05/04/2025 11:00 AM EST Office Visit [facility] PULMONARY & CRITICAL CARE MEDICINE 3000 [facility] 240 [place] [id number] Anitha Rehman, IDENTITY ACCESS MANAGEMENT ARCHITECT [address] [place] [id number] Health Maintenance Due Date Last Done Comments [...] 12/31/19 20, 12/04/2019, 12/02/2019 MAMMOGRAM 04/26/2023 04/26/2022, 11/3 , 04/26/2022, Additional history exists Annual Gynecologic Pelvic an d Breast Exam 07/05/2023 07/04/2022 ANNUAL PHYSICAL 01/18/2024 01/17/2023 DIABETIC EYE EXAM 03/07/2024 03/07/2023 (Ian henson-Reported (Performed Externally)), 09/21/2017 Pneumococcal Vaccine 50+ (3 of 3 - PCV20 or PCV21) 04/08/2024 04/08/2019, 05/28/2018, 05/29/2017 DIABETIC FOOT EXAM 06/20/2024 06/20/2023, 0 06/20/2023, 09/05/2017 INFLUENZA VACCINE 12/26/2024 02/15/2023, , 03/13/2022, Additional history exists HEMOGLOBIN A1C 02/26/2025 08/27/2024, 110 10/2023, 12/28/2023, Additional history exists PAP SMEAR 08/15/2025 08/15/2022, 02/0 11/2022, 09/05/2017 LIPID PANEL 08/27/2025 08/27/2024, 10/26, 11/12/2023, Additional history exists TDAP/TD VACCINES (2 - Tdap) 12/01/2029 12/02/2019 HEPATITIS C SCREENING Completed 11/12/2023 , 10/03/2021, 06/05/2017 [facility] Discontinued Procedures Procedure Name Priority Date/Time Associated Diagnosis Comments SCANNED - LABS 03/09/2025 SCANNED - LABS 03/09/2025 SCANNED - IMAGING 02/06/2025 SCANNED - LABS [...] to Health Maintenance Results * LABS SCANNED (03/09/2025) Only the most recent of8 resultswithin the time period is included. us Lionel Barriga MD LAB BLOOD ORDERABLES Final Result * IMAGING SCANNED (02/06/2025) Anatomical Region Laterality Modality Radiographic Yara ging us Lionel Barriga MD IMG DIAGNOSTIC IMAGING ORD ERABLES Final Result * (ABNORMAL) Hemoglobin A1c (08/27/2024 3:19 PM EDT) Hemoglobin A1C 9.00(H) 4.80 - 5.60 % 08/27/2024 11:34 PM EDT [facility] Blood Venipuncture / Unknown 08/27/2024 3:19 PM EDT 08/27/2024 3:19 PM EDT Narrative [facility] - 08/27/2024 11:34 PM EDT Hemoglobin A1C Ranges: Increased Risk for Diabetes 5.7% to 6.4% Diabetes >= 6.5% Diabetic Goal < 7.0% us Lionel Barriga MD LAB BLOOD ORDERABLES Final Result [facility]
[address] [place] [address], * (ABNORMAL) Lipid Panel (08/27/2024 3:19 PM EDT) Total Cholesterol 123 0 - 200 mg/dL 08/27/2024 11:39 PM EDT [facility] Triglycerides 232(H) 0 - 150 mg/dL 08/27/2024 11:39 PM EDT [facility] HDL Cholesterol 37(L) 40 - 60 mg/dL 08/27/2024 11:39 PM EDT [facility] LDL Cholesterol 49 0 - 100 mg/dL 08/27/2024 11:39 PM EDT [facility] VLDL Cholesterol 37 5 - 40 mg/dL 08/27/2024 11:39 PM EDT [facility] LDL/HDL Ratio 1.07 08/27/2024 11:39 PM EDT [facility] Blood Venipuncture / Unknown 08/27/2024 3:19 PM EDT 08/27/2024 3:19 PM EDT Narrative [facility] - 08/27/2024 11:39 PM EDT [...] Barriga MD LAB BLOOD ORDERABLES Final Result [facility]
[address] [place] [address], * FOOT EXAM SCANNED (06/20/2023) Lionel Barriga MD CHART REVIEW TABS Final Result * LIQUID-BASED PAP SMEAR, [facility] (TWILA,COR,MAD) (08/15/2022 1:50 PM EDT) Reference Lab Report [facility] [address] [place] [address] or [phone] Sharif Fan M.D., Sleep Lab Technologist PATIENT NAME LABORATORY NO. LEOLA ROSE. [id number] AGE SEX SSN CLIENT REF # [facility] [address] 1965 F [id number] APRIL CRUZ MD REQUESTING MLexis[place]. [address] [place] [address], [place] [address] DATE COLLECTED DATE RECEIVED DATE REPORTED 08/15/2022 [...] DUE TO NON-DIAGNOSTIC Unsatisfactory cervical Papanicolaou smear PROPRIETARY TRADER: NICKI VICK(ASCP) CPT CODES: [id number] 08/16/2022 12:04 PM EDT [facility] ThinPrep Vial Collection / Unknown 08/15/2022 1:50 PM EDT 08/15/2022 1:50 PM EDT April Cruz MD PATHOLOGY/CYTOLOGY ORDERABLE S Final Result [facility]
[address] [place] [address], [place] [phone] * Mammo Screening Digital Tomosynthesis Bilateral With [...] acquisitions and tomosynthesis. COMPARISON: Outside mammograms from [place], [place] dated 02/18/2019 and 01/15/2018. FINDINGS: There [...] ve Non-Reacti ve 10/03/2021 8:39 PM EDT [facility] Hep A IgM Non-Reacti ve Non-Reacti ve 10/03/2021 8:39 PM EDT [facility] Hep B C IgM Non-Reacti ve Non-Reacti ve 10/03/2021 8:39 PM EDT [facility] Hepatitis C Ab Non-Reacti ve Non-Reacti ve 10/03/2021 8:39 PM EDT [facility] Blood Line / Unknown 10/03/2021 6: 13 PM EDT 10/03/2021 6:20 PM EDT Narrative [facility] - 10/03/2021 8:39 PM EDT Results may be falsely decreased if patient taking Biotin. Bisi Rasmussen PA-C LAB BLOOD ORDERABLES Final Result [facility]
[address] [place] [address], * SCANNED - INFLUENZA (04/08/2019) Lionel Barriga MD CHART REVIEW TABS Final Result from Last 3 Months or Most Recently Relevant to Health Maintenance Insurance [facility] Advance Directives * CPR (Attempt to [...] Of Support Discussed With: Patient Care Teams Granite Cutter Relationship Specialty Start Date End Date Lionel Barriga MD [address] [address] PCP - General Internal Medicine 05/10/17
--- OUTSIDE RECORDS SUMMARY | 2025-03-23 10:07 | XMS_ITS | Encounter Summary ---
Author Organization [facility] Address [address] [place] [address] Care Team Providers Care Bee Robber Name Role Phone Brisa Patel Unavailable Lionel Barriga MD Primary Care Provider +1- [phone] Reason for Referral * Consultation (Routine) - Closed Specialty Diagnoses / Procedures Referred By Hanna stone Referred To Contact Ophthalmology Diagnoses Type 2 diabetes mellitus treated with insulin Retinopathy Lionel Barriga MD 100 [facility] [address] [place] [address] Phone: tel: fax: [facility] [address] [place] [address] Phone: tel: fax: Referral ID Status Reason Start Date Expiration Date V isits Requested Visits Authorized [id number] Closed Specialty Services Required 03/01/2023 08/30/2024 1 1 Encounter Details Date Type Department Care Team (Late st Contact Info) Description 03/01/2023 [facility] [address] [place] [address] Lionel Barriga MD 100 [facility] [address] [place] [address] Type 2 diabetes mellitus treated with insulin (CMS/HCC) (Primary Dx); Retinopathy Social History Tobacco Use Types Packs/Day Years Used Date Smoking Tobacco: Never Assessed Comments Unknown Sex and Gender Information Value Date Recorded Sex Assigned at Not on file Legal Sex Female 8:48 PM EDT Gender Identity Not on file Sexual Orientation Not on file documented as of this encounter Plan of Treatment Scheduled Referrals Name Type Priority Associated Diagnoses Order Schedule Ambulatory Referral to Ophthalmology Outpatient Referral Routine Type 2 diabetes mellitus treated with insulin (CMS/HCC) Retinopathy Expected: 03/01/2023 (Approximate), Expires: 08/30/2024 documented as of this encounter Visit Diagnoses Diagnosis Type 2 diabetes mellitus treated with insulin- Primary Retinopathy Unspecified background retinopathy documented in this encounter Care Teams Bee Robber Relationship Specialty Start Date End Date Lionel Barriga MD 100 [facility] [address] [place] [address] PCP - General 03/07/23 Brisa Patel [address] [place] [address] 01/12/22 documented as of this encounter
--- OUTSIDE RECORDS SUMMARY | 2025-03-23 10:07 | XMS_ITS | Clinical Summary ---
Author Organization [facility] Address [address] [facility], [address] [place] [address] Care Team Providers Care Gear Room Keeper Name Role Phone Unavailable Primary Care Provider [...]
--- OUTSIDE RECORDS SUMMARY | 2025-03-23 10:07 | XMS_ITS | Encounter Summary ---
Author Organization [facility] Address [address] [place] [address] Care Team Providers Care Weapons Engineer Name Role Phone Brisa Patel Unavailable Lionel Barriga MD Primary Care Provider + [phone] Encounter Details Date Type Department Care Team (Late st Contact Info) Description 01/17/2022 [facility] [address] [place] [address] Jami Maldonado, RETAIL MERCHANDISER TECHNICIAN 100 [facility] [address] [place] [address] Rheumatoid arthritis, involving unspecified site, unspecified whether rheumatoid factor present (CMS/HCC) (Primary Dx) Social History Tobacco Use Types Packs/Day Years Used Date Smoking Tobacco: Never Assessed Comments Unknown Sex and Gender Information Value Date Recorded Sex Assigned at Not on file Legal Sex Female 8:48 PM EDT Gender Identity Not on file Sexual Orientation Not on file documented as of this encounter Plan of Treatment Not on file documented as of this encounter Visit Diagnoses Diagnosis Rheumatoid arthritis, involving unspecified site, unspecified whether rheumatoid factor present (CMS/HCC)- Primary documented in this encounter Care Teams Weapons Engineer Relationship Specialty Start Date End Date Lionel Barriga MD [address] [facility] [address] [place] [address] PCP - General 03/07/23 Brisa Patel [address] [place] [address] 01/12/22 documented as of this encounter
--- OUTSIDE RECORDS SUMMARY | 2025-03-23 10:07 | XMS_ITS | Encounter Summary ---
[facility] Address [address] [place] [address] Care Team Providers Care Casket Inspector Name Role Phone Lionel Barriga MD Primary Care Provider +1- [phone] Reason for Visit * Reason Onset Date Comments Med Refill 04/12/2022 Encounter Details Date Type Department Care Team (Late st Contact Info) Description 04/12/2022 Telephone [facility] ENDOCRINOLOGY [address] [facility] [address] [place] [address] Kasey Rose MD [address] [facility] [address] [place] [address] Med Refill Social History Tobacco [...] 4:27 PM EST Pt called back and [facility] pharmacy does not have ozempic. She has called multiple pharmacies to find it. She requests assistance finding ozempic and requestsyou send it to the pharmacy. She said she will do mail order. Please call pt at [phone] documented in this encounter Plan of Treatment Upcoming Encounters Date Type Department Care Team (Late st Contact Info) Description 05/04/2025 11:00 AM EST Office Visit [facility] PULMONARY & CRITICAL CARE MEDICINE 3000 [facility] 240 [place] [address] Anitha Rehman, HOOP RIVETING MACHINE OPERATOR HELPER [address] [place] [address] documented as of this encounter Visit Diagnoses Not on filedocumented in this encounter Additional Health Concerns Infection Onset Date Last Indicated Resolved Time COVID (rule out) 01/19/2023 01/19/2023 01/26/2023 9:08 PM EDT documented as of this encounter Care Teams Casket Inspector Relationship Specialty Start Date End Date Lionel Barriga MD 100 [facility] 200 [place] [address] PCP - General Internal Medicine 05/10/17 documented as of this encounter
--- OUTSIDE RECORDS SUMMARY | 2025-03-23 10:07 | XMS_ITS | Encounter Summary ---
[facility] Address [address] [place] [address] Care Team Providers Care Heel Former Name Role Phone Lionel Barriga MD Primary Care Provider +1- [phone] Encounter Details Date Type Department Care Team (Late st Contact Info) Description 03/12/2025 Telephone [facility] PULMONARY & CRITICAL CARE MEDICINE 3000 [facility] 240 [place] [address] dEmundo Deleon MD [address] [place] [id number] Social History Tobacco Use Types Packs/Day Years [...] encounter Miscellaneous Notes * Telephone Encounter - UmpquaIvette yeung RegSched Rep - 03/12/2025 12:36 PM EDTSummary: CT ORDER Patient called to reschedule her upcoming appointment. She mentioned that she is only available on Mondays. Additionally, she stated that she needs a CT scan prior to the visit. Could you please send the CT order to [facility] in [place]? documented in this encounter Plan of Treatment Upcoming Encounters Date Type Department Care Team (Late st Contact Info) Description 05/04/2025 11:00 AM EST Office Visit [facility] PULMONARY & CRITICAL CARE MEDICINE 3000 [facility] [address] [place] [address] Anitha Rehman, SOIL ANALYST [address] [place] [address] documented as of this encounter Visit Diagnoses Not on filedocumented in this encounter Care Teams Heel Former Relationship Specialty Start Date End Date Lionel Barriga MD 100 [facility] 200 [place] [address] PCP - General Internal Medicine 05/10/17 documented as of this encounter
[2025-03-23] MEDS: SODIUM CHLORIDE 0.9% 10ML FLUSH SYRINGE 10 ML IV (10:17)
[2025-03-23 10:18] VITALS: BP 128/75; PULSE 62; RESP 16; TEMP 36.6; O2SAT 98
[2025-03-23] MEDS: TOCILIZUMAB 800 MG in 0.9 % SODIUM CHLORIDE 60 ML 100 MG IV (10:18)
[2025-03-23 10:34] LABS: Hematocrit 44.2 % (37.0-47.0); Hemoglobin 14.5 g/dL (12.2-16.2); Immature Granulocytes % 0.2 %; Mean Corpuscular HGB Conc 32.8 g/dL (31.8-35.4); Mean Corpuscular Hemoglobin 29.1 pg (27.0-31.2); Mean Corpuscular Volume 88.6 fl (81-99); Nucleated Red Blood Cells % 0 %; Platelet Count 201 K/mm3 (142-424); Red Blood Count 4.99 M/mm3 (4.20-5.40); Red Cell Distribution Width-SD 40.3 fL; White Blood Count 5.8 K/mm3 (4.8-10.8)
[2025-03-23 10:43] LABS: Albumin Level 3.1 g/dl (3.5-5.0); Chloride 105 mmol/L (98-107); Potassium 4.0 mmoL/L (3.5-5.1); Sodium 132 mmol/L (136-145)
[2025-03-23 10:45] LABS: Blood Urea Nitrogen 18 mg/dl (7-17); Creatinine,Serum 0.80 mg/dl (0.52-1.04); Estimated Glomerular Filt Rate 74 ml/min (>60); GFR (African American) 89 ML/MIN (>60)
[2025-03-23 10:46] LABS: Alanine Aminotransferase 42 U/L (12-78); Albumin/Globulin Ratio 0.9 (1.1-1.8); Alkaline Phosphatase 98 U/L (38-126); Anion Gap 7.0 mEq/L (5-15); Aspartate Amino Transferase 45 U/L (14-36); Bilirubin,Total 0.6 mg/dl (0.2-1.3); Calcium 8.7 mg/dl (8.4-10.2); Carbon Dioxide 24 mmol/L (22.0-30.0); Globulin 3.3 g/dL (1.3-3.2); Glucose 172 mg/dl (74-100); Total Protein,Serum 6.4 g/dl (6.3-8.2)
[2025-03-23 11:18] VITALS: BP 121/74; PULSE 66; RESP 14; TEMP 36.6; O2SAT 98
== END 2025-03-23 23:59 | disposition home or self-care (01) ==
LOC: INF 09:57
PROVIDERS: PCP Internal Medicine; Visit Provider Nurse Practitioner Primary Care
DX: M06.9 Rheumatoid arthritis, unspecified (principal)
CPT/HCPCS: 80053; 85025; 96413; J3262

== ENCOUNTER 2025-05-18 08:53 | Outpatient (CLI) | payer OTHER, SELFPAY ==
--- OUTSIDE RECORDS SUMMARY | 2020-10-29 12:31 | XMS_ITS | Encounter Summary ---
[facility] Address [address] [place] [address] Care Team Providers Care Blood Bank Laboratory Technologist Name Role Phone Lionel Barriga MD Primary Care Provider +1- [phone] Reason for Visit * Diagnostic Imaging (Routine) - Closed Specialty Diagnoses / Procedures Referred By Hanna stone Referred To Contact Radiology Diagnoses Nontoxic multinodular goiter Procedures US Thyroid Kasey Rose MD [address] [place] [address] Phone: tel: fax: [facility] [address] [place] [address] Phone: tel: fax: Referral ID Status Reason Start Date Expiration Date Visits Re quested Visits Authorized [id number] Closed 10/29/2020 10/29/2021 1 1 Encounter Details Date Type Department Care Team (Late st Contact Info) Description 10/29/2020 1:31 PM EDT Hospital Encounter [facility] [address] [facility] [address] [place] [address] Social History Tobacco Use Types Packs/Day Years Used Date Smoking Tobacco: Former Cigarettes 1 15 Q uit: 05/28/2016 Passive Smoke Exposure: Past Smokeless Tobacco: Never Comments:Had several on and off quit dates for last 2 years Alcohol Use Standard Drinks/Week Comments Not Currently 0 (1 standard drink = 0.6 oz pur e alcohol) Social only AUDIT-C Answer Date Recorded Q1: How often do you have a drink containing alcohol? Never 10/03/2021 Q2: How many drinks containi ng alcohol do you have on a typical day when you are drinking? Patient does not drink Q3: How often do you have si x or more drinks on one occasion? Never 10/03/2021 PHQ-2 Answer Date Recorded Retired PHQ-9: Brief Depression Severity Measure Score 0 10/11/2022 Hunger Vital Sign Answer Date Recorded Within the past 12 months, y ou worried that your food would run out before you got the money to buy more. Never true 05/18/20 20 Within the past 12 months, t he food you bought just didn't last and you didn't have money to get more. Never true 05/18/2020 PRAPARE - Transportation Answer Date Re corded In the past 12 months, has l ack of transportation kept you from medical appointments or from getting medications? No 04/28 In the past 12 months, has l ack of transportation kept you from meetings, work, or from getting things needed for daily living? No 05/18/2020 Abuse Screen Answer Date Recorded Feels Unsafe at Home or Work/School no 04/25/2023 Feels Threatened by Someone no 03/29 Does Anyone Try to Keep You From Having Contact with Others or Doing Things Outside Your Home? no 04/25/2023 Physical Signs of Abuse Present no 04/25/2023 PHQ-2 Answer Date Recorded Patient Health Questionnaire-9 Score 9 01/13/2025 Comments No Sex and Gender Information Value Date Recorded Sex Assigned at Female 12/20/2022 8:52 AM EDT Legal Sex Female 11:19 AM EDT Gender Identity Female 03/29/2023 8:39 PM EDT Sexual Orientation Straight 12/20/2022 8: 52 AM EDT documented as of this encounter Plan of Treatment Upcoming Encounters Date Type Department Care Team (Late st Contact Info) Description 06/29/2025 11:30 AM EST Office Visit [facility] PUL[facility] & [facility]ITICAL CARE MEDICINE [address] [facility] [address] [place] [address] Anitha Rehman, RENEWAL SPECIALIST [address] [place] [address] 06/29/2025 12:00 PM EST Office Visit [facility] INTERNAL MEDICINE & PEDIATRICS 100 [facility] 200 [place] [address] Lionel Barriga MD 100 [facility] 200 [place] [address] documented as of this encounter Procedures Procedure Name Priority Date/Time Associated Diagnosis Comments US THYROID Routine 10/29/2020 1:31 PM EDT Nontoxic multinodular goiter documented in this encounter Results * US Thyroid (10/29/2020 1:31 PM EDT) Narrative SYSTEMGENERATED, DOCUMENTATION - 10/29/2020 1:31 PM EDT Please see performing physician's note for result. us Kasey Perla MD IMG US ORDERABLES Final Result documented in this encounter Visit Diagnoses Not on filedocumented in this encounter Additional Health Concerns Infection Onset Date Last Indicated Resolved Time COVID Screen (preop/placement) 12/03/2020 12/03/2020 12/03/2020 11:44 PM EDT COVID Screen (preop/placement) 10/03/2021 10/03/2021 10/03/2021 9:11 PM EDT COVID (rule out) 01/19/2023 01/19/2023 01/26/2023 9:08 PM EDT documented as of this encounter Care Teams Blood Bank Laboratory Technologist Relationship Specialty Start Date End Date Lionel Barriga MD [address] [place] [id number] PCP - General Internal Medicine 05/10/17 documented as of this encounter
--- OUTSIDE RECORDS SUMMARY | 2022-04-11 16:45 | XMS_ITS | Encounter Summary ---
[facility] Address [address] [place] [address] Care Team Providers Care Plumbing Mechanic Name Role Phone Lionel Barriga MD Primary Care Provider +1- [phone] Reason for Visit * Diagnostic Imaging (Routine) - Closed Specialty Diagnoses / Procedures Referred By Contrhea t Referred To Contact Radiology Diagnoses Nontoxic multinodular goiter Procedures US Thyroid Kasey Rose MD [address] [place] [address] Phone: tel: fax: Referral ID Status Reason Start Date Expiration Date Visits Re quested Visits Authorized [id number] Closed 04/11/2022 04/11/2023 1 1 Encounter Details Date Type Department Care Team (Late st Contact Info) Description 04/11/2022 4:45 PM EST Hospital Encounter [facility] ENDOCRINOLOG[facility] [address] [place] [address] Social History Tobacco Use Types Packs/Day Years [...] Description 06/29/2025 11:30 AM EST Office Visit [facility] PULMONARY & CRITICAL CARE MEDICINE 3000 [facility] [address] [place] [address] Anitha Rehman Isaac, CONSIGNEE 2400 [place] [address] 06/29/2025 12:00 PM EST Office Visit [facility] INTERNAL MEDICINE & PEDIATRICS 100 [facility] 200 [place] [address] Lionel Barriga MD 100 [facility] 200 [place] [address] documented as of this encounter Procedures Procedure Name Priority Date/Time Associated Diagnosis Comments US THYROID Routine 04/11/2022 4:45 PM EST Nontoxic multinodular goiter documented in this encounter Results * US Thyroid (04/11/2022 4:45 PM EST) Narrative SYSTEMGENERATED, DOCUMENTATION - 04/11/2022 4:45 PM EST Please see performing physician's note for result. us Kasey Perla MD IMG US ORDERABLES Final Result documented in this encounter Visit Diagnoses Not on filedocumented in this encounter Additional Health Concerns Infection Onset Date Last Indicated Resolved Time COVID (rule out) 01/19/2023 01/19/2023 01/26/2023 9:08 PM EDT documented as of this encounter Care Teams Plumbing Mechanic Relationship Specialty Start Date End Date Lionel Barriga MD 100 [facility] 200 [place] [address] PCP - General Internal Medicine 05/10/17 documented as of this encounter
--- OUTSIDE RECORDS SUMMARY | 2023-06-26 15:37 | XMS_ITS | Encounter Summary ---
[facility] [address] [place] [address] Care Team Providers Care Machine Chain Maker Name Role Phone Lionel Barriga MD Primary Care Provider +1- [phone] Reason for Visit * Diagnostic Imaging (Routine) - Closed Specialty Diagnoses / Procedures Referred By Contrhea t Referred To Contact Radiology Diagnoses Nontoxic multinodular goiter Procedures US Thyroid Kasey Rose MD [address] [place] [address] Phone: tel: fax: Referral ID Status Reason Start Date Expiration Date Visits Re quested Visits Authorized [id number] Closed 06/26/2023 06/25/2024 1 1 Encounter Details Date Type Department Care Team (Late st Contact Info) Description 06/26/2023 3:37 PM EST Hospital Encounter [facility] ENDOCRINOLOGY [address] [place] [address] Social History Tobacco Use Types Packs/Day Years [...] Description 06/29/2025 11:30 AM EST Office Visit [facility] PULMONARY & CRITICAL CARE MEDICINE 3000 [facility] [address] [place] [address] Ori Anitha Isaac, J2EE CONSULTANT [address] [place] [address] 06/29/2025 12:00 PM EST Office Visit [facility] INTERNAL MEDICINE & PEDIATRICS 100 [facility] 200 [place] [address] Lionel Barriga MD 100 [facility] 200 [place] [address] documented as of this encounter Procedures Procedure Name Priority Date/Time Associated Diagnosis Comments US THYROID Routine 06/26/2023 3:37 PM EST Nontoxic multinodular goiter documented in this encounter Results * US Thyroid (06/26/2023 3:37 PM EST) Narrative SYSTEMGENERATED, DOCUMENTATION - 06/26/2023 3:37 PM EST Please see performing physician's note for result. us Kasey Perla MD IMG US ORDERABLES Final Result documented in this encounter Visit Diagnoses Not on filedocumented in this encounter Care Teams Machine Chain Maker Relationship Specialty Start Date End Date Lionel Barriga MD 100 [facility] 200 [place] [address] PCP - General Internal Medicine 05/10/17 documented as of this encounter
--- OUTSIDE RECORDS SUMMARY | 2025-04-20 10:00 | XMS_ITS | Encounter Summary ---
Author Organization [facility] Address [address] [place] [address] Care Team Providers Care Lumber Carrier Operator Name Role Phone Brisa Patel Unavailable Lionel Barriga MD Primary Care Provider [phone]- [phone] Encounter Details Date Type Department Care Team (Late st Contact Info) Description 04/20/2025 10:00 AM EST Office Visit [place] [facility] [address] [place] [address] Jason, May R, WIRE COATER [address] [place] [address] Rheumatoid arthritis, involving unspecified site, unspecified whether rheumatoid factor present (CMS/HCC) (Primary Dx); High risk medication use; Sicca syndrome (CMS/HCC); Family history of Crohn's disease Social History Tobacco Use Types Packs/Day Years Used Date Smoking Tobacco: Former Cigarettes 1 15 Smokeless Tobacco: Never Alcohol Use Standard Drinks/Week Comments Not Currently 0 (1 standard drink = 0.6 oz pur e alcohol) PHQ-2 Answer Date Recorded Patient Health Questionnaire-2 Score 0 09/15/2024 PHQ-9 Answer Date Recorded Patient Health Questionnaire-9 Score 0 09/15/2024 AUDIT-C Answer Date Recorded Q1: How often do you have a drink containing alcohol? Never 04/20/2025 Q2: How many drinks containi ng alcohol do you have on a typical day when you are drinking? Patient does not drink Q3: How often do you have si x or more drinks on one occasion? Never 04/20/2025 Comments Unknown Sex and Gender Information Value Date Recorded Sex Assigned at Not on file Legal Sex Female 8:48 PM EDT Gender Identity Not on file Sexual Orientation Not on file documented as of this encounter Last Filed Vital Signs Vital Sign Reading Time Taken Comments Blood Pressure 126/72 04/20/2025 9:58 AM EST Pulse 84 04/20/2025 9:58 AM EST Temperature - - Respiratory Rate 16 04/20/2025 9:58 AM EST Oxygen Saturation 95% 04/20/2025 9:58 AM EST Inhaled Oxygen Concentration - - Weight 94.4 kg (208 lb 1.8 oz) 04/20/2025 9:58 A M EST Height 170.2 cm (5' 7 ) 04/20/2025 9:58 AM EST Body Mass Index 32.6 04/20/2025 9:58 AM EST documented in this encounter Functional Status * AUDIT-C Score Answer Date of Assessment Author 0 04/20/2025 10:01 AM EST Leslye Kimbrough * Question Answer Date of Assessment Author Q1: How often do you have a drink containing alcohol? Never 04/20/2025 10:01 AM EST Luis Gibson in R Q2: How many drinks containing alcohol do you have on a typical day when you are drinking? Patient does not drink 04/20/2025 10:01 AM EST Leslye Gibson Q3: How often do you have six or more drinks on one occasion? Never 04/20/2025 10:01 AM Luis Mendieta R documented as of this encounter Miscellaneous Notes * Addendum Note - Юлия Gomez APRN - 04/20/2025 10:00 AM ESTAddended by: ЮЛИЯ GOMEZ on: 04/20/2025 10:44 AM Modules accepted: Orders * Progress Notes - Юлия Gomez WIRE COATER - 04/20/2025 10:00 AM EST Subjective Patient ID: Leola Kaminski is a 59 y.o. female with HPI Leola Kaminski is a 59 y.o. female with PMH significant for DM II, Multinodular Goiter, HLD, Anxiety, depression, CAD, ME 2021 with 3 stents placed, who presents as a follow up for Seronegative RA . Last seen in 10/2024 Referral note and labs reviewed: outside labs RF neg 12/2022 Dr. Munguia It Assistant at [facility] 2016 Rheum Med HX Methotrexate 2 years ( ineffective) helped then stopped working (had diarrhea, hair loss, lost memory) Humira 6 months ( ineffective) Enbrel on it 6 months ineffective Rinvoq on it 6 months ineffective Start Actemra infusion 10/2023 - current Joints: Today: Had Right knee arthroscopic surgery since last visit and doing well. She may be having surgery on left knee after the first of the year. She was off Actemra for 2-3 months. 80% improvement in symptoms. She feels her symptoms worsen at the 3rd week after the infusion. Morning stiffness lasts 2-3 hours. Reviewed labs from 02/2025 on patients phone. AST slightly elevated. LDL 93 total cholesterol 210. She is now on Mounjaro and doing well. Last visit: Off Actemra for month due to insurance change. It has been hard to get out of bed. Swelling in hands, feet. Knee's and hip have been hurting. Morning stiffness lasting 1 1/2 hours. She jesse an insulin pump. Initial Rheumatological ROS positive for dry eyes,dry mouth, Rest ROS negative for oral ulcers, nasal ulcers, alopecia, serositis, psoriasis, rash, photosensitivity, Raynaud's symptoms or digit ulcerations, renal disease or macroscopic hematuria, psychosis or delirium, seizures, IBD, uveitis or episcleritis, blood clots or miscarriages. Review of Systems Constitutional: Negative for chills and fever. Respiratory: Negative for shortness of breath. Cardiovascular: Negative for chest pain. Family History: Daughter SLE/APLS, Mother with Crohn's Social History: No known exposure to HCV or HIV. No hx IV drug use. hx of tobacco use 1 ppd x 15 years Quit years ago then restarted recently. No hx of alcohol abuse. Occupational hx: Not employed The following portions of the chart were reviewed this encounter and updated as appropriate: Past Medical History: Diagnosis Date Abnormal ECG Cataract 2019 Clotting disorder On blood Thinners since 10/01/2021 Diabetes mellitus Dry eyes Heart attack (CMS/HCC) 10/01/2021 RA (rheumatoid arthritis) 2019 History reviewed. No pertinent surgical history. Social History Socioeconomic History Marital status: Spouse name: Not on file Number of children: Not on file Years of education: Not on file Highest education level: Not on file Occupational History Not on file Tobacco Use Smoking status: Former Current packs/day: 1.00 Average packs/day: 1 pack/day for 15.0 years (15.0 ttl pk-yrs) Types: Cigarettes Smokeless tobacco: Never Vaping Use Vaping status: Never Used Substance and Sexual Activity Alcohol use: Not Currently Drug use: Never Sexual activity: Not on file Other Topics Concern Not on file Social History Narrative Not on file Social Drivers of Health Financial Resource Strain: Not on file Food Insecurity: Unknown (09/06/2023) Received from [employer] Food Insecurities Worried about running out of food: Not on file Food Bought: Not on file Transportation Needs: Unknown (09/06/2023) Received from [employer] [facility] [employer] Transportation Worried about transportation: Not on file Physical Activity: Not on file Stress: Not on file Social Connections: Not on file Intimate Partner Violence: Unknown (09/06/2023) Received from [employer] Interpersonal Safety Feel physically or emotionally unsafe where currently live: Not on file Harm by anyone: Not on file Emotionally Harmed: Not on file Housing Stability: Unknown (09/06/2023) Received from [employer] Housing/Utilities Worried about losing home: Not on file Stayed outside house: Not on file Unable to get utilities: Not on file Family History Problem Relation Name Age of Onset Cataracts Mother Effie Valentines Macular degeneration Mother Effie Antonio Eddins COPD Mother Effie Antonio Harriett Crohn's disease Mother Effie Antonio Harriett Thyroid disease Mother Effie Valentines Hypertension Father Sathya Olguin Eddins Diabetes Father Sathya Olguin Eddins Stroke Father Sathya Valentines Cataracts Father Sathya Valentines Cancer Maternal Grandfather Diabetes Paternal Grandmother Verna Lorenzana No Known Allergies Current Outpatient Medications Medication Sig Dispense Refill acetaminophen (Tylenol) 500 MG tablet Take by mouth. Alcohol Swabs (Alcohol Prep) pads atomoxetine (Strattera) 25 MG capsule Take 1 capsule by mouth 1 time each day. B Mhwbipp-U-Xbqjv Acid (Super B Complex/FA/Vit C) tablet buPROPion XL (Wellbutrin XL) 300 MG 24 hr tablet Take 450 mg by mouth 1 (one) time each day in the morning. cholecalciferol 50 MCG (2000 UT) tablet clopidogrel (Plavix) 75 MG tablet Take 1 tablet by mouth 1 time each day. Continuous Glucose Data Compiler (Dexcom G6 lumber carrier operator) device Continuous Glucose Sensor (Dexcom G6 Sensor) misc estradiol (Estrace) 0.1 MG/GM vaginal cream fluticasone (Flonase) 50 MCG/ACT nasal spray Glucagon 1 MG/0.2ML solution auto-injector hydrOXYzine HCl (Atarax) 50 MG tablet Take 1 tablet by mouth daily. insulin aspart, w/niacinamide, 100 UNIT/ML solution vial Infuse 100 Units into a venous catheter. Insulin Lispro (Admelog, HumaLOG) 100 UNIT/ML injection vial Continuously via insulin pump up to 100 units daily metoprolol succinate XL (Toprol-XL) 50 MG 24 hr tablet Take 1 tablet by mouth 1 time each day. Mounjaro 2.5 MG/0.5ML solution auto-injector solution pen-injector INJECT THE CONTENTS OF 1 PEN (2.5 MG / 0.5ML) SUBCUTANEOUSLY ONCE A WEEK nitroglycerin (Nitrostat) 0.[address] 1 tablet under the tongue. Omnipod 5 G6 Pod, Gen 5, (Omnipod5) misc ondansetron ODT (Zofran-ODT) 4 MG disintegrating tablet PARoxetine (Paxil) 30 MG tablet Take 1 tablet by mouth 1 time each day. predniSONE (Deltasone) 5 MG tablet 1-2 tablets daily as needed for flare up. Notify Rheumatology provider if you have to take for 5 consecutive days. (Patient taking differently: as needed. 1-2 tablets daily as needed for flare up. Notify Rheumatology provider if you have to take for 5 consecutive days.) 30 tablet 1 rosuvastatin (Crestor) 20 MG tablet Take 1 tablet (20 mg) by mouth 1 (one) time each day. 30 [id number] Synjardy XR 25-1000 MG 24 hr tablet Take 1 tablet by mouth daily with breakfast. tocilizumab (Actemra) 80 MG/4ML solution Inject 0.4 mL under the skin every 7 days. traZODone (Desyrel) 100 MG tablet aspirin 81 MG EC tablet Take 1 tablet by mouth 1 time each day. (Patient not taking: Reported on 04/20/2025) Blood Glucose Monitoring Suppl (OneSeed ExpeditionsStyle Lite) w/Device kit (Patient not taking: Reported on 04/20/2025) famotidine-calcium carb-mag hydroxide (Pepcid Complete) 10-800-165 MG chewable tablet Chew 1 tabletdaily as needed for heartburn. (Patient not taking: Reported on 04/20/2025) Glucagon 0.5 MG/0.1ML solution auto-injector 1 mg. (Patient not taking: Reported on 04/20/2025) methylPREDNISolone (Medrol Dospak) 4 MG tablets Follow schedule on package instructions (Patient not taking: Reported on 04/20/2025) 21 tablet 0 Multiple Vitamin (MULTI-VITAMIN DAILY PO) (Patient not taking: Reported on 04/20/2025) pantoprazole (Protonix) 40 MG EC tablet Take 1 tablet (40 mg) by mouth 1 (one) time each day. (Patient not taking: Reported on 04/20/2025) No current facility-administered medications for this visit. Objective Vitals: 04/20/25 0958 BP: 126/72 Pulse: 84 Resp: 16 SpO2: 95% Physical Exam Vitals reviewed. Constitutional: General: She is not in acute distress. Appearance: Normal appearance. HENT: Mouth/Throat: Mouth: Mucous membranes are moist. Eyes: Conjunctiva/sclera: Conjunctivae normal. Pupils: Pupils are equal, round, and reactive to light. Pulmonary: Effort: Pulmonary effort is normal. Musculoskeletal: Comments: See homunculus. No synovitis. Normal ROM of joints. No synovitis crepitus left Knee. Skin: General: Skin is warm. Findings: No rash. Neurological: General: No focal deficit present. Mental Status: She is alert. Psychiatric: Mood and Affect: Mood normal. There is currently no information documented on the homunculus. Go to the [facility]. Joint Exam 04/20/2025 No joint exam has been documented for this visit 11/12/2023 03/17/2024 09/15/2024 LOCKWOOD-28 (ESR) -- -- -- LOCKWOOD-28 (CRP) -- -- -- Tender (LOCKWOOD-28) 9 / 28 2 / 5 / Swollen (LOCKWOOD-28) 0 28 0 28 0 Provider Global -- -- -- Patient Global -- -- -- ESR -- -- -- CRP -- -- -- Swollen Joint Count: Swollen: -- 0 Tender Joint Count: Tender: -- 7 Patient global assessment: 2.5/10 Rapid 3 score: 7.8/30 CDAI: 12 IMAGING 10/2023 Narrative & Impression CLINICAL INDICATION: foot pain ? RA TECHNIQUE: XR FOOT LEFT 3+ VIEWS, XR FOOT RIGHT 3+ VIEWS, XR HAND WRIST BILATERAL 2 VIEWS, XR KNEE LEFT 1 OR 2VIEWS, XR KNEE RIGHT 1 OR 2 VIEWS COMPARISON: None. FINDINGS: 3 views of the bilateral hand. Normal joint space and alignment. No erosive changes. Soft tissues are normal. No inflammatory bone formation. Ring is obscured of the midshaft of the left ring finger proximal phalanx. 2 views of the left knee show normal joint space and alignment. No fracture or osteonecrosis. No effusion or erosive changes. No significant soft tissue abnormality. 2 views of the right knee show normal joint space and alignment. No fracture or osteonecrosis. No effusion or erosive changes. No significant soft tissue abnormality. 3 views of the left foot. Normal joint space and alignment. No erosive changes. Soft tissues are normal. Degenerative plantar calcaneal spur. No inflammatory bone formation. 3 views of the right foot. Normal joint space and alignment. No erosive changes. Soft tissues are normal. Old healed fracture of the fifth metatarsal shaft. Degenerative plantar calcaneal spur. No inflammatory bone formation. IMPRESSION: No findings of rheumatoid arthritis involving the hands, knees or feet. Assessment/Plan No diagnosis found. Diagnosis Plan 1. Seronegative RA Diff Dx: RA, OA, PsA, SpA No synovitis on exam History sounds mixed mechanical/inflammatory Has tried multiple biologics in the past without much relief Suspect OA is mostly causing her symptoms She was off infusion for 3 month due to surgery and an injury CDAI: 12 moderate activity Continue Actemra 2. Lung Nodule CT yearly per Machine Operator Slitter Technician 02/2024 CT CHEST WO IV CONTRAST Order: [id number] Impression Impression: 1. No acute intrathoracic process. 2. Stable 5 mm right middle lobe nodule and 3 mm left lower lobe pulmonary nodule. These are unchanged from 202 consistent with benign etiology. No new or enlarging nodule. 3. Mildly enlarged right hilar lymph nodes are also unchanged from 202 compatible with benign etiology. 4. Coronary artery disease with calcifications and coronary stents. 3. DM II Followed by PCP On an insulin pump 4. ME with 2 stents placed 2021 On a statin Avoid NENO inhibitor 5. High risk medication monitoring Actemra - Monitoring labs 03/20 -HIV negative 11/18 -HBV negative 11/18 -HCV negative 11/18 negative 11/18 -TB Quant Gold neg 10/2023 Lipid WNL 08/2024 care Everywhere RTC 6 months Today, I personally spent minutes on the encounter. The patient was counseled about diagnostic results, instruction for management, risk factors reduction, prognosis, compliance with visits and treatment, risks and benefits of treatments options. Prior notes (by external physicians) and results were reviewed by me with independent interpretation of labs and imaging. My note will be sent to PCP and other consulting physicians. Parts of this note were dictated using [employer] Direct voice recognition software. As a result, errors may occur. When identified, these intermediate project manager errors are corrected, but while every attempt is made to prevent/correct these, errors may still exist. documented in this encounter Plan of Treatment Upcoming Encounters Date Type Department Care Team (Late st Contact Info) Description 10/20/2025 10:30 AM EDT Office Visit [facility] Medicine Specialties [address] [place] [address] Jason May Barry, SARA [address] [place] [address] documented as of this encounter Visit Diagnoses Diagnosis Rheumatoid arthritis, involving unspecified site, unspecified whether rheumatoid factor present (CMS/HCC)- Primary High risk medication use Sicca syndrome (CMS/HCC) Sicca syndrome Family history of Crohn's disease Family history of other digestive disorders documented in this encounter Additional Health Concerns Assessment Noted Time PHQ-9 Depression Total Score: 0 09/16/19 25 10:19 AM EDT A fall risk assessment has been complete d for the patient 04/20/2025 10:01 AM EST A Body Mass Index follow-up plan has been documented for the patient 04/20/2025 10:39 AM EST documented as of this encounter Care Teams Lumber Carrier Operator Relationship Specialty Start Date End Date Lionel Barriga MD [address] [facility] [address] [place] [address] PCP - General 03/07/23 Brisa Patel [address] [place] [address] 01/12/22 documented as of this encounter
--- OUTSIDE RECORDS SUMMARY | 2025-05-18 08:56 | XMS_ITS | Encounter Summary ---
[facility] Address [address] [place] [address] Care Team Providers Care Multimedia Journalist Name Role Phone Lionel Barriga MD Primary Care Provider +1- [phone] Reason for Visit * Reason Onset Date Comments Med Refill 04/12/2022 Encounter Details Date Type Department Care Team (Late st Contact Info) Description 04/12/2022 Telephone [facility] ENDOCRINOLOGY [address] [facility] [address] [place] [address] Kasey Rose MD [address] [facility] [address] [place] [address] Med Refill Social History Tobacco [...] do mail order. Please call pt at [phone] documented in this encounter Plan of Treatment Upcoming Encounters Date Type Department Care Team (Late st Contact Info) Description 06/29/2025 11:30 AM EST Office Visit [facility] PULMONARY & CRITICAL CARE MEDICINE [address] [facility] [address] [place] [address] Anitha Rehman, NOTE TELLER [address] [place] [address] 06/29/2025 12:00 PM EST Office Visit [facility] INTERNAL MEDICINE & PEDIATRICS 100 [facility] [address] [place] [id number] Lionel Barriga MD 100 [facility] [address] [place] [address] documented as of this encounter Visit Diagnoses Not on filedocumented in this encounter Additional Health Concerns Infection Onset Date Last Indicated Resolved Time COVID (rule out) 01/19/2023 01/19/2023 01/26/2023 9:08 PM EDT documented as of this encounter Care Teams Multimedia Journalist Relationship Specialty Start Date End Date Lionel Barriga MD 100 [facility] [address] [place] [address] PCP - General Internal Medicine 05/10/17 documented as of this encounter
--- OUTSIDE RECORDS SUMMARY | 2025-05-18 08:56 | XMS_ITS | Encounter Summary ---
[facility] Address [address] [place] [address] Care Team Providers Care Coastal Tug Mate Name Role Phone Lionel Barriga MD Primary Care Provider +1- [phone] Encounter Details Date Type Department Care Team (Late st Contact Info) Description 10/27/2024 Results Follow-Up [facility] INTERNAL MEDICINE & PEDIATRICS 100 [facility] 200 [place] [address] Lionel Barriga MD 100 [facility] [address] [place] [address] Social History Tobacco Use Types [...] Description 06/29/2025 11:30 AM EST Office Visit [facility] PULMONARY & CRITICAL CARE MEDICINE 3000 [facility] 240 [place] [address] Anitha Rehman, ICT DEVELOPMENT MANAGER [address] [place] [address] 06/29/2025 12:00 PM EST Office Visit [facility] INTERNAL MEDICINE & PEDIATRICS [address] [phone] Lionel Barriga MD [address] [address] documented as of this encounter Visit Diagnoses Not on filedocumented in this encounter Care Teams Coastal Tug Mate Relationship Specialty Start Date End Date Lionel Barriga MD [address] [address] PCP - General Internal Medicine 05/10/17 documented as of this encounter
--- OUTSIDE RECORDS SUMMARY | 2025-05-18 08:56 | XMS_ITS | Clinical Summary ---
Author Organization [facility] Address [address] [place] [address] Care Team Providers Care Rn Neonatal Name Role Phone Lionel Barriga MD Primary Care Provider +1- [phone] Allergies No known active allergies Medications Insulin Pen Needle (Pen Muscoda 10/10 ) 31G X 8 MM misc [...] times/week 42.5 g 3 11/07/19 24 Active Empagliflozin-metF ORMIN HCl ER (Synjardy [...] 24 Active Insulin Disposable Pump (Omnipod 5 [id number] Pods Gen 5) misc Use 1 each [...] Moderate Pain. 30 tablet 12/17/19 25 Active ondansetron ODT (ZOFRAN-ODT) [address] 1 tablet on the tongue Every 8 (Eight) Hours As Needed for Nausea or Vomiting. 30 tablet 1 04/29/20 25 Active ondansetron ODT (ZOFRAN-ODT) [address] 1 tablet on the tongue Every 8 (Eight) Hours As Needed for Nausea or Vomiting. 50 tablet 3 12/06/19 24 025 Discontin ued(Reord er) Active Problems Problem [...] 10/03/2021 Overview (10/04/2021): NSTEMI 10/01/2021 treated at [facility] with 100% ramus treated with a 2.5 mm LILY, proximal and mid LAD treated with 3.0 mm i Synergy stents. Residual chest pain admitted to [facility] 10/04/2021, repeat LHC showed widely patent ramus [...] (10/04/2021): Added automatically from request for surgery [id number] Leg pain, left 12/04/2020 10/11/2022 Chest pain [...] be able to see pt sooner ([facility]) although insurance may be a [...] Encounters Date Type Department Care Team Description 04/29/2025 Refill [facility] INTER[facility] MEDIC[facility] & [facility]EDIATRICS 100 [facility] 200 [place] [address] Lionel Barriga MD 03/24/2025 Prior Authorization [facility]ATRICS 100 [facility] [address] [place] [address] Lionel Barriga MD Prior Authorization (HYDROcodone-Acetamin ophen 7.5-325MG tablets) 03/12/2025 Telephone [facility] PULMONARY & CRITICAL CARE MEDICINE 3000 [facility] 240 [place] [address] Edmundo Deleon MD from Last [...] Judd Lorenzana Arthritis Maternal Aunt April Llamas Sherriemamiegary COPD Maternal Aunt April Chisholmgary Other Maternal Aunt April Llamas Carolssydgary Alzhei fidel's, diverticulitis, and Parkinsons Cancer Maternal Grandfather Sathya Perazan Harriett Melanoma Early Maternal Grandfather Sathya Lorenzana of adult leukema Melanoma Maternal Grandfather Sathya Perazaamrik Lorenzana Depression Maternal Grandmother Shayy Joon Anemia Mother Holley Lorenzana Anxiety disorder Mother [...] Vasquez Paternal Grandmother Verna Valentines Sister 1 Inge Lorenzana Alive Sister 2 Inge Valentines Alive Sister [...] Description 06/29/2025 11:30 AM EST Office Visit [facility] PULMONARY & CRITICAL CARE MEDICINE [address] [facility] [address] [place] [address] Anitha Rehman, STORAGE ENGINEER [address] [place] [address] 06/29/2025 12:00 PM EST Office Visit [facility] MED[facility]ATRICS 100 [facility] 200 [place] [address] Lionel Barriga MD 100 [facility] [address] [place] [address] Health Maintenance Due Date Last Done Comments [...] Additional history exists TDAP/TD VACCINES (2 - Td or Tdap) 11/22/2034 025, 12/02/2019 HEPATITIS C SCREENING Completed 11/12/2023 , 10/03/2021, 06/05/2017 [facility] Discontinued Procedures Procedure Name Priority Date/Time Associated Diagnosis Comments SCANNED - LABS 03/23/2025 SCANNED - LABS 03/09/2025 SCANNED - LABS 03/09/2025 HEMOGLOBIN A1C Routine 08/27/2024 3:19 PM EDT [...] to Health Maintenance Results * LABS SCANNED (03/23/2025) Only the most recent of3 resultswithin the time period is included. Lionel Barriga MD LAB BLOOD ORDERABLES Final Result * (ABNORMAL) Hemoglobin A1c (08/27/2024 3:19 PM EDT) Hemoglobin A1C 9.00(H) 4.80 - 5.60 % 08/27/2024 11:34 PM EDT [facility] Blood Venipuncture / Unknown 08/27/2024 3:19 PM EDT 08/27/2024 3:19 PM EDT [facility] - 08/27/2024 11:34 PM EDT Hemoglobin A1C Ranges: Increased Risk for Diabetes 5.7% to 6.4% Diabetes >= 6.5% Diabetic Goal < 7.0% Lionel Barriga MD LAB BLOOD ORDERABLES Final Result [facility]
[address] [place] [address], * (ABNORMAL) Lipid Panel (08/27/2024 3:19 PM EDT) Pathologist [facility] Total Cholesterol 123 0 - 200 mg/dL 08/27/2024 11:39 PM EDT [facility] Triglycerides 232(H) 0 - 150 mg/dL 08/27/2024 11:39 PM EDT [facility] HDL Cholesterol 37(L) 40 - 60 mg/dL 08/27/2024 11:39 PM EDT [facility] LDL Cholesterol 49 0 - 100 mg/dL 08/27/2024 11:39 PM EDT [facility] VLDL Cholesterol 37 5 - 40 mg/dL 08/27/2024 11:39 PM EDT [facility] LDL/HDL Ratio 1.07 08/27/2024 11:39 PM EDT [facility] Blood Venipuncture / Unknown 08/27/2024 3:19 PM EDT 08/27/2024 3:19 PM EDT [facility] - 08/27/2024 11:39 PM EDT [...] BLOOD ORDERABLES Final Result [facility]
[address] [place] [address], * FOOT EXAM SCANNED (06/20/2023) Lionel Barriga MD CHART REVIEW TABS Final Result * LIQUID-BASED PAP SMEAR, [facility] (TWILA,COR,MAD) (08/15/2022 1:50 PM EDT) Pathologist [facility] Reference Lab Report [facility] [address] [place] [address] or [phone] Sharif Fan M.D., Athletic Gear Custodian PATIENT NAME LABORATORY NO. LEOLA ROSE. [id number] AGE SEX SSN CLIENT REF # [facility] [address] 1965 F [id number] APRIL CRUZ MD REQUESTING Rhonda ATTENDING M.D. COPY TO. [address] [facility] [address] [place] [address] DATE COLLECTED DATE RECEIVED DATE REPORTED 08/15/2022 [...] DUE TO NON-DIAGNOSTIC Unsatisfactory cervical Papanicolaou smear SERGEANT OF OFFICERS: NICKI VICK(ASCP) CPT CODES: 72388 08/16/2022 12:04 PM EDT [facility] ThinPrep Vial Collection / Unknown 08/15/2022 1:50 PM EDT 08/15/2022 1:50 PM EDT us April Cruz MD PATHOLOGY/CYTOLOGY ORDERABLE S Final Result [facility]
[address] [place] [address], * Mammo Screening Digital Tomosynthesis Bilateral With [...] acquisitions and tomosynthesis. COMPARISON: Outside mammograms from [place], [place] dated 02/18/2019 and 01/15/2018. FINDINGS: There are scattered areas of fibroglandular density. The fibroglandular pattern is stable. There are no suspicious masses, worrisome calcifications, nonsurgical areas of architectural distortion, or other secondary signs of malignancy. Lionel Barriga MD [facility] MAMMOGRAPHY ORDERABLES Final Result * Hepatitis Panel, Acute (10/03/2021 6:13 PM EDT) Hepatitis B Surface Ag Non-Reacti ve Non-Reacti ve 10/03/2021 8:39 PM EDT [facility] Hep A IgM Non-Reacti ve Non-Reacti ve 10/03/2021 8:39 PM EDT [facility] Hep B C IgM Non-Reacti ve Non-Reacti ve 10/03/2021 8:39 PM EDT [facility] Hepatitis C Ab Non-Reacti ve Non-Reacti ve 10/03/2021 8:39 PM EDT [facility] Blood Line / Unknown 10/03/2021 6: 13 PM EDT 10/03/2021 6:20 PM EDT Narrative [facility] - 10/03/2021 8:39 PM EDT Results may be falsely decreased if patient taking Biotin. Bisi Rasmussen PA-C LAB BLOOD ORDERABLES Final Result [facility]
[address] [place] [address], * SCANNED - INFLUENZA (04/08/2019) Lionel Barriga [...] Of Support Discussed With: Patient Care Teams Rn Neonatal Relationship Specialty Start Date End Date Lionel Barriga MD 100 [facility] 200 [place] [address] PCP - General Internal Medicine 05/10/17
--- OUTSIDE RECORDS SUMMARY | 2025-05-18 08:56 | XMS_ITS | Clinical Summary ---
Author Organization [facility] Address [address] [facility], [address] [place] [address] Care Team Providers Care Brown Stock Washer Name Role Phone Unavailable Primary Care Provider [...]
--- OUTSIDE RECORDS SUMMARY | 2025-05-18 08:56 | XMS_ITS | Encounter Summary ---
Author Organization [facility] Address [address] [place] [address] Care Team Providers Care Sample Grinder Name Role Phone Brisa Patel Unavailable Lionel Barriga MD Primary Care Provider + [phone] Encounter Details Date Type Department Care Team (Late st Contact Info) Description 01/17/2022 Community [facility] [address] [place] [address] Jami Maldonado R, ASSISTANT GOLF COACH 100 [facility] 200 [place], [place] [id number] Rheumatoid arthritis, involving unspecified site, unspecified whether rheumatoid factor present (CMS/[facility]) (Primary Dx) Social History Tobacco Use [...] Description 10/20/2025 10:30 AM EDT Office Visit [facility] [address] [place] [address] Shalonda Gomez R, ASSISTANT GOLF COACH [address] [place] [address] documented as of this encounter Visit Diagnoses Diagnosis Rheumatoid arthritis, involving unspecified site, unspecified whether rheumatoid factor present ([facility])- Primary documented in this encounter Care Teams Sample Grinder Relationship Specialty Start Date End Date Lionel Barriga MD 100 [facility] [address] [place] [address] PCP - General 03/07/23 Brisa Patel [address] [place] [address] 01/12/22 documented as of this encounter
--- OUTSIDE RECORDS SUMMARY | 2025-05-18 08:56 | XMS_ITS | Encounter Summary ---
Author Organization [facility] Address [address] [place] [address] Care Team Providers Care Comp Field Case Manager Name Role Phone Lionel Barriga MD Primary Care Provider +1- [phone] Encounter Details Date Type Department Care Team (Late st Contact Info) Description 03/12/2025 Telephone [facility]ARE MEDICINE 3000 [facility] 240 [place] [address] Edmundo Deleon MD [address] [place] [id number] Social History Tobacco Use Types Packs/Day Years [...] encounter Miscellaneous Notes * Telephone Encounter - [place] RegSched Rep - 03/12/2025 12:36 PM EDTSummary: CT ORDER Patient called to reschedule her upcoming appointment. She mentioned that she is only available on Mondays. Additionally, she stated that she needs a CT scan prior to the visit. Could you please send the CT order to [facility] in [place]? documented in this encounter Plan of Treatment Upcoming Encounters Date Type Department Care Team (Late st Contact Info) Description 06/29/2025 11:30 AM EST Office Visit [facility] PULMONARY & CRITICAL CARE MEDICINE 3000 [facility] [address] [place] [address] Anitha Rehman, EMBLEM DRAWER IN [address] [place] [address] 06/29/2025 12:00 PM EST Office Visit [facility] INTERNAL MEDICINE & PEDIATRICS 100 [facility] 200 [place] [address] Lionel Barriga MD 100 [facility] 200 [place] [address] documented as of this encounter Visit Diagnoses Not on filedocumented in this encounter Care Teams Comp Field Case Manager Relationship Specialty Start Date End Date Lionel Barriga MD 100 [facility] 200 [place] [address] PCP - General Internal Medicine 05/10/17 documented as of this encounter
--- OUTSIDE RECORDS SUMMARY | 2025-05-18 08:56 | XMS_ITS | Clinical Summary ---
Author Organization [facility] Address [address] [place] [address] Care Team Providers Care Fancy Needleworker Name Role Phone Other, Physician Outofgonzalo KERR Primary Care Provi trudy Unavailable Allergies [...] complete this topic Insurance 62 [address] SEN [id number] ONEIL MASSEY CROSS ALL OTHERS NOT MEDICARE Care Teams Fancy Needleworker Relationship Specialty Start Date End Date Other, Physician MD Queta Other PCP - General Internal Medicine 09/06/23
--- OUTSIDE RECORDS SUMMARY | 2025-05-18 08:56 | XMS_ITS | Encounter Summary ---
Author Organization [facility] Address [address] [place] [address] Care Team Providers Care Gps Field Data Collector Name Role Phone Lionel Barriga MD Primary Care Provider +1- [phone] Encounter Details Date Type Department Care Team (Late st Contact Info) Description 11/18/2024 Results Follow-Up [facility] INTERNAL MEDICINE & PEDIATRICS 100 [facility] 200 [place] [address] Lionel Barriga MD 100 [facility] 200 [place] [address] Social History Tobacco Use Types [...] Description 06/29/2025 11:30 AM EST Office Visit [facility] PULMONARY & CRITICAL CARE MEDICINE 3000 [facility] 240 [place] [address] Anitha Rehman, BOOK CLEANER [address] [place] [address] 06/29/2025 12:00 PM EST Office Visit [facility] INTER[facility] MEDIC[facility] PEDIATRICS [address] [phone] Lionel Barriga MD [address] [address] documented as of this encounter Visit Diagnoses Not on filedocumented in this encounter Care Teams Gps Field Data Collector Relationship Specialty Start Date End Date Lionel Barriga MD [address] [address] PCP - General Internal Medicine 05/10/17 documented as of this encounter
--- OUTSIDE RECORDS SUMMARY | 2025-05-18 08:56 | XMS_ITS | Encounter Summary ---
Author Organization [facility] Address [address] [place] [address] Care Team Providers Care Assistant Import Manager Name Role Phone Brisa Patel Unavailable Lionel Barriga MD Primary Care Provider +1- [phone] Reason for Referral * Consultation (Routine) - Closed Specialty Diagnoses / Procedures Referred By Hanna stone Referred To Contact Ophthalmology Diagnoses Type 2 diabetes mellitus treated with insulin Retinopathy Lionel Barriga MD 100 [facility] [address] [place] [address] Phone: tel: fax: [facility] [address] [place] [address] Phone: tel: fax: Referral ID Status Reason Start Date Expiration Date V isits Requested Visits Authorized [id number] Closed Specialty Services Required 03/01/2023 08/30/2024 1 1 Encounter Details Date Type Department Care Team (Late st Contact Info) Description 03/01/2023 Community [facility] Community Practice [address] [place] [address] Lionel Barriga MD 100 [facility] [address] [place] [address] Type 2 diabetes mellitus treated with insulin [...] Description 10/20/2025 10:30 AM EDT Office Visit [facility] [address] [place] [address] [place], [address] [place] [address] Scheduled Referrals Name Type Priority Associated Diagnoses Order Schedule Ambulatory Referral to Ophthalmology Outpatient Referral Routine Type 2 diabetes mellitus treated with insulin (CMS/HCC) Retinopathy Expected: 03/01/2023 (Approximate), Expires: 08/30/2024 documented as of this encounter Visit Diagnoses Diagnosis Type 2 diabetes mellitus treated with insulin- Primary Retinopathy Unspecified background retinopathy documented in this encounter Care Teams Assistant Import Manager Relationship Specialty Start Date End Date Lionel Barriga MD 100 [facility] [address] [place] [address] PCP - General 03/07/23 Brisa Patel [address] [place] [address] 01/12/22 documented as of this encounter
--- OUTSIDE RECORDS SUMMARY | 2025-05-18 08:56 | XMS_ITS | Encounter Summary ---
[facility] Address [address] [place] [address] Care Team Providers Care Game Technician Name Role Phone Lionel Barriga MD Primary Care Provider +1- [phone] Reason for Visit * Reason Onset Date Comments Med Refill 04/29/2025 Encounter Details Date Type Department Care Team (Late st Contact Info) Description 04/29/2025 Refill [facility] INTER[facility] MEDICINE & PEDIATRICS [address] [address] Lionel Barriga MD 100 [facility] 200 [place] [address] Social History Tobacco Use Types [...] Description 06/29/2025 11:30 AM EST Office Visit [facility] PUL[facility] CRITICAL CARE MEDICINE 3000 [facility] 240 [place] [address] Anitha Rehman, [place] GLACIER GUIDE [address] [place] [id number] 06/29/2025 12:00 PM EST Office Visit [facility] MED[facility]ED[facility]ATRICS 100 [facility] 200 [place] [address] Lionel Brariga MD 100 [facility] 200 [place] [address] documented as of this encounter Visit Diagnoses Not on filedocumented in this encounter Care Teams Game Technician Relationship Specialty Start Date End Date Lionel Barriga MD 100 [facility] 200 [place] [address] PCP - General Internal Medicine 05/10/17 documented as of this encounter
--- OUTSIDE RECORDS SUMMARY | 2025-05-18 08:56 | XMS_ITS | Clinical Summary ---
Author Organization [facility] Address [address] [place] [address] Care Team Providers Care Vacuum Forming Machine Operator Name Role Phone Brisa Patel Unavailable Lionel Barriga MD Primary Care Provider +1- [phone] Allergies No known active allergies Medications acetaminophen (Tylenol) 500 MG tablet Take by mouth. Activ e aspirin 81 MG EC tablet Take 1 tablet by mouth 1 time each day. Active B Jccxghx-V-Zuydj Acid (Super B Complex/FA/Vit C) tablet Active [...] Prep) pads Active Blood Glucose Monitoring Suppl (ZOOM TVStyle Lite) w/Device kit 03/08/20 23 Active buPROPion [...] solution auto-injector 1 mg. Active Continuous Glucose Drum Handler (Dexcom G6 data consultant) device 09/07/19 24 Active traZODone (Desyrel) 100 MG tablet 02/11/20 24 Active atomoxetine (Strattera) 25 MG capsule Take 1 capsule by mouth 1 time each day. Active famotidine-calciu m carb-mag hydroxide (Pepcid Complete) 10-800-165 MG chewable tablet Chew 1 tablet daily as needed for heartburn. Active insulin aspart, w/niacinamide, 100 UNIT/ML solution vial Infuse 100 Units into a venous catheter. 09/05/19 25 Active Mounjaro 2.5 MG/0.5ML solution auto-injector solution pen-injector INJECT THE CONTENTS OF 1 PEN (2.5 MG / 0.5ML) SUBCUTANEOUSLY ONCE A WEEK 03/09/20 25 Active tocilizumab (Actemra) 80 MG/4ML solution Inject 0.4 mL under the skin every 7 days. Active predniSONE (Deltasone) 5 MG tabletIndications :Rheumatoid arthritis, involving unspecified site, unspecified whether rheumatoid factor present (CMS/HCC) 1-2 tablets daily as needed for flare up. Notify Rheumatology provider if you have to take for 5 consecutive days. 30 tablet 1 04/20/20 25 Active predniSONE (Deltasone) 5 MG tabletIndications :Rheumatoid arthritis, involving unspecified site, unspecified whether rheumatoid factor present (CMS/HCC) 1-2 tablets daily as needed for flare up. Notify Rheumatology provider if you have to take for 5 consecutive days. 30 tablet 1 09/09/19 25 025 Disconti nued(Reo rder) methylPREDNISolon e (Medrol Dospak) 4 MG tablets Follow schedule on package instructions 21 tablet 10/24/19 25 025 Disconti nued(Ent ered in Error) Active Problems Problem Noted Date Diagnosed Date Obesity (BMI 30.0-34.9) 10/11/2022 03/07/20 23 CAD (coronary artery disease) 10/03/2021 Overview (03/07/2023): NSTEMI 10/01/2021 treated at [facility] with 100% ramus treated with a 2.5 mm LILY, proximal and mid LAD treated with 3.0 mm i Synergy stents. Residual chest pain admitted to [facility] 10/04/2021, repeat [facility] showed widely patent ramus and LAD stents between the proximal and mid LAD stents 20-30% stenosis, proximal RCA 10-20%. LVEDP 14 mmHg. 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 03/07/2023 Encounters Date Type Department Care Team Description 05/01/2025 Orders Only [facility] [address] [place] [address] Provider, Historical 04/20/2025 10:00 AM EST Office Visit [facility] [address] [place] [address] Jason, May R, STEAM HAMMER OPERATOR Rheumatoid arthritis, involving unspecified site, unspecified whether rheumatoid factor present (CMS/[facility]) (Primary Dx); High risk medication use; Sicca syndrome (CMS/[facility]); Family history of Crohn's disease 04/20/2025 Travel from Last 3 Months Immunizations Immunization Administration Dates Next Due Hep A, Adult 04/08/2019, 9,04/02/2018,03/28 Influenza, Unspecified 03/13/2022,06/16/2020 Influenza, injectable, quadrivalent 03/24/2020,0 01/26/2019 Influenza, injectable, quadr ivalent, preservative free 02/15/2023,03/13/2022,04/08/2019 Pneumococcal Conjugate PCV 13 04/08/2019, 019 Pneumococcal Polysaccharide PPV23 05/29/2017,05/2017 TD (adult), 2 Lf tetanus tox oid, preservative free, adsorbed 12/02/2019 Tdap 11/22/2024 Zoster, Recombinant 12/31/2019,12/04/2019 Family History Medical History Relation Name Comments Cataracts Father Sathya Lorenzana Diabetes Father Sathya Lorenzana Hypertension Father Sathya Lorenzana Stroke Father Sathya Lorenzana Cancer Maternal Grandfather COPD Mother Effie Lorenzana Cataracts Mother Effie Lorenzana Crohn's disease Mother Effie Lorenzana Macular degeneration Mother Effie Lorenzana Thyroid disease Mother Effie Lorenzana Diabetes Paternal Grandmother Verna Valentines Relation Name Status Comments Father Sathya Lorenzana Alive Maternal Grandfather Mother Effie Lorenzana Alive Paternal Grandmother Verna Harriett Alive Social History Tobacco Use Types Packs/Day [...] Pulse 84 04/20/2025 9:58 AM EST Temperature 36.6 C (97.9 F) 09/19/2024 10:52 AM EDT Respiratory Rate 16 04/20/2025 9:58 AM EST Oxygen Saturation 95% 04/20/2025 9:58 AM EST Inhaled Oxygen Concentration - - Weight 94.4 kg (208 lb 1.8 oz) 04/20/2025 9:58 A M EST Height 170.2 cm (5' 7 ) 04/20/2025 9:58 AM EST Body Mass Index 32.6 04/20/2025 9:58 AM EST Plan of Treatment Upcoming Encounters Date Type Department Care Team (Late st Contact Info) Description 10/20/2025 10:30 AM EDT Office Visit [facility] [address] [place] [address] Jason, May R, STEAM HAMMER OPERATOR [address] [place] [address] Health Maintenance Due Date Last Done Comments [facility]-/Child/Adol SDOH Screenings 1966 [id number] Vaccine (#1) 06/07/1967 Diabetes: Dental Exam 1976 [facility]- SDOH Screenings 1984 [facility]-Adult SDOH Screenings 1984 [facility]-Hepatitis B Vaccines (1 of 3 - 19+ 3-dose series) 1985 [facility]-Pap Smear 12/06/1987 [facility]-Cervical Cancer Screening 1996 [facility]-HPV/Cotest 1996 CT Colonography 12/06/2011 Colonoscopy 12/06/2011 FIT-DNA 12/06/2011 FIT 12/06/2011 FOBT 12/06/2011 Sigmoidoscopy 12/06/2011 [facility]-Colorectal Cancer Screening 12/06/2011 [facility]-Pneumococcal Vaccine: 50+ Years (3 of 3 - PCV20 or PCV21) 04/08/2024 04/08/2019, 05/28/2018, 05/29/2017, Additional history exists [facility]-Breast Cancer Screening 04/26/2024 04/26/2022, 1 06/26/2021 [facility]-Diabetes: Hemoglobin A1C 11/26/202406/2024, 04/02/2024, 12/28/2023, Additional history exists [facility]-Influenza Vaccine (#1) 01/26/202502/15, 03/13/2022, 03/13/2022, Additional history exists [facility]-Depression Screening 09/15/2025 09/15/2024, 08/27 [facility]-DTaP,Tdap,and Td Vaccines (2 - Td or Tdap) 11/22/2034 11/22/2024, 12/02/2019 [facility]-Hepatitis A Vaccines Aged Out 019, 01/26/2019, 04/02/2018, Additional history exists No longer eligible based on patient's age to complete this topic [facility]-Zoster Vaccines Completed 12/31/2019, [facility]-HIV Screening Completed 11/12/2023 [facility]-Hepatitis C Screening Completed 11/12/2023 [facility]-Obesity Intervention Completed 025, 09/15/2024, 06/20/2024, Additional history exists HPV Vaccines (No Doses Required) Completed [facility]-HIB Vaccines Aged Out No longer e [...] Antibody/Antigen Screen (11/12/2023 9:29 AM EDT) Pathologist [facility] [place] HIV 1 & 2 Antibody/Antigen Screen Non Reactive Non Reactive 11/12/2023 11:25 AM EDT [facility] Comment:Screening for HIV 1 & 2 antibodies, and P24 antigen is NONREACTIVE. No confirmatory testing is required. Blood Venous blood specimen / Unknown Venipuncture / Unknown 11/12/2023 9:29 AM EDT 11/12/2023 9:32 AM EDT May R Jason BOBN LAB BLOOD ORDERABLES Final Result [facility] [address] [place], [place] [id number] * Acute Hepatitis Panel (11/12/2023 9:29 AM EDT) Pathologist [facility] [place] Hepatitis B Surf Antigen Negative Negative 11/12/2023 11:46 AM EDT [facility] Hepatitis C Antibody Negative Negative 11/12/2023 11:46 AM EDT [facility] Hepatitis A Antibody IgM Negative Negative 11/12/2023 11:46 AM EDT [facility] Hepatitis B Core Antibody IgM Negative Negative 11/12/2023 11:46 AM EDT [facility] Blood Venous blood specimen / Unknown Venipuncture / Unknown 11/12/2023 9:29 AM EDT 11/12/2023 9:32 AM EDT May Barry Gomez STEAM HAMMER OPERATOR LAB BLOOD ORDERABLES Final Result [facility] [address] [place] [address] from Last 3 Months or Most Recently Relevant to Health Maintenance Insurance [employer] Care Teams Vacuum Forming Machine Operator Relationship Specialty Start Date End Date Lionel Barriga MD 100 [facility] [address] [place] [address] PCP - General 03/07/23 Brisa Patel [address] [place] [address] 01/12/22
--- OUTSIDE RECORDS SUMMARY | 2025-05-18 08:56 | XMS_ITS | Encounter Summary ---
Author Organization [facility] Address [address] [place] [address] Care Team Providers Care Dental Laboratory Assistant Name Role Phone Lionel Barriga MD Primary Care Provider +1- [phone] Encounter Details Date Type Department Care Team (Late st Contact Info) Description 11/18/2024 Results Follow-Up [facility]NAL MEDICINE & PEDIATRICS 100 [facility] 200 [place] [address] Lionel Barriga MD 100 [facility] 200 [place] [address] Social History Tobacco Use Types [...] 11:30 AM EST Office Visit [facility] PULMONARY & CRITICAL CARE MEDICINE [address] [facility] [address] [place] [address] Anitha Rehman, EDITOR IN CHIEF [address] [place] [address] 06/29/2025 12:00 PM EST Office Visit [facility]ED[facility]AT[facility]ICS 100 [facility] 200 [place] [phone] Lionel Barriga MD 100 [facility] [address] [place] [address] documented as of this encounter Visit Diagnoses Not on filedocumented in this encounter Care Teams Dental Laboratory Assistant Relationship Specialty Start Date End Date Lionel Barriga MD 100 [facility] 200 [place] [address] PCP - General Internal Medicine 05/10/17 documented as of this encounter
--- OUTSIDE RECORDS SUMMARY | 2025-05-18 08:56 | XMS_ITS | Encounter Summary ---
Author Organization [facility] Address [address] [place] [address] Care Team Providers Care Welding Machine Operator Helper Gas Name Role Phone Lionel Barriga MD Primary Care Provider +1- [phone] Encounter Details Date Type Department Care Team (Late st Contact Info) Description 05/30/2023 Prep for Surgery [facility] ORDERS ONLY [address] [place] [address] Rigo Andersen MD [address] [facility] [address] [place], [place] [id number] Dysphagia, unspecified type (Primary Dx); Moderate coronary [...] Description 06/29/2025 11:30 AM EST Office Visit [facility] PULMONARY & CRITICAL CARE MEDICINE 3000 [facility] [address] [place] [address] Anitha Rehman, DATA SECURITY ANALYST [address] [place] [address] 06/29/2025 12:00 PM EST Office Visit [facility] INTERNAL MEDICINE & PEDIATRICS [address] [phone] Lionel Barriga MD 100 [facility] 200 [place] [address] documented as of this encounter Visit Diagnoses Diagnosis Dysphagia, unspecified type- Primary Moderate coronary artery risk chest pain documented in this encounter Care Teams Welding Machine Operator Helper Gas Relationship Specialty Start Date End Date Lionel Barriga MD [address] [address] PCP - General Internal Medicine 05/10/17 documented as of this encounter
--- OUTSIDE RECORDS SUMMARY | 2025-05-18 08:56 | XMS_ITS | Encounter Summary ---
Author Organization [facility] Address [address] [place] [address] Care Team Providers Care Facilitator Name Role Phone Brisa Patel Unavailable Lionel Barriga MD Primary Care Provider +1- [phone] Encounter Details Date Type Department Care Team (Late st Contact Info) Description 05/01/[address] [facility] [address] [place] [address] Provider, [place] [address] [place] [address] Social History Tobacco Use Types Packs/Day Years [...] Description 10/20/2025 10:30 AM EDT Office Visit [facility] [address] [place] [address] Jason, May R, BRANCH SERVICE SPECIALIST [address] [place] [address] documented as of this encounter [...] documented as of this encounter Care Teams Facilitator Relationship Specialty Start Date End Date Lionel Barriga MD 100 [facility] [address] [place] [address] PCP - General 03/07/23 Brisa Patel [address] [place], [place] [phone] 01/12/22 documented as of this encounter
--- OUTSIDE RECORDS SUMMARY | 2025-05-18 08:56 | XMS_ITS | Encounter Summary ---
Author Organization [facility] Address [address] [place] [address] Care Team Providers Care Strategic Intelligence Officer Name Role Phone Lionel Barriga MD Primary Care Provider +1- [phone] Encounter Details Date Type Department Care Team (Late st Contact Info) Description 07/29/2020 Telephone [facility] INTERNAL MEDICINE & PEDIATRICS [address] [address] Lionel Barriga MD 100 [facility] 200 [place] [address] Social History Tobacco Use Types [...] Description 06/29/2025 11:30 AM EST Office Visit [facility] PULMONARY & CRITICAL CARE MEDICINE 3000 [facility] 240 [place] [phone] Anitha Rehman, SIGN HANGER [address] [place] [address] 06/29/2025 12:00 PM EST Office Visit [facility] INTERNAL MEDICINE & PEDIATRICS 100 [facility] 200 [place] [phone] Lionel Barriga MD 100 [facility] 200 [place] [address] documented as of this encounter Visit Diagnoses Not on filedocumented in this encounter Additional Health Concerns Infection Onset Date Last Indicated Resolved Time COVID Screen (preop/placement) 12/03/2020 12/03/2020 12/03/2020 11:44 PM EDT COVID Screen (preop/placement) 10/03/2021 10/03/2021 10/03/2021 9:11 PM EDT COVID (rule out) 01/19/2023 01/19/2023 01/26/2023 9:08 PM EDT documented as of this encounter Care Teams Strategic Intelligence Officer Relationship Specialty Start Date End Date Lionel Barriga MD [address] [address] PCP - General Internal Medicine 05/10/17 documented as of this encounter
--- OUTSIDE RECORDS SUMMARY | 2025-05-18 08:56 | XMS_ITS | Encounter Summary ---
Author Organization [facility] Address [address] [place] [address] Care Team Providers Care Electrical Line Worker Name Role Phone Lionel Barriga MD Primary Care Provider +1- [phone] Reason for Visit * Reason Onset Date Comments Prior Authorization 03/24/2025 HYDROcodone- Acetaminophen 7.5-325MG tablets Encounter Details Date Type Department Care Team (Late st Contact Info) Description 03/24/2025 Prior Authorization [facility] INTERNAL MEDICINE & PEDIATRICS 100 [facility] 200 [place] [address] Lionel Barriga MD 100 [facility] 200 [place] [address] Prior Authorization (HYDROcodone-Acetami nophen 7.5-325MG tablets) Social History Tobacco Use Types Packs/Day Years [...] encounter Miscellaneous Notes * Telephone Encounter - Farrah Chinchilla CMA - 03/24/2025 10:55 AM EDT Outcome Additional Information Required Your PA has been resolved, no additional PA is required. For further inquiries please contact the number on the back of the member prescription card. (Message [phone]) * Telephone Encounter - Farrah Chinchilla CMA - 03/24/2025 10:54 AM EDT PA submitted thru covermymeds [place]: [id number] documented in this encounter Plan of Treatment Upcoming Encounters Date Type Department Care Team (Late st Contact Info) Description 06/29/2025 11:30 AM EST Office Visit [facility] PULMONARY & CRITICAL CARE MEDICINE 3000 [facility] 240 [place] [address] Anitha Rehman, IN PROCESS INSPECTOR [address] [place] [address] 06/29/2025 12:00 PM EST Office Visit [facility] INTERNAL MEDICINE & PEDIATRICS 100 [facility] 200 [place] [address] Lionel Barriga MD [address] [address] documented as of this encounter Visit Diagnoses Not on filedocumented in this encounter Care Teams Electrical Line Worker Relationship Specialty Start Date End Date Lionel Barriga MD 100 [facility] 200 [place] [address] PCP - General Internal Medicine 05/10/17 documented as of this encounter
--- OUTSIDE RECORDS SUMMARY | 2025-05-18 08:56 | XMS_ITS | Encounter Summary ---
Author Organization [facility] Address [address] [place] [address] Care Team Providers Care Business Services Manager Name Role Phone Brisa Patel Unavailable Lionel Barriga MD Primary Care Provider +1- [phone] Encounter Details Date Type Department Care Team (Latest Contact Info) Description 04/20/2025 Travel Social History Tobacco Use Types Packs/Day [...] as of this encounter Functional Status * AUDIT-C Score Answer Date of Assessment Author 0 04/20/2025 10:01 AM ANDREW Bonilla rLeslye R * Question Answer Date of Assessment Author Q1: How often do you have a drink containing alcohol? Never 04/20/2025 10:01 AM Luis Mendieta in R Q2: How many drinks containing alcohol do you have on a typical day when you are drinking? Patient does not drink 04/20/2025 10:01 AM Leslye Mendieta R Q3: How often do you have six or more drinks on one occasion? Never 04/20/2025 10:01 AM Luis Mendieta in R documented as of this encounter Plan of Treatment Upcoming Encounters Date Type Department Care Team (Late st Contact Info) Description 10/20/2025 10:30 AM EDT Office Visit [facility] [address] [place] [address] Jason, May R, RETAIL LOAN OFFICER [address] [place] [address] documented as of this encounter [...] documented as of this encounter Care Teams Business Services Manager Relationship Specialty Start Date End Date Lionel Barriga MD 100 [facility] [address] [place] [address] PCP - General 03/07/23 Brisa Patel [address] [address] 01/12/22 documented as of this encounter
[2025-05-18 09:23] LABS: Albumin Level 3.9 g/dl (3.5-5.0); Chloride 106 mmol/L (98-107); Potassium 3.8 mmoL/L (3.5-5.1); Sodium 136 mmol/L (136-145)
[2025-05-18 09:26] LABS: Alanine Aminotransferase 27 U/L (12-78); Albumin/Globulin Ratio 1.7 (1.1-1.8); Alkaline Phosphatase 61 U/L (38-126); Anion Gap 8.8 mEq/L (5-15); Aspartate Amino Transferase 29 U/L (14-36); Bilirubin,Total 0.4 mg/dl (0.2-1.3); Blood Urea Nitrogen 11 mg/dl (7-17); Carbon Dioxide 25 mmol/L (22.0-30.0); Creatinine,Serum 1.00 mg/dl (0.52-1.04); Estimated Glomerular Filt Rate 57 ml/min (>60); GFR (African American) 69 ML/MIN (>60); Globulin 2.3 g/dL (1.3-3.2); Total Protein,Serum 6.2 g/dl (6.3-8.2)
[2025-05-18 09:27] LABS: Calcium 9.1 mg/dl (8.4-10.2); Glucose 142 mg/dl (74-100)
[2025-05-18] MEDS: SODIUM CHLORIDE 0.9% 10ML FLUSH SYRINGE 10 ML IV (09:27)
[2025-05-18 09:28] VITALS: BP 119/65; PULSE 64; RESP 14; TEMP 36.7; O2SAT 98
[2025-05-18] MEDS: TOCILIZUMAB 800 MG in 0.9 % SODIUM CHLORIDE 60 ML 100 MG IV (09:28)
[2025-05-18 09:30] LABS: Hematocrit 39.3 % (37.0-47.0); Hemoglobin 12.7 g/dL (12.2-16.2); Immature Granulocytes % 0.2 %; Mean Corpuscular HGB Conc 32.3 g/dL (31.8-35.4); Mean Corpuscular Hemoglobin 28.8 pg (27.0-31.2); Mean Corpuscular Volume 89.1 fl (81-99); Nucleated Red Blood Cells % 0 %; Platelet Count 212 K/mm3 (142-424); Red Blood Count 4.41 M/mm3 (4.20-5.40); Red Cell Distribution Width-SD 42.7 fL; White Blood Count 4.7 K/mm3 (4.8-10.8)
[2025-05-18 10:10] VITALS: BP 116/64; PULSE 65; RESP 14; O2SAT 97
[2025-05-18 10:35] VITALS: BP 113/62; PULSE 63; RESP 16; O2SAT 97
--- NOTE | 2025-05-18 10:54 | CT_ITS ---
FINAL REPORT CLINICAL HISTORY: [address], checking on nodules from prior CT scan COMPARISON: 03/14/2024 FINDINGS: CT CHEST without contrast COMPARISON: 03/14/2024 TECHNIQUE: Axial CT without contrast This study was performed with techniques to keep radiation doses as low as reasonably achievable, (ALARA). Individualized dose reduction techniques using automated exposure control or adjustment of mA and/or kV according to the patient's size were employed. FINDINGS: There is a 3 mm posterior left lower lobe nodule best seen on image 165, stable since the prior exam. There are patchy ground glass posterior left lower lobe opacities, seen on images #140 through 153, more prominent than seen on the prior CT. The right lung is clear. No pleural or pericardial effusion is seen . No adenopathy or mass lesion is present . IMPRESSION: 1. There are patchy ground glass opacities in the posterior left lower lobe as described, more pronounced than seen on the prior exam of 2023. 2. Stable posterior left lower lobe nodule, 3 mm in size. This study was performed using automated techniques to achieve radiation exposure as low as reasonably achievable Reviewed, Interpreted and Dictated by Brenden Hodge MD Transcribed by Cecilia Mcgraw Authenticated and [facility]
== END 2025-05-18 23:59 | disposition home or self-care (01) ==
PROVIDERS: PCP Internal Medicine; Visit Provider Nurse Practitioner Primary Care
DX: M06.9 Rheumatoid arthritis, unspecified (principal)
CPT/HCPCS: 71250; 80053; 85025; 96413; J3262